=== PATIENT | female | born 1960 | race African-American/Black ===

== ENCOUNTER 2017-07-23 10:48 | Emergency (ER) | payer MEDICARE, OTHER ==
[2017-07-23 11:26] VITALS: BP 141/67; PULSE 78; RESP 18; TEMP 98.9
--- NOTE | 2017-07-23 11:50 | ED ---
General Adult HPI - General Chief complaint: ENT Stated complaint: L ear problems Time Seen by Provider: 07/23/17 11:20 Source: patient, RN notes reviewed Mode of arrival: ambulatory Limitations: no limitations - History of Present Illness Initial comments: This a 57-year-old female presents emergency department stating that a nurse looked in her ear and told her she had some blood in her so she was sent to the emergency department. Patient states she has had some muffled hearing out of that ear. Patient states she's had upper respiratory infection has had a little bit of pain in that ear. Patient denies any fever. Patient denies any drainage. Patient states the blood in her ear might be from using a Q-tip that she poked herself in the ear canal the other day. Patient denies any difficulty breathing or shortness of breath per patient denies a cough. Patient denies any fever or chills. - Related Data Home Medications Medication Instructions Recorded Confirmed Atorvastatin [Lipitor] 20 mg PO HS 07/23/17 07/23/17 Levothyroxine Sodium [Synthroid] 88 mcg PO DAILY 07/23/17 07/23/17 Previous Rx's Medication Instructions Recorded Amoxicillin 500 mg PO Q8H #30 capsule 07/23/17 Allergies Allergy/AdvReac Type Severity Reaction Status Date / Time No Known Allergies Allergy Verified 07/23/17 11:42 Review of Systems ROS Statement: Those systems with pertinent positive or pertinent negative responses have been documented in the HPI. ROS Other: All systems not noted in ROS Statement are negative. Past Medical History Past Medical History: Hyperlipidemia, Thyroid Disorder Additional Past Medical History / Comment(s): Back pain History of Any Multi-Drug Resistant Organisms: None Reported Additional Past Surgical History / Comment(s): Thyroidectomy, carpal tunnel surgery Past Psychological History: No Psychological Hx Reported Smoking Status: Current every day smoker Past Alcohol Use History: None Reported Past Drug Use History: None Reported General Exam - General Exam Comments Initial Comments: GENERAL Patient is well-developed and well-nourished. Patient is in mild distress. EYES Patient's pupils are equal and round. Extraocular motion is intact ENT Right ear canal shows some dried blood but there is no damage to the tympanic membrane. Rations membrane is bulging and mildly erythematous. SKIN Unremarkable NEURO The patient is alert and oriented 3 PYSCH Patient has normal interpersonal interactions. MUSCULOSKELETAL All 4 times and full range of motion. Limitations: no limitations Course Vital Signs 07/23/17 11:23 Temperature 98.9 F Pulse Rate 78 Respiratory 18 Rate Blood Pressure 141/67 O2 Sat by Pulse 97 Oximetry Disposition Clinical Impression: Otitis media, Ear canal abrasion Disposition: HOME SELF-CARE Condition: Good Instructions: Otitis Media (ED) Prescriptions: Amoxicillin 500 mg PO Q8H #30 capsule Referrals: None,Stated [Primary Care Provider] - 1-2 days Time of Disposition: 11:50
== END 2017-07-23 12:23 | disposition home or self-care (01) ==
LOC: EC 10:48 → MERGE 10:48 → EC 12:23
DX: S00.412A Abrasion of left ear, initial encounter (principal); H66.92 Otitis media, unspecified, left ear; E78.5 Hyperlipidemia, unspecified; E07.9 Disorder of thyroid, unspecified; F17.200 Nicotine dependence, unspecified, uncomplicated; Z79.899 Other long term (current) drug therapy; X58.XXXA Exposure to other specified factors, initial encounter
CPT/HCPCS: 99282

== ENCOUNTER 2017-10-10 02:12 | Emergency (ER) | payer MEDICARE, OTHER ==
[2017-10-10 02:21] VITALS: RESP 18
[2017-10-10] MEDS ORDERED: RX INFO: IV CONTRAST WAS GIVEN 1 EACH MISC MISCELLANE PRN (02:44)
[2017-10-10] MEDS ORDERED: SODIUM CHLORIDE 0.9% 1,000 ML IV STA (02:44)
--- NOTE | 2017-10-10 02:48 | ED ---
General Adult HPI - General Chief complaint: Abdominal Pain Stated complaint: Constipation Time Seen by Provider: 10/10/17 02:29 Source: patient, family, RN notes reviewed Mode of arrival: ambulatory Limitations: no limitations - History of Present Illness Initial comments: Patient is a pleasant 57-year-old female presenting to the emergency Department with feeling constipated. Patient states last normal bowel movement was close to 2 weeks ago. Patient feels full. Patient has tried several over-the- counter oral therapies for constipation without improvement of symptoms. Patient was recently diagnosed with stage IV gastric cancer. Patient just started chemotherapy over 1 week ago. No nausea or vomiting. No diarrhea. No fever. Discomfort is mild and feels fullness in the abdomen. - Related Data Home Medications Medication Instructions Recorded Confirmed Atorvastatin [Lipitor] 20 mg PO HS 07/23/17 07/23/17 Levothyroxine Sodium [Synthroid] 88 mcg PO DAILY 07/23/17 07/23/17 Previous Rx's Medication Instructions Recorded Amoxicillin 500 mg PO Q8H #30 capsule 07/23/17 Levofloxacin [Levaquin] 500 mg PO DAILY #9 tab 10/10/17 Allergies Allergy/AdvReac Type Severity Reaction Status Date / Time No Known Allergies Allergy Verified 10/10/17 02:21 Review of Systems ROS Statement: Those systems with pertinent positive or pertinent negative responses have been documented in the HPI. ROS Other: All systems not noted in ROS Statement are negative. Constitutional: Denies: fever Eyes: Denies: eye pain ENT: Denies: ear pain Respiratory: Denies: cough Cardiovascular: Denies: chest pain Endocrine: Denies: fatigue Gastrointestinal: Reports: abdominal pain, constipation Genitourinary: Denies: dysuria Musculoskeletal: Denies: back pain Skin: Denies: rash Neurological: Denies: weakness Past Medical History Past Medical History: Cancer, Hyperlipidemia, Thyroid Disorder Additional Past Medical History / Comment(s): Back pain, gastrointestinal CA History of Any Multi-Drug Resistant Organisms: None Reported Additional Past Surgical History / Comment(s): Thyroidectomy, carpal tunnel surgery Past Psychological History: No Psychological Hx Reported Smoking Status: Current every day smoker Past Alcohol Use History: None Reported Past Drug Use History: None Reported General Exam Limitations: no limitations General appearance: alert, in no apparent distress Head exam: Present: atraumatic Eye exam: Present: normal appearance, PERRL ENT exam: Present: normal oropharynx Neck exam: Present: normal inspection Respiratory exam: Present: normal lung sounds bilaterally Cardiovascular Exam: Present: regular rate, normal rhythm GI/Abdominal exam: Present: soft, normal bowel sounds. Absent: distended, tenderness, guarding, rebound, rigid Extremities exam: Present: normal inspection Neurological exam: Present: alert Psychiatric exam: Present: normal affect, normal mood Skin exam: Present: normal color Course Vital Signs 10/10/17 10/10/17 02:17 04:10 Temperature 97.5 F L 97.8 F Pulse Rate 103 H 92 Respiratory 18 18 Rate Blood Pressure 140/80 128/68 O2 Sat by Pulse 93 L 95 Oximetry Medical Decision Making - Medical Decision Making Patient reevaluated and updated. Case was discussed in detail with Dr. Davenport secondary to x-ray and CT findings. Patient clinically does not appear to have pneumonia. No dyspnea or fevers or abnormal lung sounds. He does recommend patient be treated with antibiotics however otherwise can be discharged and follow-up. - Lab Data Result diagrams: 10/10/17 02:59 10/10/17 02:59 Lab Results 10/10/17 10/10/17 10/10/17 Range/Units 02:59 02:59 02:59 WBC 7.1 (3.8-10.6) k/uL RBC 5.05 (3.80-5.40) m/uL Hgb 13.3 (11.4-16.0) gm/dL Hct 40.9 (34.0-46.0) % MCV 80.9 (80.0-100.0) fL MCH 26.4 (25.0-35.0) pg MCHC 32.6 (31.0-37.0) g/dL RDW 12.9 (11.5-15.5) % Plt Count 352 (150-450) k/uL Neutrophils % 71 % Lymphocytes % 23 % Monocytes % 1 % Eosinophils % 4 % Basophils % 0 % Neutrophils # 5.0 (1.3-7.7) k/uL Lymphocytes # 1.7 (1.0-4.8) k/uL Monocytes # 0.1 (0-1.0) k/uL Eosinophils # 0.3 (0-0.7) k/uL Basophils # 0.0 (0-0.2) k/uL PT 10.0 (9.0-12.0) sec INR 1.0 (<1.2) APTT 26.8 (22.0-30.0) sec Sodium 136 L (137-145) mmol/L Potassium 3.8 (3.5-5.1) mmol/L Chloride 97 L (98-107) mmol/L Carbon Dioxide 30 (22-30) mmol/L Anion Gap 9 mmol/L BUN 12 (7-17) mg/dL Creatinine 0.90 (0.52-1.04) mg/dL Est GFR (MDRD) Af Amer >60 (>60 ml/min/1.73 sqM) Est GFR (MDRD) Non-Af >60 (>60 ml/min/1.73 sqM) Glucose 101 H (74-99) mg/dL Calcium 8.3 L (8.4-10.2) mg/dL Total Bilirubin 0.3 (0.2-1.3) mg/dL AST 13 L (14-36) U/L ALT 17 (9-52) U/L Alkaline Phosphatase 165 H (38-126) U/L Total Protein 6.0 L (6.3-8.2) g/dL Albumin 3.3 L (3.5-5.0) g/dL Amylase 45 (30-110) U/L Lipase 49 (23-300) U/L Urine Color Urine Appearance (Clear) Urine pH (5.0-8.0) Ur Specific [place] (1.001-1.035) Urine Protein (Negative) Urine Glucose (UA) (Negative) Urine Ketones (Negative) Urine Blood (Negative) Urine Nitrite (Negative) Urine Bilirubin (Negative) Urine Urobilinogen (<2.0) mg/dL Ur Leukocyte Esterase (Negative) Urine RBC (0-5) /hpf Urine WBC (0-5) /hpf Ur Squamous Epith Cells (0-4) /hpf Urine Mucus (None) /hpf 10/10/17 Range/Units 03:39 WBC (3.8-10.6) k/uL RBC (3.80-5.40) m/uL Hgb (11.4-16.0) gm/dL Hct (34.0-46.0) % MCV (80.0-100.0) fL MCH (25.0-35.0) pg MCHC (31.0-37.0) g/dL RDW (11.5-15.5) % Plt Count (150-450) k/uL Neutrophils % % Lymphocytes % % Monocytes % % Eosinophils % % Basophils % % Neutrophils # (1.3-7.7) k/uL Lymphocytes # (1.0-4.8) k/uL Monocytes # (0-1.0) k/uL Eosinophils # (0-0.7) k/uL Basophils # (0-0.2) k/uL PT (9.0-12.0) sec INR (<1.2) APTT (22.0-30.0) sec Sodium (137-145) mmol/L Potassium (3.5-5.1) mmol/L Chloride (98-107) mmol/L Carbon Dioxide (22-30) mmol/L Anion Gap mmol/L BUN (7-17) mg/dL Creatinine (0.52-1.04) mg/dL Est GFR (MDRD) Af Amer (>60 ml/min/1.73 sqM) Est GFR (MDRD) Non-Af (>60 ml/min/1.73 sqM) Glucose (74-99) mg/dL Calcium (8.4-10.2) mg/dL Total Bilirubin (0.2-1.3) mg/dL AST (14-36) U/L ALT (9-52) U/L Alkaline Phosphatase (38-126) U/L Total Protein (6.3-8.2) g/dL Albumin (3.5-5.0) g/dL Amylase (30-110) U/L Lipase (23-300) U/L Urine Color Yellow Urine Appearance Clear (Clear) Urine pH 8.5 H (5.0-8.0) Ur Specific [place] 1.022 (1.001-1.035) Urine Protein 1+ H (Negative) Urine Glucose (UA) 1+ H (Negative) Urine Ketones Negative (Negative) Urine Blood Negative (Negative) Urine Nitrite Negative (Negative) Urine Bilirubin Negative (Negative) Urine Urobilinogen <2.0 (<2.0) mg/dL Ur Leukocyte Esterase Negative (Negative) Urine RBC 1 (0-5) /hpf Urine WBC 2 (0-5) /hpf Ur Squamous Epith Cells 4 (0-4) /hpf Urine Mucus Rare H (None) /hpf - Radiology Data Radiology results: report reviewed (Computed tomography scan of the abdomen and pelvis does show moderate constipation. Extensive pulmonary infiltrates.), image reviewed (Two-view chest x-ray shows extensive pulmonary infiltrates. Effusion.) Disposition Clinical Impression: Pneumonia, Constipation Disposition: HOME SELF-CARE Condition: Stable Instructions: Community Acquired Pneumonia (ED), Constipation (ED), High Fiber Diet (ED), Fleet Enema (ED) Additional Instructions: Please follow-up with your primary care physician as well as Dr. Davenport in the next day or 2 for recheck. Return for difficulty in breathing, fevers, abdominal pain, worsening symptoms or other concerns. Prescriptions: Levofloxacin [Levaquin] 500 mg PO DAILY #9 tab Referrals: Marco Antonio Montesinos MD [Primary Care Provider] - 1-2 days Time of Disposition: 04:32
[2017-10-10 03:15] LABS: Basophils % (A) 0 %; Eosinophils # (A) 0.3 k/uL (0-0.7); Eosinophils % (A) 4 %; HCT 40.9 % (34.0-46.0); HGB 13.3 gm/dL (11.4-16.0); Lymphocytes # (A) 1.7 k/uL (1.0-4.8); Lymphocytes % (A) 23 %; MCH 26.4 pg (25.0-35.0); MCHC 32.6 g/dL (31.0-37.0); MCV 80.9 fL (80.0-100.0); Mean Platelet Volume 6.6; Monocytes # (A) 0.1 k/uL (0-1.0); Monocytes % (A) 1 %; Neutrophils % (A) 71 %; Platelet Count 352 k/uL (150-450); RBC 5.05 m/uL (3.80-5.40); RDW 12.9 % (11.5-15.5); WBC 7.1 k/uL (3.8-10.6)
[2017-10-10 03:24] LABS: ALT 17 U/L (9-52); AST 13 U/L (14-36); Albumin 3.3 g/dL (3.5-5.0); Alkaline Phosphatase 165 U/L (38-126); Amylase 45 U/L (30-110); Anion Gap 9 mmol/L; Blood Urea Nitrogen 12 mg/dL (7-17); Calcium 8.3 mg/dL (8.4-10.2); Carbon Dioxide 30 mmol/L (22-30); Chloride 97 mmol/L (98-107); Glucose 101 mg/dL (74-99); Lipase 49 U/L (23-300); Potassium 3.8 mmol/L (3.5-5.1); Sodium 136 mmol/L (137-145); Total Bilirubin 0.3 mg/dL (0.2-1.3)
[2017-10-10 03:35] LABS: Partial Thromboplastin Time 26.8 sec (22.0-30.0)
--- NOTE | 2017-10-10 03:37 | CT ---
EXAMINATION TYPE: CT abdomen pelvis w con DATE OF EXAM: 10/10/2017 COMPARISON: NONE HISTORY: constipation CT DLP: 609.70 mGycm Automated exposure control for dose reduction was used. TECHNIQUE: Helical acquisition of images was performed from the lung bases through the pelvis. CONTRAST: Performed without Oral Contrast and with IV Contrast, patient injected with 100 mL of Omnipaque 300. FINDINGS: There are bilateral pleural effusions. There is extensive bilateral lower lobe pulmonary infiltrates. There is no pericardial effusion. Liver shows no focal defect. Spleen appears normal. There is no sign of a pancreatic mass. Gallbladde r appears normal. Bile ducts are not dilated. There is no adrenal mass. Kidneys show satisfactory contrast opacification. There is a 6 mm calculus in the lower pole right kidney. There is a 3 mm calculus interpolar right kidney. There is no hydrone phrosis. There is no retroperitoneal adenopathy. There is moderate retained fecal material throughout the left colon. There is mild ascites fluid with fluid seen in the right paracolic gutter. Bladder distends smoothly. There is a small amount of free fluid in the pelvis. There is spondylosis at L5-S1. I see no jamie john fracture in the lumbar spine. I see no focal bone destruction. Uterus is anteverted with small c alcified uterine fibroids. Appendix is not seen. I see no sign of appendicitis. IMPRESSION: BILATERAL PLEURAL EFFUSIONS. EXTENSIVE PULMONARY INFILTRATES IN THE VISUALIZED LOWER LUNG JOSEPH. MILD ASCITES. NO FREE AIR. MODERATE CONSTIPATION. RECTUM IS DILATED TO 8 CM. NONOBSTRUCTING RIGHT RENAL CALCULI. NUMEROUS UTERINE FIBROIDS. EXAM IS LIMITED BY THE LACK OF ANY ORA L CONTRAST.
--- NOTE | 2017-10-10 03:40 | XR ---
EXAMINATION TYPE: XR chest 2V DATE OF EXAM: 10/10/2017 COMPARISON: NONE HISTORY: Cough. History of gastric malignancy. TECHNIQUE: Frontal and lateral views of the chest are obtained. FINDINGS: There are extensive bilateral pulmonary infiltrates. There is right central venous cathete r with the tip in the superior cava. There is blunting of costophrenic angles. There is consolidation at the lung bases. This is worse on the right side. IMPRESSION: Extensive pneumonic infiltrates. Pleural effusions. Pulmonary vascularity is difficult t o evaluate. Heart failure cannot be excluded.
[2017-10-10 03:55] LABS: Appearance,Urine Clear (Clear); Bilirubin,Urine Negative (Negative); Blood,Urine Negative (Negative); Color,Urine Yellow; Glucose,Urine (UA) 1+ (Negative); Ketones,Urine Negative (Negative); Leukocyte Esterase,Urine Negative (Negative); Mucus,Urine Rare /hpf; Nitrite,Urine Negative (Negative); PH, Urine 8.5 (5.0-8.0); Protein,Urine 1+ (Negative); RBC,Urine 1 /hpf (0-5); Specific Gravity,Urine 1.022 (1.001-1.035); Squamous Epithelial Cell,Urine 4 /hpf (0-4); Urobilinogen,Urine <2.0 mg/dL (<2.0); WBC,Urine 2 /hpf (0-5)
[2017-10-10] MEDS ORDERED: LACTULOSE 20 GM/30 ML CUP PO ONE (04:32)
[2017-10-10] MEDS ORDERED: LEVOFLOXACIN 750 MG TAB PO STA (04:32)
[2017-10-10 04:57] VITALS: BP 129/71; PULSE 90; TEMP 97
== END 2017-10-10 05:23 | disposition home or self-care (01) ==
LOC: EC 02:12
DX: J18.9 Pneumonia, unspecified organism (principal); K59.00 Constipation, unspecified; R10.9 Unspecified abdominal pain; C26.9 Malignant neoplasm of ill-defined sites within the digestive system; E78.5 Hyperlipidemia, unspecified; E07.9 Disorder of thyroid, unspecified; F17.200 Nicotine dependence, unspecified, uncomplicated; Z79.899 Other long term (current) drug therapy
CPT/HCPCS: 36415; 80053; 82150; 83690; 85025; 85610; 85730; 81001; 71046; 74177; 99284; 96360; 96361; Q9967

== ENCOUNTER → 2017-11-07 | Outpatient (CLI) | payer MEDICARE, OTHER ==
--- NOTE | 2017-11-07 11:29 | US ---
EXAMINATION TYPE: US venous doppler duplex LE LT DATE OF EXAM: 11/07/2017 11:11 AM COMPARISON: NONE CLINICAL HISTORY: R22.42 Swelling LLL. Left leg swelling SIDE PERFORMED: Left TECHNIQUE: The lower extremity deep venous system is examined utilizing real time linear array sonog daisha with graded compression, doppler sonography and color-flow sonography. VESSELS IMAGED: External Iliac Vein (EIV) Common Femoral Vein Deep Femoral Vein Greater Saphenous Vein * Femoral Vein Popliteal Vein Small Saphenous Vein * Proximal Calf Veins (* superficial vessels) Left Leg: Appears negative for DVT IMPRESSION: 1. Left lower extremity negative for deep venous thrombosis
== END | disposition home or self-care (01) ==
LOC: RADUSWWP 10:49
PROVIDERS: ATTEND Internal Medicine Hematology & Oncology
DX: R22.42 Localized swelling, mass and lump, left lower limb (principal)

== ENCOUNTER → 2018-01-03 | Outpatient (CLI) | payer MEDICARE, OTHER ==
--- NOTE | 2018-01-03 11:06 | XR ---
EXAMINATION TYPE: XR chest 2V DATE OF EXAM: 01/03/2018 COMPARISON: 10/10/2017 HISTORY: Gastric carcinoma and shortness of breath. TECHNIQUE: Frontal and lateral views of the chest are obtained. FINDINGS: Right-sided Mediport is coiled within the right lateral neck and terminates in the region of the brachiocephalic vein, retracted from the prior exam. There is increasing confluence of the right midlung opacity and at least trace pleural effusions blun ting the costophrenic angles. There is diffuse pulmonary edema in the interstitial with a few patchy alveolar densities throughout likely representing additional alveolar edema. Cardiomediastinal silhou ette is partially obscured but stable from the prior, overall nonenlarged. Partial visualization of c ervical fusion device is seen. Osseous structures are grossly intact with minimal degenerative change s of the midthoracic spine. IMPRESSION: 1. Increasing confluence of the right midlung opacity suspicious for pneumonia. Follow-up to resoluti on to exclude underlying pulmonary nodule. 2. Diffuse interstitial prominence favoring interstitial pulmonary edema, progressed from the prior w ith at least trace bilateral pleural effusions. 3. Interval retraction of the right-sided Mediport in comparison to the prior.
== END | disposition home or self-care (01) ==
LOC: RADXRMAIN 10:50
PROVIDERS: ATTEND Internal Medicine Hematology & Oncology
DX: R91.8 Other nonspecific abnormal finding of lung field (principal); C16.2 Malignant neoplasm of body of stomach; E78.5 Hyperlipidemia, unspecified; E03.9 Hypothyroidism, unspecified; Z71.3 Dietary counseling and surveillance
CPT/HCPCS: 71046

== ENCOUNTER 2018-01-08 16:39 | Emergency (ER) | payer MEDICARE, OTHER ==
[2018-01-08 16:48] VITALS: TEMP 99.2
[2018-01-08] MEDS ORDERED: SODIUM CHLORIDE 0.9% 1,000 ML IV STA ×2 (16:54)
[2018-01-08 17:16] LABS: Anisocytosis Moderate; Basophils % (A) 0 %; Eosinophils # (A) 0.2 k/uL (0-0.7); Eosinophils % (A) 1 %; HCT 41.2 % (34.0-46.0); HGB 13.5 gm/dL (11.4-16.0); Lymphocytes # (A) 2.7 k/uL (1.0-4.8); Lymphocytes % (A) 20 %; MCH 30.4 pg (25.0-35.0); MCHC 32.8 g/dL (31.0-37.0); MCV 92.7 fL (80.0-100.0); Macrocytosis Slight; Mean Platelet Volume 6.8; Monocytes # (A) 0.6 k/uL (0-1.0); Monocytes % (A) 5 %; Neutrophils # (A) 9.7 k/uL (1.3-7.7); Neutrophils % (A) 73 %; Platelet Count 268 k/uL (150-450); RBC 4.44 m/uL (3.80-5.40); RDW 22.9 % (11.5-15.5); WBC 13.4 k/uL (3.8-10.6)
[2018-01-08 17:24] LABS: Albumin 4.2 g/dL (3.5-5.0); Calcium 7.5 mg/dL (8.4-10.2); Potassium 4.6 mmol/L (3.5-5.1); Total Bilirubin 0.4 mg/dL (0.2-1.3); Total Protein 7.2 g/dL (6.3-8.2)
[2018-01-08 17:29] LABS: INR 1.1 (<1.2); Partial Thromboplastin Time 26.2 sec (22.0-30.0); Prothrombin Time 10.4 sec (9.0-12.0)
[2018-01-08 17:35] LABS: Creatine Kinase 140 U/L (30-135)
--- NOTE | 2018-01-08 17:37 | XR ---
EXAMINATION TYPE: XR chest 2V DATE OF EXAM: 01/08/2018 COMPARISON: 01/03/18 HISTORY: Shortness of breath TECHNIQUE: Frontal and lateral views of the chest are obtained. FINDINGS: Scattered senescent parenchymal changes noted. Hyperinflation compatible with COPD. Diffuse air space infiltrates persist. Small effusions persist. Mediport catheter. Heart size is stable. Mediastinal structures are stable and grossly unremarkable. No evidence for hilar prominence. Degenerative changes dorsal spine. IMPRESSION: 1. Stable chest
[2018-01-08 17:48] LABS: Creatine Kinase MB 0.6 ng/mL (0.0-2.4); Troponin I <0.012 ng/mL (0.000-0.034)
[2018-01-08 18:22] VITALS: BP 98/57; PULSE 88; RESP 18
--- NOTE | 2018-01-08 18:25 | ED ---
General Adult HPI - General Chief complaint: Altered Mental Status Stated complaint: Fall Time Seen by Provider: 01/08/18 16:42 Source: EMS, RN notes reviewed Mode of arrival: EMS Limitations: no limitations - History of Present Illness Initial comments: 57-year-old female significant past medical history for gastrointestinal cancer , presenting to the emergency room by EMS, the chief complaint of possible overdose. Patient does use cannabis butter and it is believed that she was given an extra dose. Patient was also unremarkable as well. Patient is unresponsive is alert and oriented has no complaints. Family members do admit that she's been more tired and sleepy this afternoon. They deny any other complaints per she's currently being treated for pneumonia is currently on antibiotics. - Related Data Home Medications Medication Instructions Recorded Confirmed Atorvastatin [Lipitor] 20 mg PO HS 07/23/17 01/08/18 Levothyroxine Sodium [Synthroid] 88 mcg PO DAILY 07/23/17 01/08/18 Acetaminophen Tab [Tylenol Tab] 500 mg PO Q6H PRN 01/08/18 01/08/18 Capecitabine [Xeloda] 1,000 mg PO BID 01/08/18 01/08/18 Capecitabine [Xeloda] 150 mg PO BID 01/08/18 01/08/18 Furosemide [Lasix] 20 mg PO DAILY 01/08/18 01/08/18 HYDROcodone/APAP 10-325MG [[place] 1 tab PO QID PRN 01/08/18 01/08/18 10-325] Potassium Chloride ER [K-Dur 10] 10 meq PO DAILY 01/08/18 01/08/18 Previous Rx's Medication Instructions Recorded Levofloxacin [Levaquin] 500 mg PO DAILY #9 tab 10/10/17 Allergies Allergy/AdvReac Type Severity Reaction Status Date / Time No Known Allergies Allergy Verified 01/08/18 17:24 Review of Systems ROS Statement: Those systems with pertinent positive or pertinent negative responses have been documented in the HPI. ROS Other: All systems not noted in ROS Statement are negative. Past Medical History Past Medical History: Cancer, Hyperlipidemia, Thyroid Disorder Additional Past Medical History / Comment(s): Back pain, gastrointestinal CA History of Any Multi-Drug Resistant Organisms: None Reported Additional Past Surgical History / Comment(s): Thyroidectomy, carpal tunnel surgery Past Psychological History: No Psychological Hx Reported Smoking Status: Current every day smoker Past Alcohol Use History: None Reported Past Drug Use History: None Reported General Exam - General Exam Comments Initial Comments: General: The patient is awake and alert, in no distress, and does not appear acutely ill. Eye: Pupils are equal, round and reactive to light, extra-ocular movements are intact. No nystagmus. There is normal conjunctiva bilaterally. No signs of icterus. Ears, nose, mouth and throat: There are moist mucous membranes and no oral lesions. Neck: The neck is supple, there is no tenderness or JVD. Cardiovascular: There is a regular rate and rhythm. No murmur, rub or gallop is appreciated. Respiratory: Lungs are clear to auscultation, respirations are non-labored, breath sounds are equal. No wheezes, stridor, rales, or rhonchi. Gastrointestinal: Soft, non-distended, non-tender abdomen without masses or organomegaly noted. There is no rebound or guarding present. No CVA tenderness. Musculoskeletal: Normal ROM, no tenderness. Strength 5/5. Sensation intact. Pulses equal bilaterally 2+. Neurological: A&O x 3. CN II-XII intact, There are no obvious motor or sensory deficits. Coordination appears grossly intact. Speech is normal. Skin: Skin is warm and dry and no rashes or lesions are noted. Psychiatric: Cooperative, appropriate mood & affect, normal judgment. Limitations: no limitations Course Vital Signs 01/08/18 01/08/18 01/08/18 16:42 16:57 18:20 Temperature 99.2 F Pulse Rate 124 H 88 Respiratory 26 H 24 18 Rate Blood Pressure 140/76 98/57 O2 Sat by Pulse 100 99 Oximetry EKG Findings - EKG Comments: EKG Findings:: EKG performed at 1734 shows sinus tachycardia 109 bpm. OH interval 150. QRS 74. QT/QTC 366/402. No acute ST changes. Medical Decision Making - Medical Decision Making Case discussed in detail with attending physician Dr. Ramsay. Patient alert oriented in the emergency room. Has no complaints. Patient chest x-ray showing no acute changes. Currently on antibiotics for pneumonia. Patient's vital stable in emergency room will be discharged home to follow-up with the family doctor or oncologist tomorrow. - Lab Data Result diagrams: 01/08/18 16:56 01/08/18 16:56 Lab Results 01/08/18 01/08/18 01/08/18 Range/Units 16:56 16:56 16:56 WBC 13.4 H (3.8-10.6) k/uL RBC 4.44 (3.80-5.40) m/uL Hgb 13.5 (11.4-16.0) gm/dL Hct 41.2 (34.0-46.0) % MCV 92.7 (80.0-100.0) fL MCH 30.4 (25.0-35.0) pg MCHC 32.8 (31.0-37.0) g/dL RDW 22.9 H (11.5-15.5) % Plt Count 268 (150-450) k/uL Neutrophils % 73 % Lymphocytes % 20 % Monocytes % 5 % Eosinophils % 1 % Basophils % 0 % Neutrophils # 9.7 H (1.3-7.7) k/uL Lymphocytes # 2.7 (1.0-4.8) k/uL Monocytes # 0.6 (0-1.0) k/uL Eosinophils # 0.2 (0-0.7) k/uL Basophils # 0.0 (0-0.2) k/uL Anisocytosis Moderate Macrocytosis Slight PT (9.0-12.0) sec INR (<1.2) APTT (22.0-30.0) sec Sodium 134 L (137-145) mmol/L Potassium 4.6 (3.5-5.1) mmol/L Chloride 100 (98-107) mmol/L Carbon Dioxide 23 (22-30) mmol/L Anion Gap 11 mmol/L BUN 11 (7-17) mg/dL Creatinine 0.90 (0.52-1.04) mg/dL Est GFR (CKD-EPI)AfAm 83 (>60 ml/min/1.73 sqM) Est GFR (CKD-EPI)NonAf 72 (>60 ml/min/1.73 sqM) Glucose 131 H (74-99) mg/dL Plasma Lactic Acid Dmitriy (0.7-2.0) mmol/L Calcium 7.5 L (8.4-10.2) mg/dL Total Bilirubin 0.4 (0.2-1.3) mg/dL AST 20 (14-36) U/L ALT 17 (9-52) U/L Alkaline Phosphatase 115 (38-126) U/L Total Creatine Kinase 140 H (30-135) U/L CK-MB (CK-2) 0.6 (0.0-2.4) ng/mL CK-MB (CK-2) Rel Index 0.4 Troponin I <0.012 (0.000-0.034) ng/mL Total Protein 7.2 (6.3-8.2) g/dL Albumin 4.2 (3.5-5.0) g/dL 01/08/18 01/08/18 Range/Units 16:56 16:56 WBC (3.8-10.6) k/uL RBC (3.80-5.40) m/uL Hgb (11.4-16.0) gm/dL Hct (34.0-46.0) % MCV (80.0-100.0) fL MCH (25.0-35.0) pg MCHC (31.0-37.0) g/dL RDW (11.5-15.5) % Plt Count (150-450) k/uL Neutrophils % % Lymphocytes % % Monocytes % % Eosinophils % % Basophils % % Neutrophils # (1.3-7.7) k/uL Lymphocytes # (1.0-4.8) k/uL Monocytes # (0-1.0) k/uL Eosinophils # (0-0.7) k/uL Basophils # (0-0.2) k/uL Anisocytosis Macrocytosis PT 10.4 (9.0-12.0) sec INR 1.1 (<1.2) APTT 26.2 (22.0-30.0) sec Sodium (137-145) mmol/L Potassium (3.5-5.1) mmol/L Chloride (98-107) mmol/L Carbon Dioxide (22-30) mmol/L Anion Gap mmol/L BUN (7-17) mg/dL Creatinine (0.52-1.04) mg/dL Est GFR (CKD-EPI)AfAm (>60 ml/min/1.73 sqM) Est GFR (CKD-EPI)NonAf (>60 ml/min/1.73 sqM) Glucose (74-99) mg/dL Plasma Lactic Acid Dmitriy 2.1 H* (0.7-2.0) mmol/L Calcium (8.4-10.2) mg/dL Total Bilirubin (0.2-1.3) mg/dL AST (14-36) U/L ALT (9-52) U/L Alkaline Phosphatase (38-126) U/L Total Creatine Kinase (30-135) U/L CK-MB (CK-2) (0.0-2.4) ng/mL CK-MB (CK-2) Rel Index Troponin I (0.000-0.034) ng/mL Total Protein (6.3-8.2) g/dL Albumin (3.5-5.0) g/dL Disposition Clinical Impression: Accidental overdose, Weakness Disposition: HOME SELF-CARE Condition: Good Instructions: Weakness (ED) Additional Instructions: Please follow-up the family doctor and oncologist tomorrow. Please emergency room if any symptoms increase or worsen or for any other concerns. Is patient prescribed a controlled substance at d/c from ED?: No Referrals: Marco Antonio Montesinos MD [Primary Care Provider] - 1-2 days Time of Disposition: 18:22
== END 2018-01-08 18:45 | disposition home or self-care (01) ==
LOC: EC 16:39
DX: T40.7X1A Poisoning by cannabis (derivatives), accidental (unintentional), initial encounter (principal); R53.1 Weakness; E78.5 Hyperlipidemia, unspecified; E07.9 Disorder of thyroid, unspecified; C26.9 Malignant neoplasm of ill-defined sites within the digestive system; F17.200 Nicotine dependence, unspecified, uncomplicated; Z79.899 Other long term (current) drug therapy
CPT/HCPCS: 36415; 71046; 80053; 82550; 82553; 83605; 84484; 85025; 85610; 85730; 87040; 93005; 96360; 99285

== ENCOUNTER 2018-01-10 11:51 | Inpatient (IN) | payer MEDICARE, OTHER ==
[2018-01-10] MEDS ORDERED: RX INFO: IV CONTRAST WAS GIVEN 1 EACH MISC MISCELLANE PRN (12:37)
--- NOTE | 2018-01-10 12:41 | ED ---
General Adult HPI - General Chief complaint: Shortness of Breath Stated complaint: Low O2 Time Seen by Provider: 01/10/18 12:25 Source: patient, RN notes reviewed Mode of arrival: wheelchair Limitations: no limitations - History of Present Illness Initial comments: Patient is a pleasant 57-year-old female presenting to the emergency department with difficulty in breathing. Onset of symptoms was close to a month ago. Symptoms have progressively worsened, especially last couple of days. Patient does have cough with white sputum production. Patient is a smoker. Patient has not previously been diagnosed with COPD. Patient was in the emergency department couple of days ago with reported normal x-ray. Patient did go to oncology office this morning and found to have low oxygen. They did request computed tomography scan. Patient does have a known history of stage IV stomach cancer. Patient did complete chemotherapy and is on maintenance medication at this time. There is no known lung involvement. - Related Data Home Medications Medication Instructions Recorded Confirmed Atorvastatin [Lipitor] 20 mg PO HS 07/23/17 01/10/18 Levothyroxine Sodium [Synthroid] 88 mcg PO DAILY 07/23/17 01/10/18 Acetaminophen Tab [Tylenol Tab] 500 mg PO Q6H PRN 01/08/18 01/10/18 Capecitabine [Xeloda] 1,000 mg PO BID 01/08/18 01/10/18 Capecitabine [Xeloda] 150 mg PO BID 01/08/18 01/10/18 HYDROcodone/APAP 10-325MG [[place] 1 tab PO QID PRN 01/08/18 01/10/18 10-325] Previous Rx's Medication Instructions Recorded Levofloxacin [Levaquin] 500 mg PO DAILY #9 tab 10/10/17 Allergies Allergy/AdvReac Type Severity Reaction Status Date / Time No Known Allergies Allergy Verified 01/10/18 11:59 Review of Systems ROS Statement: Those systems with pertinent positive or pertinent negative responses have been documented in the HPI. ROS Other: All systems not noted in ROS Statement are negative. Constitutional: Denies: fever Eyes: Denies: eye pain ENT: Denies: ear pain Respiratory: Reports: cough, dyspnea Cardiovascular: Denies: chest pain Endocrine: Reports: fatigue Gastrointestinal: Denies: abdominal pain Genitourinary: Denies: dysuria Musculoskeletal: Denies: back pain Skin: Denies: rash Neurological: Denies: headache Past Medical History Past Medical History: Cancer, Hyperlipidemia, Thyroid Disorder Additional Past Medical History / Comment(s): Back pain, gastrointestinal CA. last chemo november 2017. pt is on po chemo daily History of Any Multi-Drug Resistant Organisms: None Reported Past Surgical History: Back Surgery Additional Past Surgical History / Comment(s): Thyroidectomy, carpal tunnel surgery Past Psychological History: No Psychological Hx Reported Smoking Status: Current every day smoker Past Alcohol Use History: None Reported Past Drug Use History: None Reported General Exam Limitations: no limitations General appearance: alert, in no apparent distress Head exam: Present: atraumatic Eye exam: Present: normal appearance, PERRL ENT exam: Present: normal oropharynx Neck exam: Present: normal inspection Respiratory exam: Present: rales (Mild left upper) Cardiovascular Exam: Present: tachycardia GI/Abdominal exam: Present: distended (Abdomen is mildly distended and firm. Patient feels this is normal for her.). Absent: tenderness Extremities exam: Present: normal inspection. Absent: pedal edema, calf tenderness Back exam: Present: normal inspection Neurological exam: Present: alert Psychiatric exam: Present: normal affect, normal mood Skin exam: Present: normal color Course Vital Signs 01/10/18 01/10/18 01/10/18 11:55 13:12 14:00 Temperature 98.6 F Pulse Rate 106 H 97 102 H Respiratory 22 20 20 Rate Blood Pressure 116/74 120/67 109/81 O2 Sat by Pulse 82 L 96 93 L Oximetry 01/10/18 15:00 Temperature Pulse Rate 98 Respiratory 20 Rate Blood Pressure 120/67 O2 Sat by Pulse 95 Oximetry - Reevaluation(s) Reevaluation #1: 01/10/18 16:39 Patient reevaluated. Patient and family updated. Pulse ox remains in the 90s with oxygen. Dr. Vines has been paged. Dr. Montesinos has also been paged. Medical Decision Making - Lab Data Result diagrams: 01/10/18 13:25 01/10/18 13:25 Lab Results 01/10/18 01/10/18 01/10/18 Range/Units 13:25 13:25 13:25 WBC 13.9 H (3.8-10.6) k/uL RBC 4.26 (3.80-5.40) m/uL Hgb 13.3 (11.4-16.0) gm/dL Hct 40.1 (34.0-46.0) % MCV 94.2 (80.0-100.0) fL MCH 31.3 (25.0-35.0) pg MCHC 33.2 (31.0-37.0) g/dL RDW 23.6 H (11.5-15.5) % Plt Count 249 (150-450) k/uL Neutrophils % 74 % Lymphocytes % 16 % Monocytes % 5 % Eosinophils % 2 % Basophils % 1 % Neutrophils # 10.4 H (1.3-7.7) k/uL Lymphocytes # 2.2 (1.0-4.8) k/uL Monocytes # 0.7 (0-1.0) k/uL Eosinophils # 0.3 (0-0.7) k/uL Basophils # 0.1 (0-0.2) k/uL Anisocytosis Moderate Macrocytosis Slight PT (9.0-12.0) sec INR (<1.2) APTT (22.0-30.0) sec Sodium 139 (137-145) mmol/L Potassium 4.6 (3.5-5.1) mmol/L Chloride 101 (98-107) mmol/L Carbon Dioxide 26 (22-30) mmol/L Anion Gap 12 mmol/L BUN 8 (7-17) mg/dL Creatinine 0.74 (0.52-1.04) mg/dL Est GFR (CKD-EPI)AfAm >90 (>60 ml/min/1.73 sqM) Est GFR (CKD-EPI)NonAf >90 (>60 ml/min/1.73 sqM) Glucose 102 H (74-99) mg/dL Calcium 7.0 L (8.4-10.2) mg/dL Magnesium 1.9 (1.6-2.3) mg/dL Total Bilirubin 1.1 (0.2-1.3) mg/dL AST 25 (14-36) U/L ALT 19 (9-52) U/L Alkaline Phosphatase 98 (38-126) U/L Total Creatine Kinase 129 (30-135) U/L CK-MB (CK-2) 0.6 (0.0-2.4) ng/mL CK-MB (CK-2) Rel Index 0.5 Troponin I 0.083 H* (0.000-0.034) ng/mL NT-Pro-B Natriuret Pep pg/mL Total Protein 6.4 (6.3-8.2) g/dL Albumin 3.6 (3.5-5.0) g/dL 01/10/18 01/10/18 Range/Units 13:25 13:25 WBC (3.8-10.6) k/uL RBC (3.80-5.40) m/uL Hgb (11.4-16.0) gm/dL Hct (34.0-46.0) % MCV (80.0-100.0) fL MCH (25.0-35.0) pg MCHC (31.0-37.0) g/dL RDW (11.5-15.5) % Plt Count (150-450) k/uL Neutrophils % % Lymphocytes % % Monocytes % % Eosinophils % % Basophils % % Neutrophils # (1.3-7.7) k/uL Lymphocytes # (1.0-4.8) k/uL Monocytes # (0-1.0) k/uL Eosinophils # (0-0.7) k/uL Basophils # (0-0.2) k/uL Anisocytosis Macrocytosis PT 11.3 (9.0-12.0) sec INR 1.2 H (<1.2) APTT 25.0 (22.0-30.0) sec Sodium (137-145) mmol/L Potassium (3.5-5.1) mmol/L Chloride (98-107) mmol/L Carbon Dioxide (22-30) mmol/L Anion Gap mmol/L BUN (7-17) mg/dL Creatinine (0.52-1.04) mg/dL Est GFR (CKD-EPI)AfAm (>60 ml/min/1.73 sqM) Est GFR (CKD-EPI)NonAf (>60 ml/min/1.73 sqM) Glucose (74-99) mg/dL Calcium (8.4-10.2) mg/dL Magnesium (1.6-2.3) mg/dL Total Bilirubin (0.2-1.3) mg/dL AST (14-36) U/L ALT (9-52) U/L Alkaline Phosphatase (38-126) U/L Total Creatine Kinase (30-135) U/L CK-MB (CK-2) (0.0-2.4) ng/mL CK-MB (CK-2) Rel Index Troponin I (0.000-0.034) ng/mL NT-Pro-B Natriuret Pep 1760 pg/mL Total Protein (6.3-8.2) g/dL Albumin (3.5-5.0) g/dL - Radiology Data Radiology results: image reviewed (Computed tomography scan of the chest concerning for bilateral effusions and probable metastasis diffusely. Diffuse interstitial spread. Possible osseous metastasis.) Disposition Clinical Impression: Hypoxia, Lung metastasis Disposition: ADMITTED IP TO THIS HOSP Is patient prescribed a controlled substance at d/c from ED?: No Referrals: Marco Antonio Montesinos MD [Primary Care Provider] - 1-2 days Decision Time: 16:40
[2018-01-10] MEDS ORDERED: MORPHINE SULFATE 4 MG/ML SYRINGE IVP STA (13:25)
[2018-01-10 13:33] LABS: Anisocytosis Moderate; Basophils # (A) 0.1 k/uL (0-0.2); Basophils % (A) 1 %; Eosinophils # (A) 0.3 k/uL (0-0.7); Eosinophils % (A) 2 %; HCT 40.1 % (34.0-46.0); HGB 13.3 gm/dL (11.4-16.0); Lymphocytes # (A) 2.2 k/uL (1.0-4.8); Lymphocytes % (A) 16 %; MCH 31.3 pg (25.0-35.0); MCHC 33.2 g/dL (31.0-37.0); MCV 94.2 fL (80.0-100.0); Macrocytosis Slight; Mean Platelet Volume 7.2; Monocytes # (A) 0.7 k/uL (0-1.0); Monocytes % (A) 5 %; Neutrophils # (A) 10.4 k/uL (1.3-7.7); Neutrophils % (A) 74 %; Platelet Count 249 k/uL (150-450); RBC 4.26 m/uL (3.80-5.40); RDW 23.6 % (11.5-15.5); WBC 13.9 k/uL (3.8-10.6)
[2018-01-10 13:57] LABS: ALT 19 U/L (9-52); AST 25 U/L (14-36); Albumin 3.6 g/dL (3.5-5.0); Alkaline Phosphatase 98 U/L (38-126); Anion Gap 12 mmol/L; Blood Urea Nitrogen 8 mg/dL (7-17); Carbon Dioxide 26 mmol/L (22-30); Chloride 101 mmol/L (98-107); Glucose 102 mg/dL (74-99); Magnesium 1.9 mg/dL (1.6-2.3); Sodium 139 mmol/L (137-145); Total Bilirubin 1.1 mg/dL (0.2-1.3); Total Protein 6.4 g/dL (6.3-8.2)
[2018-01-10 14:02] LABS: Potassium 4.6 mmol/L (3.5-5.1)
[2018-01-10 14:12] LABS: Creatine Kinase MB 0.6 ng/mL (0.0-2.4)
[2018-01-10 14:18] LABS: INR 1.2 (<1.2); Prothrombin Time 11.3 sec (9.0-12.0)
[2018-01-10 14:19] LABS: Troponin I 0.083 ng/mL (0.000-0.034)
--- NOTE | 2018-01-10 14:53 | CT ---
EXAMINATION TYPE: CT angio chest DATE OF EXAM: 01/10/2018 COMPARISON: Prior chest x-ray 01/08/2018 HISTORY: Low Oxygen; Possible PE CT DLP: 531 mGycm Automated exposure control for dose reduction was used. CONTRAST: CTA scan of the thorax is performed with IV Contrast, patient injected with 100 ml mL of Isovue 370, pulmonary embolism protocol. MIP images are created and reviewed. 3D reconstructed images are creat ed on an independent workstation and reviewed. FINDINGS: LUNGS: There are bilateral pleural effusions. Extensive reticular densities are present throughout th e lungs with associated groundglass opacities also present. Diffuse pleural thickening is present aye aterally. AORTA: No additional significant abnormality is seen. MEDIASTINUM: There is satisfactory enhancement of the pulmonary artery and its branches, there is no CT evidence for pulmonary embolism. There are no greater than 1 cm hilar or mediastinal lymph nodes. No pericardial effusion is seen. OTHER: Hourglass configuration is noted within the stomach possibly related to patient's known gastr ic carcinoma.. Sclerotic foci are scattered within the skeleton possibly related to metastatic disease. Postop hankins e noted to the lower cervical spine. IMPRESSION: FINDINGS TO SUGGEST POSSIBLE INTERSTITIAL SPREAD OF LUNG CARCINOMA WITH METASTATIC DISEASE TO THE PLE URA BILATERALLY ALTHOUGH FINDINGS ARE NOT SPECIFIC, THERE MAY BE OSSEOUS METASTATIC DISEASE. NO PULMO NARY EMBOLUS IS EVIDENT.
[2018-01-10] MEDS ORDERED: NALOXONE 0.4 MG/ML 1 ML VIAL IV PRN (16:41)
[2018-01-10] MEDS ORDERED: ACETAMINOPHEN TAB 325 MG TAB PO PRN (16:41)
[2018-01-10] MEDS ORDERED: IPRATROPIUM-ALBUTEROL 3 ML NEB INHALATION PRN (16:45)
[2018-01-10] MEDS ORDERED: PNEUMONIA PROTOCOL UTILIZED 1 EACH MISC PO PRN (16:45)
[2018-01-10] MEDS ORDERED: AZITHROMYCIN 500 MG in SODIUM CHLORIDE 0.9% 250 ML IVPB STA (16:47)
[2018-01-10] MEDS ORDERED: cefTRIAXone IN SWFI 1,000 MG/10 ML SYRINGE IVP STA (16:47)
[2018-01-10] MEDS ORDERED: predniSONE 20 MG TAB PO STA (17:02)
[2018-01-10] MEDS: SODIUM CHLORIDE 0.9% 1,000 ML IV SCH ×2 (17:20→17:21)
--- NOTE | 2018-01-10 17:34 | P.HPIM ---
History of Present Illness 57-year-old pleasant female came in emergency department with complaints of shortness of breath which has been going on for about a week patient was quite hypoxic on her visit to the oncologist clinic. Patient denied any fever chills patient was recently diagnosed and treated for pneumonia with bilateral infiltrates. Patient still has those pneumonic infiltrates. Significant interstitial lung changes. Patient does have history of gastric cancer completed his chemotherapy as an oral chemotherapy Xeloda, patient is a smoker used to smoke in the past is complaining of weight she doesn't have any leukocytosis doesn't have any fever at this time. Patient has bilateral pleural effusions on the CAT scan no pulmonary embolism significant interstitial infiltrates there is some a bronchogram which is probably from her previously diagnosed and treated pneumonia for which she completed antibiotics of levofloxacin. Patient clinically does not appear to have pneumonia. Patient is wheezing on exam doesn't have any JVD patient has elevated BNP of around 1100 mild elevated troponin of 0.06 without any chest pain and do not have an EKG available EKG will be ordered elevated troponin is probably secondary to hypoxemia rather than any acute coronary syndromes 2 more sets of troponins will be repeated. Echocardiac exam will be obtained. Patient will be started on prednisone pulmonology will be consulted initially patient was given Rocephin and azithromycin and Rocephin will be discontinued and is the medicine will be continued for possible bronchitis related to COPD. Patient is presently on 4 L of onset doesn't use any onset at home. CAT scan of the chest was read as possibility of interstitial metastatic spread of her gastric cancer to lungs. Review of Systems REVIEW OF SYSTEMS: CONSTITUTIONAL: No fever, no malaise, no fatigue. HEENT: No recent visual problems or hearing problems. Denied any sore throat. CARDIOVASCULAR: No chest pain, orthopnea, PND, no palpitations, no syncope. PULMONARY: As mentioned in HPI GASTROINTESTINAL: No diarrhea, no nausea, no vomiting, no abdominal pain. Normoactive bowel sounds. NEUROLOGICAL: No headaches, no weakness, no numbness. HEMATOLOGICAL: Denies any bleeding or petechiae. GENITOURINARY: Denies any burning micturition, frequency, or urgency. MUSCULOSKELETAL/RHEUMATOLOGICAL: Denies any joint pain, swelling, or any muscle pain. ENDOCRINE: Denies any polyuria or polydipsia. The rest of the 14-point review of systems is negative. Past Medical History Past Medical History: Cancer, Hyperlipidemia, Thyroid Disorder Additional Past Medical History / Comment(s): Back pain, gastrointestinal CA. last chemo november 2017. pt is on po chemo daily History of Any Multi-Drug Resistant Organisms: None Reported Past Surgical History: Back Surgery Additional Past Surgical History / Comment(s): Thyroidectomy, carpal tunnel surgery Past Psychological History: No Psychological Hx Reported Smoking Status: Current every day smoker Past Alcohol Use History: None Reported Past Drug Use History: None Reported Medications and Allergies Home Medications Medication Instructions Recorded Confirmed Type Atorvastatin [Lipitor] 20 mg PO HS 07/23/17 01/10/18 History Levothyroxine Sodium [Synthroid] 88 mcg PO DAILY 07/23/17 01/10/18 History Levofloxacin [Levaquin] 500 mg PO DAILY #9 tab 10/10/17 01/10/18 Rx Acetaminophen Tab [Tylenol Tab] 500 mg PO Q6H PRN 01/08/18 01/10/18 History Capecitabine [Xeloda] 1,000 mg PO BID 01/08/18 01/10/18 History Capecitabine [Xeloda] 150 mg PO BID 01/08/18 01/10/18 History HYDROcodone/APAP 10-325MG [[place] 1 tab PO QID PRN 01/08/18 01/10/18 History 10-325] Allergies Allergy/AdvReac Type Severity Reaction Status Date / Time No Known Allergies Allergy Verified 01/10/18 11:59 Physical Exam Vitals: Vital Signs Temp Pulse Resp BP Pulse Ox 01/10/18 16:37 103 H 18 159/84 92 L 01/10/18 15:00 98 20 120/67 95 01/10/18 14:00 102 H 20 109/81 93 L 01/10/18 13:12 97 20 120/67 96 01/10/18 11:55 98.6 F 106 H 22 116/74 82 L Intake and Output 01/10/18 01/10/18 01/10/18 06:59 14:59 22:59 Other: Weight 78.925 kg PHYSICAL EXAMINATION: GENERAL: The patient is alert and oriented x3, not in any acute distress. Well developed, well nourished. HEENT: Pupils are round and equally reacting to light. EOMI. No scleral icterus. No conjunctival pallor. Normocephalic, atraumatic. No pharyngeal erythema. No thyromegaly. CARDIOVASCULAR: S1 and S2 present. No murmurs, rubs, or gallops. PULMONARY: Decreased air entry into bilateral lung dejesus significant expiratory wheezing was appreciated ABDOMEN: Soft, nontender, nondistended, normoactive bowel sounds. No palpable organomegaly. MUSCULOSKELETAL: No joint swelling or deformity. EXTREMITIES: No cyanosis, clubbing, or pedal edema. NEUROLOGICAL: Gross neurological examination did not reveal any focal deficits. SKIN: No rashes. Results CBC & Chem 7: 01/10/18 13:25 01/10/18 13:25 Labs: Abnormal Lab Results - Last 24 Hours (Table) 01/10/18 01/10/18 01/10/18 Range/Units 13:25 13:25 13:25 WBC 13.9 H (3.8-10.6) k/uL RDW 23.6 H (11.5-15.5) % Neutrophils # 10.4 H (1.3-7.7) k/uL INR (<1.2) Glucose 102 H (74-99) mg/dL Calcium 7.0 L (8.4-10.2) mg/dL Troponin I 0.083 H* (0.000-0.034) ng/mL 01/10/18 Range/Units 13:25 WBC (3.8-10.6) k/uL RDW (11.5-15.5) % Neutrophils # (1.3-7.7) k/uL INR 1.2 H (<1.2) Glucose (74-99) mg/dL Calcium (8.4-10.2) mg/dL Troponin I (0.000-0.034) ng/mL Assessment and Plan Plan: -Shortness of breath: Probably secondary to a diagnosis COPD exacerbation patient was started on prednisone oral, and inhalational treatments pulmonology will be consulted. -Bilateral interstitial infiltrates: Possibility of interstitial spread of her lung cancer or interstitial lung disease -Recently treated for pneumonia: I do not believe patient has new pneumonia, patient was started on azithromycin discontinue ceftriaxone, patient does have a bronchogram and bilateral lung dejesus secondary to her recently treated pneumonia. -Gastric cancer: Unable medic mentioned medication regimen because the concerns of metastatic disease oncology was consulted. -Mildly elevated troponin: Will repeat 2 more sets of troponins I do not have any EKG available EKG will be obtained her mild elevation in troponin is secondary to hypoxemia most probably -Hypothyroidism next and-hyperlipidemia -Tachycardia due to hypoxemia -Bilateral pleural effusions probably related to cancer will obtain echocardiogram to rule out any congestive heart failure although clinically patient does not have any elevated JVD or pedal edema.
--- NOTE | 2018-01-10 19:18 | P.CONS ---
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 Morphologically the tumor had signet ring features C/W Gastric/Pancreatobiliary carcinoma. EGD by Dr Early on 09/16/17 revealing 4 cm ulcerated mass in greater curveture , biopsy done, results pending. CT Scan of abdomen & pelvis revealedknown gastric wall thickening, ascites and no distant mets otherwise. She smokes 1 PPD, denies ETOH use. Mother and 2 sisters had Breast cancer. Admitted having EGD/Colonoscopy in apr and reported to be normal ??? She was initiated on Epirubicin/Cisplatinum/Xeloda in September IV chemotherapy was stopped December 07, 2017 and Xgeva and Xeloda was continued On 01/03/18: C/O increasing SOB, cough with productive green/yellow sputom and pleuretic L sided chest pain with cough. Had EGD : Large mass decreased to 1 cm (was 4 cm) with negative Bx for malignancy. Had mild back pain. She was treated with Levaquin and her symptms initially improved, but over the past two days they have increased. She presented to er last night with increased shortness of breath. Treated for exacerbation of COPD and sent home, she presented to office today for her XGEVA injection and was complaining of increased SOB. She was found to be hypoxic 83-88% and therefore sent to emergency department for further evaluation. CT scan of the chest revealed interstitial lung findings consistent with her underlying emphysema, question disease progression. She is in mild distress during assessment. Her sister and at bedside. Review of Systems A 14 point review of systems assessed and completed and all negative except HPI Past Medical History Past Medical History: Cancer, Hyperlipidemia, Thyroid Disorder Additional Past Medical History / Comment(s): Back pain, gastrointestinal CA. last chemo november 2017. pt is on po chemo daily History of Any Multi-Drug Resistant Organisms: None Reported Past Surgical History: Back Surgery Additional Past Surgical History / Comment(s): Thyroidectomy, carpal tunnel surgery Past Psychological History: No Psychological Hx Reported Smoking Status: Current every day smoker Past Alcohol Use History: None Reported Past Drug Use History: None Reported Medications and Allergies Home Medications Medication Instructions Recorded Confirmed Type Atorvastatin [Lipitor] 20 mg PO HS 07/23/17 01/10/18 History Levothyroxine Sodium [Synthroid] 88 mcg PO DAILY 07/23/17 01/10/18 History Levofloxacin [Levaquin] 500 mg PO DAILY #9 tab 10/10/17 01/10/18 Rx Acetaminophen Tab [Tylenol Tab] 500 mg PO Q6H PRN 01/08/18 01/10/18 History Capecitabine [Xeloda] 1,000 mg PO BID 01/08/18 01/10/18 History Capecitabine [Xeloda] 150 mg PO BID 01/08/18 01/10/18 History HYDROcodone/APAP 10-325MG [[place] 1 tab PO QID PRN 01/08/18 01/10/18 History 10-325] Allergies Allergy/AdvReac Type Severity Reaction Status Date / Time No Known Allergies Allergy Verified 01/10/18 11:59 Physical Exam Vitals: Vital Signs Temp Pulse Resp BP Pulse Ox 01/10/18 17:28 96.8 F L 93 18 136/78 95 01/10/18 16:37 103 H 18 159/84 92 L 01/10/18 15:00 98 20 120/67 95 01/10/18 14:00 102 H 20 109/81 93 L 01/10/18 13:12 97 20 120/67 96 01/10/18 11:55 98.6 F 106 H 22 116/74 82 L Intake and Output 01/10/18 01/10/18 01/10/18 06:59 14:59 22:59 Other: Weight 78.925 kg - Constitutional General appearance: cooperative, mild distress - EENT Eyes: EOMI, dentition normal, ptosis ENT: NA/AT, normal oropharynx - Neck Neck: normal ROM - Respiratory Respiratory: bilateral: diminished (Bilateral), wheezing (Expiratory) - Cardiovascular Rhythm: regular Heart sounds: normal: S1, S2 - Gastrointestinal General gastrointestinal: normal bowel sounds, soft - Integumentary Integumentary: pale - Neurologic Neurologic: CNII-XII intact - Musculoskeletal Musculoskeletal: generalized weakness, strength equal bilaterally - Psychiatric Psychiatric: A&O x's 3, appropriate affect, intact judgment & insight Results CBC & Chem 7: 01/10/18 13:25 01/10/18 13:25 Labs: Abnormal Lab Results - Last 24 Hours (Table) 01/10/18 01/10/18 01/10/18 Range/Units 13:25 13:25 13:25 WBC 13.9 H (3.8-10.6) k/uL RDW 23.6 H (11.5-15.5) % Neutrophils # 10.4 H (1.3-7.7) k/uL INR (<1.2) Glucose 102 H (74-99) mg/dL Calcium 7.0 L (8.4-10.2) mg/dL Troponin I 0.083 H* (0.000-0.034) ng/mL 01/10/18 Range/Units 13:25 WBC (3.8-10.6) k/uL RDW (11.5-15.5) % Neutrophils # (1.3-7.7) k/uL INR 1.2 H (<1.2) Glucose (74-99) mg/dL Calcium (8.4-10.2) mg/dL Troponin I (0.000-0.034) ng/mL CT scan - chest: report reviewed Assessment and Plan Plan: Assessment and Recommendations: 1. Metastatic Gastric Cancer - Recently completed IV Chemotherapy with response to treatment - Continued on Xeloda and Xgeva - Hold Xeloda at this time until patients acute symptoms resolve 2. Acute Hypoxic Respiratory Failure - - Ct Scan Reviewed revealing Bilateral Interstitial infiltrates - interstitial spread versus interstitial lung disease -Shortness of breath - Likely secondary to COPD exacerbation - Agree with Steroids, respiratory treatments - pulmonology following - Bilateral Pleural Effusions -Agree with echocardiogram t 3. Pneumonia - Recently treated outpatient with [facility] Physician Attestation: I have completed the full history and physical of this patient and agree with the above dictation, dictated as a scribe
[2018-01-11] MEDS: NYSTATIN 100,000 UNIT/ML SUSP 500,000 UNIT/5 ML CUP PO SCH ×6 (00:45→22:39)
[2018-01-11 02:43] LABS: Anisocytosis Moderate; HCT 38.9 % (34.0-46.0); HGB 12.6 gm/dL (11.4-16.0); MCH 30.5 pg (25.0-35.0); MCHC 32.5 g/dL (31.0-37.0); MCV 94.1 fL (80.0-100.0); Macrocytosis Slight; Platelet Count 250 k/uL (150-450); RBC 4.13 m/uL (3.80-5.40); WBC 10.1 k/uL (3.8-10.6)
[2018-01-11 03:05] LABS: ALT 24 U/L (9-52); AST 16 U/L (14-36); Albumin 3.5 g/dL (3.5-5.0); Alkaline Phosphatase 94 U/L (38-126); Anion Gap 15 mmol/L; Blood Urea Nitrogen 9 mg/dL (7-17); Calcium 6.9 mg/dL (8.4-10.2); Carbon Dioxide 22 mmol/L (22-30); Chloride 102 mmol/L (98-107); Glucose 154 mg/dL (74-99); Potassium 4.6 mmol/L (3.5-5.1); Sodium 139 mmol/L (137-145); Total Bilirubin 0.5 mg/dL (0.2-1.3); Total Protein 6.2 g/dL (6.3-8.2)
[2018-01-11] MEDS: MORPHINE SULFATE 4 MG/ML SYRINGE IV PRN ×2 (08:09→18:24)
[2018-01-11] MEDS: IPRATROPIUM-ALBUTEROL 3 ML NEB INHALATION SCH ×4 (08:20→20:00)
--- NOTE | 2018-01-11 08:25 | XR ---
EXAMINATION TYPE: XR chest 2V DATE OF EXAM: 01/11/2018 COMPARISON: Prior chest x-ray 01/08/2018 HISTORY: Gastric carcinoma, pneumonia TECHNIQUE: Frontal and lateral views of the chest are obtained. FINDINGS: Findings are similar. Pleural parenchymal changes again noted, interstitium is diffusely i ncreased. Central venous catheter is present with the distal tip overlying the region of the confluen ce of the left and right innominate veins. No evident pneumothorax. Heart remains enlarged. IMPRESSION: Findings may be due to metastatic disease, correlate to exclude congestive heart failure , pneumonia with bilateral pleural effusions.
--- NOTE | 2018-01-11 08:36 | ECHOF ---
Referral Reason:echo MEASUREMENTS -------- HEIGHT: 165.1 cm WEIGHT: 78.9 kg BP: 136/78 RVIDd: 3.3 cm (< 3.3) IVSd: 1.2 cm (0.6 - 1.1) LVIDd: 4.4 cm (3.9 - 5.3) LVPWd: 1.1 cm (0.6 - 1.1) IVSs: 1.8 cm LVIDs: 2.8 cm LVPWs: 1.6 cm LAESV Index (A-L): 14.83 ml/m Ao Diam: 3.2 cm (2.0 - 3.7) AV Cusp: 1.9 cm (1.5 - 2.6) LA Diam: 2.4 cm (2.7 - 3.8) EPSS: 0.5 cm MV E Jv: 0.55 m/s MV DecT: 445 ms MV A Jv: 0.85 m/s MV E/A Ratio: 0.64 RAP: 5.00 mmHg RVSP: 38.09 mmHg MV EF SLOPE: 138.65 mm/s (70 - 150) MV EXCURSION: 1.57 cm (> 18.000) FINDINGS -------- Sinus rhythm. This was a technically adequate study. The left ventricular size is normal. There is mild concentric left ventricular hypertrophy. Overa ll left ventricular systolic function is normal with, an EF between 55 - 60 %. The right ventricle is mildly enlarged. The right ventricular septal wall is flattened in systole w hich is consistent with right ventricular pressure overload. Normal LA size by volume 22+/-6 ml/m2. RA appears enlarged. Aortic valve is trileaflet and is mildly thickened. There is no evidence of aortic regurgitation. There is no evidence of aortic stenosis. The mitral valve leaflets are mildly thickened. There is trace to mild mitral regurgitation. Mild tricuspid regurgitation present. There is mild pulmonary hypertension. The right ventricular systolic pressure, as measured by Doppler, is 38.09mmHg. Trace/mild (physiologic) pulmonic regurgitation. The aortic root size is normal. Normal inferior vena cava with normal inspiratory collapse consistent with estimated right atrial pre ssure of 5 mmHg. There is a small pericardial effusion is located near the right ventricle. The pericardium appears to be thickened. Large Pleural Effusion. CONCLUSIONS -------- 1. Sinus rhythm. 2. This was a technically adequate study. 3. The left ventricular size is normal. 4. There is mild concentric left ventricular hypertrophy. 5. Overall left ventricular systolic function is normal with, an EF between 55 - 60 %. 6. The right ventricle is mildly enlarged. 7. The right ventricular septal wall is flattened in systole which is consistent with right ventricu lar pressure overload. 8. Normal LA size by volume 22+/-6 ml/m2. 9. RA appears enlarged. 10. Aortic valve is trileaflet and is mildly thickened. 11. The mitral valve leaflets are mildly thickened. 12. There is trace to mild mitral regurgitation. 13. Mild tricuspid regurgitation present. 14. There is mild pulmonary hypertension. 15. The right ventricular systolic pressure, as measured by Doppler, is 38.09mmHg. 16. Trace/mild (physiologic) pulmonic regurgitation. 17. The aortic root size is normal. 18. Large Pleural Effusion. PROTOHISTORIAN: Bobby Ramon RDCS
[2018-01-11] MEDS ORDERED: PANTOPRAZOLE 40 MG/10 ML VIAL IV SCH (09:00)
[2018-01-11] MEDS: AZITHROMYCIN 500 MG TAB PO SCH (14:33)
[2018-01-11] MEDS: LEVOTHYROXINE 88 MCG TAB PO SCH (14:33)
[2018-01-11] MEDS: HYDROcodone/APAP 10-325MG 1 EACH TAB PO PRN (14:42)
[2018-01-11] MEDS ORDERED: cefTRIAXone IN SWFI 1,000 MG/10 ML SYRINGE IVP SCH (16:46)
--- NOTE | 2018-01-11 17:19 | P.PN ---
Subjective Progress Note Date: 01/11/18 Principal diagnosis: Acute hypoxic respiratory failure Metastatic gastric cancer 2D echo with normal EF although with slight RV dilation. Feels much better with oxygen, but MUIR, even with minimal activity. Objective - Vital Signs Vital signs: Vital Signs Temp 98.0 F 01/11/18 14:04 Pulse 89 01/11/18 14:57 Resp 16 01/11/18 14:57 BP 102/67 01/11/18 07:45 Pulse Ox 96 01/11/18 14:57 Intake & Output 01/10/18 01/11/18 01/11/18 18:59 06:59 18:59 Intake Total 160 200 Output Total 2 Balance 160 198 Weight 78.925 kg Intake: Intake, IV Titration 160 Amount Sodium Chloride 0.9% 1, 160 000 ml @ 20 mls/hr IV . Q24H [facility] Rx#:[id number] Oral 200 Output: Urine 2 Other: Voiding Method Toilet Toilet # Voids 2 - Exam Constitutional: No acute distress. HEENT: No scleral icterus. No scleral icterus or conjunctival pallor. Mucosa moist. Neck: Neck supple. Lymph: No neck/cervical LAD. Lungs: CTA-B with bilateral diffuse rhonchi. Heart: RRR without murmurs. No LE edema. Abdomen: Soft, nontender, nondistended, with positive bowel sounds. MSK: 4/4 strength in all 4 extremities. Neuro: Alert and oriented x 3. Skin: No jaundice or rash. Psych: Appropriate affect. - Labs CBC & Chem 7: 01/11/18 02:10 01/11/18 02:10 Labs: Abnormal Lab Results - Last 24 Hours (Table) 01/10/18 01/11/18 01/11/18 Range/Units 20:05 02:10 02:10 RDW 23.0 H (11.5-15.5) % Glucose (74-99) mg/dL Calcium (8.4-10.2) mg/dL Troponin I 0.066 H* 0.042 H* (0.000-0.034) ng/mL Total Protein (6.3-8.2) g/dL 01/11/18 Range/Units 02:10 RDW (11.5-15.5) % Glucose 154 H (74-99) mg/dL Calcium 6.9 L (8.4-10.2) mg/dL Troponin I (0.000-0.034) ng/mL Total Protein 6.2 L (6.3-8.2) g/dL Assessment and Plan Assessment: Acute hypoxic respiratory failure Metastatic gastric cancer Plan: Ms. Martinez is a very pleasant 57 yo female with metastatic gastric cancer, on xeloda and xgeva, here for SOB. Work up so far including CT thorax and CXR revealing intersitial disease, ?met's vs congestion?. Troponin slightly elevated and downtrending, BNP 1000's, 2D echo with normal EF and mildly enlarged RV. ?diastolic heart failure, less likely. For now, would recommend consideration of steroid therapy and diuresis and cardiology consultation. Advised that if no improvement with these supportive measures, then likely her disease is due to lymphangitic spread of her malignancy, and prognosis would be poor in that case. Discussed with pt and family at bedside, and they are agreeable to the plan. All questions answered.
--- NOTE | 2018-01-11 18:28 | P.CNPUL ---
History of Present Illness Consult date: 01/11/18 Reason for consult: dyspnea, cough, pleural effusion Chief complaint: Cough shortness of breath for over a month History of present illness: 57-year-old female with extensive history of smoking and nicotine use patient has not been feeling well for the last 1 month with progressive increased shortness of breath and cough denies any hemoptysis, patient has been coughing thick white to yellow to green sputum with those problem patient came into emergency department, patient has some pleuritic chest pain on arrival however denies currently, was found to have bilateral interstitial Petrin on CAT scan has been admitted into the hospital with a small bilateral pleural effusion has been noted as well, patient is overall a poor historian it appears that patient was diagnosed as the stomach cancer about around October 2017 patient has received and finish chemotherapy now on maintenance therapy, patient also has a port, computed tomography scan of the chest and radiographic studies reviewed the patient at length, on patient denies any loss of consciousness hemiparesis denies any weakness in any part of the body does have hours some generalized weakness, denies any chest pain appetite has been poor he denies any bowel or bladder dysfunction otherwise as noted above Patient has significant history and was presented to Dr Early with abdominal pain X 6 months, she was found to have small ventral hernia and had surgery by Dr Early on09/11/17 revealing 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 Morphologically the tumor had signet ring features C/W Gastric/Pancreatobiliary carcinoma. EGD by Dr Early on 09/16/17 revealing 4 cm ulcerated mass in greater curveture , biopsy done, results pending. CT Scan of abdomen & pelvis revealedknown gastric wall thickening, ascites and no distant mets otherwise. She smokes 1 PPD, denies ETOH use. Mother and 2 sisters had Breast cancer. Review of Systems All systems: negative Past Medical History Past Medical History: Cancer, Hyperlipidemia, Thyroid Disorder Additional Past Medical History / Comment(s): Back pain, gastrointestinal CA. last chemo november 2017. pt is on po chemo daily History of Any Multi-Drug Resistant Organisms: None Reported Past Surgical History: Back Surgery Additional Past Surgical History / Comment(s): Thyroidectomy, carpal tunnel surgery Past Anesthesia/Blood Transfusion Reactions: No Reported Reaction Past Psychological History: No Psychological Hx Reported Smoking Status: Current every day smoker Past Alcohol Use History: None Reported Past Drug Use History: None Reported - Past Family History Father Family Medical History: Cancer Additional Family Medical History / Comment(s): lung cancer Mother Family Medical History: Cancer Additional Family Medical History / Comment(s): ovarian,bone cancer Sister(s) Family Medical History: Cancer Additional Family Medical History / Comment(s): one sister had breast cancer w/ mets, another sister had ovarian cancer Medications and Allergies Home Medications Medication Instructions Recorded Confirmed Type Atorvastatin [Lipitor] 20 mg PO HS 07/23/17 01/10/18 History Levothyroxine Sodium [Synthroid] 88 mcg PO DAILY 07/23/17 01/10/18 History Levofloxacin [Levaquin] 500 mg PO DAILY #9 tab 10/10/17 01/10/18 Rx Acetaminophen Tab [Tylenol Tab] 500 mg PO Q6H PRN 01/08/18 01/10/18 History Capecitabine [Xeloda] 1,000 mg PO BID 01/08/18 01/10/18 History Capecitabine [Xeloda] 150 mg PO BID 01/08/18 01/10/18 History HYDROcodone/APAP 10-325MG [[place] 1 tab PO QID PRN 01/08/18 01/10/18 History 10-325] Allergies Allergy/AdvReac Type Severity Reaction Status Date / Time No Known Allergies Allergy Verified 01/10/18 11:59 Physical Exam Vitals: Vital Signs Temp Pulse Pulse Resp BP BP Pulse Ox 01/11/18 15:40 90 01/11/18 15:26 90 01/11/18 14:57 89 16 96 01/11/18 14:04 98.0 F 98 16 94 L 01/11/18 12:09 100 01/11/18 12:01 96 01/11/18 08:33 96 01/11/18 08:23 92 94 L 01/11/18 08:00 89 16 01/11/18 07:45 97.8 F 89 16 102/67 94 L 01/11/18 05:08 98.5 F 92 18 113/76 92 L 01/10/18 20:47 98.2 F 99 18 149/79 92 L 01/10/18 18:15 97.6 F 94 20 113/84 94 L Intake and Output 01/11/18 01/11/18 01/11/18 06:59 14:59 22:59 Intake Total 160 200 Output Total 2 Balance 160 198 Intake: Intake, IV Titration 160 Amount Sodium Chloride 0.9% 1, 160 000 ml @ 20 mls/hr IV . Q24H [facility] Rx#:[id number] Oral 200 Output: Urine 2 Other: Voiding Method Toilet Toilet # Voids 2 - Constitutional General appearance: average body habitus, disheveled, mild distress - EENT Eyes: EOMI, PERRLA, poor dentition, normal appearance ENT: normal oropharynx Ears: bilateral: normal - Neck Neck: normal ROM Carotids: bilateral: upstroke normal, bruit absent Thyroid: bilateral: normal size - Respiratory Respiratory: bilateral: diminished, rales (Predominately at the bases), rhonchi (Fine on forced expiration), wheezing (Fine on forced expiration), negative: dullness, prolonged expiration, prolonged inspiration, other - Cardiovascular Heart sounds: normal: S1, S2 - Gastrointestinal General gastrointestinal: decreased bowel sounds, soft - Integumentary Integumentary: normal, normal turgor - Neurologic Neurologic: CNII-XII intact - Musculoskeletal Musculoskeletal: gait normal, generalized weakness, strength equal bilaterally - Psychiatric Psychiatric: A&O x's 3, appropriate affect, intact judgment & insight Results - Laboratory Findings CBC and BMP: 01/11/18 02:10 01/11/18 02:10 PT/INR, D-dimer PT 11.3 sec (9.0-12.0) 01/10/18 13:25 INR 1.2 (<1.2) H 01/10/18 13:25 Abnormal lab findings: Abnormal Labs 01/10/18 01/10/18 01/10/18 13:25 13:25 13:25 WBC 13.9 H RDW 23.6 H Neutrophils # 10.4 H INR Glucose 102 H Calcium 7.0 L Troponin I 0.083 H* Total Protein 01/10/18 01/10/18 01/11/18 13:25 20:05 02:10 WBC RDW Neutrophils # INR 1.2 H Glucose Calcium Troponin I 0.066 H* 0.042 H* Total Protein 01/11/18 01/11/18 02:10 02:10 WBC RDW 23.0 H Neutrophils # INR Glucose 154 H Calcium 6.9 L Troponin I Total Protein 6.2 L - Diagnostic Findings Chest x-ray: report reviewed CT scan - chest: report reviewed, image reviewed Assessment and Plan Assessment: Acute bilateral interstitial pneumonia Interstitial spread/metastatic disease stage IV cancer primary lung versus spread from gastric cancer Small bilateral pleural effusion Recent diagnosis of metastatic stage IV gastric cancer Sclerotic lesion on the bones likely stage IV disease cannot be excluded Plan: Breathing treatments and prednisone Broad-spectrum antibiotics continue Zithromax and Rocephin Follow-up on sputum culture results and report Patient will require bronchoscopy and transbronchial lung biopsy as a differential diagnoses remains complex with interstitial pneumonia versus interstitial lung disease versus neoplastic spread of tumor Procedure is being explained to the patient if agreeable will proceed with transbronchial lung biopsy early next week under fluoroscopy Time with Patient: Greater than 30
[2018-01-11] MEDS: ATORVASTATIN 20 MG TAB PO SCH (20:37)
[2018-01-12] MEDS: HYDROcodone/APAP 10-325MG 1 EACH TAB PO PRN ×3 (04:22→18:08)
[2018-01-12] MEDS: LEVOTHYROXINE 88 MCG TAB PO SCH (06:09)
[2018-01-12] MEDS: IPRATROPIUM-ALBUTEROL 3 ML NEB INHALATION SCH ×4 (07:12→19:33)
[2018-01-12] MEDS: predniSONE 20 MG TAB PO SCH (08:57)
[2018-01-12] MEDS: NYSTATIN 100,000 UNIT/ML SUSP 500,000 UNIT/5 ML CUP PO SCH ×4 (08:57→20:07)
[2018-01-12] MEDS: PANTOPRAZOLE 40 MG TABLET PO SCH (08:58)
[2018-01-12] MEDS: FUROSEMIDE 10 MG/ML 2 ML VIAL IV SCH (08:58)
[2018-01-12 10:38] LABS: Anisocytosis Moderate; Basophils % (A) 1 %; Eosinophils # (A) 0.3 k/uL (0-0.7); Eosinophils % (A) 3 %; HCT 36.6 % (34.0-46.0); HGB 11.7 gm/dL (11.4-16.0); Lymphocytes # (A) 1.5 k/uL (1.0-4.8); Lymphocytes % (A) 20 %; MCH 29.9 pg (25.0-35.0); MCHC 31.8 g/dL (31.0-37.0); Macrocytosis Slight; Mean Platelet Volume 7.1; Monocytes # (A) 0.6 k/uL (0-1.0); Monocytes % (A) 8 %; Neutrophils # (A) 4.8 k/uL (1.3-7.7); Neutrophils % (A) 65 %; Platelet Count 250 k/uL (150-450); RDW 23.1 % (11.5-15.5); WBC 7.3 k/uL (3.8-10.6)
[2018-01-12 10:39] LABS: Anion Gap 13 mmol/L; Blood Urea Nitrogen 8 mg/dL (7-17); Carbon Dioxide 28 mmol/L (22-30); Chloride 99 mmol/L (98-107); Glucose 95 mg/dL (74-99); Potassium 3.7 mmol/L (3.5-5.1); Sodium 140 mmol/L (137-145)
[2018-01-12 10:50] LABS: Calcium 6.4 mg/dL (8.4-10.2)
--- NOTE | 2018-01-12 10:51 | P.PN ---
Subjective Progress Note Date: 01/11/18 Principal diagnosis: COPD exacerbation Ms. Martinez is a 57-year-old female with a past medical history of gastrointestinal carcinoma, hyperlipidemia, hypothyroidism coming into the hospital with a chief complaint of difficulty in breathing. Patient was recently treated for pneumonia completed her antibiotic course. She had a CT for PE in view of her shortness of breath with history of malignancy that was negative for PE. But it showed pneumonic infiltrates with the possibility that it might be metastases from her GI malignancy. She is currently being treated for COPD exacerbation with breathing treatments and is placed on oxygen therapy. On 01/11/2018: Patient is sitting in her bed having some mild difficulty in breathing. Her family members are at the bedside. She states that difficulty in breathing improved only a little. She denies having any fevers chills or rigors. On review of systems: Constitutional:No fever chills or rigors Respiratory: Still has difficulty in breathing. No cough or sputum production. Cardiovascular: No chest pain, palpitations GI: Patient has abdominal discomfort and baseline Objective - Vital Signs Vital signs: Vital Signs Temp 98.0 F 01/11/18 14:04 Pulse 90 01/11/18 15:40 Resp 16 01/11/18 14:57 BP 102/67 01/11/18 07:45 Pulse Ox 96 01/11/18 14:57 Intake & Output 01/10/18 01/11/18 01/11/18 18:59 06:59 18:59 Intake Total 160 200 Output Total 2 Balance 160 198 Weight 78.925 kg Intake: Intake, IV Titration 160 Amount Sodium Chloride 0.9% 1, 160 000 ml @ 20 mls/hr IV . Q24H [facility] Rx#:[id number] Oral 200 Output: Urine 2 Other: Voiding Method Toilet Toilet # Voids 2 - Exam GENERAL EXAM GEN. APPEARANCE: alert, in no apparent distress HEAD EXAM: atraumatic, normocephalic, normal inspection RESPIRATORY EXAM: Patient has bilaterall basal crackles CARDIOVASCULAR EXAM: regular rate, normal rhythm, normal heart sounds. Absent : systolic murmur, diastolic murmur, rubs, gallop, clicks GI/ABDOMINAL EXAM: Distended, nontender , no rigidity or guarding ,difficult to appreciate organomegaly EXTREMITIES EXAM: No cyanosis clubbing or pedal edema NEUROLOGICAL EXAM: alert, oriented X3, CN II-XII intact, motor sensory deficit PSYCHIATRIC EXAM: normal affect, normal mood SKIN EXAM: warm, dry, intact, normal color. Absent: rash - Labs CBC & Chem 7: 01/11/18 02:10 01/11/18 02:10 Labs: Abnormal Lab Results - Last 24 Hours (Table) 01/10/18 01/11/18 01/11/18 Range/Units 20:05 02:10 02:10 RDW 23.0 H (11.5-15.5) % Glucose (74-99) mg/dL Calcium (8.4-10.2) mg/dL Troponin I 0.066 H* 0.042 H* (0.000-0.034) ng/mL Total Protein (6.3-8.2) g/dL 01/11/18 Range/Units 02:10 RDW (11.5-15.5) % Glucose 154 H (74-99) mg/dL Calcium 6.9 L (8.4-10.2) mg/dL Troponin I (0.000-0.034) ng/mL Total Protein 6.2 L (6.3-8.2) g/dL Assessment and Plan Assessment: ASSESSMENT Shortness of breath - acute exacerbation of COPD- CAT scan of the chest showing bilateral interstitial infiltrates and pleural effusion - with the possibility that it might be a metastases from her GI malignancy. Gastric cancer Recently treated for pneumonia Mildly elevated troponins - secondary to demand ischemia Hypothyroidism PLAN: Will continue the patient on breathing treatments and steroids. She recently completed the antibiotic course for her pneumonia. Currently I don't think we are dealing with pneumonia here. It might be metastases from her GI malignancy with bilateral pleural effusion which is causing the difficulty in breathing. Will follow up with oncology and further recommendations regarding these new findings. Overall prognosis is poor. We'll continue with the rest of her medication regimen. Further recommendations to follow depending on the progress of the patient. The treatment plan was discussed in detail with the patient and her family members at the bedside today
[2018-01-12] MEDS: cefTRIAXone IN SWFI 1,000 MG/10 ML SYRINGE IVP SCH (11:08)
--- NOTE | 2018-01-12 11:17 | P.PN ---
Subjective Progress Note Date: 01/12/18 Principal diagnosis: COPD exacerbation Ms. Martinez is a 57-year-old female with a past medical history of gastrointestinal carcinoma, hyperlipidemia, hypothyroidism coming into the hospital with a chief complaint of difficulty in breathing. Patient was recently treated for pneumonia completed her antibiotic course. She had a CT for PE in view of her shortness of breath with history of malignancy that was negative for PE. But it showed pneumonic infiltrates with the possibility that it might be metastases from her GI malignancy. She is currently being treated for COPD exacerbation with breathing treatments and is placed on oxygen therapy. On 01/11/2018: Patient is sitting in her bed having some mild difficulty in breathing. Her family members are at the bedside. She states that difficulty in breathing improved only a little. She denies having any fevers chills or rigors. On 01/12/18 - Pt was more short of breath last night, no cough or fever. Her Calcium is low from this morning. She denies having any cramps. On review of systems: Constitutional:No fever chills or rigors Respiratory: Still has difficulty in breathing. No cough or sputum production. Cardiovascular: No chest pain, palpitations GI: Patient has abdominal discomfort at baseline Objective - Vital Signs Vital signs: Vital Signs Temp 97.9 F 01/12/18 08:15 Pulse 94 01/12/18 08:40 Resp 20 01/12/18 08:40 BP 120/67 01/12/18 08:15 Pulse Ox 93 L 01/12/18 08:15 Intake & Output 01/11/18 01/12/18 01/12/18 18:59 06:59 18:59 Intake Total 200 Output Total 2 400 Balance 198 -400 Intake: Oral 200 Output: Urine 2 400 Other: Voiding Method Toilet Toilet Toilet # Voids 1 - Exam GENERAL EXAM GEN. APPEARANCE: alert, in no apparent distress HEAD EXAM: atraumatic, normocephalic, normal inspection RESPIRATORY EXAM: Patient has bilaterally basal crackles worse than yesterday CARDIOVASCULAR EXAM: regular rate, normal rhythm, normal heart sounds. Absent : systolic murmur, diastolic murmur, rubs, gallop, clicks GI/ABDOMINAL EXAM: Distended, nontender , no rigidity or guarding ,difficult to appreciate organomegaly EXTREMITIES EXAM: No cyanosis clubbing or pedal edema NEUROLOGICAL EXAM: alert, oriented X3, CN II-XII intact, motor sensory deficit PSYCHIATRIC EXAM: normal affect, normal mood SKIN EXAM: warm, dry, intact, normal color. Absent: rash - Labs CBC & Chem 7: 01/12/18 09:59 01/12/18 09:59 Labs: Abnormal Lab Results - Last 24 Hours (Table) 01/12/18 01/12/18 Range/Units 09:59 09:59 RDW 23.1 H (11.5-15.5) % Calcium 6.4 L* (8.4-10.2) mg/dL Microbiology - Last 24 Hours (Table) 01/11/18 12:02 Gram Stain - Preliminary Sputum 01/10/18 13:25 Blood Culture - Preliminary Blood No Growth after 24 hours Assessment and Plan Assessment: ASSESSMENT Shortness of breath - acute exacerbation of COPD- CAT scan of the chest showing bilateral interstitial infiltrates and pleural effusion - with the possibility that it might be a metastases from her GI malignancy. Gastric cancer Recently treated for pneumonia Mildly elevated troponins - secondary to demand ischemia Hypothyroidism Hypocalcemia PLAN: Will continue the patient on breathing treatments and steroids. Will get CXR . She recently completed the antibiotic course for her pneumonia. Currently I don't think we are dealing with pneumonia here. It might be metastases from her GI malignancy with bilateral pleural effusion which is causing the difficulty in breathing. Will follow up with oncology and further recommendations regarding these new findings. Overall prognosis is poor. Pulmonary Dr. Pappas planning for a Bronchoscopy tomorrow. We'll continue with the rest of her medication regimen. Further recommendations to follow depending on the progress of the patient. The treatment plan was discussed in detail with the patient and her family members at the bedside today
--- NOTE | 2018-01-12 11:57 | XR ---
EXAMINATION TYPE: XR chest 2V DATE OF EXAM: 01/12/2018 COMPARISON: Prior chest 01/11/2018 HISTORY: Shortness of breath, metastatic carcinoma, hypoxia TECHNIQUE: Frontal and lateral views of the chest are obtained. FINDINGS: Findings are similar to prior exam. IMPRESSION: Extensive interstitial changes, pleural thickening, cardiomegaly and possible underlying airspace disease again noted.
[2018-01-12] MEDS ORDERED: CALCIUM CHLORIDE 1,000 MG in SODIUM CHLORIDE 0.9% 100 ML IVPB ONE (12:00)
[2018-01-12] MEDS: AZITHROMYCIN 500 MG TAB PO SCH (16:52)
[2018-01-12] MEDS: SODIUM CHLORIDE 0.9% 1,000 ML IV SCH (17:15)
[2018-01-12] MEDS: ATORVASTATIN 20 MG TAB PO SCH (20:08)
[2018-01-13] MEDS: LEVOTHYROXINE 88 MCG TAB PO SCH (05:18)
[2018-01-13 07:54] LABS: Anion Gap 11 mmol/L; Blood Urea Nitrogen 8 mg/dL (7-17); Carbon Dioxide 29 mmol/L (22-30); Chloride 101 mmol/L (98-107); Glucose 99 mg/dL (74-99); Potassium 3.8 mmol/L (3.5-5.1); Sodium 141 mmol/L (137-145)
[2018-01-13] MEDS: IPRATROPIUM-ALBUTEROL 3 ML NEB INHALATION SCH ×4 (08:44→20:17)
[2018-01-13] MEDS: cefTRIAXone IN SWFI 1,000 MG/10 ML SYRINGE IVP SCH (09:01)
[2018-01-13] MEDS: FUROSEMIDE 10 MG/ML 2 ML VIAL IV SCH (09:01)
--- NOTE | 2018-01-13 12:04 | P.PN ---
Subjective Progress Note Date: 01/13/18 Principal diagnosis: COPD exacerbation Ms. Martinez is a 57-year-old female with a past medical history of gastrointestinal carcinoma, hyperlipidemia, hypothyroidism coming into the hospital with a chief complaint of difficulty in breathing. Patient was recently treated for pneumonia completed her antibiotic course. She had a CT for PE in view of her shortness of breath with history of malignancy that was negative for PE. But it showed pneumonic infiltrates with the possibility that it might be metastases from her GI malignancy. She is currently being treated for COPD exacerbation with breathing treatments and is placed on oxygen therapy. On 01/13/18 -patient's difficulty in breathing is at baseline. Her Calcium is still low low from this morning. She denies having any cramps. On review of systems: Constitutional:No fever chills or rigors Respiratory: Still has difficulty in breathing. No cough or sputum production. Cardiovascular: No chest pain, palpitations GI: Patient has abdominal discomfort at baseline Objective - Vital Signs Vital signs: Vital Signs Temp 98.0 F 01/13/18 07:21 Pulse 86 01/13/18 08:54 Resp 16 01/13/18 07:21 BP 106/72 01/13/18 08:45 Pulse Ox 94 L 01/13/18 07:21 Intake & Output 01/12/18 01/13/18 01/13/18 18:59 06:59 18:59 Intake Total 240 Output Total 800 Balance -560 Intake: Oral 240 Output: Urine 800 Other: Voiding Method Toilet Toilet Toilet # Voids 3 2 - Exam GENERAL EXAM GEN. APPEARANCE: alert, in no apparent distress HEAD EXAM: atraumatic, normocephalic, normal inspection RESPIRATORY EXAM: Patient has bilaterally basal crackles worse than yesterday CARDIOVASCULAR EXAM: regular rate, normal rhythm, normal heart sounds. Absent : systolic murmur, diastolic murmur, rubs, gallop, clicks GI/ABDOMINAL EXAM: Distended, nontender , no rigidity or guarding ,difficult to appreciate organomegaly EXTREMITIES EXAM: No cyanosis clubbing or pedal edema NEUROLOGICAL EXAM: alert, oriented X3, CN II-XII intact, motor sensory deficit PSYCHIATRIC EXAM: normal affect, normal mood SKIN EXAM: warm, dry, intact, normal color. Absent: rash - Labs CBC & Chem 7: 01/12/18 09:59 01/13/18 07:35 Labs: Abnormal Lab Results - Last 24 Hours (Table) 01/13/18 Range/Units 07:35 Calcium 7.0 L (8.4-10.2) mg/dL Microbiology - Last 24 Hours (Table) 01/11/18 12:02 Gram Stain - Final Sputum Sputum Culture - Final Nelli albicans 01/10/18 13:25 Blood Culture - Preliminary Blood No Growth after 48 hours Assessment and Plan Assessment: ASSESSMENT Shortness of breath - acute exacerbation of COPD- CAT scan of the chest showing bilateral interstitial infiltrates and pleural effusion - with the possibility that it might be a metastases from her GI malignancy. Gastric cancer Recently treated for pneumonia Mildly elevated troponins - secondary to demand ischemia Hypothyroidism Hypocalcemia PLAN: Will continue the patient on breathing treatments and steroids. She recently completed the antibiotic course for her pneumonia. Currently I don't think we are dealing with pneumonia here but she is on empiric antibiotics as per pulmonary recommendations. It might be metastases from her GI malignancy with bilateral pleural effusion which is causing the difficulty in breathing. Discussed with oncology today regarding further management and she is getting a bronchoscopy done today by Dr. Zamorano. Overall prognosis is poor. We'll continue with the rest of her medication regimen. Further recommendations to follow depending on the progress of the patient. The treatment plan was discussed in detail with the patient and her family members at the bedside today
--- NOTE | 2018-01-13 12:19 | P.PN ---
Subjective Progress Note Date: 01/13/18 Principal diagnosis: Bilateral acute interstitial pneumonia, baseline immunosuppressed status related to recent postchemotherapy, gastric cancer, severe COPD, metastatic spread/lymphangitic spread of cancer cannot be excluded, small bilateral pleural effusion, 01/13/2018, patient seen eval examined during the rounds she has some component of shortness of breath and dry nonproductive cough patient has been nothing by mouth for bronchoscopy and lung biopsy procedure has been explained to the patient already at length, chest x-ray performed 01/12/2018 reviewed and compared with the prior examsignificant changes has been noted 01/12/2018, patient remained short of breath the severity is is stable and improved but continued to have intermittent dry cough denies any significant sputum production labs medications reviewed, blood cultures and negative sputum is positive for some Nelli, leukocytosis improved today, patient has been explained about bronchoscopy and lung biopsy procedure alternative complication has been explained to her at length 57-year-old female with extensive history of smoking and nicotine use patient has not been feeling well for the last 1 month with progressive increased shortness of breath and cough denies any hemoptysis, patient has been coughing thick white to yellow to green sputum with those problem patient came into emergency department, patient has some pleuritic chest pain on arrival however denies currently, was found to have bilateral interstitial Petrin on CAT scan has been admitted into the hospital with a small bilateral pleural effusion has been noted as well, patient is overall a poor historian it appears that patient was diagnosed as the stomach cancer about around October 2017 patient has received and finish chemotherapy now on maintenance therapy, patient also has a port, computed tomography scan of the chest and radiographic studies reviewed the patient at length, on patient denies any loss of consciousness hemiparesis denies any weakness in any part of the body does have hours some generalized weakness, denies any chest pain appetite has been poor he denies any bowel or bladder dysfunction otherwise as noted above Patient has significant history and was presented to Dr Early with abdominal pain X 6 months, she was found to have small ventral hernia and had surgery by Dr Early on09/11/17 revealing 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 Morphologically the tumor had signet ring features C/W Gastric/Pancreatobiliary carcinoma. EGD by Dr Early on 09/16/17 revealing 4 cm ulcerated mass in greater curveture , biopsy done, results pending. CT Scan of abdomen & pelvis revealedknown gastric wall thickening, ascites and no distant mets otherwise. She smokes 1 PPD, denies ETOH use. Mother and 2 sisters had Breast cancer. Objective - Vital Signs Vital signs: Vital Signs Temp 98.0 F 01/13/18 07:21 Pulse 86 01/13/18 08:54 Resp 16 01/13/18 07:21 BP 106/72 01/13/18 08:45 Pulse Ox 94 L 01/13/18 07:21 Intake & Output 01/12/18 01/13/18 01/13/18 18:59 06:59 18:59 Intake Total 240 Output Total 800 Balance -560 Intake: Oral 240 Output: Urine 800 Other: Voiding Method Toilet Toilet Toilet # Voids 3 2 - Exam Constitutional General appearance: average body habitus, disheveled, mild distress - EENT Eyes: EOMI, PERRLA, poor dentition, normal appearance ENT: normal oropharynx Ears: bilateral: normal - Neck Neck: normal ROM Carotids: bilateral: upstroke normal, bruit absent Thyroid: bilateral: normal size - Respiratory Respiratory: bilateral: diminished, rales (Predominately at the bases), rhonchi (Fine on forced expiration), wheezing (Fine on forced expiration) improved compared to prior exam, negative: dullness, prolonged expiration, prolonged inspiration, other - Cardiovascular Heart sounds: normal: S1, S2 - Gastrointestinal General gastrointestinal: decreased bowel sounds, soft - Integumentary Integumentary: normal, normal turgor - Neurologic Neurologic: CNII-XII intact - Musculoskeletal Musculoskeletal: gait normal, generalized weakness, strength equal bilaterally - Psychiatric Psychiatric: A&O x's 3, appropriate affect, intact judgment & insight - Labs CBC & Chem 7: 01/12/18 09:59 01/13/18 07:35 Labs: Abnormal Lab Results - Last 24 Hours (Table) 01/13/18 Range/Units 07:35 Calcium 7.0 L (8.4-10.2) mg/dL Microbiology - Last 24 Hours (Table) 01/11/18 12:02 Gram Stain - Final Sputum Sputum Culture - Final Nelli albicans 01/10/18 13:25 Blood Culture - Preliminary Blood No Growth after 48 hours Assessment and Plan Assessment: Acute bilateral interstitial pneumonia Interstitial spread/metastatic disease stage IV cancer primary lung versus spread from gastric cancer Small bilateral pleural effusion Recent diagnosis of metastatic stage IV gastric cancer Sclerotic lesion on the bones likely stage IV disease cannot be excluded Plan: Breathing treatments and prednisone Broad-spectrum antibiotics continue Zithromax and Rocephin Follow-up on sputum culture results and report reviewed Patient will require bronchoscopy and transbronchial lung biopsy as a differential diagnoses remains complex with interstitial pneumonia versus interstitial lung disease versus neoplastic spread of tumor Procedure is explained to the patient and significant other, will proceed with transbronchial lung biopsy later on today under fluoroscopy Time with Patient: Greater than 30
[2018-01-13] MEDS: MORPHINE SULFATE 4 MG/ML SYRINGE IV PRN (13:02)
[2018-01-13] MEDS: NYSTATIN 100,000 UNIT/ML SUSP 500,000 UNIT/5 ML CUP PO SCH ×3 (14:09→21:32)
[2018-01-13] MEDS ORDERED: GLYCOPYRROLATE 0.2 MG/ML 2 ML VIAL ONE (14:35)
[2018-01-13] MEDS ORDERED: LIDOCAINE 1% INJ 10MG/ML (20 ML MDV) ONE (14:35)
[2018-01-13] MEDS ORDERED: MIDAZOLAM 2 MG/2 ML VIAL ONE (14:35)
[2018-01-13] MEDS ORDERED: LACTATED RINGERS 1,000 ML IV ONE (14:35)
[2018-01-13] MEDS ORDERED: PROPOFOL 10 MG/ML 20 ML VIAL IV ONE (14:35)
[2018-01-13] MEDS: HYDROcodone/APAP 10-325MG 1 EACH TAB PO PRN ×2 (15:56→21:36)
--- NOTE | 2018-01-13 15:56 | XR ---
EXAMINATION TYPE: XR chest 1V portable DATE OF EXAM: 01/13/2018 Comparison: 01/12/2018 Clinical History: 57-year-old female POST PROCEDURE after right lower lobe bronchoscopy Findings: Left heart margin obscured by adjacent vertebra, disease. Diffuse interstitial densities and airspace opacity mid to lower lungs with small effusions. Right-sided chest wall injection port with looped d istal end, tip near the brachiocephalic vein confluence. No pneumothorax. Impression: Stable exam with diffuse interstitial and airspace disease along with small effusions. No pneumothora x.
[2018-01-13] MEDS: predniSONE 20 MG TAB PO SCH (15:58)
[2018-01-13] MEDS: AZITHROMYCIN 500 MG TAB PO SCH (15:58)
[2018-01-13] MEDS: PANTOPRAZOLE 40 MG TABLET PO SCH (16:00)
--- NOTE | 2018-01-13 16:36 | FL ---
EXAMINATION TYPE: FL bronchoscopy DATE OF EXAM: 01/13/2018 CLINICAL HISTORY: RT lower lobe pneumonia TECHNIQUE: Fluoroscopy. COMPARISON: None. 2MIN 40SEC FL TIME IMPRESSION: As Above.
--- NOTE | 2018-01-13 16:56 | P.PCN ---
Date of Procedure: 01/13/18 Preoperative Diagnosis: Acute hypoxic respirator failure, bilateral interstitial pneumonia, stage IV gastric cancer, severe COPD Postoperative Diagnosis: As above Procedure(s) Performed: #1 bronchoscopy, #2 bronchial lavage of the right lower lobe and left lower lobe , #3 transbronchial lung biopsy of the right lower lobe as well as right upper lobe Surgeon: Ej Zamorano Estimated Blood Loss (ml): 5 Condition: critical Disposition: floor Indications for Procedure: As above Operative Findings: As below Description of Procedure: Patient prepared and draped in a usual fashion informed consent obtained from the patient procedure explained to the patient at length, fiberoptic bronchoscope was passed through the right nares the vocal cords were inspected they were normal structure and function tip of the scope was has beyond the vocal cords extensive amount of mucoid thick secretions were seen in the lungs which was suctioned and cleaned BAL was performed from the right lower lobe as well as left lower lobe tolerated well however patient continued to manifest low oxygen saturation in mid 80s however did drop down into 70s but came back slowly up diffuse right heme edema of the airways were noted, the tip of the scope was wedged in the right lower lobe transbronchial biopsy was obtained from the right lower lobe bronchus under fluoroscopic guidance there were issues associated with capturing the tissue site was changed into the right upper lobe where under fluoroscopy guidance transbronchial biopsies were done multiple biopsies were obtained besides significant desaturation no other complication was seen or noted patient tolerated the procedure well postprocedure chest x-ray reviewed no pneumothorax or complication noted
[2018-01-13] MEDS: SODIUM CHLORIDE 0.9% 1,000 ML IV SCH (17:12)
--- NOTE | 2018-01-13 17:31 | P.PN ---
Subjective Progress Note Date: 01/13/18 Principal diagnosis: LORI, SOB Patient seen today briefly in follow-up, awaiting bronchoscopy. Patient is still having significant difficulty in breathing, her appetite is good, she is hungry, she is having some generalized discomfort, she is ambulatory Objective - Vital Signs Vital signs: Vital Signs Temp 98 F 01/13/18 15:48 Pulse 84 01/13/18 16:12 Resp 18 01/13/18 15:48 BP 116/83 01/13/18 15:48 Pulse Ox 93 L 01/13/18 15:48 Intake & Output 01/12/18 01/13/18 01/13/18 18:59 06:59 18:59 Intake Total 240 150 Output Total 800 Balance -560 150 Intake: IV 150 Oral 240 Output: Urine 800 Other: Voiding Method Toilet Toilet Toilet # Voids 3 2 - Constitutional General appearance: Present: average body habitus, cooperative, no acute distress - EENT Eyes: Present: anicteric sclerae - Respiratory Respiratory: bilateral: diminished - Cardiovascular Heart sounds: normal: S1, S2 - Gastrointestinal General gastrointestinal: Present: normal bowel sounds, soft - Neurologic Neurologic: Present: CNII-XII intact - Musculoskeletal Musculoskeletal: Present: strength equal bilaterally - Psychiatric Psychiatric: Present: A&O x's 3, appropriate affect, intact judgment & insight - Labs CBC & Chem 7: 01/12/18 09:59 01/13/18 07:35 Labs: Abnormal Lab Results - Last 24 Hours (Table) 01/13/18 Range/Units 07:35 Calcium 7.0 L (8.4-10.2) mg/dL Microbiology - Last 24 Hours (Table) 01/11/18 12:02 Gram Stain - Final Sputum Sputum Culture - Final Nelli albicans 01/10/18 13:25 Blood Culture - Preliminary Blood No Growth after 48 hours Assessment and Plan (1) Gastric adenocarcinoma Narrative/Plan: patient has been on treatment with Xeloda for about one month. Patient's respiratory symptoms have been progressive over 2 weeks. Concern is for lymphangitic spread in the lungs. Pending bronchoscopy and biopsy today. We will review options for care once biopsy has been resulted. Current Visit: Yes Status: Acute Priority: High Code(s): C16.9 - MALIGNANT NEOPLASM OF STOMACH, UNSPECIFIED SNOMED Code(s): 098291764
[2018-01-13] MEDS: ATORVASTATIN 20 MG TAB PO SCH (21:33)
[2018-01-14] MEDS: LEVOTHYROXINE 88 MCG TAB PO SCH (05:41)
[2018-01-14] MEDS: predniSONE 20 MG TAB PO SCH (07:33)
[2018-01-14] MEDS: NYSTATIN 100,000 UNIT/ML SUSP 500,000 UNIT/5 ML CUP PO SCH ×4 (07:33→20:56)
[2018-01-14] MEDS: cefTRIAXone IN SWFI 1,000 MG/10 ML SYRINGE IVP SCH (07:33)
[2018-01-14] MEDS: PANTOPRAZOLE 40 MG TABLET PO SCH (07:33)
[2018-01-14] MEDS: FUROSEMIDE 10 MG/ML 2 ML VIAL IV SCH (07:33)
[2018-01-14] MEDS: HYDROcodone/APAP 10-325MG 1 EACH TAB PO PRN ×3 (07:34→20:56)
[2018-01-14] MEDS: IPRATROPIUM-ALBUTEROL 3 ML NEB INHALATION SCH ×4 (07:35→19:05)
[2018-01-14 08:09] LABS: Anisocytosis Moderate; Basophils % (A) 0 %; Eosinophils % (A) 0 %; HCT 35.6 % (34.0-46.0); HGB 11.8 gm/dL (11.4-16.0); Lymphocytes # (A) 1.2 k/uL (1.0-4.8); Lymphocytes % (A) 19 %; MCH 31.1 pg (25.0-35.0); MCHC 33.2 g/dL (31.0-37.0); MCV 93.7 fL (80.0-100.0); Macrocytosis Slight; Mean Platelet Volume 7.5; Monocytes # (A) 0.4 k/uL (0-1.0); Monocytes % (A) 6 %; Neutrophils # (A) 4.5 k/uL (1.3-7.7); Neutrophils % (A) 73 %; Platelet Count 284 k/uL (150-450); RDW 22.7 % (11.5-15.5); WBC 6.2 k/uL (3.8-10.6)
[2018-01-14 08:24] LABS: Anion Gap 12 mmol/L; Blood Urea Nitrogen 12 mg/dL (7-17); Carbon Dioxide 28 mmol/L (22-30); Chloride 98 mmol/L (98-107); Glucose 118 mg/dL (74-99); Potassium 4.3 mmol/L (3.5-5.1); Sodium 138 mmol/L (137-145)
[2018-01-14] MEDS: SODIUM CHLORIDE 0.9% 1,000 ML IV SCH (09:04)
--- NOTE | 2018-01-14 13:29 | P.PN ---
Subjective Progress Note Date: 01/14/18 Principal diagnosis: LORI, SOB Patient is seen today in follow-up, she is status post bronchoscopy and biopsy. Her breathing actually is much better today. She can sit with oxygen on and speak without difficulty, she has taken the oxygen off and walked to bathroom, currently down to 1 L nasal cannula. She is eating, drinking, ambulating, she has left rib pain, sudden onset, duration is brief no other associated symptoms , she feels pain is less intense than it has been in the past. Objective - Vital Signs Vital signs: Vital Signs Temp 97.7 F 01/14/18 05:59 Pulse 60 01/14/18 12:20 Resp 18 01/14/18 05:59 BP 111/72 01/14/18 05:59 Pulse Ox 99 01/14/18 11:30 Intake & Output 01/13/18 01/14/18 01/14/18 18:59 06:59 18:59 Intake Total 150 Balance 150 Intake: IV 150 Other: Voiding Method Toilet Toilet Toilet # Voids 3 2 - Constitutional General appearance: Present: average body habitus, cooperative, no acute distress - EENT Eyes: Present: anicteric sclerae - Respiratory Respiratory: bilateral: CTA (diminished bases, L>R) - Cardiovascular Heart sounds: normal: S1, S2 - Gastrointestinal General gastrointestinal: Present: normal bowel sounds, soft - Neurologic Neurologic: Present: CNII-XII intact - Musculoskeletal Musculoskeletal: Present: strength equal bilaterally - Psychiatric Psychiatric: Present: A&O x's 3, appropriate affect, intact judgment & insight - Labs CBC & Chem 7: 01/14/18 07:49 01/14/18 07:49 Labs: Abnormal Lab Results - Last 24 Hours (Table) 01/14/18 01/14/18 Range/Units 07:49 07:49 RDW 22.7 H (11.5-15.5) % Glucose 118 H (74-99) mg/dL Calcium 7.0 L (8.4-10.2) mg/dL Microbiology - Last 24 Hours (Table) 01/10/18 13:25 Blood Culture - Preliminary Blood No Growth after 72 hours 01/11/18 12:02 Gram Stain - Final Sputum Sputum Culture - Final Nelli albicans Assessment and Plan (1) Gastric adenocarcinoma Narrative/Plan: Pt currently on treatment with Xeloda x 1 month, respiratory symptoms are concerning for lymphangitic spread in the lungs, she had bronchoscopy and biopsy , her breathing actually is much improved today. I assured patient that once we get the results we'll be able to tolerate what we can do next. Encouraged patient to utilize all of the respiratory therapies that are prescribed to her. Current Visit: Yes Status: Acute Priority: High Code(s): C16.9 - MALIGNANT NEOPLASM OF STOMACH, UNSPECIFIED SNOMED Code(s): 042093811 Plan: Patient is okay from a Hematology/Oncology standpoint to be discharged home once she has been cleared by Attending and Consulting Physicians.
--- NOTE | 2018-01-14 14:09 | US ---
EXAMINATION TYPE: US chest DATE OF EXAM: 01/14/2018 COMPARISON: None CLINICAL HISTORY: pleural effusion bilateral. Markings EXAM MEASUREMENTS: Right Pleural Effusion fluid pocket: 8.9 cm Right skin to fluid thickness: 2.2 cm Left Pleural Effusion fluid pocket: 2.0 cm Left skin to fluid thickness: 1.7 cm Left side marked for possible thoracentesis outside the dept. Pulmonologists are able to review the images in the patient?s EMR. Right side not marked due to small unobstructed pocket. IMPRESSIONS: 1. Bilateral pleural effusions
[2018-01-14] MEDS: AZITHROMYCIN 500 MG TAB PO SCH (16:20)
--- NOTE | 2018-01-14 16:26 | PN ---
PROGRESS NOTE I am covering for Dr. Montesinos. DATE OF SERVICE: 01/14/2018 This 57-year-old woman who was admitted with shortness of breath with possible COPD, acute exacerbation, is being closely monitored. The CT scan of the chest showed bilateral interstitial infiltrates; malignancy needs to be ruled out. No chest pain. No palpitations. No fever. Shortness of breath much improving. PHYSICAL EXAMINATION: Alert and oriented x3. Pulse 83, blood pressure 111/72, respiration 18, temperature 97.7, pulse ox 96% on 5 L. HEENT: Conjunctivae normal. Oral mucosa moist. NECK: No jugular venous distention. CARDIOVASCULAR SYSTEM: S1, S2 muffled. RESPIRATORY SYSTEM: Breath sounds diminished at the bases. A few scattered rhonchi and crackles. ABDOMEN: Soft, non-tender. LEGS: No edema. No swelling. NERVOUS SYSTEM: Diffusely weak. LABS: WBC 6.2, calcium 7. ASSESSMENT: 1. Shortness of breath with chronic obstructive pulmonary disease, acute exacerbation. 2. Bilateral interstitial infiltrates. 3. Gastrointestinal malignancy with gastric cancer. 4. History of recent pneumonia. 5. Elevated troponin, indeterminate. 6. Hypothyroidism. 7. Hypocalcemia. RECOMMENDATIONS AND DISCUSSION: I recommend to continue current medication, continue symptomatic treatment. Otherwise as this time we will monitor the patient closely. Continue the steroids. Increase ambulation. Guarded prognosis. Further recommendations to follow. MMODL / IJN: [id number] / MTDD
--- NOTE | 2018-01-14 16:52 | P.GSCN ---
History of Present Illness Consult date: 01/14/18 Reason for Consult: Need for possible lung biopsy. Requesting physician: Ej Zamorano History of present illness: This is a 57-year-old female patient who follows with Dr. Montesinos on an outpatient basis. She does have a previous medical history of stage IV gastrointestinal cancer with chemotherapy, hyperlipidemia, hypothyroid, and tobacco dependence. She presented to the emergency room with complaints of shortness of breath and low oxygen saturation. She also reports cough with white sputum production. These symptoms have been ongoing for approximately a month. She had gone to see her oncologist who noted hypoxia and sent her to the emergency room. She had a chest CT demonstrating possible metastasis to her lungs as well as bilateral pleural effusions. She was admitted to the hospital for evaluation and treatment. Yesterday Dr. Zamorano performed a bronchoscopy, bronchial lavage, transbronchial lung biopsy, results are pending. This morning she had an ultrasound of the chest with marking for possible thoracentesis. Dr. Jennings was consulted for surgical biopsy to determine metastasis. Review of Systems 14 point review systems was completed and was negative except as noted in the HPI. Past Medical History Past Medical History: Cancer, Hyperlipidemia, Thyroid Disorder Additional Past Medical History / Comment(s): Back pain, gastrointestinal CA. last chemo november 2017. pt is on po chemo daily History of Any Multi-Drug Resistant Organisms: None Reported Past Surgical History: Back Surgery Additional Past Surgical History / Comment(s): Thyroidectomy, carpal tunnel surgery Past Anesthesia/Blood Transfusion Reactions: No Reported Reaction Past Psychological History: No Psychological Hx Reported Smoking Status: Current every day smoker Past Alcohol Use History: None Reported Past Drug Use History: None Reported - Past Family History Father Family Medical History: Cancer Additional Family Medical History / Comment(s): lung cancer Mother Family Medical History: Cancer Additional Family Medical History / Comment(s): ovarian,bone cancer Sister(s) Family Medical History: Cancer Additional Family Medical History / Comment(s): one sister had breast cancer w/ mets, another sister had ovarian cancer Medications and Allergies Home Medications Medication Instructions Recorded Confirmed Type Atorvastatin [Lipitor] 20 mg PO HS 07/23/17 01/10/18 History Levothyroxine Sodium [Synthroid] 88 mcg PO DAILY 07/23/17 01/10/18 History Levofloxacin [Levaquin] 500 mg PO DAILY #9 tab 10/10/17 01/10/18 Rx Acetaminophen Tab [Tylenol Tab] 500 mg PO Q6H PRN 01/08/18 01/10/18 History Capecitabine [Xeloda] 1,000 mg PO BID 01/08/18 01/10/18 History Capecitabine [Xeloda] 150 mg PO BID 01/08/18 01/10/18 History HYDROcodone/APAP 10-325MG [[place] 1 tab PO QID PRN 01/08/18 01/10/18 History 10-325] Allergies Allergy/AdvReac Type Severity Reaction Status Date / Time No Known Allergies Allergy Verified 01/10/18 11:59 Surgical - Exam Vital Signs Temp Pulse Resp BP Pulse Ox 98.6 F 106 H 22 116/74 82 L 01/10/18 11:55 01/10/18 11:55 01/10/18 11:55 01/10/18 11:55 01/10/18 11:55 - General well developed, well nourished, no distress, no pain - Eyes PERRL, normal ocular movement - ENT no hearing loss - Neck no masses, no bruits, trachea midline - Respiratory Lungs sounds diminished bilaterally. Respirations even, nonlabored. Currently on 2 L nasal cannula with oxygen saturation 96%. - Cardiovascular S1, S2 present. Regular rate and rhythm. Palpable peripheral pulses bilaterally. Trace bilateral lower extremity edema present. No calf pain or tenderness noted. - Abdomen Abdomen: soft, non tender, bowel sounds - Genitourinary Deferred - Rectum Deferred - Integumentary no rash, no growths - Neurologic normal coordination, normal sensation - Musculoskeletal normal gait - Psychiatric oriented to time, oriented to person, oriented to place, speech is normal, memory intact Results - Labs 01/14/18 07:49 01/14/18 07:49 Abnormal Lab Results - Last 24 Hours (Table) 01/14/18 01/14/18 Range/Units 07:49 07:49 RDW 22.7 H (11.5-15.5) % Glucose 118 H (74-99) mg/dL Calcium 7.0 L (8.4-10.2) mg/dL Microbiology - Last 24 Hours (Table) 01/10/18 13:25 Blood Culture - Preliminary Blood No Growth after 72 hours Diabetes panel 01/14/18 Range/Units 07:49 Sodium 138 (137-145) mmol/L Potassium 4.3 (3.5-5.1) mmol/L Chloride 98 (98-107) mmol/L Carbon Dioxide 28 (22-30) mmol/L BUN 12 (7-17) mg/dL Creatinine 0.67 (0.52-1.04) mg/dL Glucose 118 H (74-99) mg/dL Calcium 7.0 L (8.4-10.2) mg/dL Calcium panel 01/14/18 Range/Units 07:49 Calcium 7.0 L (8.4-10.2) mg/dL Pituitary panel 01/14/18 Range/Units 07:49 Sodium 138 (137-145) mmol/L Potassium 4.3 (3.5-5.1) mmol/L Chloride 98 (98-107) mmol/L Carbon Dioxide 28 (22-30) mmol/L BUN 12 (7-17) mg/dL Creatinine 0.67 (0.52-1.04) mg/dL Glucose 118 H (74-99) mg/dL Calcium 7.0 L (8.4-10.2) mg/dL Adrenal panel 01/14/18 Range/Units 07:49 Sodium 138 (137-145) mmol/L Potassium 4.3 (3.5-5.1) mmol/L Chloride 98 (98-107) mmol/L Carbon Dioxide 28 (22-30) mmol/L BUN 12 (7-17) mg/dL Creatinine 0.67 (0.52-1.04) mg/dL Glucose 118 H (74-99) mg/dL Calcium 7.0 L (8.4-10.2) mg/dL - Imaging Chest x-ray: report reviewed, image reviewed CT scan - chest: report reviewed, image reviewed Assessment and Plan (1) Gastric adenocarcinoma Current Visit: Yes Status: Chronic Priority: High Code(s): C16.9 - MALIGNANT NEOPLASM OF STOMACH, UNSPECIFIED SNOMED Code(s): 507953499 (2) Hypoxia Current Visit: Yes Status: Acute Code(s): R09.02 - HYPOXEMIA SNOMED Code(s ): 712912515 Plan: The patient was seen and examined at the bedside with Dr. Jennings. Chart/ diagnostics were reviewed. Discussion had between Dr. Jennings and Dr. Zamorano. Patient is in no acute distress at this time and does state that she is feeling better than when she came in. At this time we will await pathology results from transbronchial lung biopsy. Patient may have ultrasound-guided thoracentesis by interventional radiology if deemed appropriate. If no definitive diagnosis can be made by either the lung biopsy or thoracentesis we will consider a surgical biopsy. Please continue current management per primary , pulmonology, oncology. Patient does not need to stay in the hospital from our standpoint, surgical biopsy if deemed appropriate can be completed at a future date. We will continue to follow with you. Thank you Dr. Zamorano for this consult. Please call us with any questions. Time with Patient: Greater than 30
[2018-01-14] MEDS: ATORVASTATIN 20 MG TAB PO SCH (20:56)
[2018-01-15] MEDS: HYDROcodone/APAP 10-325MG 1 EACH TAB PO PRN ×3 (05:53→21:29)
[2018-01-15] MEDS: LEVOTHYROXINE 88 MCG TAB PO SCH (05:53)
[2018-01-15] MEDS: IPRATROPIUM-ALBUTEROL 3 ML NEB INHALATION SCH ×4 (07:50→20:12)
[2018-01-15] MEDS: NYSTATIN 100,000 UNIT/ML SUSP 500,000 UNIT/5 ML CUP PO SCH ×4 (08:55→21:29)
[2018-01-15] MEDS: FUROSEMIDE 10 MG/ML 2 ML VIAL IV SCH (08:55)
[2018-01-15] MEDS: predniSONE 20 MG TAB PO SCH (08:55)
[2018-01-15] MEDS: cefTRIAXone IN SWFI 1,000 MG/10 ML SYRINGE IVP SCH (08:55)
[2018-01-15] MEDS: PANTOPRAZOLE 40 MG TABLET PO SCH (08:55)
[2018-01-15] MEDS ORDERED: LIDOCAINE 1% INJ 10MG/ML (20 ML MDV) SQ ONE (11:32)
[2018-01-15] MEDS: DOCUSATE 100 MG CAP PO SCH ×2 (11:48→21:29)
--- NOTE | 2018-01-15 12:18 | P.PN ---
Subjective Progress Note Date: 01/14/18 Principal diagnosis: Bilateral acute interstitial pneumonia, baseline immunosuppressed status related to recent postchemotherapy, gastric cancer, severe COPD, metastatic spread/lymphangitic spread of cancer cannot be excluded, small bilateral pleural effusion, 01/14/2018, patient seen eval reexamined she is slightly better in terms of breathing was still short of breath require supplemental oxygen does have cough sputum is nonproductive patient is status post bronchoscopy and lung biopsy she had difficult time during the procedure due to continuous intermittent desaturation throughout the procedure the cytology and culture results and reports are still pending preliminary Gram stain's are negative the radiographic studies reviewed patient has small to moderate pleural effusion bilaterally more so on the left side compared to right side, will obtain ultrasound of the chest care plan discussed with the patient and family at length in addition to above we will consult thoracic surgery consult as well for open lung biopsy or video-assisted thorascopic biopsy if all of the above interventions are negative, discussed with Dr. Braden 01/13/2018, patient seen eval examined during the rounds she has some component of shortness of breath and dry nonproductive cough patient has been nothing by mouth for bronchoscopy and lung biopsy procedure has been explained to the patient already at length, chest x-ray performed 01/12/2018 reviewed and compared with the prior examsignificant changes has been noted 01/12/2018, patient remained short of breath the severity is is stable and improved but continued to have intermittent dry cough denies any significant sputum production labs medications reviewed, blood cultures and negative sputum is positive for some Nelli, leukocytosis improved today, patient has been explained about bronchoscopy and lung biopsy procedure alternative complication has been explained to her at length 57-year-old female with extensive history of smoking and nicotine use patient has not been feeling well for the last 1 month with progressive increased shortness of breath and cough denies any hemoptysis, patient has been coughing thick white to yellow to green sputum with those problem patient came into emergency department, patient has some pleuritic chest pain on arrival however denies currently, was found to have bilateral interstitial Petrin on CAT scan has been admitted into the hospital with a small bilateral pleural effusion has been noted as well, patient is overall a poor historian it appears that patient was diagnosed as the stomach cancer about around October 2017 patient has received and finish chemotherapy now on maintenance therapy, patient also has a port, computed tomography scan of the chest and radiographic studies reviewed the patient at length, on patient denies any loss of consciousness hemiparesis denies any weakness in any part of the body does have hours some generalized weakness, denies any chest pain appetite has been poor he denies any bowel or bladder dysfunction otherwise as noted above Patient has significant history and was presented to Dr Early with abdominal pain X 6 months, she was found to have small ventral hernia and had surgery by Dr Early on09/11/17 revealing 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 Morphologically the tumor had signet ring features C/W Gastric/Pancreatobiliary carcinoma. EGD by Dr Early on 09/16/17 revealing 4 cm ulcerated mass in greater curveture , biopsy done, results pending. CT Scan of abdomen & pelvis revealedknown gastric wall thickening, ascites and no distant mets otherwise. She smokes 1 PPD, denies ETOH use. Mother and 2 sisters had Breast cancer. Objective - Vital Signs Vital signs: Vital Signs Temp 97.5 F L 01/15/18 07:00 Pulse 76 01/15/18 11:32 Resp 18 01/15/18 07:00 BP 124/69 01/15/18 07:00 Pulse Ox 94 L 01/15/18 07:00 Intake & Output 01/14/18 01/15/18 01/15/18 18:59 06:59 18:59 Intake Total 1100 Balance 1100 Weight 78.925 kg Intake: Oral 1100 Other: Voiding Method Toilet Toilet Toilet # Voids 5 3 - Exam Constitutional General appearance: average body habitus, disheveled, mild distress - EENT Eyes: EOMI, PERRLA, poor dentition, normal appearance ENT: normal oropharynx Ears: bilateral: normal - Neck Neck: normal ROM Carotids: bilateral: upstroke normal, bruit absent Thyroid: bilateral: normal size - Respiratory Respiratory: bilateral: diminished, rales (Predominately at the bases), rhonchi (Fine on forced expiration), wheezing (Fine on forced expiration) improved compared to prior exam, negative: dullness, prolonged expiration, prolonged inspiration, other - Cardiovascular Heart sounds: normal: S1, S2 - Gastrointestinal General gastrointestinal: decreased bowel sounds, soft - Integumentary Integumentary: normal, normal turgor - Neurologic Neurologic: CNII-XII intact - Musculoskeletal Musculoskeletal: gait normal, generalized weakness, strength equal bilaterally - Psychiatric Psychiatric: A&O x's 3, appropriate affect, intact judgment & insight - Labs CBC & Chem 7: 01/14/18 07:49 01/14/18 07:49 Labs: Microbiology - Last 24 Hours (Table) 01/13/18 15:07 Acid Fast Bacilli Smear - Final Bronchial Washings - Random Acid Fast Bacilli Culture - Preliminary 01/13/18 15:07 Gram Stain - Preliminary Bronchial Washings - Random Bronchial Washings Culture - Preliminary 01/10/18 13:25 Blood Culture - Preliminary Blood No Growth after 96 hours 01/13/18 15:07 Fungal Culture - Preliminary Bronchial Washings - Random Assessment and Plan Assessment: Acute bilateral interstitial pneumonia Interstitial spread/metastatic disease stage IV cancer primary lung versus spread from gastric cancer Small to moderate rate bilateral pleural effusion, left more than right Recent diagnosis of metastatic stage IV gastric cancer Sclerotic lesion on the bones likely stage IV disease cannot be excluded Plan: Breathing treatments and prednisone Broad-spectrum antibiotics continue Zithromax and Rocephin Follow-up on sputum culture results and report reviewed Did is post bronchoscopy and transbronchial lung biopsy as a differential diagnoses remains complex with interstitial pneumonia versus interstitial lung disease versus neoplastic spread of tumor, awaiting culture cytology and histopathology results and reports We'll obtain ultrasound of the chest Time with Patient: Greater than 30
--- NOTE | 2018-01-15 12:21 | P.PN ---
Subjective Progress Note Date: 01/15/18 Principal diagnosis: Bilateral acute interstitial pneumonia, baseline immunosuppressed status related to recent postchemotherapy, gastric cancer, severe COPD, metastatic spread/lymphangitic spread of cancer cannot be excluded, small bilateral pleural effusion, 01/15/2018, patient seen eval examined on floor overall still short of breath has dry nonproductive cough patient remains on supplemental oxygen ultrasound of the chest reviewed moderate pleural effusion seen on the left side right- sidedsignificant effusion is seen procedure thoracentesis has been explained to the patient, labs reviewed medications reviewed 01/14/2018, patient seen eval reexamined she is slightly better in terms of breathing was still short of breath require supplemental oxygen does have cough sputum is nonproductive patient is status post bronchoscopy and lung biopsy she had difficult time during the procedure due to continuous intermittent desaturation throughout the procedure the cytology and culture results and reports are still pending preliminary Gram stain's are negative the radiographic studies reviewed patient has small to moderate pleural effusion bilaterally more so on the left side compared to right side, will obtain ultrasound of the chest care plan discussed with the patient and family at length in addition to above we will consult thoracic surgery consult as well for open lung biopsy or video-assisted thorascopic biopsy if all of the above interventions are negative, discussed with Dr. Braden 01/13/2018, patient seen evnicolasa examined during the rounds she has some component of shortness of breath and dry nonproductive cough patient has been nothing by mouth for bronchoscopy and lung biopsy procedure has been explained to the patient already at length, chest x-ray performed 01/12/2018 reviewed and compared with the prior examsignificant changes has been noted 01/12/2018, patient remained short of breath the severity is is stable and improved but continued to have intermittent dry cough denies any significant sputum production labs medications reviewed, blood cultures and negative sputum is positive for some Nelli, leukocytosis improved today, patient has been explained about bronchoscopy and lung biopsy procedure alternative complication has been explained to her at length 57-year-old female with extensive history of smoking and nicotine use patient has not been feeling well for the last 1 month with progressive increased shortness of breath and cough denies any hemoptysis, patient has been coughing thick white to yellow to green sputum with those problem patient came into emergency department, patient has some pleuritic chest pain on arrival however denies currently, was found to have bilateral interstitial Petrin on CAT scan has been admitted into the hospital with a small bilateral pleural effusion has been noted as well, patient is overall a poor historian it appears that patient was diagnosed as the stomach cancer about around October 2017 patient has received and finish chemotherapy now on maintenance therapy, patient also has a port, computed tomography scan of the chest and radiographic studies reviewed the patient at length, on patient denies any loss of consciousness hemiparesis denies any weakness in any part of the body does have hours some generalized weakness, denies any chest pain appetite has been poor he denies any bowel or bladder dysfunction otherwise as noted above Patient has significant history and was presented to Dr Early with abdominal pain X 6 months, she was found to have small ventral hernia and had surgery by Dr Early on09/11/17 revealing 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 Morphologically the tumor had signet ring features C/W Gastric/Pancreatobiliary carcinoma. EGD by Dr Early on 09/16/17 revealing 4 cm ulcerated mass in greater curveture , biopsy done, results pending. CT Scan of abdomen & pelvis revealedknown gastric wall thickening, ascites and no distant mets otherwise. She smokes 1 PPD, denies ETOH use. Mother and 2 sisters had Breast cancer. Objective - Vital Signs Vital signs: Vital Signs Temp 97.5 F L 01/15/18 07:00 Pulse 76 01/15/18 11:32 Resp 18 01/15/18 07:00 BP 124/69 01/15/18 07:00 Pulse Ox 94 L 01/15/18 07:00 Intake & Output 01/14/18 01/15/18 01/15/18 18:59 06:59 18:59 Intake Total 1100 Balance 1100 Weight 78.925 kg Intake: Oral 1100 Other: Voiding Method Toilet Toilet Toilet # Voids 5 3 - Exam Constitutional General appearance: average body habitus, disheveled, mild distress - EENT Eyes: EOMI, PERRLA, poor dentition, normal appearance ENT: normal oropharynx Ears: bilateral: normal - Neck Neck: normal ROM Carotids: bilateral: upstroke normal, bruit absent Thyroid: bilateral: normal size - Respiratory Respiratory: bilateral: diminished, rales (Predominately at the bases), rhonchi (Fine on forced expiration), wheezing (Fine on forced expiration) improved compared to prior exam, negative: dullness, prolonged expiration, prolonged inspiration, other - Cardiovascular Heart sounds: normal: S1, S2 - Gastrointestinal General gastrointestinal: decreased bowel sounds, soft - Integumentary Integumentary: normal, normal turgor - Neurologic Neurologic: CNII-XII intact - Musculoskeletal Musculoskeletal: gait normal, generalized weakness, strength equal bilaterally - Psychiatric Psychiatric: A&O x's 3, appropriate affect, intact judgment & insight - Labs CBC & Chem 7: 01/14/18 07:49 01/14/18 07:49 Labs: Microbiology - Last 24 Hours (Table) 01/13/18 15:07 Acid Fast Bacilli Smear - Final Bronchial Washings - Random Acid Fast Bacilli Culture - Preliminary 01/13/18 15:07 Gram Stain - Preliminary Bronchial Washings - Random Bronchial Washings Culture - Preliminary 01/10/18 13:25 Blood Culture - Preliminary Blood No Growth after 96 hours 01/13/18 15:07 Fungal Culture - Preliminary Bronchial Washings - Random Assessment and Plan Assessment: Acute bilateral interstitial pneumonia Interstitial spread/metastatic disease stage IV cancer primary lung versus spread from gastric cancer Small to moderate bilateral pleural effusion, left more than right Recent diagnosis of metastatic stage IV gastric cancer Sclerotic lesion on the bones likely stage IV disease cannot be excluded Plan: Breathing treatments and prednisone Broad-spectrum antibiotics continue Zithromax and Rocephin Follow-up on sputum culture results and report reviewed Awaiting transbronchial lung biopsy results, as a differential diagnoses remains complex with interstitial pneumonia versus interstitial lung disease versus neoplastic spread of tumor, awaiting culture cytology and histopathology results and reports Reviewed ultrasound of the chest, we will proceed with left thoracentesis as it will differentiate and help sorting out malignant effusion versus parapneumonic effusion, procedure alternative side effect risks and complication explained to the patient at length Time with Patient: Greater than 30
--- NOTE | 2018-01-15 13:11 | P.PN ---
Subjective Progress Note Date: 01/15/18 Principal diagnosis: LORI, SOB, metastatic gastric cancer Pt seen in follow up, she is breathing better with O2 and she is being evaluated for that same for home. No hemoptysis, she can ambulate independently , appetite is fair, denies pain. Objective - Vital Signs Vital signs: Vital Signs Temp 97.5 F L 01/15/18 07:00 Pulse 76 01/15/18 11:32 Resp 18 01/15/18 07:00 BP 124/69 01/15/18 07:00 Pulse Ox 94 L 01/15/18 07:00 Intake & Output 01/14/18 01/15/18 01/15/18 18:59 06:59 18:59 Intake Total 1100 Balance 1100 Weight 78.925 kg Intake: Oral 1100 Other: Voiding Method Toilet Toilet Toilet # Voids 5 3 - Constitutional General appearance: Present: average body habitus, cooperative, no acute distress - EENT Eyes: Present: EOMI - Respiratory Respiratory: left: diminished (base) - Cardiovascular Rhythm: regular Heart sounds: normal: S1, S2 - Peripheral edema leg Peripheral Edema: bilateral: None - Gastrointestinal General gastrointestinal: Present: normal bowel sounds, soft - Integumentary Integumentary: Present: normal - Neurologic Neurologic: Present: CNII-XII intact - Musculoskeletal Musculoskeletal: Present: strength equal bilaterally - Psychiatric Psychiatric: Present: A&O x's 3, appropriate affect, intact judgment & insight - Labs CBC & Chem 7: 01/14/18 07:49 01/14/18 07:49 Labs: Microbiology - Last 24 Hours (Table) 01/13/18 15:07 Acid Fast Bacilli Smear - Final Bronchial Washings - Random Acid Fast Bacilli Culture - Preliminary 01/13/18 15:07 Gram Stain - Preliminary Bronchial Washings - Random Bronchial Washings Culture - Preliminary 01/10/18 13:25 Blood Culture - Preliminary Blood No Growth after 96 hours 01/13/18 15:07 Fungal Culture - Preliminary Bronchial Washings - Random Assessment and Plan (1) Gastric adenocarcinoma Narrative/Plan: Path pending on liopsy of lung as there is concern for lymphangitic spread of pt gastric cancer. Breathing is stable, pt requires O2. No further procedures are planned after chart review. Pt has f/u with Dr. Davenport next week for biopsy results. Current Visit: Yes Status: Chronic Priority: High Code(s): C16.9 - MALIGNANT NEOPLASM OF STOMACH, UNSPECIFIED SNOMED Code(s): 087604771 Plan: Patient is okay from a Hematology/Oncology standpoint, once home O2 available, to be discharged home and she has been cleared by Attending and Consulting Physicians.
--- NOTE | 2018-01-15 14:13 | XR ---
EXAMINATION TYPE: XR chest 1V portable DATE OF EXAM: 01/15/2018 COMPARISON: 01/13/2018 INDICATION: Postthoracentesis TECHNIQUE: Single frontal view of the chest is obtained. FINDINGS: The heart size is normal. The pulmonary vasculature is prominent. There is diffuse increased lung markings bilaterally. Correlate for pulmonary edema. Small right pleu ral effusion is present. Minimal left pleural effusion is not excluded. The diaphragms are silhouette d bilaterally. A port is present on the right with the tip in the superior vena cava region. No pneumothorax is evident. IMPRESSION: 1. No pneumothorax postthoracentesis. 2. Findings compatible with pulmonary edema. 3. Small right minimal left pleural effusion are likely present.
[2018-01-15] MEDS: AZITHROMYCIN 500 MG TAB PO SCH (15:15)
[2018-01-15 15:20] LABS: Total Protein 6.1 g/dL (6.3-8.2)
[2018-01-15 15:50] LABS: Appearance,BF Hazy; Color,BF Yellow; Nucleated Cells, Body Fluid 135 /uL; RBC, Body Fluid 1523 /uL
[2018-01-15 15:58] LABS: Mononuclear WBC,Body Fluid 89 %; Polynuclear WBC,Body Fluid 8 %; Total Cells Counted,Body Fluid 100
--- NOTE | 2018-01-15 17:43 | PN ---
PROGRESS NOTE I am covering for Dr. Montesinos. DATE OF SERVICE: 01/15/2018 This 57-year-old woman was admitted with shortness of breath, COPD exacerbation. She also had bilateral pleural effusion. Dr. Zamorano is planning thoracocentesis today. No chest pain. No palpitations. No fever. Symptomatically she is improving. On exam, alert and oriented x3. Pulse 86, blood pressure 112/74, respiration 18, temperature 98.1, pulse ox 96% on 4 L. HEENT: Conjunctivae normal. NECK: No jugular venous distention. CARDIOVASCULAR SYSTEM: S1, S2 muffled. RESPIRATORY SYSTEM: Breath sounds diminished at the bases. A few scattered rhonchi and crackles. ABDOMEN: Soft, non-tender. LEGS: No edema. No swelling. NERVOUS SYSTEM: No focal deficit. LABS: CBC within normal limits. Otherwise, calcium is 7. Parainfluenza from bronchoscopy ASSESSMENT: 1. Shortness of breath with chronic obstructive pulmonary disease, acute exacerbation. 2. Bilateral pleural effusions. 3. Bilateral interstitial infiltrates. 4. Gastrointestinal malignancy history with gastric cancer. 5. History of recent pneumonia. 6. Elevated troponin, indeterminate. 7. Hypothyroidism. 8. Hypocalcemia. RECOMMENDATIONS AND DISCUSSION: I recommend to continue current medication, continue symptomatic treatment. Otherwise at this time I recommend continuing with the bronchodilators and antibiotics. Closely follow with Pulmonary Dr. Zamorano for possible thoracocentesis. Guarded prognosis. Further recommendations to follow. MMODL / IJN: [id number] / MTDD
[2018-01-15] MEDS: SODIUM CHLORIDE 0.9% 1,000 ML IV SCH (18:02)
[2018-01-15 19:06] LABS: Total Protein, Body Fluid 4400 mg/dL
[2018-01-15] MEDS: ATORVASTATIN 20 MG TAB PO SCH (21:29)
[2018-01-15] MEDS: SENNOSIDES-DOCUSATE SODIUM 1 EACH TAB PO SCH (21:36)
[2018-01-16] MEDS: LEVOTHYROXINE 88 MCG TAB PO SCH (06:01)
[2018-01-16] MEDS: HYDROcodone/APAP 10-325MG 1 EACH TAB PO PRN ×2 (07:09→16:20)
[2018-01-16] MEDS: IPRATROPIUM-ALBUTEROL 3 ML NEB INHALATION SCH ×4 (07:43→20:44)
[2018-01-16] MEDS: NYSTATIN 100,000 UNIT/ML SUSP 500,000 UNIT/5 ML CUP PO SCH ×4 (08:34→20:06)
[2018-01-16] MEDS: FUROSEMIDE 10 MG/ML 2 ML VIAL IV SCH (08:34)
[2018-01-16] MEDS: cefTRIAXone IN SWFI 1,000 MG/10 ML SYRINGE IVP SCH (08:34)
[2018-01-16] MEDS: DOCUSATE 100 MG CAP PO SCH ×2 (08:34→20:06)
[2018-01-16] MEDS: predniSONE 20 MG TAB PO SCH (08:34)
[2018-01-16] MEDS: PANTOPRAZOLE 40 MG TABLET PO SCH (08:34)
[2018-01-16 13:54] VITALS: BMI 28.9
[2018-01-16 14:54] VITALS: RESP 16
[2018-01-16] MEDS: AZITHROMYCIN 500 MG TAB PO SCH (16:19)
[2018-01-16] MEDS: SODIUM CHLORIDE 0.9% 1,000 ML IV SCH (16:22)
--- NOTE | 2018-01-16 16:38 | P.PN ---
Subjective Progress Note Date: 01/16/18 Principal diagnosis: Metastatic stage IV gastric cancer Bilateral acute interstitial pneumonia, baseline immunosuppressed status related to recent postchemotherapy, gastric cancer, severe COPD, metastatic spread/lymphangitic spread of cancer cannot be excluded, small bilateral pleural effusion, 01/16/2018, patient seen eval examined during the rounds clinically patient is slightly better the oxygenation on supplemental oxygen is in low 90s however off of oxygen sats drop down to 87%, patient is status post thoracentesis of the right side cytology results are pending however bronchial biopsy and transbronchial needle biopsy results came back positive for metastatic adenocarcinoma likely from the stomach 01/15/2018, patient seen eval examined on floor overall still short of breath has dry nonproductive cough patient remains on supplemental oxygen ultrasound of the chest reviewed moderate pleural effusion seen on the left side right- sidedsignificant effusion is seen procedure thoracentesis has been explained to the patient, labs reviewed medications reviewed 01/14/2018, patient seen eval reexamined she is slightly better in terms of breathing was still short of breath require supplemental oxygen does have cough sputum is nonproductive patient is status post bronchoscopy and lung biopsy she had difficult time during the procedure due to continuous intermittent desaturation throughout the procedure the cytology and culture results and reports are still pending preliminary Gram stain's are negative the radiographic studies reviewed patient has small to moderate pleural effusion bilaterally more so on the left side compared to right side, will obtain ultrasound of the chest care plan discussed with the patient and family at length in addition to above we will consult thoracic surgery consult as well for open lung biopsy or video-assisted thorascopic biopsy if all of the above interventions are negative, discussed with Dr. Braden 01/13/2018, patient seen eval examined during the rounds she has some component of shortness of breath and dry nonproductive cough patient has been nothing by mouth for bronchoscopy and lung biopsy procedure has been explained to the patient already at length, chest x-ray performed 01/12/2018 reviewed and compared with the prior examsignificant changes has been noted 01/12/2018, patient remained short of breath the severity is is stable and improved but continued to have intermittent dry cough denies any significant sputum production labs medications reviewed, blood cultures and negative sputum is positive for some Nelli, leukocytosis improved today, patient has been explained about bronchoscopy and lung biopsy procedure alternative complication has been explained to her at length 57-year-old female with extensive history of smoking and nicotine use patient has not been feeling well for the last 1 month with progressive increased shortness of breath and cough denies any hemoptysis, patient has been coughing thick white to yellow to green sputum with those problem patient came into emergency department, patient has some pleuritic chest pain on arrival however denies currently, was found to have bilateral interstitial Petrin on CAT scan has been admitted into the hospital with a small bilateral pleural effusion has been noted as well, patient is overall a poor historian it appears that patient was diagnosed as the stomach cancer about around October 2017 patient has received and finish chemotherapy now on maintenance therapy, patient also has a port, computed tomography scan of the chest and radiographic studies reviewed the patient at length, on patient denies any loss of consciousness hemiparesis denies any weakness in any part of the body does have hours some generalized weakness, denies any chest pain appetite has been poor he denies any bowel or bladder dysfunction otherwise as noted above Patient has significant history and was presented to Dr Early with abdominal pain X 6 months, she was found to have small ventral hernia and had surgery by Dr Early on09/11/17 revealing 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 Morphologically the tumor had signet ring features C/W Gastric/Pancreatobiliary carcinoma. EGD by Dr Early on 09/16/17 revealing 4 cm ulcerated mass in greater curveture , biopsy done, results pending. CT Scan of abdomen & pelvis revealedknown gastric wall thickening, ascites and no distant mets otherwise. She smokes 1 PPD, denies ETOH use. Mother and 2 sisters had Breast cancer. Objective - Vital Signs Vital signs: Vital Signs Temp 98 F 01/16/18 14:25 Pulse 90 01/16/18 16:32 Resp 16 01/16/18 14:25 BP 113/74 01/16/18 14:25 Pulse Ox 95 01/16/18 14:25 Intake & Output 01/15/18 01/16/18 01/16/18 18:59 06:59 18:59 Intake Total 750 Balance 750 Weight 78.925 kg Intake: Oral 750 Other: Voiding Method Toilet Toilet Toilet # Voids 2 2 2 - Exam Constitutional General appearance: average body habitus, disheveled, mild distress - EENT Eyes: EOMI, PERRLA, poor dentition, normal appearance ENT: normal oropharynx Ears: bilateral: normal - Neck Neck: normal ROM Carotids: bilateral: upstroke normal, bruit absent Thyroid: bilateral: normal size - Respiratory Respiratory: bilateral: diminished, rales (Predominately at the bases), rhonchi (Fine on forced expiration), wheezing (Fine on forced expiration) improved compared to prior exam, negative: dullness, prolonged expiration, prolonged inspiration, other - Cardiovascular Heart sounds: normal: S1, S2 - Gastrointestinal General gastrointestinal: decreased bowel sounds, soft - Integumentary Integumentary: normal, normal turgor - Neurologic Neurologic: CNII-XII intact - Musculoskeletal Musculoskeletal: gait normal, generalized weakness, strength equal bilaterally - Psychiatric Psychiatric: A&O x's 3, appropriate affect, intact judgment & insight - Labs CBC & Chem 7: 01/14/18 07:49 01/14/18 07:49 Labs: Microbiology - Last 24 Hours (Table) 01/13/18 15:07 Gram Stain - Final Bronchial Washings - Random Bronchial Washings Culture - Final 01/15/18 13:45 Gram Stain - Preliminary Pleural Fluid Body Fluid Culture - Preliminary 01/15/18 13:45 Acid Fast Bacilli Smear - Final Pleural Fluid Acid Fast Bacilli Culture - Preliminary 01/10/18 13:25 Blood Culture - Preliminary Blood No Growth after 120 hours 01/15/18 13:45 Anaerobic Culture - Preliminary Pleural Fluid Assessment and Plan Assessment: Stage IV metastatic adenocarcinoma of this, Acute bilateral interstitial pneumonia Interstitial spread/metastatic disease stage IV from gastric cancer Small to moderate bilateral pleural effusion, left more than right Recent diagnosis of metastatic stage IV gastric cancer Sclerotic lesion on the bones likely stage IV disease cannot be excluded Plan: Breathing treatments and prednisone, would recommend to do a quick taper prednisone and other option would be to put him put her on Medrol Dosepak Broad-spectrum antibiotics continue Zithromax and Rocephin, however Rocephin can be discontinued patient can finish a course of Z-Jan on outpatient setting Follow-up on sputum culture results and report reviewed Reviewed transbronchial lung biopsy results, Reviewed ultrasound of the chest, status post left thoracentesis Patient can be discharged home on supplemental oxygen bronchodilator oral antibiotics and tapering steroids which follow-up in outpatient setting, further intervention from oncological standpoint as per oncology service Time with Patient: Greater than 30
--- NOTE | 2018-01-16 18:08 | P.PN ---
Subjective Progress Note Date: 01/16/18 Principal diagnosis: LORI, SOB, metastatic gastric cancer Patient seen today in follow-up, she is requiring O2, her breathing is less labored, no chest pain, palpitations, nausea or pain, she is ambulatory independently. Objective - Vital Signs Vital signs: Vital Signs Temp 98 F 01/16/18 14:25 Pulse 90 01/16/18 16:41 Resp 16 01/16/18 14:25 BP 113/74 01/16/18 14:25 Pulse Ox 95 01/16/18 14:25 Intake & Output 01/15/18 01/16/18 01/16/18 18:59 06:59 18:59 Intake Total 750 Balance 750 Weight 78.925 kg Intake: Oral 750 Other: Voiding Method Toilet Toilet Toilet # Voids 2 2 2 - Constitutional General appearance: Present: average body habitus, cooperative, no acute distress - EENT Eyes: Present: anicteric sclerae - Respiratory Respiratory: bilateral: CTA, diminished - Cardiovascular Heart sounds: normal: S1, S2 - Gastrointestinal General gastrointestinal: Present: normal bowel sounds, soft - Neurologic Neurologic: Present: CNII-XII intact - Musculoskeletal Musculoskeletal: Present: strength equal bilaterally - Psychiatric Psychiatric: Present: A&O x's 3, appropriate affect, intact judgment & insight - Labs CBC & Chem 7: 01/14/18 07:49 01/14/18 07:49 Labs: Microbiology - Last 24 Hours (Table) 01/13/18 15:07 Gram Stain - Final Bronchial Washings - Random Bronchial Washings Culture - Final 01/15/18 13:45 Gram Stain - Preliminary Pleural Fluid Body Fluid Culture - Preliminary 01/15/18 13:45 Acid Fast Bacilli Smear - Final Pleural Fluid Acid Fast Bacilli Culture - Preliminary 01/10/18 13:25 Blood Culture - Preliminary Blood No Growth after 120 hours 01/15/18 13:45 Anaerobic Culture - Preliminary Pleural Fluid Assessment and Plan (1) Gastric adenocarcinoma Narrative/Plan: Pathology results available later in the day. Dr. Zamorano reviewed results with her. Results will be communicated to primary oncologist and new plan of care will be developed. Patient has a follow-up in 6 days. Current Visit: Yes Status: Chronic Priority: High Code(s): C16.9 - MALIGNANT NEOPLASM OF STOMACH, UNSPECIFIED SNOMED Code(s): 150736304
[2018-01-16] MEDS: SENNOSIDES-DOCUSATE SODIUM 1 EACH TAB PO SCH (20:06)
[2018-01-16] MEDS: ATORVASTATIN 20 MG TAB PO SCH (20:06)
[2018-01-17] MEDS: HYDROcodone/APAP 10-325MG 1 EACH TAB PO PRN ×2 (02:04→09:17)
[2018-01-17] MEDS: LEVOTHYROXINE 88 MCG TAB PO SCH (05:25)
[2018-01-17 06:58] VITALS: BP 107/69; TEMP 98.1
--- NOTE | 2018-01-17 07:06 | P.PN ---
Subjective Progress Note Date: 01/17/18 Principal diagnosis: Metastatic stage IV gastric cancer Bilateral acute interstitial pneumonia, baseline immunosuppressed status related to recent postchemotherapy, gastric cancer, severe COPD, metastatic spread/lymphangitic spread of cancer cannot be excluded, small bilateral pleural effusion, 01/17/2018, patient seen eval reexamined during the rounds clinically overall not much change from baseline still of shortness of breath on activity and exertion she remains on breathing treatment oral prednisone and broad-spectrum antibiotics the histopathology report of transbronchial lung biopsy reviewed with the patient awaiting final recommendation from oncology service, she requires 3-4 L oxygen nasal cannula room air sats does drop down to 86% which however has improved from low 80s in the beginning, patient will likely need supplemental oxygen smoking cessation, cytology on pleural fluid results are pending 01/16/2018, patient seen eval examined during the rounds clinically patient is slightly better the oxygenation on supplemental oxygen is in low 90s however off of oxygen sats drop down to 87%, patient is status post thoracentesis of the right side cytology results are pending however bronchial biopsy and transbronchial needle biopsy results came back positive for metastatic adenocarcinoma likely from the stomach 01/15/2018, patient seen eval examined on floor overall still short of breath has dry nonproductive cough patient remains on supplemental oxygen ultrasound of the chest reviewed moderate pleural effusion seen on the left side right- sidedsignificant effusion is seen procedure thoracentesis has been explained to the patient, labs reviewed medications reviewed 01/14/2018, patient seen eval reexamined she is slightly better in terms of breathing was still short of breath require supplemental oxygen does have cough sputum is nonproductive patient is status post bronchoscopy and lung biopsy she had difficult time during the procedure due to continuous intermittent desaturation throughout the procedure the cytology and culture results and reports are still pending preliminary Gram stain's are negative the radiographic studies reviewed patient has small to moderate pleural effusion bilaterally more so on the left side compared to right side, will obtain ultrasound of the chest care plan discussed with the patient and family at length in addition to above we will consult thoracic surgery consult as well for open lung biopsy or video-assisted thorascopic biopsy if all of the above interventions are negative, discussed with Dr. Braden 01/13/2018, patient seen eval examined during the rounds she has some component of shortness of breath and dry nonproductive cough patient has been nothing by mouth for bronchoscopy and lung biopsy procedure has been explained to the patient already at length, chest x-ray performed 01/12/2018 reviewed and compared with the prior examsignificant changes has been noted 01/12/2018, patient remained short of breath the severity is is stable and improved but continued to have intermittent dry cough denies any significant sputum production labs medications reviewed, blood cultures and negative sputum is positive for some Nelli, leukocytosis improved today, patient has been explained about bronchoscopy and lung biopsy procedure alternative complication has been explained to her at length 57-year-old female with extensive history of smoking and nicotine use patient has not been feeling well for the last 1 month with progressive increased shortness of breath and cough denies any hemoptysis, patient has been coughing thick white to yellow to green sputum with those problem patient came into emergency department, patient has some pleuritic chest pain on arrival however denies currently, was found to have bilateral interstitial Petrin on CAT scan has been admitted into the hospital with a small bilateral pleural effusion has been noted as well, patient is overall a poor historian it appears that patient was diagnosed as the stomach cancer about around October 2017 patient has received and finish chemotherapy now on maintenance therapy, patient also has a port, computed tomography scan of the chest and radiographic studies reviewed the patient at length, on patient denies any loss of consciousness hemiparesis denies any weakness in any part of the body does have hours some generalized weakness, denies any chest pain appetite has been poor he denies any bowel or bladder dysfunction otherwise as noted above Patient has significant history and was presented to Dr Early with abdominal pain X 6 months, she was found to have small ventral hernia and had surgery by Dr Early on09/11/17 revealing 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 Morphologically the tumor had signet ring features C/W Gastric/Pancreatobiliary carcinoma. EGD by Dr Early on 09/16/17 revealing 4 cm ulcerated mass in greater curveture , biopsy done, results pending. CT Scan of abdomen & pelvis revealedknown gastric wall thickening, ascites and no distant mets otherwise. She smokes 1 PPD, denies ETOH use. Mother and 2 sisters had Breast cancer. Objective - Vital Signs Vital signs: Vital Signs Temp 98.1 F 01/17/18 05:30 Pulse 91 01/17/18 05:30 Resp 16 05/25/18 05:30 BP 107/69 01/17/18 05:30 Pulse Ox 94 L 01/17/18 05:30 Intake & Output 01/16/18 01/17/18 01/17/18 18:59 06:59 18:59 Weight 78.925 kg 78.925 kg Other: Voiding Method Toilet Toilet # Voids 2 2 - Exam Constitutional General appearance: average body habitus, disheveled, mild distress - EENT Eyes: EOMI, PERRLA, poor dentition, normal appearance ENT: normal oropharynx Ears: bilateral: normal - Neck Neck: normal ROM Carotids: bilateral: upstroke normal, bruit absent Thyroid: bilateral: normal size - Respiratory Respiratory: bilateral: diminished, rales (Predominately at the bases), rhonchi (Fine on forced expiration), wheezing (Fine on forced expiration) improved compared to prior exam, negative: dullness, prolonged expiration, prolonged inspiration, other - Cardiovascular Heart sounds: normal: S1, S2 - Gastrointestinal General gastrointestinal: decreased bowel sounds, soft - Integumentary Integumentary: normal, normal turgor - Neurologic Neurologic: CNII-XII intact - Musculoskeletal Musculoskeletal: gait normal, generalized weakness, strength equal bilaterally - Psychiatric Psychiatric: A&O x's 3, appropriate affect, intact judgment & insight - Labs CBC & Chem 7: 01/14/18 07:49 01/14/18 07:49 Labs: Microbiology - Last 24 Hours (Table) 01/10/18 13:25 Blood Culture - Final Blood No Growth after 144 hours 01/13/18 15:07 Gram Stain - Final Bronchial Washings - Random Bronchial Washings Culture - Final 01/15/18 13:45 Gram Stain - Preliminary Pleural Fluid Body Fluid Culture - Preliminary 01/15/18 13:45 Acid Fast Bacilli Smear - Final Pleural Fluid Acid Fast Bacilli Culture - Preliminary Assessment and Plan Assessment: Acute hypoxic respirator failure Stage IV metastatic adenocarcinoma stomach Acute bilateral interstitial pneumonia Interstitial spread/metastatic disease stage IV from gastric cancer Small to moderate bilateral pleural effusion, left more than right, likely related to above Sclerotic lesion on the bones likely stage IV disease cannot be excluded Plan: Breathing treatments and prednisone, would recommend to do a quick taper prednisone and other option would be to put him put her on Medrol Dosepak Broad-spectrum antibiotics continue Zithromax oral as outpatient setting for another few days Follow-up on sputum culture results and report reviewed Reviewed transbronchial lung biopsy results, Reviewed ultrasound of the chest, status post left thoracentesis cytology pending Patient can be discharged home on supplemental oxygen bronchodilator oral antibiotics and tapering steroids which follow-up in outpatient setting, further intervention from oncological standpoint as per oncology service Time with Patient: Greater than 30
[2018-01-17] MEDS: IPRATROPIUM-ALBUTEROL 3 ML NEB INHALATION SCH ×2 (07:32→11:10)
[2018-01-17] MEDS: PANTOPRAZOLE 40 MG TABLET PO SCH (08:22)
[2018-01-17] MEDS: FUROSEMIDE 10 MG/ML 2 ML VIAL IV SCH (08:22)
[2018-01-17] MEDS: DOCUSATE 100 MG CAP PO SCH (08:22)
[2018-01-17] MEDS: predniSONE 20 MG TAB PO SCH (08:22)
[2018-01-17] MEDS: NYSTATIN 100,000 UNIT/ML SUSP 500,000 UNIT/5 ML CUP PO SCH (08:22)
[2018-01-17] MEDS: cefTRIAXone IN SWFI 1,000 MG/10 ML SYRINGE IVP SCH (08:23)
[2018-01-17 11:40] VITALS: PULSE 91
--- NOTE | 2018-01-17 13:03 | PN ---
PROGRESS NOTE Patient was admitted during my absence. For shortness of breath, she has been being treated for adenocarcinoma of the and was found to have pulmonary metastasis. MMODL / IJN: [id number] /
--- NOTE | 2018-01-17 13:30 | PN ---
PROGRESS NOTE DATE OF SERVICE: 01/16/2018 CHIEF COMPLAINT: Metastatic adenocarcinoma. HISTORY OF PRESENT ILLNESS: This lady is having a lot of difficulty with breathing. She is on oxygen and when she is on it she is reasonably comfortable. She will require this to go home. PHYSICAL EXAM: Breath sounds are diminished on both sides. Cardiac exam is normal. Abdomen is soft, nontender. IMPRESSION: Metastatic adenocarcinoma of the colon. PLAN: Work on discharge and she will require home oxygen. MMODL / IJN: [id number] /
--- NOTE | 2018-01-17 15:58 | P.PN ---
Subjective Progress Note Date: 01/17/18 Principal diagnosis: Metastatic Gastric Cancer Metastatic stage IV gastric cancer Bilateral acute interstitial pneumonia with new progressive lyphagenic spread status post Chemotherapy with PO Xeloda Ms Martinez seen today in follow-up. She still has persistent shortness of breath at rest and worse with activity. Since admission she has mildly improved on prednisone and antibiotics, still becomes symptomatically hypoxic when oxygen is lowered below 3Liters. Pathology report from recent bronchoscopy was reviewed and unfortunately consistent with progressive disease. Objective - Vital Signs Vital signs: Vital Signs Temp 98.1 F 01/17/18 05:30 Pulse 90 01/17/18 11:24 Resp 16 01/17/18 08:22 BP 107/69 01/17/18 05:30 Pulse Ox 95 01/17/18 07:32 Intake & Output 01/16/18 01/17/18 01/17/18 18:59 06:59 18:59 Intake Total 800 Balance 800 Weight 78.925 kg 78.925 kg Intake: Oral 800 Other: Voiding Method Toilet Toilet Toilet # Voids 2 2 3 - Constitutional General appearance: Present: cooperative, mild distress - EENT Eyes: Present: EOMI, poor dentition ENT: Present: NA/AT, normal oropharynx - Respiratory Respiratory: bilateral: diminished (Increased effort, diminished bibasilar ), wheezing (Expiratory) - Cardiovascular Heart rate: 109 - Gastrointestinal General gastrointestinal: Present: normal bowel sounds, soft - Neurologic Neurologic: Present: CNII-XII intact - Musculoskeletal Musculoskeletal: Present: strength equal bilaterally - Psychiatric Psychiatric: Present: A&O x's 3, appropriate affect, intact judgment & insight - Labs CBC & Chem 7: 01/14/18 07:49 01/14/18 07:49 Labs: Microbiology - Last 24 Hours (Table) 01/15/18 13:45 Anaerobic Culture - Preliminary Pleural Fluid 01/15/18 13:45 Gram Stain - Preliminary Pleural Fluid Body Fluid Culture - Preliminary 01/10/18 13:25 Blood Culture - Final Blood No Growth after 144 hours - Imaging and Cardiology pathology Reviewed. Assessment and Plan Plan: Assessment and Recommendations: 1. Metastatic Gastric Cancer - Recently completed IV Chemotherapy with response to treatment - [facility] as Outpatient - Hold Xeloda at this time until patients acute symptoms resolve 2. Acute Hypoxic Respiratory Failure - - Ct Scan Reviewed revealing Bilateral Interstitial infiltrates - interstitial spread versus interstitial lung disease -Shortness of breath -mild improvement since admission - Reviewed Pathology and consistent with progressive disease, will see Dr. Davenport next week on 01/22/18 in office at 5pm for next line treatment options. 3. Pneumonia - Recently treated outpatient with [facility] Physician Attestation: I have completed the full history and physical of this patient and agree with the above dictation, dictated as a scribe
--- NOTE | 2018-01-17 19:42 | DS ---
DISCHARGE SUMMARY CHIEF COMPLAINT: Difficulty breathing. HISTORY OF PRESENT ILLNESS AND PHYSICAL EXAM: Details of this lady's history and physical can be found in the initial workup. LABORATORY STUDIES: While she was in the hospital she had laboratory studies, details which can be found in the laboratory section of her chart. COURSE IN HOSPITAL: After admission, she was placed on bed rest and was seen by Oncology and lung biopsy demonstrated metastatic adenocarcinoma of GI origin. It was felt that she could be discharged on the and she will go home on her usual activity and diet as tolerated along with home O2. She will be sent home with home care. FINAL DIAGNOSIS: Metastatic adenocarcinoma of the colon. OPERATIONS: None. CONSULTATIONS: Oncology. She is improved. MMODL / IJN: [id number] /
--- NOTE | 2018-02-03 17:32 | P.PCN ---
Date of Procedure: 01/15/18 Preoperative Diagnosis: Left lower lobe pneumonia, left-sided pleural effusion likely malignant pleural effusion, recent diagnosis of the gastric cancer, bilateral interstitial lung disease highly suspicious of malignant metastatic disease Postoperative Diagnosis: As above Procedure(s) Performed: Left thoracentesis Clinical Nursing Intern #1: Ej Zamorano Estimated Blood Loss (ml): 1 Condition: stable Disposition: floor Indications for Procedure: As above Operative Findings: As below Description of Procedure: Patient prepared and draped in the usual fashion, ultrasound was obtained to jovanni the maximum depth of the fluid one percent lidocaine was infiltrated on the left posterior lateral thoracic wall above the eighth rib margin the infiltration with lidocaine was performed followed by aspiration of orange pleural fluid with gauge 24 needle, a stab incision of less than 1/8 of centimeter was performed followed by placement of catheter in needle above the upper margin of the rib into the pleural space needle was withdrawn catheter left in position and 700 mL of dark orange pleural fluid obtained, patient tolerated procedure well no complication noted post procedure chest x-ray reviewed no pneumothorax seen
== END 2018-01-17 14:15 | disposition home or self-care (01) | DRG 166 ==
LOC: EC 11:51 → 6SEL 16:41 → 5ONC 17:46
PROVIDERS: ADMIT Family Medicine; ATTEND Family Medicine
PROC: 0B9F8ZX Drainage of Right Lower Lung Lobe, Via Natural or Artificial Opening Endoscopic, Diagnostic (ICD-10-PCS; 2018-01-13)
PROC: 0BDC8ZX Extraction of Right Upper Lung Lobe, Via Natural or Artificial Opening Endoscopic, Diagnostic (ICD-10-PCS; principal; 2018-01-13 07:30)
PROC: 0B9J8ZX Drainage of Left Lower Lung Lobe, Via Natural or Artificial Opening Endoscopic, Diagnostic (ICD-10-PCS; 2018-01-13 07:30)
PROC: 0W9B3ZX Drainage of Left Pleural Cavity, Percutaneous Approach, Diagnostic (ICD-10-PCS; 2018-01-15)
DX: C78.01 Secondary malignant neoplasm of right lung (principal); J96.01 Acute respiratory failure with hypoxia; C77.9 Secondary and unspecified malignant neoplasm of lymph node, unspecified; C16.9 Malignant neoplasm of stomach, unspecified; J44.0 Chronic obstructive pulmonary disease with (acute) lower respiratory infection; J44.1 Chronic obstructive pulmonary disease with (acute) exacerbation; J90 Pleural effusion, not elsewhere classified; R18.8 Other ascites; I24.8 Other forms of acute ischemic heart disease; J84.9 Interstitial pulmonary disease, unspecified; C79.51 Secondary malignant neoplasm of bone; D89.9 Disorder involving the immune mechanism, unspecified; E78.5 Hyperlipidemia, unspecified; E83.51 Hypocalcemia; E89.0 Postprocedural hypothyroidism; F17.210 Nicotine dependence, cigarettes, uncomplicated; R07.81 Pleurodynia; Z79.899 Other long term (current) drug therapy; Z79.890 Hormone replacement therapy; Z92.21 Personal history of antineoplastic chemotherapy; Z87.01 Personal history of pneumonia (recurrent); Z80.1 Family history of malignant neoplasm of trachea, bronchus and lung; Z80.3 Family history of malignant neoplasm of breast; Z80.41 Family history of malignant neoplasm of ovary; Z80.8 Family history of malignant neoplasm of other organs or systems
CPT/HCPCS: 31624; 31628; 36415; 71045; 71046; 71275; 76604; 80048; 80053; 82550; 82553; 82945; 83605; 83615; 83735; 83880; 84155; 84157; 84484; 85025; 85027; 85610; 85730; 87040; 87070; 87075; 87102; 87116; 87205; 87206; 87252; 87496; 87498; 87502; 87529; 87541; 87634; 87798; 88108; 88305; 88341; 88342; 89050; 93005; 93306; 94640; 94760; 96360; 96365; 96375; 99285

== ENCOUNTER 2018-02-15 03:14 | Inpatient (IN) | payer MEDICARE, OTHER ==
[2018-02-15] MEDS ORDERED: IPRATROPIUM 0.5 MG/2.5 ML NEBU INHALATION STA (03:23)
[2018-02-15] MEDS ORDERED: ALBUTEROL NEBULIZED 2.5 MG/3 ML INHALATION STA (03:23)
[2018-02-15] MEDS ORDERED: SODIUM CHLORIDE 0.9% 1,000 ML IV STA ×2 (03:23→03:31)
[2018-02-15] MEDS ORDERED: MORPHINE SULFATE 2 MG/ML SYRINGE IVP STA (03:31)
[2018-02-15] MEDS ORDERED: LORazepam 2 MG/ML INJ IV STA (03:31)
[2018-02-15 03:51] LABS: Anisocytosis Slight; Basophils # (A) 0.1 k/uL (0-0.2); Basophils % (A) 0 %; Eosinophils # (A) 0.2 k/uL (0-0.7); Eosinophils % (A) 1 %; HCT 45.6 % (34.0-46.0); Lymphocytes # (A) 2.8 k/uL (1.0-4.8); Lymphocytes % (A) 15 %; MCH 31.3 pg (25.0-35.0); MCHC 32.6 g/dL (31.0-37.0); Mean Platelet Volume 6.7; Monocytes # (A) 0.6 k/uL (0-1.0); Monocytes % (A) 3 %; Neutrophils # (A) 15.4 k/uL (1.3-7.7); Neutrophils % (A) 80 %; Platelet Count 333 k/uL (150-450); RBC 4.75 m/uL (3.80-5.40); RDW 17.1 % (11.5-15.5); WBC 19.3 k/uL (3.8-10.6)
[2018-02-15 03:56] LABS: HGB 14.9 gm/dL (11.4-16.0)
[2018-02-15 04:01] LABS: INR 1.1 (<1.2); Partial Thromboplastin Time 22.7 sec (22.0-30.0); Prothrombin Time 10.5 sec (9.0-12.0)
[2018-02-15 04:06] LABS: ALT 30 U/L (9-52); AST 27 U/L (14-36); Albumin 3.9 g/dL (3.5-5.0); Alkaline Phosphatase 134 U/L (38-126); Anion Gap 13 mmol/L; Blood Urea Nitrogen 13 mg/dL (7-17); Calcium 8.5 mg/dL (8.4-10.2); Carbon Dioxide 29 mmol/L (22-30); Chloride 96 mmol/L (98-107); Glucose 153 mg/dL (74-99); Magnesium 1.8 mg/dL (1.6-2.3); Potassium 3.8 mmol/L (3.5-5.1); Sodium 138 mmol/L (137-145); Total Bilirubin 0.4 mg/dL (0.2-1.3); Total Protein 6.7 g/dL (6.3-8.2)
[2018-02-15 04:08] LABS: Creatine Kinase 38 U/L (30-135)
[2018-02-15 04:21] LABS: Creatine Kinase MB 0.5 ng/mL (0.0-2.4); Troponin I <0.012 ng/mL (0.000-0.034)
--- NOTE | 2018-02-15 04:41 | XR ---
EXAMINATION TYPE: XR chest 2V DATE OF EXAM: 02/15/2018 COMPARISON: 01/15/2018 HISTORY: Difficulty breathing TECHNIQUE: Frontal and lateral views of the chest are obtained. FINDINGS: There is pulmonary edema. There are chest leads. There is right central venous catheter wi th the tip in the superior vena cava. There is blunting of right costophrenic angle. IMPRESSION: Pulmonary edema and right pleural effusion. I would consider congestive heart failure an d RDS. Edema appears slightly worse than old exam..
[2018-02-15] MEDS ORDERED: PIPERACILLIN-TAZOBACTAM 3.375 GM in DEXTROSE/WATER 1 50ML.BAG IVPB STA (04:46)
[2018-02-15] MEDS ORDERED: PNEUMONIA PROTOCOL UTILIZED 1 EACH MISC PO PRN (04:46)
[2018-02-15] MEDS ORDERED: LEVOFLOXACIN 750MG-D5W PMX 750 MG in DEXTROSE/WATER 1 150ML.BAG IVPB STA (04:46)
--- NOTE | 2018-02-15 04:46 | ED ---
General Adult HPI - General Chief complaint: Shortness of Breath Stated complaint: SOB Time Seen by Provider: 02/15/18 03:23 Source: patient, family, EMS, RN notes reviewed, old records reviewed Mode of arrival: EMS Limitations: physical limitation - History of Present Illness Initial comments: This is a 57-year-old female the ER for evaluation. Patient has CT is significant medical history including CTA COPD no recent travel history. Patient is is does have recent hospital admission. Presents today with fever tachycardia shortness of breath chest pain. Low oxygen. Patient is in mild significant distress. History obtained from significant other as well as chart - Related Data Home Medications Medication Instructions Recorded Confirmed Levothyroxine Sodium [Synthroid] 88 mcg PO DAILY 07/23/17 02/15/18 Atorvastatin [Lipitor] 20 mg PO DAILY 02/15/18 02/15/18 Budesonide [Pulmicort] 0.5 mg INHALATION RT-BID 02/15/18 02/15/18 Ergocalciferol [Vitamin D2] 50,000 unit PO Q7D 02/15/18 02/15/18 Furosemide [Lasix] 40 mg PO DAILY 02/15/18 02/15/18 HYDROcodone/APAP 7.5-325MG [[place] 1 tab PO Q6HR PRN 02/15/18 02/15/18 7.5-325] LORazepam [Ativan] 1 mg PO Q6HR PRN 02/15/18 02/15/18 Nystatin 100,000 Unit/ml Susp 5 ml PO QID 02/15/18 02/15/18 [Mycostatin Oral Susp] Potassium Chloride [K-Tab ER] 20 meq PO DAILY 02/15/18 02/15/18 fentaNYL 50MCG/HR PATCH [Duragesic 50 mcg TRANSDERM Q72H 02/15/18 02/15/18 50MCG/HR] Previous Rx's Medication Instructions Recorded Ipratropium-Albuterol Nebulize 3 ml INHALATION RT-QID #120 01/17/18 [Duoneb 0.5 mg-3 mg/3 ml Soln] ampul.neb predniSONE 40 mg PO DAILY #60 tab 01/17/18 Allergies Allergy/AdvReac Type Severity Reaction Status Date / Time No Known Allergies Allergy Verified 02/15/18 03:27 Review of Systems ROS Statement: Those systems with pertinent positive or pertinent negative responses have been documented in the HPI. ROS Other: All systems not noted in ROS Statement are negative. Past Medical History Past Medical History: Cancer, Hyperlipidemia, Thyroid Disorder Additional Past Medical History / Comment(s): Back pain, gastrointestinal CA. last chemo november 2017. pt is on po chemo daily History of Any Multi-Drug Resistant Organisms: None Reported Past Surgical History: Back Surgery Additional Past Surgical History / Comment(s): Thyroidectomy, carpal tunnel surgery Past Anesthesia/Blood Transfusion Reactions: No Reported Reaction Past Psychological History: No Psychological Hx Reported Smoking Status: Current every day smoker Past Alcohol Use History: None Reported Past Drug Use History: None Reported - Past Family History Father Family Medical History: Cancer Additional Family Medical History / Comment(s): lung cancer Mother Family Medical History: Cancer Additional Family Medical History / Comment(s): ovarian,bone cancer Sister(s) Family Medical History: Cancer Additional Family Medical History / Comment(s): one sister had breast cancer w/ mets, another sister had ovarian cancer Brother(s) Family Medical History: No Reported History (Patient has 6 brothers major medical problems) General Exam Limitations: physical limitation General appearance: alert, anxious, in distress Head exam: Present: atraumatic, normocephalic, normal inspection Eye exam: Present: normal appearance, PERRL, EOMI. Absent: scleral icterus, conjunctival injection, periorbital swelling ENT exam: Present: normal exam, mucous membranes moist Neck exam: Present: normal inspection. Absent: tenderness, meningismus, lymphadenopathy Respiratory exam: Present: respiratory distress, wheezes, rales, accessory muscle use, decreased breath sounds, prolonged expiratory. Absent: rhonchi, stridor Cardiovascular Exam: Present: regular rate, normal rhythm, normal heart sounds. Absent: systolic murmur, diastolic murmur, rubs, gallop, clicks GI/Abdominal exam: Present: soft, normal bowel sounds. Absent: distended, tenderness, guarding, rebound, rigid Extremities exam: Present: normal inspection, full ROM, normal capillary refill. Absent: tenderness, pedal edema, joint swelling, calf tenderness Back exam: Present: normal inspection Neurological exam: Present: alert, oriented X3, CN II-XII intact Psychiatric exam: Present: normal affect, normal mood Skin exam: Present: warm, dry, intact, normal color. Absent: rash Course Vital Signs 02/15/18 02/15/18 02/15/18 03:16 03:30 03:46 Temperature 99.2 F Pulse Rate 141 H 133 H 136 H Respiratory 56 H Rate Blood Pressure 170/96 Blood Pressure [Left Arm] O2 Sat by Pulse 63 L Oximetry 02/15/18 02/15/18 02/15/18 04:01 05:13 05:14 Temperature 99.4 F 98.1 F Pulse Rate 130 H 116 H Respiratory 56 H 28 H 40 H Rate Blood Pressure 151/88 122/77 Blood Pressure 102/74 [Left Arm] O2 Sat by Pulse 100 90 L 97 Oximetry - Reevaluation(s) Reevaluation #1: Patient does have improvement on oxygen and treatment, is borderline BiPAP patient currently EKG Findings - EKG Comments: EKG Findings:: EKG shows sinus tachycardia rate 139, [place] 134, QRS 66, QTC 419 Medical Decision Making - Medical Decision Making 57-year-old female the ER for evaluation multiple complaints. Patient will be admitted, IV antibiotics, breathing she was monitoring of cardiopulmonary state - Lab Data Result diagrams: 02/21/18 04:15 02/21/18 04:15 Lab Results 02/15/18 02/15/18 02/15/18 Range/Units 03:40 03:40 03:40 WBC 19.3 H (3.8-10.6) k/uL RBC 4.75 (3.80-5.40) m/uL Hgb 14.9 D (11.4-16.0) gm/dL Hct 45.6 (34.0-46.0) % MCV 96.0 (80.0-100.0) fL MCH 31.3 (25.0-35.0) pg MCHC 32.6 (31.0-37.0) g/dL RDW 17.1 H (11.5-15.5) % Plt Count 333 (150-450) k/uL Neutrophils % 80 % Lymphocytes % 15 % Monocytes % 3 % Eosinophils % 1 % Basophils % 0 % Neutrophils # 15.4 H (1.3-7.7) k/uL Lymphocytes # 2.8 (1.0-4.8) k/uL Monocytes # 0.6 (0-1.0) k/uL Eosinophils # 0.2 (0-0.7) k/uL Basophils # 0.1 (0-0.2) k/uL Anisocytosis Slight PT (9.0-12.0) sec INR (<1.2) APTT (22.0-30.0) sec Sodium 138 (137-145) mmol/L Potassium 3.8 (3.5-5.1) mmol/L Chloride 96 L (98-107) mmol/L Carbon Dioxide 29 (22-30) mmol/L Anion Gap 13 mmol/L BUN 13 (7-17) mg/dL Creatinine 0.70 (0.52-1.04) mg/dL Est GFR (CKD-EPI)AfAm >90 (>60 ml/min/1.73 sqM) Est GFR (CKD-EPI)NonAf >90 (>60 ml/min/1.73 sqM) Glucose 153 H (74-99) mg/dL Calcium 8.5 (8.4-10.2) mg/dL Magnesium 1.8 (1.6-2.3) mg/dL Total Bilirubin 0.4 (0.2-1.3) mg/dL AST 27 (14-36) U/L ALT 30 (9-52) U/L Alkaline Phosphatase 134 H (38-126) U/L Total Creatine Kinase 38 (30-135) U/L CK-MB (CK-2) 0.5 (0.0-2.4) ng/mL CK-MB (CK-2) Rel Index 1.3 Troponin I <0.012 (0.000-0.034) ng/mL NT-Pro-B Natriuret Pep pg/mL Total Protein 6.7 (6.3-8.2) g/dL Albumin 3.9 (3.5-5.0) g/dL 02/15/18 02/15/18 Range/Units 03:40 03:40 WBC (3.8-10.6) k/uL RBC (3.80-5.40) m/uL Hgb (11.4-16.0) gm/dL Hct (34.0-46.0) % MCV (80.0-100.0) fL MCH (25.0-35.0) pg MCHC (31.0-37.0) g/dL RDW (11.5-15.5) % Plt Count (150-450) k/uL Neutrophils % % Lymphocytes % % Monocytes % % Eosinophils % % Basophils % % Neutrophils # (1.3-7.7) k/uL Lymphocytes # (1.0-4.8) k/uL Monocytes # (0-1.0) k/uL Eosinophils # (0-0.7) k/uL Basophils # (0-0.2) k/uL Anisocytosis PT 10.5 (9.0-12.0) sec INR 1.1 (<1.2) APTT 22.7 (22.0-30.0) sec Sodium (137-145) mmol/L Potassium (3.5-5.1) mmol/L Chloride (98-107) mmol/L Carbon Dioxide (22-30) mmol/L Anion Gap mmol/L BUN (7-17) mg/dL Creatinine (0.52-1.04) mg/dL Est GFR (CKD-EPI)AfAm (>60 ml/min/1.73 sqM) Est GFR (CKD-EPI)NonAf (>60 ml/min/1.73 sqM) Glucose (74-99) mg/dL Calcium (8.4-10.2) mg/dL Magnesium (1.6-2.3) mg/dL Total Bilirubin (0.2-1.3) mg/dL AST (14-36) U/L ALT (9-52) U/L Alkaline Phosphatase (38-126) U/L Total Creatine Kinase (30-135) U/L CK-MB (CK-2) (0.0-2.4) ng/mL CK-MB (CK-2) Rel Index Troponin I (0.000-0.034) ng/mL NT-Pro-B Natriuret Pep 102 pg/mL Total Protein (6.3-8.2) g/dL Albumin (3.5-5.0) g/dL Critical Care Time Critical Care Time: Yes Total Critical Care Time: 31 Disposition Clinical Impression: Hypoxia, Lung metastasis, Community acquired pneumonia, Congestive heart failure, Acute pulmonary edema, Adult respiratory distress syndrome Disposition: ADMITTED IP TO THIS [facility] Condition: Serious Is patient prescribed a controlled substance at d/c from ED?: No
[2018-02-15] MEDS ORDERED: SODIUM CHLORIDE 0.9% 1,000 ML IV SCH (05:00)
[2018-02-15] MEDS ORDERED: FUROSEMIDE 10 MG/ML 4 ML VIAL IV SCH (05:00)
[2018-02-15 05:49] LABS: Glucose,Whole Blood 125 mg/dL (75-99)
[2018-02-15] MEDS: IPRATROPIUM-ALBUTEROL 3 ML NEB INHALATION SCH ×4 (08:26→19:19)
[2018-02-15 09:03] LABS: ABG Base Excess 8.8 mmol/L; ABG HCO3 33 mmol/L (21-25); ABG Oxygen Saturation 87.3 % (94-97); ABG PCO2 51 mmHg (35-45); ABG PH 7.43 (7.35-7.45); ABG PO2 54 mmHg (83-108); ABG TCO2 35 mmol/L (19-24)
[2018-02-15] MEDS: FUROSEMIDE 10 MG/ML 2 ML VIAL IV SCH ×2 (09:10→20:56)
[2018-02-15] MEDS: methylPREDNISolone SOD SUCCI 40 MG/ML 1 ML VIAL IV SCH ×2 (09:10→21:01)
[2018-02-15 10:14] LABS: Appearance,Urine Clear (Clear); Bilirubin,Urine Negative (Negative); Blood,Urine Negative (Negative); Color,Urine Light Yellow; Glucose,Urine (UA) Negative (Negative); Ketones,Urine Negative (Negative); Leukocyte Esterase,Urine Negative (Negative); Nitrite,Urine Negative (Negative); PH, Urine 6.5 (5.0-8.0); Protein,Urine Negative (Negative); Specific Gravity,Urine 1.007 (1.001-1.035); Urobilinogen,Urine <2.0 mg/dL (<2.0)
--- NOTE | 2018-02-15 10:54 | XR ---
EXAMINATION TYPE: XR chest 1V portable DATE OF EXAM: 02/15/2018 Comparison: 02/15/2018 Clinical History: 57-year-old female shortness of breath, Follow up Findings: Right anterior chest wall injection port. Catheter looped in the region of the internal jugular vein and tip at the upper SVC level. Stable finding. Left heart margin obscured by adjacent pleural parenchymal disease. Diffuse bilateral airspace opacit y is suspected underlying pleural effusions relatively similar prior exam. Impression: 1. Similar diffuse bilateral airspace disease, likely pulmonary edema. 2. Continued pleural effusions.
--- NOTE | 2018-02-15 10:55 | XR ---
EXAMINATION TYPE: XR KUB portable DATE OF EXAM: 02/15/2018 COMPARISON: NONE HISTORY: 57-year-old female with abdominal pain TECHNIQUE: Single view FINDINGS: Supine imaging limited for assessment of free air. No dilated small bowel loops. Scattered air and stool in the colon with mild overall stool burden. Possible 7 mm right renal calculus. Calcifications are present in the right side of the pelvis, proba chacho vascular. IMPRESSION: No evidence for bowel obstruction. Mild stool burden. Possible 7 mm right renal calculus.
[2018-02-15] MEDS ORDERED: ALPRAZolam 0.25 MG TAB PO PRN (11:04)
--- NOTE | 2018-02-15 11:41 | P.CRDCN ---
History of Present Illness History of present illness: This is a pleasant 57-year-old -[place] female past medical history significant for colon cancer with metastases to the lung, dyslipidemia, hypothyroidism and nicotine dependence. She is seen and examined in the ICU with her daughter at the bedside. Patient and daughter deny any history of coronary artery disease, hypertension or diabetes mellitus. They have never seen a soda jerker for any reason. She is currently diagnosed with stage IV cancer and is undergoing chemotherapy for palliative purposes. Per the daughter she has become increasingly short of breath with exertion over the previous couple of weeks. She states she can make it from the bed to the bathroom without having to stop for air. She has also been coughing. Starting last night it seemed to be worse even at rest she was sitting in bed she started becoming acutely short of breath and diaphoretic. She states she started getting extremely anxious and panicky. For this reason she brought her to the hospital for evaluation. She had an echocardiogram performed 01/10/2018 which reveals preserved left ventricular systolic function with ejection fraction 55-60%, mildly enlarged right ventricle, right ventricular septum was flattened in systole consistent with right ventricular pressure overload, mild TR and mild pulmonary hypertension with an RVSP of 38.09 mmHg. At that time there is also noted to be a large pleural effusion. Chest x-ray on admission reveals pulmonary edema, right pleural effusion with heart failure. Repeat this morning reveals similar diffuse bilateral airspace disease likely pulmonary edema with ongoing pleural effusions. The patient denies symptoms of chest pain. EKG reveals sinus tachycardia with nonspecific abnormalities noted. Laboratory data reviewed, WBC 19.3, platelets 333, pCO2 51, pO2 54, bicarb 33, sodium 138, potassium 3.8, lactic acid 2.1, cardiac enzymes negative 1 with a proBNP of 102. Current daily medications prednisone, Synthroid, Levaquin, DuoNeb, [place] and xeloda. She is currently receiving Lasix IV 20 mg twice a day, IV antibiotics in the form of levofloxacin and Zosyn and IV Solu- Medrol. She was recently t admitted into the hospital and underwent a bronchoscopy with pathology revealing metastatic disease in the lungs. At the time of my exam: CONSTITUTIONAL: Denies fever. Denies chills. EYES: Denies blurred vision. Denies vision changes. Denies eye pain. EARS, NOSE, MOUTH & THROAT: Denies headache. Denies sore throat. Denies ear pain. CARDIOVASCULAR: Denies chest pain. Complains of shortness of breath. Denies orthopnea. Denies PND. Denies palpitations. RESPIRATORY: Complains of productive cough. GASTROINTESTINAL: Denies abdominal pain. Denies diarrhea. Denies constipation. Denies nausea. Denies vomiting. MUSCULOSKELETAL: Denies myalgias. INTEGUMENTARY: Denies pruitis. Denies rash. NEUROLOGIC: Denies numbness. Denies tingling. Denies weakness. PSYCHIATRIC: Denies anxiety. Denies depression. ENDOCRINE: Denies fatigue. Denies weight change. Denies polydipsia. Denies polyurina. GENITOURINARY: Denies burning, hematuria or urgency with micturation. HEMATOLOGIC: Denies history of anemia. Denies bleeding. Blood pressure 122/77 heart rate 116 afebrile maintaining oxygen saturation on high flow oxygen GENERAL: This is a 57-year-old -[place] female in respiratory distress at the time of my examination. HEENT: Head is atraumatic, normocephalic. Pupils are equal, round. Sclerae anicteric. Conjunctivae are clear. Mucous membranes of the mouth are moist. Neck is supple. There is significant jugular venous distention. No carotid bruit is heard. Retracting. LUNGS: Diminished bilaterally, coarse rhonchi noted with bibasilar rales. No chest wall tenderness is noted on palpation or with deep breathing. HEART: Regular rate and rhythm, tachycardia without murmurs, rubs or gallops. S1 and S2 heard. ABDOMEN: Soft, nontender. Bowel sounds are heard. No organomegaly noted. EXTREMITIES: No evidence of peripheral edema and no calf tenderness noted. VASCULAR: Radial and dorsalis pedis pulses palpated, no evidence of clubbing. NEUROLOGIC: Patient is awake, alert and oriented x3. ASSESSMENT 1. Acute respiratory distress secondary to pneumonia and metastatic lung cancer 2. 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 Dyslipidemia 4. Chronic nicotine dependence 5. Lactic acidosis 6. Leukocytosis 7. CO2 retention PLAN Ongoing medical management. This does not appear to have any heart failure components to it. Thank you kindly for this consultation we'll see the patient as needed. Please call with any further questions or concerns. Thank you kindly for this consultation. Nurse Practitioner note has been reviewed, I agree with a documented findings and plan of care. Patient was seen and examined. Past Medical History Past Medical History: Cancer, Hyperlipidemia, Thyroid Disorder Additional Past Medical History / Comment(s): Back pain, gastrointestinal CA with metasis to lungs. last chemo november 2017. pt is on po chemo daily History of Any Multi-Drug Resistant Organisms: None Reported Past Surgical History: Back Surgery Additional Past Surgical History / Comment(s): Thyroidectomy, carpal tunnel surgery Past Anesthesia/Blood Transfusion Reactions: No Reported Reaction Past Psychological History: No Psychological Hx Reported Smoking Status: Former smoker Past Alcohol Use History: None Reported Additional Past Alcohol Use History / Comment(s): "I quit a few months ago and smoked 1ppd" Past Drug Use History: None Reported - Past Family History Father Family Medical History: Cancer Additional Family Medical History / Comment(s): lung cancer Mother Family Medical History: Cancer Additional Family Medical History / Comment(s): ovarian,bone cancer Sister(s) Family Medical History: Cancer Additional Family Medical History / Comment(s): one sister had breast cancer w/ mets, another sister had ovarian cancer Medications and Allergies Home Medications Medication Instructions Recorded Confirmed Type Levothyroxine Sodium [Synthroid] 88 mcg PO DAILY 07/23/17 01/10/18 History Levofloxacin [Levaquin] 500 mg PO DAILY #9 tab 10/10/17 01/10/18 Rx Acetaminophen Tab [Tylenol Tab] 500 mg PO Q6H PRN 01/08/18 01/10/18 History Capecitabine [Xeloda] 1,000 mg PO BID 01/08/18 01/10/18 History Capecitabine [Xeloda] 150 mg PO BID 01/08/18 01/10/18 History HYDROcodone/APAP 10-325MG [[place] 1 tab PO QID PRN 01/08/18 01/10/18 History 10-325] Ipratropium-Albuterol Nebulize 3 ml INHALATION RT-QID #120 01/17/18 Rx [Duoneb 0.5 mg-3 mg/3 ml Soln] ampul.neb predniSONE 40 mg PO DAILY #60 tab 01/17/18 Rx Allergies Allergy/AdvReac Type Severity Reaction Status Date / Time No Known Allergies Allergy Verified 02/15/18 03:27 Physical Exam Vitals: Vital Signs Temp Pulse Resp BP BP Pulse Ox 02/15/18 08:40 110 H 02/15/18 08:29 109 H 95 02/15/18 05:14 98.1 F 116 H 40 H 122/77 97 02/15/18 05:13 99.4 F 28 H 102/74 90 L 02/15/18 04:01 130 H 56 H 151/88 100 02/15/18 03:46 136 H 02/15/18 03:30 133 H 02/15/18 03:16 99.2 F 141 H 56 H 170/96 63 L Intake and Output 02/14/18 02/15/18 02/15/18 22:59 06:59 14:59 Intake Total 150 Output Total 325 Balance -175 Intake: IV 150 Levofloxacin 750Mg-D5w 150 Pmx 750 mg In Dextrose/ Water 1 150ml.bag @ 100 mls/hr IVPB ONCE STA Rx#: [id number] Output: Urine 325 Other: Voiding Method Bedpan # Voids 1 Weight 79 kg 79 kg Results 02/15/18 03:40 02/15/18 03:40 Cardiac Enzymes 02/15/18 02/15/18 Range/Units 03:40 03:40 AST 27 (14-36) U/L CK-MB (CK-2) 0.5 (0.0-2.4) ng/mL Troponin I <0.012 (0.000-0.034) ng/mL Coagulation 02/15/18 Range/Units 03:40 PT 10.5 (9.0-12.0) sec APTT 22.7 (22.0-30.0) sec CBC 02/15/18 Range/Units 03:40 WBC 19.3 H (3.8-10.6) k/uL RBC 4.75 (3.80-5.40) m/uL Hgb 14.9 D (11.4-16.0) gm/dL Hct 45.6 (34.0-46.0) % Plt Count 333 (150-450) k/uL Comprehensive Metabolic Panel 02/15/18 Range/Units 03:40 Sodium 138 (137-145) mmol/L Potassium 3.8 (3.5-5.1) mmol/L Chloride 96 L (98-107) mmol/L Carbon Dioxide 29 (22-30) mmol/L BUN 13 (7-17) mg/dL Creatinine 0.70 (0.52-1.04) mg/dL Glucose 153 H (74-99) mg/dL Calcium 8.5 (8.4-10.2) mg/dL AST 27 (14-36) U/L ALT 30 (9-52) U/L Alkaline Phosphatase 134 H (38-126) U/L Total Protein 6.7 (6.3-8.2) g/dL Albumin 3.9 (3.5-5.0) g/dL Current Medications Generic Name Dose Route Start Last Admin Trade Name Freq PRN Reason Stop Dose Admin Albuterol/Ipratropium 3 ml 02/15/18 08:00 02/15/18 08:26 Duoneb 0.5 Mg-3 Mg/3 Ml Soln INHALATION 3 ml RT-QID BIGG Administration Furosemide 20 mg 02/15/18 09:00 02/15/18 09:10 Lasix IV 20 mg Q12H BIGG Administration Levofloxacin 750 mg/ IV 150 mls @ 100 mls/hr 02/16/18 05:00 Solution IVPB 02/28/18 05:01 Q24H BIGG Piperacillin/Tazobactam/ 50 mls @ 12.5 mls/hr 02/15/18 14:00 Dextrose 3.375 gm/ IV Solution IVPB Q8H BIGG Sodium Chloride 1,000 mls @ 20 mls/hr 02/15/18 05:00 02/15/18 05:16 Saline 0.9% IV 20 mls/hr .Q24H BIGG Administration Sodium Chloride 1,000 mls @ 100 mls/hr 02/15/18 10:45 Saline 0.9% IV .Q10H BIGG Lisinopril 10 mg 02/15/18 09:00 Zestril PO DAILY BIGG Methylprednisolone Sodium Succinate 40 mg 02/15/18 09:00 02/15/18 09:10 Solu-Medrol IV 40 mg Q12HR BIGG Administration Miscellaneous Information 1 each 02/15/18 04:46 Pneumonia Protocol Utilized PO ONCE PRN Per Protocol Morphine Sulfate 4 mg 02/15/18 03:31 Morphine Sulfate (Inj) IVP Q4H PRN Pain/Discomfort Intake and Output 02/14/18 02/15/18 02/15/18 22:59 06:59 14:59 Intake Total 150 Output Total 325 Balance -175 Intake: IV 150 Levofloxacin 750Mg-D5w 150 Pmx 750 mg In Dextrose/ Water 1 150ml.bag @ 100 mls/hr IVPB ONCE STA Rx#: [id number] Output: Urine 325 Other: Voiding Method Bedpan # Voids 1 Weight 79 kg 79 kg Patient Weight 02/16/18 06:59 Weight 79 kg 02/15/18 03:40 02/15/18 03:40
[2018-02-15] MEDS: ACETAMINOPHEN TAB 325 MG TAB PO PRN (12:35)
[2018-02-15] MEDS: SODIUM CHLORIDE 0.9% 1,000 ML IV SCH ×2 (12:35→20:55)
--- NOTE | 2018-02-15 12:47 | P.HPIM ---
History of Present Illness H&P Date: 02/15/18 Chief Complaint: Acute hypoxemic respiratory failure due to possible gram- negative pneumonia This is a 57-year-old -[place] female was under the care of Dr. Montesinos and she switched to recently with a previous medical history significant for hypertension, hyperlipidemia, chronic tobacco use and dependence with the chronic COPD/emphysema, patient medical history goes back to [facility] 2017 when she developed to have a significant abdominal pain for the past 6 months and she was found to have a small ventral hernia and underwent surgical intervention by Dr. 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, this is was followed by an EGD that was done on 09/16/2017 that showed 4 cm ulcerated mass in the greater curvature the biopsy at that time came back positive for adenocarcinoma of the stomach, patient underwent computed tomography scan of the abdomen and pelvis that showed gastric wall thickening ascites with no distant metastatic disease at that time, patient was initially started on cis- [place]/Xeloda and epirubicin in September 2017 her chemotherapy was stopped in November of this year and she was started on Xeloda and Xgeva until December 2017 when she developed to have a significant respiratory failure with pneumonia that was treated with oral antibiotic, patient had repeated EGD that showed reduction of the/mastoid sending her from 4 cm with negative biopsy for malignancy that time patient recently was hospitalized at [facility] due to acute respiratory failure thought to be due to acute diastolic heart failure as well as significant left-sided pleural effusion with possible metastatic disease, she was recently seen by Dr. Davenport in the office and she was switched to a different treatment which she got on the patient developed to have a significant shortness of breath over the last few days and yesterday she came to the ER she was found to have significant hypoxemia requiring 15 L oxygen chest x-ray did show bilateral airspace disease with heart failure as well as significant elevation of leukocytes, she was started on IV antibiotic and she was admitted to the intensive care unit, she was seen in consultation by cardiology as well as pulmonary medicine she will be seen by oncology as well. Review of Systems Constitutional: Reports anorexia, Reports fatigue, Reports malaise, Reports weakness, Reports weight loss Eyes: denies blurred vision, denies bulging eye, denies decreased vision Ears: deny: decreased hearing Ears, nose, mouth and throat: Denies dysphagia, Denies neck lump, Denies sore throat Cardiovascular: Reports chest pain, Reports decreased exercise tolerance, Reports dyspnea on exertion, Reports high blood pressure, Reports orthopnea, Reports rapid heart beat, Reports shortness of breath, Denies syncope Respiratory: Reports congestion, Reports cough, Reports cough with sputum, Reports home oxygen, Reports pain on inspiration, Reports wheezing, Denies sleep apnea, Denies snoring Gastrointestinal: Reports abdominal pain, Reports heartburn, Reports nausea, Denies BRBPR, Denies melena, Denies vomiting Genitourinary: Denies dysuria Menstruation: Reports postmenopausal Musculoskeletal: Reports neck pain, Reports neck stiffness, Denies myalgias Musculoskeletal: absent: ankle pain, ankle stiffness, ankle swelling, elbow pain , elbow stiffness, elbow swelling, foot pain, foot stiffness, foot swelling, hand pain, hand stiffness, hand swelling, hip pain, hip stiffness, hip swelling , knee pain, knee stiffness, knee swelling, shoulder pain, shoulder stiffness, shoulder swelling, wrist pain, wrist stiffness, wrist swelling Integumentary: Denies pruritus, Denies rash Neurological: Denies numbness, Denies weakness Psychiatric: Reports anxiety Past Medical History Past Medical History: Cancer, Heart Failure, COPD, Hyperlipidemia, Hypertension , Osteoarthritis (OA), Thyroid Disorder Additional Past Medical History / Comment(s): Back pain, gastrointestinal CA with metasis to lungs. last chemo november 2017. pt is on po chemo daily History of Any Multi-Drug Resistant Organisms: None Reported Past Surgical History: Back Surgery Additional Past Surgical History / Comment(s): Thyroidectomy, carpal tunnel surgery, posterior cervical discectomy with fusion, ventral hernia repair, bronchoscopy with BAL, Port-A-Cath. Past Anesthesia/Blood Transfusion Reactions: No Reported Reaction Past Psychological History: No Psychological Hx Reported Smoking Status: Former smoker (Patient smoked about a pack every day she smoked since she was 14-year-old and she quit recently.) Past Alcohol Use History: None Reported Additional Past Alcohol Use History / Comment(s): "I quit a few months ago and smoked 1ppd" Past Drug Use History: None Reported - Past Family History Father Family Medical History: Cancer (Father at age 70 from lung cancer and he had also diagnosis of COPD.) Additional Family Medical History / Comment(s): lung cancer Mother Family Medical History: Cancer (Mother at age 62 from uterine cancer with metastatic disease to the bone.) Additional Family Medical History / Comment(s): ovarian,bone cancer Sister(s) Family Medical History: Cancer (Patient had 7 sisters one of them from breast cancer the second one from ovarian cancer third one she had metastatic cancer from unknown origin.) Additional Family Medical History / Comment(s): one sister had breast cancer w/ mets, another sister had ovarian cancer Brother(s) Family Medical History: No Reported History (Patient has 6 brothers major medical problems) Medications and Allergies Home Medications Medication Instructions Recorded Confirmed Type Levothyroxine Sodium [Synthroid] 88 mcg PO DAILY 07/23/17 02/15/18 History Ipratropium-Albuterol Nebulize 3 ml INHALATION RT-QID #120 01/17/18 02/15/18 Rx [Duoneb 0.5 mg-3 mg/3 ml Soln] ampul.neb predniSONE 40 mg PO DAILY #60 tab 01/17/18 02/15/18 Rx Budesonide [Pulmicort] 0.5 mg INHALATION RT-BID 02/15/18 02/15/18 History Ergocalciferol [Vitamin D2] 50,000 unit PO Q7D 02/15/18 02/15/18 History Furosemide [Lasix] 40 mg PO DAILY 02/15/18 02/15/18 History HYDROcodone/APAP 7.5-325MG [[place] 1 tab PO Q6HR PRN 02/15/18 02/15/18 History 7.5-325] LORazepam [Ativan] 1 mg PO Q6HR PRN 02/15/18 02/15/18 History Nystatin 100,000 Unit/ml Susp 5 ml PO QID 02/15/18 02/15/18 History [Mycostatin Oral Susp] Potassium Chloride [K-Tab ER] 20 meq PO DAILY 02/15/18 02/15/18 History fentaNYL 50MCG/HR PATCH [Duragesic 50 mcg TRANSDERM Q72H 02/15/18 02/15/18 History 50MCG/HR] Allergies Allergy/AdvReac Type Severity Reaction Status Date / Time No Known Allergies Allergy Verified 02/15/18 03:27 Physical Exam Vitals: Vital Signs Temp Pulse Resp BP BP Pulse Ox 02/15/18 11:31 112 H 02/15/18 11:21 109 H 02/15/18 08:40 110 H 02/15/18 08:29 109 H 95 02/15/18 05:14 98.1 F 116 H 40 H 122/77 97 02/15/18 05:13 99.4 F 28 H 102/74 90 L 02/15/18 04:01 130 H 56 H 151/88 100 02/15/18 03:46 136 H 02/15/18 03:30 133 H 02/15/18 03:16 99.2 F 141 H 56 H 170/96 63 L Intake and Output 02/14/18 02/15/18 02/15/18 22:59 06:59 14:59 Intake Total 150 Output Total 325 Balance -175 Intake: IV 150 Levofloxacin 750Mg-D5w 150 Pmx 750 mg In Dextrose/ Water 1 150ml.bag @ 100 mls/hr IVPB ONCE STA Rx#: [id number] Output: Urine 325 Other: Voiding Method Bedpan Bedpan # Voids 1 Weight 79 kg 79 kg - Constitutional General appearance: severe distress, thin - EENT Eyes: anicteric sclerae, EOMI, PERRLA, no ptosis, no scleral icterus, normal appearance ENT: hearing grossly normal, normal oropharynx Ears: bilateral: normal - Neck Neck: normal ROM, no rigidity, no stridor, no thyromegaly Carotids: bilateral: upstroke normal Thyroid: bilateral: normal size - Respiratory Respiratory: bilateral: diminished, rales, rhonchi, wheezing, prolonged expiration, negative: dullness - Cardiovascular Rhythm: regular Heart sounds: normal: S1, S2 Abnormal Heart Sounds: systolic murmur, S3 Gallop - Gastrointestinal General gastrointestinal: normal bowel sounds, soft, no splenomegaly, tenderness , no umbilical hernia, no ventral hernia - Integumentary Integumentary: normal, normal turgor - Neurologic Neurologic: CNII-XII intact - Musculoskeletal Musculoskeletal: generalized weakness, strength equal bilaterally - Psychiatric Psychiatric: A&O x's 3, appropriate affect, intact judgment & insight Results CBC & Chem 7: 02/15/18 03:40 02/15/18 03:40 Labs: Abnormal Lab Results - Last 24 Hours (Table) 02/15/18 02/15/18 02/15/18 Range/Units 03:40 03:40 05:10 WBC 19.3 H (3.8-10.6) k/uL RDW 17.1 H (11.5-15.5) % Neutrophils # 15.4 H (1.3-7.7) k/uL ABG pCO2 (35-45) mmHg ABG pO2 (83-108) mmHg ABG HCO3 (21-25) mmol/L ABG Total CO2 (19-24) mmol/L ABG O2 Saturation (94-97) % Chloride 96 L (98-107) mmol/L Glucose 153 H (74-99) mg/dL POC Glucose (mg/dL) (75-99) mg/dL Plasma Lactic Acid Dmitriy 2.1 H* (0.7-2.0) mmol/L Alkaline Phosphatase 134 H (38-126) U/L 02/15/18 02/15/18 Range/Units 05:47 08:53 WBC (3.8-10.6) k/uL RDW (11.5-15.5) % Neutrophils # (1.3-7.7) k/uL ABG pCO2 51 H (35-45) mmHg ABG pO2 54 L (83-108) mmHg ABG HCO3 33 H (21-25) mmol/L ABG Total CO2 35 H (19-24) mmol/L ABG O2 Saturation 87.3 L (94-97) % Chloride (98-107) mmol/L Glucose (74-99) mg/dL POC Glucose (mg/dL) 125 H (75-99) mg/dL Plasma Lactic Acid Dmitriy (0.7-2.0) mmol/L Alkaline Phosphatase (38-126) U/L Thrombosis Risk Factor Assmnt - DVT/VTE Prophylaxis DVT/VTE Prophylaxis: Pharmacologic Prophylaxis ordered, Mechanical Prophylaxis ordered - Choose All That Apply Each Factor Represents 1 point: Age 41-60 years, Heart failure (<1month), Obesity (BMI >25) Thrombosis Risk Factor Assessment Total Risk Factor Score: 3 Thrombosis Risk Factor Assessment Level: Moderate Risk Assessment and Plan Assessment: Assessment and plan: 1. Acute hypoxemic respiratory failure due to bilateral gram-negative pneumonia , and acute diastolic heart failure. We will maintain the patient is Zosyn 3.375 g IV piggyback every 6 hours as well as Levaquin 500 mg every 24 hours, continue patient on Lasix 20 mg IV push every 12 hours, continue patient on lisinopril 10 mg orally once every day, patient had an echocardiogram that was done in December of this year and that showed ejection fraction of 55-60%, we will monitor the patient very closely. Cardiology consultation as well as pulmonary consultation is in order. 2. Metastatic gastric cancer to the lung on chemotherapy this time. Consult hematology oncology. Very poor prognosis. 3. Hypertension. Continue lisinopril 10 mg orally once every day. 4. Hypothyroidism. Continue Synthroid 88 g orally once every day. 5. Vitamin D deficiency. Hold vitamin D for now. 6. COPD/emphysema. Continue DuoNeb 3 mg nebulization 4 times every day, oxygen support, continue IV anabiotic as well, Pulmicort consultation. 7. DVT prophylaxis. Heparin 5000 units subcutaneously every 12 hours along with knee-high TONI hose. 8. GI prophylaxis. Protonix 40 mg IV push every 24 hours. 9. Prognosis guarded. 10. Admit to inpatient. Estimate a length of stay 2 midnights.
[2018-02-15] MEDS: LISINOPRIL 10 MG TAB PO SCH (12:51)
[2018-02-15] MEDS ORDERED: NALOXONE 0.4 MG/ML 1 ML VIAL IV PRN (14:24)
--- NOTE | 2018-02-15 14:38 | P.CNPUL ---
History of Present Illness Consult date: 02/15/18 Reason for consult: dyspnea, pleural effusion, abnormal CXR/CT Chief complaint: Shortness of breath and significant hypoxia History of present illness: Ms. Gayatri Galloway is a 57-year-old -[place] female with the recent diagnosis of gastric neoplasm diagnosed somewhere around September patient was hospitalized a month ago with the interstitial lung changes right-sided pleural effusion transbronchial lung biopsy and cytology of the pleural fluid was positive for metastatic gastric carcinoma patient was on 2 L oxygen using off and on has chronic shortness of breath for the last several months however in the last 3 days his acute progression of her shortness of breath has been noted patient has severe difficulty in breathing on minimal activity and exertion patient came into the emergency department she was extremely hypoxic with saturation and 70s, her chest x-ray are not much change compared to baseline, patient does complain of some mild pleuritic chest pain also has some nonspecific abdominal pain, abdominal x-ray series were unremarkable, on high flow oxygen 15 L she is tachypneic and tachycardic patient expresses her desire not to be on life support, on specific questioning she denies any seizure-like activity loss of consciousness), denies any left-sided chest pain or radiation of pain, denies any nausea vomiting diarrhea October chest x-ray suggestive of the interstitial edema bilaterally and ARDS-like changes which are not much change compared to baseline is small to moderate right-sided pleural effusion is seen with just a obliteration of cardiophrenic angle on the right side, labs are significant for white cell count over 19,000 stat arterial blood gas checked which revealed mildly elevated CO2 of 51 normal pH of 7.4 significant hypoxia with pO2 only 54 Ammann patient couldn't tolerate the BiPAP machine however agree able on as-needed basis labs reviewed kidney functions are within normal limit, lactic acid is 2.1 troponins are normal urine analysis unremarkable Review of Systems All systems: negative Past Medical History Past Medical History: Cancer, Heart Failure, COPD, Hyperlipidemia, Hypertension , Osteoarthritis (OA), Thyroid Disorder Additional Past Medical History / Comment(s): Back pain, gastrointestinal CA with metasis to lungs. last chemo november 2017. pt is on po chemo daily History of Any Multi-Drug Resistant Organisms: None Reported Past Surgical History: Back Surgery Additional Past Surgical History / Comment(s): Thyroidectomy, carpal tunnel surgery, posterior cervical discectomy with fusion, ventral hernia repair, bronchoscopy with BAL, Port-A-Cath. Past Anesthesia/Blood Transfusion Reactions: No Reported Reaction Past Psychological History: No Psychological Hx Reported Smoking Status: Former smoker (Patient smoked about a pack every day she smoked since she was 14-year-old and she quit recently.) Past Alcohol Use History: None Reported Additional Past Alcohol Use History / Comment(s): "I quit a few months ago and smoked 1ppd" Past Drug Use History: None Reported - Past Family History Father Family Medical History: Cancer (Father at age 70 from lung cancer and he had also diagnosis of COPD.) Additional Family Medical History / Comment(s): lung cancer Mother Family Medical History: Cancer (Mother at age 62 from uterine cancer with metastatic disease to the bone.) Additional Family Medical History / Comment(s): ovarian,bone cancer Sister(s) Family Medical History: Cancer (Patient had 7 sisters one of them from breast cancer the second one from ovarian cancer third one she had metastatic cancer from unknown origin.) Additional Family Medical History / Comment(s): one sister had breast cancer w/ mets, another sister had ovarian cancer Brother(s) Family Medical History: No Reported History (Patient has 6 brothers major medical problems) Medications and Allergies Home Medications Medication Instructions Recorded Confirmed Type Levothyroxine Sodium [Synthroid] 88 mcg PO DAILY 07/23/17 02/15/18 History Ipratropium-Albuterol Nebulize 3 ml INHALATION RT-QID #120 01/17/18 02/15/18 Rx [Duoneb 0.5 mg-3 mg/3 ml Soln] ampul.neb predniSONE 40 mg PO DAILY #60 tab 01/17/18 02/15/18 Rx Budesonide [Pulmicort] 0.5 mg INHALATION RT-BID 02/15/18 02/15/18 History Ergocalciferol [Vitamin D2] 50,000 unit PO Q7D 02/15/18 02/15/18 History Furosemide [Lasix] 40 mg PO DAILY 02/15/18 02/15/18 History HYDROcodone/APAP 7.5-325MG [[place] 1 tab PO Q6HR PRN 02/15/18 02/15/18 History 7.5-325] LORazepam [Ativan] 1 mg PO Q6HR PRN 02/15/18 02/15/18 History Nystatin 100,000 Unit/ml Susp 5 ml PO QID 02/15/18 02/15/18 History [Mycostatin Oral Susp] Potassium Chloride [K-Tab ER] 20 meq PO DAILY 02/15/18 02/15/18 History fentaNYL 50MCG/HR PATCH [Duragesic 50 mcg TRANSDERM Q72H 02/15/18 02/15/18 History 50MCG/HR] Allergies Allergy/AdvReac Type Severity Reaction Status Date / Time No Known Allergies Allergy Verified 02/15/18 03:27 Physical Exam Vitals: Vital Signs Temp Pulse Resp BP BP Pulse Ox 02/15/18 12:25 116 H 30 H 124/81 95 02/15/18 12:00 97.5 F L 32 H 132/83 92 L 02/15/18 11:31 112 H 02/15/18 11:21 109 H 02/15/18 08:40 110 H 02/15/18 08:29 109 H 95 02/15/18 08:00 97.6 F 30 H 116/77 95 02/15/18 05:14 98.1 F 116 H 40 H 122/77 97 02/15/18 05:13 99.4 F 28 H 102/74 90 L 02/15/18 04:01 130 H 56 H 151/88 100 02/15/18 03:46 136 H 02/15/18 03:30 133 H 02/15/18 03:16 99.2 F 141 H 56 H 170/96 63 L Intake and Output 02/14/18 02/15/18 02/15/18 22:59 06:59 14:59 Intake Total 150 760 Output Total 325 1200 Balance -175 -440 Intake: IV 150 400 Levofloxacin 750Mg-D5w 150 Pmx 750 mg In Dextrose/ Water 1 150ml.bag @ 100 mls/hr IVPB ONCE STA Rx#: [id number] Sodium Chloride 0.9% 1, 400 000 ml @ 100 mls/hr IV . Q10H BIGG Rx#:[id number] Oral 360 Output: Urine 325 1200 Other: Voiding Method Bedpan Indwelling Catheter # Voids 1 Weight 79 kg 79 kg - Constitutional General appearance: severe distress, thin - EENT Eyes: anicteric sclerae, EOMI, PERRLA, no ptosis, no scleral icterus, normal appearance ENT: hearing grossly normal, normal oropharynx Ears: bilateral: normal - Neck Neck: normal ROM, no rigidity, no stridor, no thyromegaly Carotids: bilateral: upstroke normal Thyroid: bilateral: normal size - Respiratory Respiratory: bilateral: diminished, rales, rhonchi, wheezing, prolonged expiration, negative: dullness - Cardiovascular Rhythm: regular Heart sounds: normal: S1, S2 Abnormal Heart Sounds: systolic murmur, S3 Gallop - Gastrointestinal General gastrointestinal: normal bowel sounds, soft, no splenomegaly, tenderness , no umbilical hernia, no ventral hernia - Integumentary Integumentary: normal, normal turgor - Neurologic Neurologic: CNII-XII intact - Musculoskeletal Musculoskeletal: generalized weakness, strength equal bilaterally - Psychiatric Psychiatric: A&O x's 3, appropriate affect, intact judgment & insight Results - Laboratory Findings CBC and BMP: 02/15/18 03:40 02/15/18 03:40 ABG ABG pH 7.43 (7.35-7.45) 02/15/18 08:53 ABG pCO2 51 mmHg (35-45) H 02/15/18 08:53 ABG pO2 54 mmHg (83-108) L 02/15/18 08:53 ABG O2 Saturation 87.3 % (94-97) L 02/15/18 08:53 PT/INR, D-dimer PT 10.5 sec (9.0-12.0) 02/15/18 03:40 INR 1.1 (<1.2) 02/15/18 03:40 Abnormal lab findings: Abnormal Labs 02/15/18 02/15/18 02/15/18 03:40 03:40 05:10 WBC 19.3 H RDW 17.1 H Neutrophils # 15.4 H ABG pCO2 ABG pO2 ABG HCO3 ABG Total CO2 ABG O2 Saturation Chloride 96 L Glucose 153 H POC Glucose (mg/dL) Plasma Lactic Acid Dmitriy 2.1 H* Alkaline Phosphatase 134 H 02/15/18 02/15/18 05:47 08:53 WBC RDW Neutrophils # ABG pCO2 51 H ABG pO2 54 L ABG HCO3 33 H ABG Total CO2 35 H ABG O2 Saturation 87.3 L Chloride Glucose POC Glucose (mg/dL) 125 H Plasma Lactic Acid Dmitriy Alkaline Phosphatase - Diagnostic Findings Chest x-ray: report reviewed Assessment and Plan Assessment: Severe sepsis, likely pneumonia patient is being started on broad-spectrum antibiotics with gentle rehydration Acute hypoxic respirator failure was worsening of symptoms we'll do a spiral computed tomography scan of the chest to rule out pulmonary embolism continue gentle hydration lower down the diuresis avoid antihypertensive as best possible Interstitial lung disease related to metastatic gastric cancer Right-sided pleural effusion related to metastatic gastric cancer Hypertension hypertensive cardiovascular disease Severe COPD Vitamin D deficiency Hypothyroidism Plan: Gentle rehydration Deep breathing exercises incentive spirometry Supplemental oxygen with high flow or airvo with BiPAP as needed Broad-spectrum antibiotics DVT and peptic ulcer disease prophylaxis Spiral computed tomography scan of his chest rule out pulmonary embolism Patient expresses her desire to be a no code Further recommendations pending plan of care as per clinical response of the patient Change the patient to ICU admitted Time with Patient: Greater than 30
[2018-02-15] MEDS: PIPERACILLIN-TAZOBACTAM 3.375 GM in DEXTROSE/WATER 1 50ML.BAG IVPB SCH ×2 (14:41→21:07)
[2018-02-15] MEDS: MORPHINE SULFATE 2 MG/ML SYRINGE IVP PRN (15:58)
--- NOTE | 2018-02-15 17:21 | CONS ---
CONSULTATION REASON FOR CONSULTATION: Gastric carcinoma. CHIEF COMPLAINT: Short of breath. Gayatri is a very pleasant 57-year-old lady very well known to our practice. She has been under the care of Dr. Davenport for metastatic gastric carcinoma. The patient initially had surgery for a ventral hernia by Dr. Early on 09/11/2017. She was found to have poorly-differentiated adenocarcinoma in the epigastric hernia sac. Morphologically, the tumor had signet ring feature consistent with gastric primary. Subsequently, she underwent upper endoscopy by Dr. Early and she was found to have a 4 cm ulcerated mass in the greater curvature of her stomach. Biopsy confirmed adenocarcinoma of the stomach. The patient initially treated with systemic chemotherapy with a combination of epirubicin, cisplatin and Xeloda and then subsequently Xeloda. She had a total of 4 cycles of that regimen and along with systemic treatment, she was given subcu Xgeva due to her known bone metastases. Subsequently, she was she was put on oral Xeloda only; however, she had a repeat CT scan in December of 2017 which revealed evidence of disease progression and development of lung metastases and due to her poor performance status, she was put on single agent anti VEGF Cyramza. This was started on 01/30/2018 and she had 2 treatments so far 3 weeks apart. The last treatment was on 02/13/2018. However, the patient presented to the emergency department with progressive shortness of breath and dyspnea of few days' duration. She was found to be severely hypoxemic. She had she had a chest x-ray done which revealed bilateral airspace disease with evidence of heart failure and leukocytosis, so she was she was started on empiric IV antibiotics and admitted to the intensive care unit along with cardiology consultation and Pulmonary Medicine consultation as well. The patient is currently in the intensive care unit. She remains hypoxemic. She is extremely short of breath and tired. She is overall very weak. She has lost over 10 pounds over the last week or so. She is mostly on couch or in her bed at home. She has cough, mostly dry. She denies any fever or chills. No dysphagia. No nausea or vomiting. She has some abdominal pain. No melena, hematochezia, hematuria or hemoptysis. Her appetite is poor. She denies any headaches or blurred vision. PAST MEDICAL HISTORY: In addition to what is stated above in regard to her metastatic gastric carcinoma, she has a history of heart failure, COPD, hyperlipidemia, hypertension, osteoarthritis and thyroid disorder. She had back surgery in the past. Thyroidectomy, carpal tunnel surgery, cervical spine fusion, ventral hernia repair, bronchoscopy and Lzfb-L-Uuvscgku placement. SOCIAL HISTORY: She smoked about a pack of cigarettes daily for about 14 years. She recently quit. No alcohol abuse or illicit drug use. FAMILY HISTORY: Her father at age 70 from lung cancer. Her mother had uterine cancer at age 62, passed of uterine cancer at age 62. She had a sister who had ovarian cancer, a paternal aunt who had colon cancer and another sister with cancer as well. REVIEW OF SYSTEMS: As stated above in the history of present illness, otherwise negative. ALLERGIES: There is no known drug allergy. Her home medications include: 1. Synthroid 88 mcg daily. 2. DuoNeb inhaler q.i.d. 3. Pulmicort inhaler twice a day. 4. Vitamin D2 50,000 units weekly. 5. Lasix 40 mg daily. 6. [place] 7.5/325, 1 every 6 hours as needed. 7. Ativan 1 mg every 6 hours as needed. 8. She has a nystatin swish and swallow. 9. Potassium chloride 20 mEq daily and. 10.Fentanyl patch 50 mcg/hour every 72 hours patch. PHYSICAL EXAMINATION: She is alert, oriented x3. She appears to be dyspneic and cachectic-looking. Her vital signs are temperature 97.5, her temp max 99.2, respirations 32, blood pressure 122/71, pulse is 118. HEENT: Normocephalic, atraumatic. No obvious icterus. NECK: Supple. CHEST: Equal expansion bilaterally. Lungs reveal bilateral crackles in all dejesus. Heart is tachy and regular. Abdomen is soft. She has a tenderness in the epigastric area. No obvious arthritis or organomegaly. Extremities reveal trace edema. LYMPHATICS: No peritoneal, cervical, supraclavicular nodes. MUSCULOSKELETAL: No percussion tenderness detected over her spine or sternum. LABORATORY DATA: WBC of 19.3, hemoglobin 14.9, hematocrit 45.6, platelets are 333. Sodium 138, potassium 3.8, chloride 96, CO2 is 29, BUN is 13, creatinine 0.7. Calcium 8.5. Total bilirubin 0.4, AST is 27, ALT is 30, alkaline phosphatase is 134. IMPRESSION: 1. Metastatic gastric carcinoma with diagnostic and therapeutic circumstances stated above. Recent progression on CT scan done last month at [facility] and she has started see Cyramza as stated above and she had 2 doses. The patient is known to have lung and bone metastases. 2. Progressive hypoxemia and shortness of breath, although this could be fluid overload or bilateral pneumonia. However, the lymphangitic spread of her disease cannot be excluded and it is in the differential diagnosis as well. 3. Multiple other comorbidities and very poor performance status. RECOMMENDATION: 1. Continue current care per ICU team and Internal Medicine. 2. Hold Cyramza for now. 3. Overall prognosis is poor. I did discuss that with the patient and her family at bedside. We also discussed code status. The patient does not want to be intubated, but she would like to continue current medical care for now. 4. Based on her overall progression over the next 24-48 hours, further decision will be made. The above was discussed in detail with the patient and her family at bedside and with the ICU nurse as well. Thank you very much for asking me participate in this nice lady's care. MMODL / IJN: [id number] /
--- NOTE | 2018-02-15 18:17 | CT ---
EXAMINATION TYPE: CT chest angio for PE DATE OF EXAM: 02/15/2018 COMPARISON: 01/10/2018 HISTORY: 57-year-old female severely short of breath. Patient had difficulty holding breath for exam . TECHNIQUE: Contiguous axial scanning of the chest performed with IV Contrast, patient injected with 1 00 mL of Isovue 370. Coronal/sagittal MIP reconstructions performed. CT DLP: 232.8 mGycm Automated exposure control for dose reduction was used. FINDINGS: Heart upper limits of normal in size with small pericardial effusion. Aorta normal caliber. Direct takeoff of the left vertebral artery directly from the aortic arch. Scattered prominent mediastinal lymph nodes measuring up to 1.9 cm subcarinal region and 1.0 cm in th e paratracheal region. There is prominent motion artifact degrading assessment for pulmonary embolus. The segmental lower lo be branches are nondiagnostic. No large central lobar embolus. Assessment of many of the segmental an d more distal arterial branches are nondiagnostic. Diffuse bilateral severe airspace disease with background of emphysema. Small bilateral pleural effus ions are also present. Small hiatal hernia. Bones: No osseous destructive process. IMPRESSION: 1. PATIENT BREATHING ARTIFACTS DEGRADING ASSESSMENT FOR PULMONARY EMBOLUS. NO LARGE CENTRAL OR LOBAR EMBOLUS. ASSESSMENT OF MANY OF THE SEGMENTAL AND MORE DISTAL ARTERIAL BRANCHES IS NONDIAGNOSTIC AND E MBOLI IN THESE LOCATIONS CANNOT BE ADEQUATELY EXCLUDED ON THE BASIS OF THIS EXAM. 2. SEVERE PULMONARY EDEMA WITH SMALL BILATERAL PLEURAL EFFUSIONS. 3. BACKGROUND OF COPD.
[2018-02-15] MEDS: HEPARIN SODIUM,PORCINE 5,000 UNIT/ML 1 ML VIAL SQ SCH (21:05)
[2018-02-16] MEDS: LEVOFLOXACIN 750MG-D5W PMX 750 MG in DEXTROSE/WATER 1 150ML.BAG IVPB SCH (04:28)
[2018-02-16 04:52] LABS: Anisocytosis Slight; Basophils % (A) 0 %; Eosinophils % (A) 0 %; HCT 38.3 % (34.0-46.0); HGB 12.4 gm/dL (11.4-16.0); Lymphocytes # (A) 0.9 k/uL (1.0-4.8); Lymphocytes % (A) 6 %; MCH 31.3 pg (25.0-35.0); MCHC 32.5 g/dL (31.0-37.0); MCV 96.5 fL (80.0-100.0); Macrocytosis Slight; Monocytes # (A) 0.3 k/uL (0-1.0); Monocytes % (A) 2 %; Neutrophils # (A) 14.1 k/uL (1.3-7.7); Neutrophils % (A) 92 %; Platelet Count 264 k/uL (150-450); RBC 3.97 m/uL (3.80-5.40); RDW 17.2 % (11.5-15.5); WBC 15.4 k/uL (3.8-10.6)
[2018-02-16 04:54] LABS: Anion Gap 10 mmol/L; Blood Urea Nitrogen 13 mg/dL (7-17); Carbon Dioxide 31 mmol/L (22-30); Chloride 94 mmol/L (98-107); Glucose 156 mg/dL (74-99); Magnesium 1.7 mg/dL (1.6-2.3); Phosphorus 4.4 mg/dL (2.5-4.5); Potassium 4.2 mmol/L (3.5-5.1); Sodium 135 mmol/L (137-145)
[2018-02-16] MEDS: LEVOTHYROXINE 88 MCG TAB PO SCH (06:40)
[2018-02-16] MEDS: PIPERACILLIN-TAZOBACTAM 3.375 GM in DEXTROSE/WATER 1 50ML.BAG IVPB SCH ×3 (06:42→21:16)
[2018-02-16] MEDS: MAGNESIUM SULFATE-D5W PMX 1 GM in DEXTROSE/WATER 1 100ML.BAG IVPB SCH ×2 (07:04→08:48)
--- NOTE | 2018-02-16 07:16 | XR ---
EXAMINATION TYPE: XR chest 1V DATE OF EXAM: 02/16/2018 COMPARISON: 02/15/2018 HISTORY: 57-year-old female shortness of breath TECHNIQUE: Single frontal view of the chest is obtained. FINDINGS: Right anterior chest wall injection port with catheter tip at the upper SVC level. The catheter remai morgan similar in the internal jugular vein. Heart margins are obscured by adjacent pleural parenchymal disease. Diffuse bilateral airspace disease redemonstrated. At least small effusions. IMPRESSION: 1. Overall similar severe pulmonary edema. 2. Background of COPD.
[2018-02-16] MEDS: IPRATROPIUM-ALBUTEROL 3 ML NEB INHALATION SCH ×4 (08:01→19:27)
[2018-02-16] MEDS: FUROSEMIDE 10 MG/ML 2 ML VIAL IV SCH ×2 (08:48→20:33)
[2018-02-16] MEDS: ATORVASTATIN 20 MG TAB PO SCH (08:48)
[2018-02-16] MEDS: SODIUM CHLORIDE 0.9% 1,000 ML IV SCH ×2 (08:48→14:15)
[2018-02-16] MEDS: methylPREDNISolone SOD SUCCI 40 MG/ML 1 ML VIAL IV SCH ×2 (08:49→20:37)
[2018-02-16] MEDS: PANTOPRAZOLE 40 MG/10 ML VIAL IVP SCH (08:49)
[2018-02-16] MEDS: HEPARIN SODIUM,PORCINE 5,000 UNIT/ML 1 ML VIAL SQ SCH ×2 (08:49→20:40)
[2018-02-16] MEDS: LISINOPRIL 10 MG TAB PO SCH (08:49)
[2018-02-16] MEDS: ACETAMINOPHEN TAB 325 MG TAB PO PRN (08:50)
[2018-02-16] MEDS: MORPHINE SULFATE 2 MG/ML SYRINGE IVP PRN ×2 (10:20→17:51)
--- NOTE | 2018-02-16 12:40 | P.PN ---
Subjective This is a 57-year-old -Slov[place] female was under the care of Dr. Montesinos and she switched to recently with a previous medical history significant for hypertension, hyperlipidemia, chronic tobacco use and dependence with the chronic COPD/emphysema, patient medical history goes back to she 2017 when she developed to have a significant abdominal pain for the past 6 months and she was found to have a small ventral hernia and underwent surgical intervention by Dr. 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, this is was followed by an EGD that was done on 09/16/2017 that showed 4 cm ulcerated mass in the greater curvature the biopsy at that time came back positive for adenocarcinoma of the stomach, patient underwent computed tomography scan of the abdomen and pelvis that showed gastric wall thickening ascites with no distant metastatic disease at that time, patient was initially started on cis- [place]/Xeloda and epirubicin in September 2017 her chemotherapy was stopped in November of this year and she was started on Xeloda and Xgeva until December 2017 when she developed to have a significant respiratory failure with pneumonia that was treated with oral antibiotic, patient had repeated EGD that showed reduction of the/mastoid sending her from 4 cm with negative biopsy for malignancy that time patient recently was hospitalized at [facility] due to acute respiratory failure thought to be due to acute diastolic heart failure as well as significant left-sided pleural effusion with possible metastatic disease, she was recently seen by Dr. Davenport in the office and she was switched to a different treatment which she got on the patient developed to have a significant shortness of breath over the last few days and yesterday she came to the ER she was found to have significant hypoxemia requiring 15 L oxygen chest x-ray did show bilateral airspace disease with heart failure as well as significant elevation of leukocytes, she was started on IV antibiotic and she was admitted to the intensive care unit, she was seen in consultation by cardiology as well as pulmonary medicine she will be seen by oncology as well. 02/16: Patient was evaluated today, she is noted to be sitting up in bed with family at bedside. She had a CT done yesterday that showed no large central or lobular emboli, severe pulmonary edema with small bilateral pleural effusions, repeat chest x-ray showed severe pulmonary edema again. Pulmonology on consult , she'll continue on supplemental oxygen with high flow. Oncology on consult, who recommends to hold her Cyramza for now. So far blood cultures show no growth to date, urine culture was negative. Objective - Vital Signs Vital signs: Vital Signs Temp 98.6 F 02/16/18 09:00 Pulse 96 02/16/18 11:28 Resp 32 H 02/16/18 10:00 BP 103/56 02/16/18 10:00 Pulse Ox 99 02/16/18 10:00 Intake & Output 02/15/18 02/16/18 02/16/18 18:59 06:59 18:59 Intake Total 2030.0 1250 1037.5 Output Total 1495 740 860 Balance 535.0 510 177.5 Weight 79 kg 80.7 kg Intake: IV 950.0 1250 437.5 Levofloxacin 750Mg-D5w 150 Pmx 750 mg In Dextrose/ Water 1 150ml.bag @ 100 mls/hr IVPB Q24H [facility] Rx#: [id number] Magnesium Sulfate-D5w Pmx 200 1 gm In Dextrose/Water 1 100ml.bag @ 100 mls/hr IVPB Q1H [facility] Rx#: [id number] Piperacillin-Tazobactam 3 50.0 37.5 .375 gm In Dextrose/Water 1 50ml.bag @ 12.5 mls/hr IVPB Q8H [facility] Rx#: [id number] Sodium Chloride 0.9% 1, 900 1100 200 000 ml @ 100 mls/hr IV . Q10H [facility] Rx#:[id number] Oral 1080 600 Output: Urine 1495 740 860 Other: Voiding Method Indwelling Catheter Indwelling Catheter Indwelling Catheter - Exam - Constitutional General appearance: severe distress, thin - EENT Eyes: anicteric sclerae, EOMI, PERRLA, no ptosis, no scleral icterus, normal appearance ENT: hearing grossly normal, normal oropharynx Ears: bilateral: normal - Neck Neck: normal ROM, no rigidity, no stridor, no thyromegaly Carotids: bilateral: upstroke normal Thyroid: bilateral: normal size - Respiratory Respiratory: bilateral: diminished, rales, rhonchi, wheezing, prolonged expiration, negative: dullness - Cardiovascular Rhythm: regular Heart sounds: normal: S1, S2 Abnormal Heart Sounds: systolic murmur, S3 Gallop - Gastrointestinal General gastrointestinal: normal bowel sounds, soft, no splenomegaly, tenderness , no umbilical hernia, no ventral hernia - Integumentary Integumentary: normal, normal turgor - Neurologic Neurologic: CNII-XII intact - Musculoskeletal Musculoskeletal: generalized weakness, strength equal bilaterally - Psychiatric Psychiatric: A&O x's 3, appropriate affect, intact judgment & insight - Labs CBC & Chem 7: 02/16/18 04:27 02/16/18 04:27 Labs: Abnormal Lab Results - Last 24 Hours (Table) 02/16/18 02/16/18 Range/Units 04:27 04:27 WBC 15.4 H (3.8-10.6) k/uL RDW 17.2 H (11.5-15.5) % Neutrophils # 14.1 H (1.3-7.7) k/uL Lymphocytes # 0.9 L (1.0-4.8) k/uL Sodium 135 L (137-145) mmol/L Chloride 94 L (98-107) mmol/L Carbon Dioxide 31 H (22-30) mmol/L Glucose 156 H (74-99) mg/dL Calcium 7.0 L (8.4-10.2) mg/dL Microbiology - Last 24 Hours (Table) 02/15/18 09:50 Urine Culture - Final Urine,Catheterized 02/15/18 05:10 Blood Culture - Preliminary Blood No Growth after 24 hours Assessment and Plan Plan: 1. Acute hypoxemic respiratory failure due to bilateral gram-negative pneumonia , and acute diastolic heart failure. We will maintain the patient is Zosyn 3.375 g IV piggyback every 6 hours as well as Levaquin 500 mg every 24 hours, continue patient on Lasix 20 mg IV push every 12 hours, continue patient on lisinopril 10 mg orally once every day, patient had an echocardiogram that was done in December of this year and that showed ejection fraction of 55-60%, we will monitor the patient very closely. Cardiology consultation as well as pulmonary consultation is in order. 2. Metastatic gastric cancer to the lung on chemotherapy this time. Consult hematology oncology. Very poor prognosis. 3. Hypertension. Continue lisinopril 10 mg orally once every day. 4. Hypothyroidism. Continue Synthroid 88 g orally once every day. 5. Vitamin D deficiency. Hold vitamin D for now. 6. COPD/emphysema. Continue DuoNeb 3 mg nebulization 4 times every day, oxygen support, continue IV anabiotic as well, Pulmicort consultation. 7. DVT prophylaxis. Heparin 5000 units subcutaneously every 12 hours along with knee-high TONI hose. 8. GI prophylaxis. Protonix 40 mg IV push every 24 hours. 9. Prognosis guarded. 10. Admit to inpatient. Estimate a length of stay 2 midnights. .The above impression and plan of care have been discussed and directed by signing physician. Kya Payton nurse practitioner acting as scribe for signing physician.
[2018-02-16] MEDS: ALPRAZolam 0.5 MG TAB PO PRN (14:15)
--- NOTE | 2018-02-16 14:46 | PN ---
PROGRESS NOTE DATE OF SERVICE: February 16, 2018. CHIEF COMPLAINT: Short of breath. Gayatri seen today as a followup. She has remained in the Intensive Care unit. She is tired, short of breath and she remained hypoxemic. Her medications were reviewed in her electronic medical record. PHYSICAL EXAMINATION: She is alert and oriented x3. She is somewhat cachectic-looking. Her temperature is 98.7, pulse is 107, respirations 31, blood pressure 106/68. HEENT: Normocephalic, atraumatic. NECK: Supple. Chest equal expansion bilaterally. Lungs reveal bilateral crackles all dejesus. Heart is tachy and regular. Abdomen is soft. She has mild tenderness in epigastric area. Extremities reveal trace edema. LABORATORY DATA: WBC of 15.4, hemoglobin 12.4, hematocrit 38.3, platelets are 264. Sodium 135, potassium 4.2, chloride 94, CO2 is 31, BUN is 13, creatinine 0.8. IMPRESSION: 1. Metastatic gastric carcinoma currently on Cyramza after disease progression on Xeloda. She is known to have lung metastases. 2. Respiratory failure and hypoxemia possibly related to fluid overload and bilateral pneumonia. However, lymphangitic spread of her disease cannot be excluded. 3. Multiple comorbidities and poor performance status. RECOMMENDATION: 1. Continue current ICU care. 2. The patient is currently FULL CODE WITHOUT INTUBATION. 3. Overall prognosis remains poor. MMODL / IJN: [id number] /
[2018-02-17] MEDS: MORPHINE SULFATE 2 MG/ML SYRINGE IVP PRN ×4 (00:15→21:19)
[2018-02-17] MEDS: ALPRAZolam 0.5 MG TAB PO PRN ×2 (01:34→06:52)
[2018-02-17] MEDS: LEVOFLOXACIN 750MG-D5W PMX 750 MG in DEXTROSE/WATER 1 150ML.BAG IVPB SCH (04:31)
[2018-02-17 04:39] LABS: Anisocytosis Slight; Basophils % (A) 0 %; Eosinophils % (A) 0 %; HCT 38.7 % (34.0-46.0); HGB 12.5 gm/dL (11.4-16.0); Lymphocytes # (A) 0.9 k/uL (1.0-4.8); Lymphocytes % (A) 6 %; MCH 30.8 pg (25.0-35.0); MCHC 32.3 g/dL (31.0-37.0); MCV 95.2 fL (80.0-100.0); Mean Platelet Volume 7.7; Monocytes # (A) 0.6 k/uL (0-1.0); Monocytes % (A) 4 %; Neutrophils # (A) 14.9 k/uL (1.3-7.7); Neutrophils % (A) 90 %; Platelet Count 297 k/uL (150-450); RBC 4.06 m/uL (3.80-5.40); RDW 16.6 % (11.5-15.5); WBC 16.6 k/uL (3.8-10.6)
[2018-02-17 04:47] LABS: Anion Gap 9 mmol/L; Blood Urea Nitrogen 15 mg/dL (7-17); Calcium 7.8 mg/dL (8.4-10.2); Carbon Dioxide 35 mmol/L (22-30); Chloride 93 mmol/L (98-107); Glucose 134 mg/dL (74-99); Magnesium 2.3 mg/dL (1.6-2.3); Phosphorus 4.7 mg/dL (2.5-4.5); Potassium 4.6 mmol/L (3.5-5.1); Sodium 137 mmol/L (137-145)
[2018-02-17] MEDS: LEVOTHYROXINE 88 MCG TAB PO SCH (06:26)
[2018-02-17] MEDS: PIPERACILLIN-TAZOBACTAM 3.375 GM in DEXTROSE/WATER 1 50ML.BAG IVPB SCH ×3 (06:27→22:06)
[2018-02-17] MEDS: IPRATROPIUM-ALBUTEROL 3 ML NEB INHALATION SCH ×4 (08:01→20:01)
[2018-02-17] MEDS: LISINOPRIL 10 MG TAB PO SCH (08:19)
[2018-02-17] MEDS: PANTOPRAZOLE 40 MG/10 ML VIAL IVP SCH (08:19)
[2018-02-17] MEDS: FUROSEMIDE 10 MG/ML 2 ML VIAL IV SCH ×2 (08:19→20:44)
[2018-02-17] MEDS: HEPARIN SODIUM,PORCINE 5,000 UNIT/ML 1 ML VIAL SQ SCH ×2 (08:19→20:44)
[2018-02-17] MEDS: ATORVASTATIN 20 MG TAB PO SCH (08:19)
--- NOTE | 2018-02-17 08:49 | P.PN ---
Subjective Progress Note Date: 02/16/18 (Late entry note) Principal diagnosis: Acute hypoxic respirator failure, metastatic spread of gastric adenocarcinoma to lungs, right-sided small pleural effusion, pneumonia, 02/16/2018, patient seen eval examined during the rounds she remains on airvo about 40 L, saturation are in low 90s, she has a component of anxiety in addition to Ativan and Xanax is being initiated labs reviewed medications reviewed chest x-ray essentially not changed extensive worsening of bilateral reticular nodular pattern is seen, computed tomography scan of the chest performed reviewed no evidence of pulmonary embolism, small pleural effusion is seen not enough to tap Ms. Gayatri Galloway is a 57-year-old -Indian female with the recent diagnosis of gastric neoplasm diagnosed somewhere around September patient was hospitalized a month ago with the interstitial lung changes right-sided pleural effusion transbronchial lung biopsy and cytology of the pleural fluid was positive for metastatic gastric carcinoma patient was on 2 L oxygen using off and on has chronic shortness of breath for the last several months however in the last 3 days his acute progression of her shortness of breath has been noted patient has severe difficulty in breathing on minimal activity and exertion patient came into the emergency department she was extremely hypoxic with saturation and 70s, her chest x-ray are not much change compared to baseline, patient does complain of some mild pleuritic chest pain also has some nonspecific abdominal pain, abdominal x-ray series were unremarkable, on high flow oxygen 15 L she is tachypneic and tachycardic patient expresses her desire not to be on life support, on specific questioning she denies any seizure-like activity loss of consciousness), denies any left-sided chest pain or radiation of pain, denies any nausea vomiting diarrhea October chest x-ray suggestive of the interstitial edema bilaterally and ARDS-like changes which are not much change compared to baseline is small to moderate right-sided pleural effusion is seen with just a obliteration of cardiophrenic angle on the right side, labs are significant for white cell count over 19,000 stat arterial blood gas checked which revealed mildly elevated CO2 of 51 normal pH of 7.4 significant hypoxia with pO2 only 54 Ammann patient couldn't tolerate the BiPAP machine however agree able on as-needed basis labs reviewed kidney functions are within normal limit, lactic acid is 2.1 troponins are normal urine analysis unremarkable Objective - Vital Signs Vital signs: Temperature 98.4, heart rate 110, respiratory rate 30-34, high flow oxygen airvo 75 L 91% Vital Signs Intake & Output 02/16/18 18:59 Intake Total 2310.0 Output Total 1500 Balance 810.0 - Weight Intake: IV 750.0 Levofloxacin 750Mg-D5w Pmx 750 mg In Dextrose/ Water 1 150ml.bag @ 100 mls/hr IVPB Q24H [facility] OF [facility] Rx#: [id number] Magnesium Sulfate-D5w Pmx 200 1 gm In Dextrose/Water 1 100ml.bag @ 100 mls/hr IVPB Q1H [facility] Rx#: [id number] Piperacillin-Tazobactam 3 100.0 .375 gm In Dextrose/Water 1 50ml.bag @ 12.5 mls/hr IVPB Q8H ON LICENSE OF [facility] Rx#: [id number] Sodium Chloride 0.9% 1, 450 000 ml @ 20 mls/hr IV . Q24H [facility] Rx#:[id number] Oral 1560 Output: Urine 1500 Other: Voiding Method Indwelling Catheter - Exam - Constitutional General appearance: severe distress, thin - EENT Eyes: anicteric sclerae, EOMI, PERRLA, no ptosis, no scleral icterus, normal appearance ENT: hearing grossly normal, normal oropharynx Ears: bilateral: normal - Neck Neck: normal ROM, no rigidity, no stridor, no thyromegaly Carotids: bilateral: upstroke normal Thyroid: bilateral: normal size - Respiratory Respiratory: bilateral: diminished, rales, rhonchi, wheezing, prolonged expiration, negative: dullness - Cardiovascular Rhythm: regular Heart sounds: normal: S1, S2 Abnormal Heart Sounds: systolic murmur, S3 Gallop - Gastrointestinal General gastrointestinal: normal bowel sounds, soft, no splenomegaly, tenderness , no umbilical hernia, no ventral hernia - Integumentary Integumentary: normal, normal turgor - Neurologic Neurologic: CNII-XII intact - Musculoskeletal Musculoskeletal: generalized weakness, strength equal bilaterally - Psychiatric Psychiatric: A&O x's 3, appropriate affect, intact judgment & insight - Labs CBC & Chem 7: 02/17/18 04:30 02/17/18 04:30 Labs: Abnormal Lab Results - Last 24 Hours (Table) 02/17/18 02/17/18 Range/Units 04:30 04:30 WBC 16.6 H (3.8-10.6) k/uL RDW 16.6 H (11.5-15.5) % Neutrophils # 14.9 H (1.3-7.7) k/uL Lymphocytes # 0.9 L (1.0-4.8) k/uL Chloride 93 L (98-107) mmol/L Carbon Dioxide 35 H (22-30) mmol/L Glucose 134 H (74-99) mg/dL Calcium 7.8 L (8.4-10.2) mg/dL Phosphorus 4.7 H (2.5-4.5) mg/dL Microbiology - Last 24 Hours (Table) 02/15/18 05:10 Blood Culture - Preliminary Blood No Growth after 48 hours 02/16/18 17:50 Gram Stain - Preliminary Sputum Sputum Culture - Preliminary 02/15/18 09:50 Urine Culture - Final Urine,Catheterized Assessment and Plan Assessment: Severe sepsis, likely pneumonia patient is being started on broad-spectrum antibiotics with gentle rehydration Acute hypoxic respirator failure was worsening of symptoms reviewed computed tomography scan of the chest no pulmonary embolism is seen significant worsening of metastatic disease bilaterally noted with possible associated ARDS secondary Interstitial lung disease related to metastatic gastric cancer Right-sided pleural effusion related to metastatic gastric cancer Hypertension hypertensive cardiovascular disease Severe COPD Vitamin D deficiency Hypothyroidism Plan: Gentle rehydration Deep breathing exercises incentive spirometry Supplemental oxygen with high flow or airvo with BiPAP as needed Broad-spectrum antibiotics IV steroids DVT and peptic ulcer disease prophylaxis Spiral computed tomography scan of his chest rule out pulmonary embolism Patient expresses her desire to be a no code Further recommendations pending plan of care as per clinical response of the patient Overall prognosis poor Time with Patient: Greater than 30
--- NOTE | 2018-02-17 08:59 | P.PN ---
Subjective Progress Note Date: 02/17/18 Principal diagnosis: Acute hypoxic respirator failure, metastatic spread of gastric adenocarcinoma to lungs, right-sided small pleural effusion, pneumonia, 02/17/2018, patient seen eval examined during the rounds this morning she is still very short of breath and minimal activity causes significant desaturation , she is on airvo, FiO2 has been escalated to 95% oxygen sats barely went up from 70-80%, discussed with the RN and respiratory therapist, labs x-rays reviewed no significant change in x-ray has been noted family is present at bedside, Ativan his pain escalated to half a milligram every 6 4 hourly when necessary continue Xanax as needed will do a trial of BiPAP to see if oxygenation can be improved into mid 80s continue gentle diuresis IV fluids are being tapered down, his steroid dose has been escalated to 60 IV every 6 patient has expressed her wishes not to be intubated prognosis extremely poor given presence of metastatic stage IV gastric cancer with ARDS-like Petrin on chest x-ray which is secondary due to metastatic stage IV cancer 02/16/2018, patient seen evnicolasa examined during the rounds she remains on airvo about 40 L, saturation are in low 90s, she has a component of anxiety in addition to Ativan and Xanax is being initiated labs reviewed medications reviewed chest x-ray essentially not changed extensive worsening of bilateral reticular nodular pattern is seen, computed tomography scan of the chest performed reviewed no evidence of pulmonary embolism, small pleural effusion is seen not enough to tap Ms. Gayatri Galloway is a 57-year-old -Sy[place] female with the recent diagnosis of gastric neoplasm diagnosed somewhere around September patient was hospitalized a month ago with the interstitial lung changes right-sided pleural effusion transbronchial lung biopsy and cytology of the pleural fluid was positive for metastatic gastric carcinoma patient was on 2 L oxygen using off and on has chronic shortness of breath for the last several months however in the last 3 days his acute progression of her shortness of breath has been noted patient has severe difficulty in breathing on minimal activity and exertion patient came into the emergency department she was extremely hypoxic with saturation and 70s, her chest x-ray are not much change compared to baseline, patient does complain of some mild pleuritic chest pain also has some nonspecific abdominal pain, abdominal x-ray series were unremarkable, on high flow oxygen 15 L she is tachypneic and tachycardic patient expresses her desire not to be on life support, on specific questioning she denies any seizure-like activity loss of consciousness), denies any left-sided chest pain or radiation of pain, denies any nausea vomiting diarrhea March chest x-ray suggestive of the interstitial edema bilaterally and ARDS-like changes which are not much change compared to baseline is small to moderate right-sided pleural effusion is seen with just a obliteration of cardiophrenic angle on the right side, labs are significant for white cell count over 19,000 stat arterial blood gas checked which revealed mildly elevated CO2 of 51 normal pH of 7.4 significant hypoxia with pO2 only 54 Ammann patient couldn't tolerate the BiPAP machine however agree able on as-needed basis labs reviewed kidney functions are within normal limit, lactic acid is 2.1 troponins are normal urine analysis unremarkable Objective - Vital Signs Vital signs: Vital Signs Temp 98.4 F 02/17/18 04:00 Pulse 107 H 02/17/18 08:17 Resp 27 H 02/17/18 07:00 BP 123/68 02/17/18 07:00 Pulse Ox 84 L 02/17/18 07:00 Intake & Output 02/16/18 02/17/18 02/17/18 18:59 06:59 18:59 Intake Total 2310.0 940 Output Total 1500 1320 Balance 810.0 -380 Weight 77.7 kg Intake: IV 750.0 440 Levofloxacin 750Mg-D5w 150 Pmx 750 mg In Dextrose/ Water 1 150ml.bag @ 100 mls/hr IVPB Q24H [facility] Rx#: [id number] Magnesium Sulfate-D5w Pmx 200 1 gm In Dextrose/Water 1 100ml.bag @ 100 mls/hr IVPB Q1H [facility] Rx#: [id number] Piperacillin-Tazobactam 3 100.0 50 .375 gm In Dextrose/Water 1 50ml.bag @ 12.5 mls/hr IVPB Q8H [facility] Rx#: [id number] Sodium Chloride 0.9% 1, 450 240 000 ml @ 20 mls/hr IV . Q24H [facility] Rx#:[id number] Oral 1560 500 Output: Urine 1500 1320 Other: Voiding Method Indwelling Catheter Indwelling Catheter - Exam - Constitutional General appearance: severe distress, thin, tachypneic tachycardic short of breath and desaturated very easily - EENT Eyes: anicteric sclerae, EOMI, PERRLA, no ptosis, no scleral icterus, normal appearance ENT: hearing grossly normal, normal oropharynx Ears: bilateral: normal - Neck Neck: normal ROM, no rigidity, no stridor, no thyromegaly Carotids: bilateral: upstroke normal Thyroid: bilateral: normal size - Respiratory Respiratory: bilateral: diminished, rales, rhonchi, wheezing, prolonged expiration, negative: dullness - Cardiovascular Rhythm: regular Heart sounds: normal: S1, S2 Abnormal Heart Sounds: systolic murmur, S3 Gallop - Gastrointestinal General gastrointestinal: normal bowel sounds, soft, no splenomegaly, tenderness , no umbilical hernia, no ventral hernia - Integumentary Integumentary: normal, normal turgor - Neurologic Neurologic: CNII-XII intact - Musculoskeletal Musculoskeletal: generalized weakness, strength equal bilaterally - Psychiatric Psychiatric: A&O x's 3, appropriate affect, intact judgment & insight - Labs CBC & Chem 7: 02/17/18 04:30 02/17/18 04:30 Labs: Abnormal Lab Results - Last 24 Hours (Table) 02/17/18 02/17/18 Range/Units 04:30 04:30 WBC 16.6 H (3.8-10.6) k/uL RDW 16.6 H (11.5-15.5) % Neutrophils # 14.9 H (1.3-7.7) k/uL Lymphocytes # 0.9 L (1.0-4.8) k/uL Chloride 93 L (98-107) mmol/L Carbon Dioxide 35 H (22-30) mmol/L Glucose 134 H (74-99) mg/dL Calcium 7.8 L (8.4-10.2) mg/dL Phosphorus 4.7 H (2.5-4.5) mg/dL Microbiology - Last 24 Hours (Table) 02/15/18 05:10 Blood Culture - Preliminary Blood No Growth after 48 hours 02/16/18 17:50 Gram Stain - Preliminary Sputum Sputum Culture - Preliminary 02/15/18 09:50 Urine Culture - Final Urine,Catheterized Assessment and Plan Assessment: Severe sepsis, likely pneumonia on broad-spectrum antibiotics with gentle rehydration Acute hypoxic respirator failure was worsening of symptoms reviewed chest x-ray and computed tomography scan of the chest no pulmonary embolism is seen significant worsening of metastatic disease bilaterally noted with possible associated ARDS secondary Interstitial lung disease related to metastatic gastric cancer/ARDS Very small Right-sided pleural effusion related to metastatic gastric cancer Hypertension hypertensive cardiovascular disease Severe COPD Vitamin D deficiency Hypothyroidism Plan: Gentle diuresis Deep breathing exercises incentive spirometry Supplemental oxygen with high flow or airvo with BiPAP as needed, discussed with RN as well as aspirin therapy Broad-spectrum antibiotics IV steroids DVT and peptic ulcer disease prophylaxis Spiral computed tomography scan of chest reviewed Patient expresses her desire to be a no code Further recommendations pending plan of care as per clinical response of the patient Overall prognosis extremely poor with no likelihood of recovery Continue supportive care and hospice may be another option Time with Patient: Greater than 30
--- NOTE | 2018-02-17 09:14 | XR ---
EXAMINATION TYPE: XR chest 1V DATE OF EXAM: 02/17/2018 COMPARISON: 02/16/2018 HISTORY: 57-year-old female which shortness of breath TECHNIQUE: Single frontal view of the chest is obtained. FINDINGS: Heart upper limits of normal in size. Right anterior chest wall injection port with catheter tip at t he upper SVC with catheter similarly looped in the region of the lower internal jugular vein. Diffuse bilateral airspace disease persists. There may be a moderate right effusion and small left effusion. IMPRESSION: 1. Continued severe pulmonary edema. Underlying pleural effusions, right greater than left suspected. 2. Background of COPD.
[2018-02-17] MEDS: methylPREDNISolone SOD SUCCI 125 MG/2 ML VIAL IV SCH ×3 (11:57→23:30)
[2018-02-17 12:09] LABS: Glucose,Whole Blood 129 mg/dL (75-99)
--- NOTE | 2018-02-17 12:35 | P.PN ---
Subjective This is a 57-year-old -[place] female was under the care of Dr. Montesinos and she switched to recently with a previous medical history significant for hypertension, hyperlipidemia, chronic tobacco use and dependence with the chronic COPD/emphysema, patient medical history goes back to she 2017 when she developed to have a significant abdominal pain for the past 6 months and she was found to have a small ventral hernia and underwent surgical intervention by Dr. 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, this is was followed by an EGD that was done on 09/16/2017 that showed 4 cm ulcerated mass in the greater curvature the biopsy at that time came back positive for adenocarcinoma of the stomach, patient underwent computed tomography scan of the abdomen and pelvis that showed gastric wall thickening ascites with no distant metastatic disease at that time, patient was initially started on cis- te-moak/Xeloda and epirubicin in September 2017 her chemotherapy was stopped in November of this year and she was started on Xeloda and Xgeva until December 2017 when she developed to have a significant respiratory failure with pneumonia that was treated with oral antibiotic, patient had repeated EGD that showed reduction of the/mastoid sending her from 4 cm with negative biopsy for malignancy that time patient recently was hospitalized at [facility] due to acute respiratory failure thought to be due to acute diastolic heart failure as well as significant left-sided pleural effusion with possible metastatic disease, she was recently seen by Dr. Davenport in the office and she was switched to a different treatment which she got on the patient developed to have a significant shortness of breath over the last few days and yesterday she came to the ER she was found to have significant hypoxemia requiring 15 L oxygen chest x-ray did show bilateral airspace disease with heart failure as well as significant elevation of leukocytes, she was started on IV antibiotic and she was admitted to the intensive care unit, she was seen in consultation by cardiology as well as pulmonary medicine she will be seen by oncology as well. 02/16: Patient was evaluated today, she is noted to be sitting up in bed with family at bedside. She had a CT done yesterday that showed no large central or lobular emboli, severe pulmonary edema with small bilateral pleural effusions, repeat chest x-ray showed severe pulmonary edema again. Pulmonology on consult , she'll continue on supplemental oxygen with high flow. Oncology on consult, who recommends to hold her Cyramza for now. So far blood cultures show no growth to date, urine culture was negative. 02/17: Patient sitting up in bed, family at bedside today. Patients overall condition continues to decline, she was placed on BiPAP with an FiO2 of 70, she is currently around 87%. She gets very short of breath and has significant desaturation with minimal activity. Repeat chest x-ray does not show much change from previous, shows continued severe pulmonary edema with underlying pleural effusions right greater than the left and COPD. Solu-Medrol increased to 60 mg every 6 hours, pulmonology and oncology on consult, prognosis is poor. Objective - Vital Signs Vital signs: Vital Signs Temp 98.1 F 02/17/18 12:00 Pulse 108 H 02/17/18 12:00 Resp 32 H 02/17/18 12:00 BP 140/76 02/17/18 12:00 Pulse Ox 87 L 02/17/18 12:00 Intake & Output 02/16/18 02/17/18 02/17/18 18:59 06:59 18:59 Intake Total 2310.0 940 70.0 Output Total 1500 1320 765 Balance 810.0 -380 -695.0 Weight 77.7 kg Intake: IV 750.0 440 70.0 Levofloxacin 750Mg-D5w 150 Pmx 750 mg In Dextrose/ Water 1 150ml.bag @ 100 mls/hr IVPB Q24H [facility] Rx#: [id number] Magnesium Sulfate-D5w Pmx 200 1 gm In Dextrose/Water 1 100ml.bag @ 100 mls/hr IVPB Q1H [facility] Rx#: [id number] Piperacillin-Tazobactam 3 100.0 50 50.0 .375 gm In Dextrose/Water 1 50ml.bag @ 12.5 mls/hr IVPB Q8H [facility] Rx#: [id number] Sodium Chloride 0.9% 1, 450 240 20 000 ml @ 20 mls/hr IV . Q24H [facility] Rx#:[id number] Oral 1560 500 Output: Urine 1500 1320 765 Other: Voiding Method Indwelling Catheter Indwelling Catheter Indwelling Catheter - Exam - Constitutional General appearance: severe distress, thin - EENT Eyes: anicteric sclerae, EOMI, PERRLA, no ptosis, no scleral icterus, normal appearance ENT: hearing grossly normal, normal oropharynx Ears: bilateral: normal - Neck Neck: normal ROM, no rigidity, no stridor, no thyromegaly Carotids: bilateral: upstroke normal Thyroid: bilateral: normal size - Respiratory Respiratory: bilateral: diminished, rales, rhonchi, wheezing, prolonged expiration, negative: dullness - Cardiovascular Rhythm: regular Heart sounds: normal: S1, S2 Abnormal Heart Sounds: systolic murmur, S3 Gallop - Gastrointestinal General gastrointestinal: normal bowel sounds, soft, no splenomegaly, tenderness , no umbilical hernia, no ventral hernia - Integumentary Integumentary: normal, normal turgor - Neurologic Neurologic: CNII-XII intact - Musculoskeletal Musculoskeletal: generalized weakness, strength equal bilaterally - Psychiatric Psychiatric: A&O x's 3, appropriate affect, intact judgment & insight - Labs CBC & Chem 7: 02/17/18 04:30 02/17/18 04:30 Labs: Abnormal Lab Results - Last 24 Hours (Table) 02/17/18 02/17/18 02/17/18 Range/Units 04:30 04:30 12:08 WBC 16.6 H (3.8-10.6) k/uL RDW 16.6 H (11.5-15.5) % Neutrophils # 14.9 H (1.3-7.7) k/uL Lymphocytes # 0.9 L (1.0-4.8) k/uL Chloride 93 L (98-107) mmol/L Carbon Dioxide 35 H (22-30) mmol/L Glucose 134 H (74-99) mg/dL POC Glucose (mg/dL) 129 H (75-99) mg/dL Calcium 7.8 L (8.4-10.2) mg/dL Phosphorus 4.7 H (2.5-4.5) mg/dL Microbiology - Last 24 Hours (Table) 02/15/18 05:10 Blood Culture - Preliminary Blood No Growth after 48 hours 02/16/18 17:50 Gram Stain - Preliminary Sputum Sputum Culture - Preliminary 02/15/18 09:50 Urine Culture - Final Urine,Catheterized Assessment and Plan Plan: 1. Acute hypoxemic respiratory failure due to bilateral gram-negative pneumonia , and acute diastolic heart failure. We will maintain the patient is Zosyn 3.375 g IV piggyback every 6 hours as well as Levaquin 500 mg every 24 hours, continue patient on Lasix 20 mg IV push every 12 hours, continue patient on lisinopril 10 mg orally once every day, patient had an echocardiogram that was done in December of this year and that showed ejection fraction of 55-60%, we will monitor the patient very closely. Cardiology consultation as well as pulmonary consultation is in order. 2. Metastatic gastric cancer to the lung on chemotherapy this time. Consult hematology oncology. Very poor prognosis. 3. Hypertension. Continue lisinopril 10 mg orally once every day. 4. Hypothyroidism. Continue Synthroid 88 g orally once every day. 5. Vitamin D deficiency. Hold vitamin D for now. 6. COPD/emphysema. Continue DuoNeb 3 mg nebulization 4 times every day, oxygen support, continue IV anabiotic as well, Pulmicort consultation. 7. DVT prophylaxis. Heparin 5000 units subcutaneously every 12 hours along with knee-high TONI hose. 8. GI prophylaxis. Protonix 40 mg IV push every 24 hours. 9. Prognosis guarded. 10. Admit to inpatient. Estimate a length of stay 2 midnights. .The above impression and plan of care have been discussed and directed by signing physician. Kya Payton nurse practitioner acting as scribe for signing physician.
[2018-02-17] MEDS: INSULIN ASPART 100 UNIT/ML 1 ML 10 ML VIAL SQ SCH ×3 (14:59→21:16)
[2018-02-17] MEDS: SODIUM CHLORIDE 0.9% 1,000 ML IV SCH (15:00)
[2018-02-17 16:42] LABS: Glucose,Whole Blood 182 mg/dL (75-99)
--- NOTE | 2018-02-17 17:50 | P.PN ---
Subjective Progress Note Date: 02/17/18 Principal diagnosis: LORI Pt seen in f/u, she is more comfortable with the bipap on, she can communicate, she is trying to eat and drink when she can, she is taking her meds, mild nausea , having some pain in the abdomen, periumbilical area, she is weak. Objective - Vital Signs Vital signs: Vital Signs Temp 98.1 F 02/17/18 16:00 Pulse 108 H 02/17/18 16:02 Resp 33 H 02/17/18 16:00 BP 101/86 02/17/18 16:00 Pulse Ox 96 02/17/18 16:00 Intake & Output 02/16/18 02/17/18 02/17/18 18:59 06:59 18:59 Intake Total 2310.0 940 142.5 Output Total 1500 1320 985 Balance 810.0 -380 -842.5 Weight 77.7 kg Intake: IV 750.0 440 142.5 Levofloxacin 750Mg-D5w 150 Pmx 750 mg In Dextrose/ Water 1 150ml.bag @ 100 mls/hr IVPB Q24H [facility] Rx#: [id number] Magnesium Sulfate-D5w Pmx 200 1 gm In Dextrose/Water 1 100ml.bag @ 100 mls/hr IVPB Q1H [facility] Rx#: [id number] Piperacillin-Tazobactam 3 100.0 50 62.5 .375 gm In Dextrose/Water 1 50ml.bag @ 12.5 mls/hr IVPB Q8H [facility] Rx#: [id number] Sodium Chloride 0.9% 1, 450 240 80 000 ml @ 20 mls/hr IV . Q24H [facility] Rx#:[id number] Oral 1560 500 Output: Urine 1500 1320 985 Other: Voiding Method Indwelling Catheter Indwelling Catheter Indwelling Catheter - Constitutional General appearance: Present: cooperative, mild distress, thin - EENT Eyes: Present: anicteric sclerae - Respiratory Respiratory: bilateral: diminished - Cardiovascular Heart sounds: normal: S1, S2 - Gastrointestinal Gastrointestinal Comment(s): RUQ/epigastric firmness General gastrointestinal: Present: normal bowel sounds, soft - Neurologic Neurologic: Present: CNII-XII intact - Musculoskeletal Musculoskeletal: Present: strength equal bilaterally - Psychiatric Psychiatric: Present: A&O x's 3, appropriate affect, intact judgment & insight - Labs CBC & Chem 7: 02/17/18 04:30 02/17/18 04:30 Labs: Abnormal Lab Results - Last 24 Hours (Table) 02/17/18 02/17/18 02/17/18 Range/Units 04:30 04:30 12:08 WBC 16.6 H (3.8-10.6) k/uL RDW 16.6 H (11.5-15.5) % Neutrophils # 14.9 H (1.3-7.7) k/uL Lymphocytes # 0.9 L (1.0-4.8) k/uL Chloride 93 L (98-107) mmol/L Carbon Dioxide 35 H (22-30) mmol/L Glucose 134 H (74-99) mg/dL POC Glucose (mg/dL) 129 H (75-99) mg/dL Calcium 7.8 L (8.4-10.2) mg/dL Phosphorus 4.7 H (2.5-4.5) mg/dL 02/17/18 Range/Units 16:40 WBC (3.8-10.6) k/uL RDW (11.5-15.5) % Neutrophils # (1.3-7.7) k/uL Lymphocytes # (1.0-4.8) k/uL Chloride (98-107) mmol/L Carbon Dioxide (22-30) mmol/L Glucose (74-99) mg/dL POC Glucose (mg/dL) 182 H (75-99) mg/dL Calcium (8.4-10.2) mg/dL Phosphorus (2.5-4.5) mg/dL Microbiology - Last 24 Hours (Table) 02/15/18 05:10 Blood Culture - Preliminary Blood No Growth after 48 hours 02/16/18 17:50 Gram Stain - Preliminary Sputum Sputum Culture - Preliminary Assessment and Plan (1) Lung metastasis Current Visit: Yes Status: Acute Priority: High Code(s): C78.00 - SECONDARY MALIGNANT NEOPLASM OF UNSPECIFIED LUNG SNOMED Code(s): 25912477 (2) Gastric adenocarcinoma Current Visit: No Status: Chronic Priority: High Code(s): C16.9 - MALIGNANT NEOPLASM OF STOMACH, UNSPECIFIED SNOMED Code(s): 789873165 Plan: Lymphangetic spread of gastric cancer (biopsy proven) is part of the cause of pt difficulty breathing. Pt does feel better after abx and with bipap/hi flow O2. Pt has only had 2 cycles of immunotherapy, this is usually not enough time to elicit a response. Pt and family are aware of this. Dr. Almonte did speak with family and patient Plan is to allow several days to see if she has improvement in her symptoms. If she does she will continue on with treatment. If pt does not improve there will be discussion of comfort. Pt currently has made the decision for full code but with instructions. Doctor attests:I have performed a history and physical exam of this pt, discussed with dictator. I agree with dictated note, documented as a scribe.
[2018-02-17 20:40] LABS: Glucose,Whole Blood 159 mg/dL (75-99)
[2018-02-18] MEDS: MORPHINE SULFATE 2 MG/ML SYRINGE IVP PRN ×3 (03:58→21:16)
[2018-02-18] MEDS: LEVOFLOXACIN 750MG-D5W PMX 750 MG in DEXTROSE/WATER 1 150ML.BAG IVPB SCH (05:04)
[2018-02-18 05:45] LABS: Anisocytosis Slight; Basophils % (A) 0 %; Eosinophils % (A) 0 %; HCT 41.4 % (34.0-46.0); HGB 13.4 gm/dL (11.4-16.0); Lymphocytes # (A) 0.7 k/uL (1.0-4.8); Lymphocytes % (A) 4 %; MCH 31.3 pg (25.0-35.0); MCHC 32.3 g/dL (31.0-37.0); MCV 96.8 fL (80.0-100.0); Macrocytosis Slight; Monocytes # (A) 0.4 k/uL (0-1.0); Monocytes % (A) 2 %; Neutrophils # (A) 14.2 k/uL (1.3-7.7); Neutrophils % (A) 93 %; Platelet Count 307 k/uL (150-450); RBC 4.28 m/uL (3.80-5.40); RDW 16.9 % (11.5-15.5); WBC 15.3 k/uL (3.8-10.6)
[2018-02-18 05:51] LABS: Calcium 7.6 mg/dL (8.4-10.2); Magnesium 2.3 mg/dL (1.6-2.3); Phosphorus 4.4 mg/dL (2.5-4.5); Potassium 4.4 mmol/L (3.5-5.1)
[2018-02-18] MEDS: methylPREDNISolone SOD SUCCI 125 MG/2 ML VIAL IV SCH ×3 (06:13→18:33)
[2018-02-18] MEDS: PIPERACILLIN-TAZOBACTAM 3.375 GM in DEXTROSE/WATER 1 50ML.BAG IVPB SCH ×3 (06:44→22:24)
[2018-02-18] MEDS: LEVOTHYROXINE 88 MCG TAB PO SCH (06:44)
[2018-02-18 06:59] LABS: Glucose,Whole Blood 146 mg/dL (75-99)
--- NOTE | 2018-02-18 07:44 | XR ---
EXAMINATION TYPE: XR chest 1V DATE OF EXAM: 02/18/2018 CLINICAL HISTORY: Difficulty breathing progress study. TECHNIQUE: Single AP portable upright view of the chest is obtained. COMPARISON: Chest x-ray from one day earlier and older studies. FINDINGS: There is stable right internal jugular Mediport catheter. There are bilateral diffuse inte rstitial and airspace opacities involving upper and lower lungs redemonstrated with relative sparing of the right midlung. There is silhouetting of both heart borders and right hemidiaphragm with more f rank consolidation in both lower lungs. Cardiac silhouette size is felt within normal limits. No larg e pleural effusion or pneumothorax is evident bilaterally. Osseous structures are intact. IMPRESSION: Overall stable findings, diffuse bilateral alveolar and interstitial edema and/or infil trates more prominent in bilateral bases on background of chronic interstitial fibrosis, possibly ROSALEE S. Correlate clinically.
[2018-02-18] MEDS: INSULIN ASPART 100 UNIT/ML 1 ML 10 ML VIAL SQ SCH ×4 (08:06→21:01)
[2018-02-18] MEDS: FUROSEMIDE 10 MG/ML 2 ML VIAL IV SCH ×2 (09:03→20:48)
[2018-02-18] MEDS: HEPARIN SODIUM,PORCINE 5,000 UNIT/ML 1 ML VIAL SQ SCH ×2 (09:04→20:49)
[2018-02-18] MEDS: LISINOPRIL 10 MG TAB PO SCH (09:04)
[2018-02-18] MEDS: PANTOPRAZOLE 40 MG/10 ML VIAL IVP SCH (09:04)
[2018-02-18] MEDS: ATORVASTATIN 20 MG TAB PO SCH (09:04)
[2018-02-18] MEDS: IPRATROPIUM-ALBUTEROL 3 ML NEB INHALATION SCH ×4 (09:23→20:26)
[2018-02-18] MEDS ORDERED: BISACODYL 5 MG TABLET.DR PO PRN (09:27)
[2018-02-18 11:33] LABS: Glucose,Whole Blood 219 mg/dL (75-99)
--- NOTE | 2018-02-18 11:56 | P.PN ---
Subjective This is a 57-year-old -[place] female was under the care of Dr. Montesinos and she switched to recently with a previous medical history significant for hypertension, hyperlipidemia, chronic tobacco use and dependence with the chronic COPD/emphysema, patient medical history goes back to she 2017 when she developed to have a significant abdominal pain for the past 6 months and she was found to have a small ventral hernia and underwent surgical intervention by Dr. 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, this is was followed by an EGD that was done on 09/16/2017 that showed 4 cm ulcerated mass in the greater curvature the biopsy at that time came back positive for adenocarcinoma of the stomach, patient underwent computed tomography scan of the abdomen and pelvis that showed gastric wall thickening ascites with no distant metastatic disease at that time, patient was initially started on cis- [place]/Xeloda and epirubicin in September 2017 her chemotherapy was stopped in November of this year and she was started on Xeloda and Xgeva until December 2017 when she developed to have a significant respiratory failure with pneumonia that was treated with oral antibiotic, patient had repeated EGD that showed reduction of the/mastoid sending her from 4 cm with negative biopsy for malignancy that time patient recently was hospitalized at [facility] due to acute respiratory failure thought to be due to acute diastolic heart failure as well as significant left-sided pleural effusion with possible metastatic disease, she was recently seen by Dr. Davenport in the office and she was switched to a different treatment which she got on the patient developed to have a significant shortness of breath over the last few days and yesterday she came to the ER she was found to have significant hypoxemia requiring 15 L oxygen chest x-ray did show bilateral airspace disease with heart failure as well as significant elevation of leukocytes, she was started on IV antibiotic and she was admitted to the intensive care unit, she was seen in consultation by cardiology as well as pulmonary medicine she will be seen by oncology as well. 02/16: Patient was evaluated today, she is noted to be sitting up in bed with family at bedside. She had a CT done yesterday that showed no large central or lobular emboli, severe pulmonary edema with small bilateral pleural effusions, repeat chest x-ray showed severe pulmonary edema again. Pulmonology on consult , she'll continue on supplemental oxygen with high flow. Oncology on consult, who recommends to hold her Cyramza for now. So far blood cultures show no growth to date, urine culture was negative. 02/17: Patient sitting up in bed, family at bedside today. Patients overall condition continues to decline, she was placed on BiPAP with an FiO2 of 70, she is currently around 87%. She gets very short of breath and has significant desaturation with minimal activity. Repeat chest x-ray does not show much change from previous, shows continued severe pulmonary edema with underlying pleural effusions right greater than the left and COPD. Solu-Medrol increased to 60 mg every 6 hours, pulmonology and oncology on consult, prognosis is poor. 02/18: Patient evaluated today, she is off bipap and currently on high flow, she has improved slightly, she is saturating around 88%, again she continues to have significant desaturation with any activity. Oncology is on consult, plan is to see how patient responds to treatment, if she continues to decline, will discuss comfort care. Patient has not had a bowel movement in a few day, Doculax and lactulose ordered. Objective - Vital Signs Vital signs: Vital Signs Temp 98.5 F 02/17/18 23:00 Pulse 102 H 02/18/18 06:00 Resp 35 H 02/18/18 06:00 BP 135/80 02/18/18 06:00 Pulse Ox 90 L 02/18/18 07:13 Intake & Output 02/17/18 02/18/18 02/18/18 18:59 06:59 18:59 Intake Total 227.5 382.5 Output Total 1105 1145 Balance -877.5 -762.5 Weight 81.3 kg Intake: IV 227.5 382.5 Levofloxacin 750Mg-D5w 150 Pmx 750 mg In Dextrose/ Water 1 150ml.bag @ 100 mls/hr IVPB Q24H [facility] Rx#: [id number] Piperacillin-Tazobactam 3 87.5 12.5 .375 gm In Dextrose/Water 1 50ml.bag @ 12.5 mls/hr IVPB Q8H [facility] Rx#: [id number] Sodium Chloride 0.9% 1, 140 220 000 ml @ 20 mls/hr IV . Q24H [facility] Rx#:[id number] Output: Urine 1105 1145 Other: Voiding Method Indwelling Catheter Indwelling Catheter - Exam - Constitutional General appearance: severe distress, thin - EENT Eyes: anicteric sclerae, EOMI, PERRLA, no ptosis, no scleral icterus, normal appearance ENT: hearing grossly normal, normal oropharynx Ears: bilateral: normal - Neck Neck: normal ROM, no rigidity, no stridor, no thyromegaly Carotids: bilateral: upstroke normal Thyroid: bilateral: normal size - Respiratory Respiratory: bilateral: diminished, rales, rhonchi, wheezing, prolonged expiration, negative: dullness - Cardiovascular Rhythm: regular Heart sounds: normal: S1, S2 Abnormal Heart Sounds: systolic murmur, S3 Gallop - Gastrointestinal General gastrointestinal: normal bowel sounds, soft, no splenomegaly, tenderness , no umbilical hernia, no ventral hernia - Integumentary Integumentary: normal, normal turgor - Neurologic Neurologic: CNII-XII intact - Musculoskeletal Musculoskeletal: generalized weakness, strength equal bilaterally - Psychiatric Psychiatric: A&O x's 3, appropriate affect, intact judgment & insight - Labs CBC & Chem 7: 02/18/18 05:16 02/18/18 05:16 Labs: Abnormal Lab Results - Last 24 Hours (Table) 02/17/18 02/17/18 02/17/18 Range/Units 12:08 16:40 20:38 WBC (3.8-10.6) k/uL RDW (11.5-15.5) % Neutrophils # (1.3-7.7) k/uL Lymphocytes # (1.0-4.8) k/uL Chloride (98-107) mmol/L Carbon Dioxide (22-30) mmol/L BUN (7-17) mg/dL Glucose (74-99) mg/dL POC Glucose (mg/dL) 129 H 182 H 159 H (75-99) mg/dL Calcium (8.4-10.2) mg/dL 02/18/18 02/18/18 02/18/18 Range/Units 05:16 05:16 06:57 WBC 15.3 H (3.8-10.6) k/uL RDW 16.9 H (11.5-15.5) % Neutrophils # 14.2 H (1.3-7.7) k/uL Lymphocytes # 0.7 L (1.0-4.8) k/uL Chloride 91 L (98-107) mmol/L Carbon Dioxide 35 H (22-30) mmol/L BUN 19 H (7-17) mg/dL Glucose 154 H (74-99) mg/dL POC Glucose (mg/dL) 146 H (75-99) mg/dL Calcium 7.6 L (8.4-10.2) mg/dL Microbiology - Last 24 Hours (Table) 02/15/18 05:10 Blood Culture - Preliminary Blood No Growth after 72 hours Assessment and Plan Plan: 1. Acute hypoxemic respiratory failure due to bilateral gram-negative pneumonia , and acute diastolic heart failure. We will maintain the patient is Zosyn 3.375 g IV piggyback every 6 hours as well as Levaquin 500 mg every 24 hours, continue patient on Lasix 20 mg IV push every 12 hours, continue patient on lisinopril 10 mg orally once every day, patient had an echocardiogram that was done in December of this year and that showed ejection fraction of 55-60%, we will monitor the patient very closely. Cardiology consultation as well as pulmonary consultation is in order. 2. Metastatic gastric cancer to the lung on chemotherapy this time. Consult hematology oncology. Very poor prognosis. 3. Hypertension. Continue lisinopril 10 mg orally once every day. 4. Hypothyroidism. Continue Synthroid 88 g orally once every day. 5. Vitamin D deficiency. Hold vitamin D for now. 6. COPD/emphysema. Continue DuoNeb 3 mg nebulization 4 times every day, oxygen support, continue IV anabiotic as well, Pulmicort consultation. 7. DVT prophylaxis. Heparin 5000 units subcutaneously every 12 hours along with knee-high TONI hose. 8. GI prophylaxis. Protonix 40 mg IV push every 24 hours. 9. Prognosis guarded. 10. Admit to inpatient. Estimate a length of stay 2 midnights. .The above impression and plan of care have been discussed and directed by signing physician. Kya Payton nurse practitioner acting as scribe for signing physician.
[2018-02-18] MEDS: SODIUM CHLORIDE 0.9% 1,000 ML IV SCH (14:50)
[2018-02-18 16:48] LABS: Glucose,Whole Blood 157 mg/dL (75-99)
--- NOTE | 2018-02-18 17:06 | P.PN ---
Subjective Progress Note Date: 02/18/18 Principal diagnosis: LORI patient seen in follow-up. She states less difficulty in breathing today, he is coughing out thick, whitish sputum, no hemoptysis, she is tolerating oral intake, denies fever, nausea or pain. Objective - Vital Signs Vital signs: Vital Signs Temp 98 F 02/18/18 16:00 Pulse 104 H 02/18/18 16:46 Resp 19 02/18/18 16:00 BP 99/74 02/18/18 16:00 Pulse Ox 98 02/18/18 16:00 Intake & Output 02/17/18 02/18/18 02/18/18 18:59 06:59 18:59 Intake Total 227.5 382.5 1738.0 Output Total 1105 1145 865 Balance -877.5 -762.5 873.0 Weight 81.3 kg 81.3 kg Intake: IV 227.5 382.5 275.0 Levofloxacin 750Mg-D5w 150 Pmx 750 mg In Dextrose/ Water 1 150ml.bag @ 100 mls/hr IVPB Q24H ON LICENSE OF [facility] Rx#: [id number] Piperacillin-Tazobactam 3 87.5 12.5 75.0 .375 gm In Dextrose/Water 1 50ml.bag @ 12.5 mls/hr IVPB Q8H ON LICENSE OF [facility] Rx#: [id number] Sodium Chloride 0.9% 1, 140 220 200 000 ml @ 20 mls/hr IV . Q24H [facility] Rx#:[id number] Oral 1463 Output: Urine 1105 1145 865 Other: Voiding Method Indwelling Catheter Indwelling Catheter Indwelling Catheter - Constitutional General appearance: Present: average body habitus, cooperative, mild distress - EENT Eyes: Present: anicteric sclerae ENT: Present: normal oropharynx - Respiratory Respiratory: bilateral: CTA, diminished - Cardiovascular Heart sounds: normal: S1, S2 - Peripheral edema leg Peripheral Edema: bilateral: Trace foot Peripheral Edema: bilateral: 1+ - Gastrointestinal General gastrointestinal: Present: normal bowel sounds, soft. Absent: absent bowel sounds, decreased bowel sounds, distended, hepatomegaly, hyperactive bowel sounds, organomegaly, rigid, scaphoid, splenomegaly, tenderness, umbilical hernia, ventral hernia - Neurologic Neurologic: Present: CNII-XII intact - Musculoskeletal Musculoskeletal: Present: generalized weakness - Psychiatric Psychiatric: Present: A&O x's 3, appropriate affect, intact judgment & insight - Labs CBC & Chem 7: 02/18/18 05:16 02/18/18 05:16 Labs: Abnormal Lab Results - Last 24 Hours (Table) 02/17/18 02/18/18 02/18/18 Range/Units 20:38 05:16 05:16 WBC 15.3 H (3.8-10.6) k/uL RDW 16.9 H (11.5-15.5) % Neutrophils # 14.2 H (1.3-7.7) k/uL Lymphocytes # 0.7 L (1.0-4.8) k/uL Chloride 91 L (98-107) mmol/L Carbon Dioxide 35 H (22-30) mmol/L BUN 19 H (7-17) mg/dL Glucose 154 H (74-99) mg/dL POC Glucose (mg/dL) 159 H (75-99) mg/dL Calcium 7.6 L (8.4-10.2) mg/dL 02/18/18 02/18/18 02/18/18 Range/Units 06:57 11:32 16:45 WBC (3.8-10.6) k/uL RDW (11.5-15.5) % Neutrophils # (1.3-7.7) k/uL Lymphocytes # (1.0-4.8) k/uL Chloride (98-107) mmol/L Carbon Dioxide (22-30) mmol/L BUN (7-17) mg/dL Glucose (74-99) mg/dL POC Glucose (mg/dL) 146 H 219 H 157 H (75-99) mg/dL Calcium (8.4-10.2) mg/dL Microbiology - Last 24 Hours (Table) 02/16/18 17:50 Gram Stain - Final Sputum Sputum Culture - Final Nelli albicans 02/15/18 05:10 Blood Culture - Preliminary Blood No Growth after 72 hours - Imaging and Cardiology Chest x-ray: report reviewed Assessment and Plan (1) Lung metastasis Current Visit: Yes Status: Acute Priority: High Code(s): C78.00 - SECONDARY MALIGNANT NEOPLASM OF UNSPECIFIED LUNG SNOMED Code(s): 99825593 (2) Gastric adenocarcinoma Current Visit: No Status: Chronic Priority: High Code(s): C16.9 - MALIGNANT NEOPLASM OF STOMACH, UNSPECIFIED SNOMED Code(s): 526711398 Plan: Stable chest x-ray today and patient states feeling better. Continue current medical treatment. Patient is very aware that her situation could be a combination of lung infection superimposed on lymphangitic spread gastric cancer to her lungs. We had discussed several days of treatment and making further decisions about cancer treatment and intent, this is still the plan for today as patient is feeling better today. Pt will be seen daily Doctor attests: I performed a history and physical examination of this patient, discussed with dictator. I agree with dictators note, documented as a scribe.
--- NOTE | 2018-02-18 17:50 | P.PN ---
Subjective Progress Note Date: 02/18/18 Principal diagnosis: Acute hypoxic respiratory failure, metastatic spread of gastric adenocarcinoma to lungs, right-sided small pleural effusion, pneumonia, severe COPD 02/18/2018, patient seen eval examined during the rounds clinically patient has been doing relatively better in terms oxygenation but is still require high flow oxygen with airvo 95% has use BiPAP off and on, patient is diuresing very well as well chest x-ray are not much changed patient remains on high-dose IV steroids as well as broad spectrum antibiotics for pneumonia however the chest x -ray is very much suggestive of ARDS-like Petrin likely associated with the lymphangitis spread of gastric adenocarcinoma, and labs reviewed medications reviewed still have leukocytosis which is multifactorial white cell count however are stable, renal functions are stable as well, sputum is positive for Nelli 02/17/2018, patient seen eval examined during the rounds this morning she is still very short of breath and minimal activity causes significant desaturation , she is on airvo, FiO2 has been escalated to 95% oxygen sats barely went up from 70-80%, discussed with the RN and respiratory therapist, labs x-rays reviewed no significant change in x-ray has been noted family is present at bedside, Ativan his pain escalated to half a milligram every 6 4 hourly when necessary continue Xanax as needed will do a trial of BiPAP to see if oxygenation can be improved into mid 80s continue gentle diuresis IV fluids are being tapered down, his steroid dose has been escalated to 60 IV every 6 patient has expressed her wishes not to be intubated prognosis extremely poor given presence of metastatic stage IV gastric cancer with ARDS-like Petrin on chest x-ray which is secondary due to metastatic stage IV cancer 02/16/2018, patient seen eval examined during the rounds she remains on airvo about 40 L, saturation are in low 90s, she has a component of anxiety in addition to Ativan and Xanax is being initiated labs reviewed medications reviewed chest x-ray essentially not changed extensive worsening of bilateral reticular nodular pattern is seen, computed tomography scan of the chest performed reviewed no evidence of pulmonary embolism, small pleural effusion is seen not enough to tap Ms. Gayatri Galloway is a 57-year-old -[place] female with the recent diagnosis of gastric neoplasm diagnosed somewhere around September patient was hospitalized a month ago with the interstitial lung changes right-sided pleural effusion transbronchial lung biopsy and cytology of the pleural fluid was positive for metastatic gastric carcinoma patient was on 2 L oxygen using off and on has chronic shortness of breath for the last several months however in the last 3 days his acute progression of her shortness of breath has been noted patient has severe difficulty in breathing on minimal activity and exertion patient came into the emergency department she was extremely hypoxic with saturation and 70s, her chest x-ray are not much change compared to baseline, patient does complain of some mild pleuritic chest pain also has some nonspecific abdominal pain, abdominal x-ray series were unremarkable, on high flow oxygen 15 L she is tachypneic and tachycardic patient expresses her desire not to be on life support, on specific questioning she denies any seizure-like activity loss of consciousness), denies any left-sided chest pain or radiation of pain, denies any nausea vomiting diarrhea March chest x-ray suggestive of the interstitial edema bilaterally and ARDS-like changes which are not much change compared to baseline is small to moderate right-sided pleural effusion is seen with just a obliteration of cardiophrenic angle on the right side, labs are significant for white cell count over 19,000 stat arterial blood gas checked which revealed mildly elevated CO2 of 51 normal pH of 7.4 significant hypoxia with pO2 only 54 Ammann patient couldn't tolerate the BiPAP machine however agree able on as-needed basis labs reviewed kidney functions are within normal limit, lactic acid is 2.1 troponins are normal urine analysis unremarkable Objective - Vital Signs Vital signs: Vital Signs Temp 98 F 02/18/18 16:00 Pulse 110 H 02/18/18 17:00 Resp 35 H 02/18/18 17:00 BP 118/75 02/18/18 17:00 Pulse Ox 92 L 02/18/18 17:00 Intake & Output 02/17/18 02/18/18 02/18/18 18:59 06:59 18:59 Intake Total 227.5 382.5 1770.5 Output Total 1105 1145 925 Balance -877.5 -762.5 845.5 Weight 81.3 kg 81.3 kg Intake: IV 227.5 382.5 307.5 Levofloxacin 750Mg-D5w 150 Pmx 750 mg In Dextrose/ Water 1 150ml.bag @ 100 mls/hr IVPB Q24H [facility] Rx#: [id number] Piperacillin-Tazobactam 3 87.5 12.5 87.5 .375 gm In Dextrose/Water 1 50ml.bag @ 12.5 mls/hr IVPB Q8H [facility] Rx#: [id number] Sodium Chloride 0.9% 1, 140 220 220 000 ml @ 20 mls/hr IV . Q24H [facility] Rx#:[id number] Oral 1463 Output: Urine 1105 1145 925 Other: Voiding Method Indwelling Catheter Indwelling Catheter Indwelling Catheter - Exam - Constitutional General appearance: severe distress, thin, tachypneic tachycardic short of breath and desaturated very easily - EENT Eyes: anicteric sclerae, EOMI, PERRLA, no ptosis, no scleral icterus, normal appearance ENT: hearing grossly normal, normal oropharynx Ears: bilateral: normal - Neck Neck: normal ROM, no rigidity, no stridor, no thyromegaly Carotids: bilateral: upstroke normal Thyroid: bilateral: normal size - Respiratory Respiratory: bilateral: diminished, rales, rhonchi, wheezing, prolonged expiration, negative: dullness - Cardiovascular Rhythm: regular Heart sounds: normal: S1, S2 Abnormal Heart Sounds: systolic murmur, S3 Gallop - Gastrointestinal General gastrointestinal: normal bowel sounds, soft, no splenomegaly, tenderness , no umbilical hernia, no ventral hernia - Integumentary Integumentary: normal, normal turgor - Neurologic Neurologic: CNII-XII intact - Musculoskeletal Musculoskeletal: generalized weakness, strength equal bilaterally - Psychiatric Psychiatric: A&O x's 3, appropriate affect, intact judgment & insight - Labs CBC & Chem 7: 02/18/18 05:16 02/18/18 05:16 Labs: Abnormal Lab Results - Last 24 Hours (Table) 02/17/18 02/18/18 02/18/18 Range/Units 20:38 05:16 05:16 WBC 15.3 H (3.8-10.6) k/uL RDW 16.9 H (11.5-15.5) % Neutrophils # 14.2 H (1.3-7.7) k/uL Lymphocytes # 0.7 L (1.0-4.8) k/uL Chloride 91 L (98-107) mmol/L Carbon Dioxide 35 H (22-30) mmol/L BUN 19 H (7-17) mg/dL Glucose 154 H (74-99) mg/dL POC Glucose (mg/dL) 159 H (75-99) mg/dL Calcium 7.6 L (8.4-10.2) mg/dL 02/18/18 02/18/18 02/18/18 Range/Units 06:57 11:32 16:45 WBC (3.8-10.6) k/uL RDW (11.5-15.5) % Neutrophils # (1.3-7.7) k/uL Lymphocytes # (1.0-4.8) k/uL Chloride (98-107) mmol/L Carbon Dioxide (22-30) mmol/L BUN (7-17) mg/dL Glucose (74-99) mg/dL POC Glucose (mg/dL) 146 H 219 H 157 H (75-99) mg/dL Calcium (8.4-10.2) mg/dL Microbiology - Last 24 Hours (Table) 02/16/18 17:50 Gram Stain - Final Sputum Sputum Culture - Final Nelli albicans 02/15/18 05:10 Blood Culture - Preliminary Blood No Growth after 72 hours Assessment and Plan Assessment: Severe sepsis, likely pneumonia on broad-spectrum antibiotics with gentle rehydration Nelli isolated in the lungs will put patient on oral Diflucan as well Acute hypoxic respirator failure was worsening of symptoms reviewed chest x-ray and computed tomography scan of the chest no pulmonary embolism is seen significant worsening of metastatic disease bilaterally noted with possible associated ARDS secondary Interstitial lung disease related to metastatic gastric cancer/ARDS Very small Right-sided pleural effusion related to metastatic gastric cancer Hypertension hypertensive cardiovascular disease Severe COPD Vitamin D deficiency Hypothyroidism Plan: Gentle diuresis Add oral Diflucan Deep breathing exercises incentive spirometry Supplemental oxygen with high flow or airvo with BiPAP as needed, discussed with RN as well as aspirin therapy Broad-spectrum antibiotics IV steroids DVT and peptic ulcer disease prophylaxis Spiral computed tomography scan of chest reviewed Patient expresses her desire to be a no code Further recommendations pending plan of care as per clinical response of the patient Overall prognosis extremely poor with no likelihood of recovery Continue supportive care and hospice may be another option if no significant objective improvement noted Time with Patient: Greater than 30
--- NOTE | 2018-02-18 18:00 | US ---
EXAMINATION TYPE: US chest DATE OF EXAM: 02/18/2018 COMPARISON: XR and CT CLINICAL HISTORY: bilateral pleural effusion. EXAM MEASUREMENTS: Right Pleural Effusion fluid pocket: 2.0 cm Right skin to fluid thickness: 2.0 cm Left Pleural Effusion fluid pocket: 2.3 cm Left skin to fluid thickness: 1.8 cm No markings, small bilateral pockets of fluid noted. Pulmonologists are able to review the images in the patient?s EMR. IMPRESSIONS: There is demonstration of bilateral pleural effusions that measure up to 2.3 cm in thick ness.
[2018-02-18] MEDS: FLUCONAZOLE 100 MG TAB PO SCH (18:34)
[2018-02-18] MEDS: LACTULOSE 20 GM/30 ML CUP PO SCH (20:49)
[2018-02-18 20:55] LABS: Glucose,Whole Blood 170 mg/dL (75-99)
[2018-02-19] MEDS: methylPREDNISolone SOD SUCCI 125 MG/2 ML VIAL IV SCH ×4 (00:02→17:43)
[2018-02-19] MEDS ORDERED: PANTOPRAZOLE 40 MG TABLET PO ONE (06:30)
[2018-02-19] MEDS ORDERED: ALPRAZolam 0.5 MG TAB ONE (06:30)
[2018-02-19] MEDS ORDERED: IPRATROPIUM-ALBUTEROL 3 ML NEB ONE (06:30)
[2018-02-19] MEDS ORDERED: FLUCONAZOLE 100 MG TAB ONE (06:30)
[2018-02-19] MEDS ORDERED: FUROSEMIDE 10 MG/ML 2 ML VIAL ONE (06:30)
[2018-02-19] MEDS ORDERED: ATORVASTATIN 20 MG TAB ONE (06:30)
[2018-02-19] MEDS ORDERED: methylPREDNISolone SOD SUCCI 125 MG/2 ML VIAL ONE (06:30)
[2018-02-19] MEDS ORDERED: LACTULOSE 20 GM/30 ML CUP ONE (06:30)
[2018-02-19] MEDS ORDERED: LISINOPRIL 10 MG TAB ONE (06:30)
[2018-02-19] MEDS ORDERED: HEPARIN SODIUM,PORCINE 5,000 UNIT/ML 1 ML VIAL ONE (06:30)
[2018-02-19] MEDS ORDERED: LEVOTHYROXINE 88 MCG TAB ONE (06:30)
[2018-02-19] MEDS ORDERED: INSULIN ASPART 100 UNIT/ML 1 ML 10 ML VIAL SQ ONE (06:30)
[2018-02-19 06:58] LABS: Glucose,Whole Blood 145 mg/dL (75-99)
--- NOTE | 2018-02-19 08:00 | XR ---
EXAMINATION TYPE: XR chest 1V DATE OF EXAM: 02/19/2018 HISTORY: Shortness of breath. COMPARISON: 02/18/2018 TECHNIQUE: Single view of the chest is submitted. FINDINGS: Mixed interstitial and alveolar infiltrates are noted throughout both lung dejesus essentially unchang ed from prior examination. Right-sided Mediport catheter unchanged in position. The heart is stable. Hilar and mediastinal structures are within normal limits. Degenerative changes are seen of the dorsal spine. IMPRESSION: 1. Stable chest with diffuse bilateral interstitial and alveolar infiltrates.
[2018-02-19] MEDS ORDERED: LEVOFLOXACIN 750 MG TAB PO SCH (09:00)
[2018-02-19] MEDS: LEVOTHYROXINE 88 MCG TAB PO SCH (10:47)
[2018-02-19] MEDS: PIPERACILLIN-TAZOBACTAM 3.375 GM in DEXTROSE/WATER 1 50ML.BAG IVPB SCH ×3 (10:47→23:06)
[2018-02-19] MEDS: INSULIN ASPART 100 UNIT/ML 1 ML 10 ML VIAL SQ SCH ×4 (10:47→21:23)
[2018-02-19] MEDS: IPRATROPIUM-ALBUTEROL 3 ML NEB INHALATION SCH ×4 (10:48→19:28)
[2018-02-19] MEDS: LISINOPRIL 10 MG TAB PO SCH (10:48)
[2018-02-19] MEDS: ATORVASTATIN 20 MG TAB PO SCH (10:48)
[2018-02-19] MEDS: FUROSEMIDE 10 MG/ML 2 ML VIAL IV SCH ×2 (10:48→21:10)
[2018-02-19] MEDS: FLUCONAZOLE 100 MG TAB PO SCH (10:48)
[2018-02-19] MEDS: LACTULOSE 20 GM/30 ML CUP PO SCH ×2 (10:48→22:30)
[2018-02-19] MEDS: HEPARIN SODIUM,PORCINE 5,000 UNIT/ML 1 ML VIAL SQ SCH ×2 (10:48→21:10)
[2018-02-19] MEDS: PANTOPRAZOLE 40 MG TABLET PO SCH (10:49)
[2018-02-19 11:00] LABS: Albumin 3.6 g/dL (3.5-5.0); Calcium 7.5 mg/dL (8.4-10.2); Magnesium 2.1 mg/dL (1.6-2.3); Phosphorus 3.8 mg/dL (2.5-4.5); Potassium 3.3 mmol/L (3.5-5.1); Total Bilirubin 0.4 mg/dL (0.2-1.3); Total Protein 6.3 g/dL (6.3-8.2)
[2018-02-19 11:03] LABS: Anisocytosis Slight; Basophils % (A) 0 %; Eosinophils % (A) 0 %; HGB 13.9 gm/dL (11.4-16.0); Lymphocytes # (A) 0.5 k/uL (1.0-4.8); Lymphocytes % (A) 4 %; MCH 30.5 pg (25.0-35.0); MCHC 32.3 g/dL (31.0-37.0); MCV 94.4 fL (80.0-100.0); Mean Platelet Volume 7.3; Monocytes # (A) 0.6 k/uL (0-1.0); Monocytes % (A) 4 %; Neutrophils # (A) 13.7 k/uL (1.3-7.7); Neutrophils % (A) 92 %; Platelet Count 339 k/uL (150-450); RBC 4.55 m/uL (3.80-5.40); RDW 16.5 % (11.5-15.5)
--- NOTE | 2018-02-19 11:48 | P.PN ---
Subjective Progress Note Date: 02/19/18 Principal diagnosis: LORI Pt seen in f/u, she did not use BiPAP last night, she is on hi flow NC with O2 85%-95%, she desaturates with any activity but recovers quickly. Pt can speak a sentence with mild SOB, she continues to cough up thick sputum, no hemoptysis , she is eating and drinking fair, she had a BM this AM. Objective - Vital Signs Vital signs: Vital Signs Temp 98.2 F 02/19/18 08:00 Pulse 107 H 02/19/18 11:27 Resp 33 H 02/19/18 11:00 BP 157/93 02/19/18 11:00 Pulse Ox 94 L 02/19/18 11:18 Intake & Output 02/18/18 02/19/18 02/19/18 18:59 06:59 18:59 Intake Total 2423.0 192.5 670.0 Output Total 975 860 710 Balance 1448.0 -667.5 -40.0 Weight 81.3 kg 76.8 kg Intake: IV 340.0 192.5 130.0 Piperacillin-Tazobactam 3 100.0 12.5 50.0 .375 gm In Dextrose/Water 1 50ml.bag @ 12.5 mls/hr IVPB Q8H [facility] Rx#: [id number] Sodium Chloride 0.9% 1, 240 180 80 000 ml @ 20 mls/hr IV . Q24H [facility] Rx#:[id number] Oral [id number] Output: Urine 975 860 710 Other: Voiding Method Indwelling Catheter Indwelling Catheter - Constitutional General appearance: Present: average body habitus, cooperative, mild distress - EENT Eyes: Present: anicteric sclerae - Respiratory Respiratory: bilateral: CTA, diminished, other (inspiration>expiration) - Cardiovascular Heart sounds: normal: S1, S2 - Peripheral edema foot Peripheral Edema: bilateral: Trace - Gastrointestinal General gastrointestinal: Present: normal bowel sounds, soft - Neurologic Neurologic: Present: CNII-XII intact - Musculoskeletal Musculoskeletal: Present: generalized weakness, strength equal bilaterally - Psychiatric Psychiatric: Present: A&O x's 3, appropriate affect, intact judgment & insight - Labs CBC & Chem 7: 02/19/18 10:35 02/18/18 05:16 Labs: Abnormal Lab Results - Last 24 Hours (Table) 02/18/18 02/18/18 02/19/18 Range/Units 16:45 20:54 06:57 WBC (3.8-10.6) k/uL RDW (11.5-15.5) % Neutrophils # (1.3-7.7) k/uL Lymphocytes # (1.0-4.8) k/uL POC Glucose (mg/dL) 157 H 170 H 145 H (75-99) mg/dL 02/19/18 Range/Units 10:35 WBC 15.0 H (3.8-10.6) k/uL RDW 16.5 H (11.5-15.5) % Neutrophils # 13.7 H (1.3-7.7) k/uL Lymphocytes # 0.5 L (1.0-4.8) k/uL POC Glucose (mg/dL) (75-99) mg/dL Microbiology - Last 24 Hours (Table) 02/15/18 05:10 Blood Culture - Preliminary Blood No Growth after 96 hours 02/16/18 17:50 Gram Stain - Final Sputum Sputum Culture - Final Nelli albicans - Imaging and Cardiology Chest x-ray: report reviewed Assessment and Plan (1) Lung metastasis Current Visit: Yes Status: Acute Priority: High Code(s): C78.00 - SECONDARY MALIGNANT NEOPLASM OF UNSPECIFIED LUNG SNOMED Code(s): 70875123 (2) Gastric adenocarcinoma Current Visit: No Status: Chronic Priority: High Code(s): C16.9 - MALIGNANT NEOPLASM OF STOMACH, UNSPECIFIED SNOMED Code(s): 809386408 Plan: Persistent alveolar congestion on CXR report Dr. Zamorano and Dr. Almonte discussed case. Patient feels stable at this time, hemodynamically she is stable. He breathing is stable, minimal improvement. Again, we discussed lung infection superimposed on lymphangitic spread gastric cancer to her lungs vs purely progressive cancer. In the next 24-48 hours decisions will be made regarding further treatment vs comfort approach. We will cont to see pt daily and discuss. Doctor attests: I performed a history and physical examination of this patient, discussed with dictator. I agree with dictators note, documented as a scribe.
[2018-02-19] MEDS: MORPHINE SULFATE 2 MG/ML SYRINGE IVP PRN ×2 (11:58→21:10)
[2018-02-19 12:10] LABS: Glucose,Whole Blood 145 mg/dL (75-99)
--- NOTE | 2018-02-19 12:35 | P.PN ---
Subjective Progress Note Date: 02/19/18 This is a 57-year-old -[place] female was under the care of Dr. Montesinos and she switched to recently with a previous medical history significant for hypertension, hyperlipidemia, chronic tobacco use and dependence with the chronic COPD/emphysema, patient medical history goes back to she 2017 when she developed to have a significant abdominal pain for the past 6 months and she was found to have a small ventral hernia and underwent surgical intervention by Dr. 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, this is was followed by an EGD that was done on 09/16/2017 that showed 4 cm ulcerated mass in the greater curvature the biopsy at that time came back positive for adenocarcinoma of the stomach, patient underwent computed tomography scan of the abdomen and pelvis that showed gastric wall thickening ascites with no distant metastatic disease at that time, patient was initially started on cis- rampart/Xeloda and epirubicin in September 2017 her chemotherapy was stopped in November of this year and she was started on Xeloda and Xgeva until December 2017 when she developed to have a significant respiratory failure with pneumonia that was treated with oral antibiotic, patient had repeated EGD that showed reduction of the/mastoid sending her from 4 cm with negative biopsy for malignancy that time patient recently was hospitalized at [facility] due to acute respiratory failure thought to be due to acute diastolic heart failure as well as significant left-sided pleural effusion with possible metastatic disease, she was recently seen by Dr. Davenport in the office and she was switched to a different treatment which she got on the patient developed to have a significant shortness of breath over the last few days and yesterday she came to the ER she was found to have significant hypoxemia requiring 15 L oxygen chest x-ray did show bilateral airspace disease with heart failure as well as significant elevation of leukocytes, she was started on IV antibiotic and she was admitted to the intensive care unit, she was seen in consultation by cardiology as well as pulmonary medicine she will be seen by oncology as well. 02/16: Patient was evaluated today, she is noted to be sitting up in bed with family at bedside. She had a CT done yesterday that showed no large central or lobular emboli, severe pulmonary edema with small bilateral pleural effusions, repeat chest x-ray showed severe pulmonary edema again. Pulmonology on consult , she'll continue on supplemental oxygen with high flow. Oncology on consult, who recommends to hold her Cyramza for now. So far blood cultures show no growth to date, urine culture was negative. 02/17: Patient sitting up in bed, family at bedside today. Patients overall condition continues to decline, she was placed on BiPAP with an FiO2 of 70, she is currently around 87%. She gets very short of breath and has significant desaturation with minimal activity. Repeat chest x-ray does not show much change from previous, shows continued severe pulmonary edema with underlying pleural effusions right greater than the left and COPD. Solu-Medrol increased to 60 mg every 6 hours, pulmonology and oncology on consult, prognosis is poor. 02/18: Patient evaluated today, she is off bipap and currently on high flow, she has improved slightly, she is saturating around 88%, again she continues to have significant desaturation with any activity. Oncology is on consult, plan is to see how patient responds to treatment, if she continues to decline, will discuss comfort care. Patient has not had a bowel movement in a few day, Doculax and lactulose ordered. 02/19: Patient is sitting up in bed she continues to be in high flow oxygen, she continues to be on maximum dose of steroid, she is about the same feeling a bit better than yesterday, she had a good bowel movement today and she is maintained on the same treatment, pulmonary as well as oncology is following. Objective - Vital Signs Vital signs: Vital Signs Temp 98.2 F 02/19/18 08:00 Pulse 107 H 02/19/18 11:27 Resp 33 H 02/19/18 11:00 BP 157/93 02/19/18 11:00 Pulse Ox 94 L 02/19/18 11:18 Intake & Output 02/18/18 02/19/18 02/19/18 18:59 06:59 18:59 Intake Total 2423.0 192.5 670.0 Output Total 975 860 710 Balance 1448.0 -667.5 -40.0 Weight 81.3 kg 76.8 kg Intake: IV 340.0 192.5 130.0 Piperacillin-Tazobactam 3 100.0 12.5 50.0 .375 gm In Dextrose/Water 1 50ml.bag @ 12.5 mls/hr IVPB Q8H [facility] Rx#: [id number] Sodium Chloride 0.9% 1, 240 180 80 000 ml @ 20 mls/hr IV . Q24H [facility] Rx#:[id number] Oral [id number] Output: Urine 975 860 710 Other: Voiding Method Indwelling Catheter Indwelling Catheter Indwelling Catheter - Exam - Exam - Constitutional General appearance: severe distress, thin - EENT Eyes: anicteric sclerae, EOMI, PERRLA, no ptosis, no scleral icterus, normal appearance ENT: hearing grossly normal, normal oropharynx Ears: bilateral: normal - Neck Neck: normal ROM, no rigidity, no stridor, no thyromegaly Carotids: bilateral: upstroke normal Thyroid: bilateral: normal size - Respiratory Respiratory: bilateral: diminished, rales, rhonchi, wheezing, prolonged expiration, negative: dullness - Cardiovascular Rhythm: regular Heart sounds: normal: S1, S2 Abnormal Heart Sounds: systolic murmur, S3 Gallop - Gastrointestinal General gastrointestinal: normal bowel sounds, soft, no splenomegaly, tenderness , no umbilical hernia, no ventral hernia - Integumentary Integumentary: normal, normal turgor - Neurologic Neurologic: CNII-XII intact - Musculoskeletal Musculoskeletal: generalized weakness, strength equal bilaterally - Psychiatric Psychiatric: A&O x's 3, appropriate affect, intact judgment & insight - Labs CBC & Chem 7: 02/19/18 10:35 02/18/18 05:16 Labs: Abnormal Lab Results - Last 24 Hours (Table) 02/18/18 02/18/18 02/19/18 Range/Units 16:45 20:54 06:57 WBC (3.8-10.6) k/uL RDW (11.5-15.5) % Neutrophils # (1.3-7.7) k/uL Lymphocytes # (1.0-4.8) k/uL POC Glucose (mg/dL) 157 H 170 H 145 H (75-99) mg/dL 02/19/18 02/19/18 Range/Units 10:35 12:07 WBC 15.0 H (3.8-10.6) k/uL RDW 16.5 H (11.5-15.5) % Neutrophils # 13.7 H (1.3-7.7) k/uL Lymphocytes # 0.5 L (1.0-4.8) k/uL POC Glucose (mg/dL) 145 H (75-99) mg/dL Microbiology - Last 24 Hours (Table) 02/15/18 05:10 Blood Culture - Preliminary Blood No Growth after 96 hours 02/16/18 17:50 Gram Stain - Final Sputum Sputum Culture - Final Nleli albicans Assessment and Plan Assessment: 1. Acute hypoxemic respiratory failure due to bilateral gram-negative pneumonia , and acute diastolic heart failure. We will maintain the patient is Zosyn 3.375 g IV piggyback every 6 hours , continue patient on Lasix 20 mg IV push every 12 hours, continue patient on lisinopril 10 mg orally once every day, patient had an echocardiogram that was done in December of this year and that showed ejection fraction of 55-60%, we will monitor the patient very closely, 2. Metastatic gastric cancer to the lung on chemotherapy this time. Consult hematology oncology. Very poor prognosis. 3. Hypertension. Continue lisinopril 10 mg orally once every day. 4. Hypothyroidism. Continue Synthroid 88 g orally once every day. 5. Vitamin D deficiency. Hold vitamin D for now. 6. COPD/emphysema. Continue DuoNeb 3 mg nebulization 4 times every day, oxygen support, continue IV anabiotic as well, Pulmicort consultation. 7. DVT prophylaxis. Heparin 5000 units subcutaneously every 12 hours along with knee-high TONI hose. 8. GI prophylaxis. Protonix 40 mg IV push every 24 hours.
[2018-02-19] MEDS ORDERED: Potassium Replacement Protocol 1 EACH MISC MISCELLANE PRN (12:45)
--- NOTE | 2018-02-19 13:57 | P.PN ---
Subjective Progress Note Date: 02/19/18 Principal diagnosis: Acute hypoxic respiratory failure, metastatic spread of gastric adenocarcinoma to lungs, right-sided small pleural effusion, pneumonia, severe COPD 02/19/2018, patient seen eval examined during the rounds of typically slightly better hissignificant desaturation seen but continued to have high demands for oxygen patient remains on 95% oxygen airvo, has declined the BiPAP machine, patient has been diuresing very well, labs reviewed medications reviewed radiographic studies reviewed as well ultrasound of the chest performed reviewed very small pleural effusion on the right side, care plan discussed with the oncology service as well given that slight improvement in clinical condition is present we'll continue supportive care patient is no intubation as per her wishes 02/18/2018, patient seen eval examined during the rounds clinically patient has been doing relatively better in terms oxygenation but is still require high flow oxygen with airvo 95% has use BiPAP off and on, patient is diuresing very well as well chest x-ray are not much changed patient remains on high-dose IV steroids as well as broad spectrum antibiotics for pneumonia however the chest x -ray is very much suggestive of ARDS-like Petrin likely associated with the lymphangitis spread of gastric adenocarcinoma, and labs reviewed medications reviewed still have leukocytosis which is multifactorial white cell count however are stable, renal functions are stable as well, sputum is positive for Nelli 02/17/2018, patient seen eval examined during the rounds this morning she is still very short of breath and minimal activity causes significant desaturation , she is on airvo, FiO2 has been escalated to 95% oxygen sats barely went up from 70-80%, discussed with the RN and respiratory therapist, labs x-rays reviewed no significant change in x-ray has been noted family is present at bedside, Ativan his pain escalated to half a milligram every 6 4 hourly when necessary continue Xanax as needed will do a trial of BiPAP to see if oxygenation can be improved into mid 80s continue gentle diuresis IV fluids are being tapered down, his steroid dose has been escalated to 60 IV every 6 patient has expressed her wishes not to be intubated prognosis extremely poor given presence of metastatic stage IV gastric cancer with ARDS-like Petrin on chest x-ray which is secondary due to metastatic stage IV cancer 02/16/2018, patient seen eval examined during the rounds she remains on airvo about 40 L, saturation are in low 90s, she has a component of anxiety in addition to Ativan and Xanax is being initiated labs reviewed medications reviewed chest x-ray essentially not changed extensive worsening of bilateral reticular nodular pattern is seen, computed tomography scan of the chest performed reviewed no evidence of pulmonary embolism, small pleural effusion is seen not enough to tap Ms. Gayatri Galloway is a 57-year-old -[place] female with the recent diagnosis of gastric neoplasm diagnosed somewhere around September patient was hospitalized a month ago with the interstitial lung changes right-sided pleural effusion transbronchial lung biopsy and cytology of the pleural fluid was positive for metastatic gastric carcinoma patient was on 2 L oxygen using off and on has chronic shortness of breath for the last several months however in the last 3 days his acute progression of her shortness of breath has been noted patient has severe difficulty in breathing on minimal activity and exertion patient came into the emergency department she was extremely hypoxic with saturation and 70s, her chest x-ray are not much change compared to baseline, patient does complain of some mild pleuritic chest pain also has some nonspecific abdominal pain, abdominal x-ray series were unremarkable, on high flow oxygen 15 L she is tachypneic and tachycardic patient expresses her desire not to be on life support, on specific questioning she denies any seizure-like activity loss of consciousness), denies any left-sided chest pain or radiation of pain, denies any nausea vomiting diarrhea October chest x-ray suggestive of the interstitial edema bilaterally and ARDS-like changes which are not much change compared to baseline is small to moderate right-sided pleural effusion is seen with just a obliteration of cardiophrenic angle on the right side, labs are significant for white cell count over 19,000 stat arterial blood gas checked which revealed mildly elevated CO2 of 51 normal pH of 7.4 significant hypoxia with pO2 only 54 Ammann patient couldn't tolerate the BiPAP machine however agree able on as-needed basis labs reviewed kidney functions are within normal limit, lactic acid is 2.1 troponins are normal urine analysis unremarkable Objective - Vital Signs Vital signs: Vital Signs Temp 97.9 F 02/19/18 12:00 Pulse 100 02/19/18 12:00 Resp 25 H 02/19/18 12:00 BP 120/68 02/19/18 12:00 Pulse Ox 91 L 02/19/18 13:23 Intake & Output 02/18/18 02/19/18 02/19/18 18:59 06:59 18:59 Intake Total 2423.0 192.5 690.0 Output Total 975 860 747 Balance 1448.0 -667.5 -57.0 Weight 81.3 kg 76.8 kg Intake: IV 340.0 192.5 150.0 Piperacillin-Tazobactam 3 100.0 12.5 50.0 .375 gm In Dextrose/Water 1 50ml.bag @ 12.5 mls/hr IVPB Q8H [facility] Rx#: [id number] Sodium Chloride 0.9% 1, 240 180 100 000 ml @ 20 mls/hr IV . Q24H [facility] Rx#:[id number] Oral [id number] Output: Urine 975 860 747 Other: Voiding Method Indwelling Catheter Indwelling Catheter Indwelling Catheter - Exam - Constitutional General appearance: severe distress, thin, tachypneic tachycardic short of breath and desaturated very easily - EENT Eyes: anicteric sclerae, EOMI, PERRLA, no ptosis, no scleral icterus, normal appearance ENT: hearing grossly normal, normal oropharynx Ears: bilateral: normal - Neck Neck: normal ROM, no rigidity, no stridor, no thyromegaly Carotids: bilateral: upstroke normal Thyroid: bilateral: normal size - Respiratory Respiratory: bilateral: diminished, rales, rhonchi, wheezing, prolonged expiration, negative: dullness - Cardiovascular Rhythm: regular Heart sounds: normal: S1, S2 Abnormal Heart Sounds: systolic murmur, S3 Gallop - Gastrointestinal General gastrointestinal: normal bowel sounds, soft, no splenomegaly, tenderness , no umbilical hernia, no ventral hernia - Integumentary Integumentary: normal, normal turgor - Neurologic Neurologic: CNII-XII intact - Musculoskeletal Musculoskeletal: generalized weakness, strength equal bilaterally - Psychiatric Psychiatric: A&O x's 3, appropriate affect, intact judgment & insight - Labs CBC & Chem 7: 02/19/18 10:35 02/18/18 05:16 Labs: Abnormal Lab Results - Last 24 Hours (Table) 02/18/18 02/18/18 02/19/18 Range/Units 16:45 20:54 06:57 WBC (3.8-10.6) k/uL RDW (11.5-15.5) % Neutrophils # (1.3-7.7) k/uL Lymphocytes # (1.0-4.8) k/uL POC Glucose (mg/dL) 157 H 170 H 145 H (75-99) mg/dL 02/19/18 02/19/18 Range/Units 10:35 12:07 WBC 15.0 H (3.8-10.6) k/uL RDW 16.5 H (11.5-15.5) % Neutrophils # 13.7 H (1.3-7.7) k/uL Lymphocytes # 0.5 L (1.0-4.8) k/uL POC Glucose (mg/dL) 145 H (75-99) mg/dL Microbiology - Last 24 Hours (Table) 02/15/18 05:10 Blood Culture - Preliminary Blood No Growth after 96 hours Assessment and Plan Assessment: Severe sepsis, likely pneumonia on broad-spectrum antibiotics with gentle rehydration Nelli isolated in the lungs will put patient on oral Diflucan as well Acute hypoxic respirator failure was worsening of symptoms reviewed chest x-ray and computed tomography scan of the chest no pulmonary embolism is seen significant worsening of metastatic disease bilaterally noted with possible associated ARDS secondary and lymphangitis spread Interstitial lung disease related to metastatic gastric cancer/ARDS Very small Right-sided pleural effusion related to metastatic gastric cancer Hypertension hypertensive cardiovascular disease Severe COPD Vitamin D deficiency Hypothyroidism Plan: Gentle diuresis oral Diflucan Deep breathing exercises incentive spirometry Supplemental oxygen with high flow or airvo with BiPAP as needed, discussed with RN as well as aspirin therapy Broad-spectrum antibiotics IV steroids DVT and peptic ulcer disease prophylaxis Spiral computed tomography scan of chest reviewed Patient expresses her desire to be a no intubation Further recommendations pending plan of care as per clinical response of the patient Overall prognosis extremely poor Continue supportive care and hospice may be another option if no significant objective improvement noted Time with Patient: Greater than 30
[2018-02-19] MEDS: SODIUM CHLORIDE 0.9% 1,000 ML IV SCH (14:22)
[2018-02-19] MEDS: POTASSIUM CHLORIDE ER 20 MEQ TAB.ER PO SCH ×2 (15:27→16:06)
[2018-02-19 17:25] LABS: Glucose,Whole Blood 149 mg/dL (75-99)
[2018-02-19] MEDS: ACETAMINOPHEN TAB 325 MG TAB PO PRN (19:11)
[2018-02-19 21:21] LABS: Glucose,Whole Blood 182 mg/dL (75-99)
[2018-02-20] MEDS: methylPREDNISolone SOD SUCCI 125 MG/2 ML VIAL IV SCH ×4 (00:19→18:16)
[2018-02-20] MEDS: ALPRAZolam 0.5 MG TAB PO PRN ×3 (01:33→18:15)
[2018-02-20] MEDS: MORPHINE SULFATE 2 MG/ML SYRINGE IVP PRN ×4 (02:59→22:34)
[2018-02-20 05:30] LABS: Anisocytosis Slight; Basophils % (A) 0 %; Eosinophils % (A) 0 %; HCT 40.5 % (34.0-46.0); HGB 13.4 gm/dL (11.4-16.0); Lymphocytes # (A) 0.6 k/uL (1.0-4.8); Lymphocytes % (A) 4 %; MCH 31.5 pg (25.0-35.0); MCHC 33.1 g/dL (31.0-37.0); MCV 95.1 fL (80.0-100.0); Mean Platelet Volume 7.1; Monocytes # (A) 0.7 k/uL (0-1.0); Monocytes % (A) 4 %; Neutrophils # (A) 14.4 k/uL (1.3-7.7); Neutrophils % (A) 91 %; Platelet Count 322 k/uL (150-450); RBC 4.26 m/uL (3.80-5.40); RDW 16.4 % (11.5-15.5); WBC 15.7 k/uL (3.8-10.6)
[2018-02-20 05:53] LABS: Albumin 3.3 g/dL (3.5-5.0); Calcium 7.5 mg/dL (8.4-10.2); Magnesium 2.4 mg/dL (1.6-2.3); Phosphorus 4.4 mg/dL (2.5-4.5); Potassium 4.3 mmol/L (3.5-5.1); Total Bilirubin 0.4 mg/dL (0.2-1.3); Total Protein 5.8 g/dL (6.3-8.2)
[2018-02-20] MEDS: LEVOTHYROXINE 88 MCG TAB PO SCH (06:22)
[2018-02-20] MEDS: PIPERACILLIN-TAZOBACTAM 3.375 GM in DEXTROSE/WATER 1 50ML.BAG IVPB SCH ×3 (06:23→21:09)
[2018-02-20 07:54] LABS: Glucose,Whole Blood 158 mg/dL (75-99)
[2018-02-20] MEDS: IPRATROPIUM-ALBUTEROL 3 ML NEB INHALATION SCH ×4 (08:04→19:19)
[2018-02-20] MEDS: PANTOPRAZOLE 40 MG TABLET PO SCH (08:05)
[2018-02-20] MEDS: HEPARIN SODIUM,PORCINE 5,000 UNIT/ML 1 ML VIAL SQ SCH ×2 (08:05→21:08)
[2018-02-20] MEDS: FUROSEMIDE 10 MG/ML 2 ML VIAL IV SCH ×2 (08:05→21:06)
[2018-02-20] MEDS: ATORVASTATIN 20 MG TAB PO SCH (08:05)
[2018-02-20] MEDS: FLUCONAZOLE 100 MG TAB PO SCH (08:05)
[2018-02-20] MEDS: LISINOPRIL 10 MG TAB PO SCH (08:07)
--- NOTE | 2018-02-20 08:10 | XR ---
EXAMINATION TYPE: XR chest 1V DATE OF EXAM: 02/20/2018 COMPARISON: 02/19/2018 HISTORY: 57 year-old female shortness of breath TECHNIQUE: Single frontal view of the chest is obtained. FINDINGS: Left heart margin obscured by adjacent pleural-parenchymal disease. Continued diffuse bilateral inter stitial and airspace opacities, greater at the lung bases. Small effusions. Right anterior chest wall injection port with catheter tip at the upper to mid SVC level. The catheter remain similar within t he internal jugular vein. Partially visualized posterior cervical fusion hardware. IMPRESSION: Stable, continued diffuse bilateral interstitial and airspace disease.
[2018-02-20] MEDS: INSULIN ASPART 100 UNIT/ML 1 ML 10 ML VIAL SQ SCH ×4 (08:16→21:08)
[2018-02-20] MEDS: LACTULOSE 20 GM/30 ML CUP PO SCH ×2 (09:54→21:01)
[2018-02-20] MEDS: SODIUM CHLORIDE 0.9% 1,000 ML IV SCH (09:55)
--- NOTE | 2018-02-20 11:31 | P.PN ---
Subjective Progress Note Date: 02/20/18 Principal diagnosis: LORI Patient seen today in follow-up, 1 family members at bedside. Patient states no significant improvement in her breathing, she did not require BiPAP last night but, she continues to require high flow oxygen. Reviewed chest x-ray report this morning, no significant improvement. Patient denies fever, chest pain, other pain, she has been feeling anxious and that makes her breathing harder, she is not getting out of bed, she is using bedpan,becomes short of breath quickly with any exertion, cough is mostly nonproductive, no hemoptysis. Objective - Vital Signs Vital signs: Vital Signs Temp 97.7 F 02/20/18 00:00 Pulse 107 H 02/20/18 10:00 Resp 24 02/20/18 10:00 BP 159/98 02/20/18 10:00 Pulse Ox 94 L 02/20/18 10:00 Intake & Output 02/19/18 02/20/18 02/20/18 18:59 06:59 18:59 Intake Total 1435.0 410 110 Output Total 1284 1042 320 Balance 151.0 -632 -210 Weight 76.8 kg Intake: IV 320.0 240 110 Piperacillin-Tazobactam 3 100.0 50 .375 gm In Dextrose/Water 1 50ml.bag @ 12.5 mls/hr IVPB Q8H [facility] Rx#: [id number] Sodium Chloride 0.9% 1, 220 240 60 000 ml @ 20 mls/hr IV . Q24H [facility] Rx#:[id number] Oral 1115 170 Output: Urine 1284 1042 320 Other: Voiding Method Indwelling Catheter Indwelling Catheter Indwelling Catheter # Bowel Movements 2 - Constitutional General appearance: Present: average body habitus, cooperative, mild distress - Respiratory Respiratory: bilateral: diminished - Cardiovascular Heart sounds: normal: S1, S2 - Peripheral edema leg Peripheral Edema: bilateral: None - Neurologic Neurologic: Present: CNII-XII intact - Musculoskeletal Musculoskeletal: Present: generalized weakness - Psychiatric Psychiatric: Present: A&O x's 3, appropriate affect, intact judgment & insight - Labs CBC & Chem 7: 02/20/18 04:52 02/20/18 04:52 Labs: Abnormal Lab Results - Last 24 Hours (Table) 06/27/18 06/27/18 06/27/18 Range/Units 10:35 12:07 17:23 WBC (3.8-10.6) k/uL RDW (11.5-15.5) % Neutrophils # (1.3-7.7) k/uL Lymphocytes # (1.0-4.8) k/uL Potassium 3.3 L (3.5-5.1) mmol/L Chloride 90 L (98-107) mmol/L Carbon Dioxide 36 H (22-30) mmol/L BUN 24 H (7-17) mg/dL Glucose 217 H (74-99) mg/dL POC Glucose (mg/dL) 145 H 149 H (75-99) mg/dL Calcium 7.5 L (8.4-10.2) mg/dL Magnesium (1.6-2.3) mg/dL Total Protein (6.3-8.2) g/dL Albumin (3.5-5.0) g/dL 02/19/18 02/20/18 02/20/18 Range/Units 21:19 04:52 04:52 WBC 15.7 H (3.8-10.6) k/uL RDW 16.4 H (11.5-15.5) % Neutrophils # 14.4 H (1.3-7.7) k/uL Lymphocytes # 0.6 L (1.0-4.8) k/uL Potassium (3.5-5.1) mmol/L Chloride 92 L (98-107) mmol/L Carbon Dioxide 38 H (22-30) mmol/L BUN 25 H (7-17) mg/dL Glucose 148 H (74-99) mg/dL POC Glucose (mg/dL) 182 H (75-99) mg/dL Calcium 7.5 L (8.4-10.2) mg/dL Magnesium 2.4 H (1.6-2.3) mg/dL Total Protein 5.8 L (6.3-8.2) g/dL Albumin 3.3 L (3.5-5.0) g/dL 02/20/18 Range/Units 07:53 WBC (3.8-10.6) k/uL RDW (11.5-15.5) % Neutrophils # (1.3-7.7) k/uL Lymphocytes # (1.0-4.8) k/uL Potassium (3.5-5.1) mmol/L Chloride (98-107) mmol/L Carbon Dioxide (22-30) mmol/L BUN (7-17) mg/dL Glucose (74-99) mg/dL POC Glucose (mg/dL) 158 H (75-99) mg/dL Calcium (8.4-10.2) mg/dL Magnesium (1.6-2.3) mg/dL Total Protein (6.3-8.2) g/dL Albumin (3.5-5.0) g/dL Microbiology - Last 24 Hours (Table) 02/15/18 05:10 Blood Culture - Preliminary Blood No Growth after 120 hours - Imaging and Cardiology Chest x-ray: report reviewed Assessment and Plan (1) Lung metastasis Current Visit: Yes Status: Acute Priority: High Code(s): C78.00 - SECONDARY MALIGNANT NEOPLASM OF UNSPECIFIED LUNG SNOMED Code(s): 85860766 (2) Gastric adenocarcinoma Current Visit: No Status: Chronic Priority: High Code(s): C16.9 - MALIGNANT NEOPLASM OF STOMACH, UNSPECIFIED SNOMED Code(s): 961062044 Plan: Greater than 30 minutes were spent counseling patient about her diagnosis, metastatic disease to the lungs and prognosis. It is suspected her symptoms are all related to cancer versus a superimposed infectious process that can be reversed. Did let patient know that we will discuss case with Pulmonary and get their perspective and recommendations, assured her discussion with her primary oncologist Dr. Davenport for his opinion and recommendations. Patient is willing to have an informational session with hospice. I did recommend [facility] as patient has high level O2 requirements and is requiring significant care with ADLs because of difficulty in breathing. Did discuss case with case management, plan is to meet with hospice for information tomorrow. All of patient's questions were answered to the best of my ability. Reviewed first lip breathing. Patient provided with Xanax for visible anxiety. Time with Patient: Greater than 30 (counseling on disease state and hospice)
[2018-02-20 12:02] LABS: Glucose,Whole Blood 203 mg/dL (75-99)
--- NOTE | 2018-02-20 12:18 | P.PN ---
Subjective This is a 57-year-old -[place] female was under the care of Dr. Montesinos and she switched to recently with a previous medical history significant for hypertension, hyperlipidemia, chronic tobacco use and dependence with the chronic COPD/emphysema, patient medical history goes back to she 2017 when she developed to have a significant abdominal pain for the past 6 months and she was found to have a small ventral hernia and underwent surgical intervention by Dr. 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, this is was followed by an EGD that was done on 09/16/2017 that showed 4 cm ulcerated mass in the greater curvature the biopsy at that time came back positive for adenocarcinoma of the stomach, patient underwent computed tomography scan of the abdomen and pelvis that showed gastric wall thickening ascites with no distant metastatic disease at that time, patient was initially started on cis- akiak/Xeloda and epirubicin in September 2017 her chemotherapy was stopped in November of this year and she was started on Xeloda and Xgeva until December 2017 when she developed to have a significant respiratory failure with pneumonia that was treated with oral antibiotic, patient had repeated EGD that showed reduction of the/mastoid sending her from 4 cm with negative biopsy for malignancy that time patient recently was hospitalized at [facility] due to acute respiratory failure thought to be due to acute diastolic heart failure as well as significant left-sided pleural effusion with possible metastatic disease, she was recently seen by Dr. Davenport in the office and she was switched to a different treatment which she got on the patient developed to have a significant shortness of breath over the last few days and yesterday she came to the ER she was found to have significant hypoxemia requiring 15 L oxygen chest x-ray did show bilateral airspace disease with heart failure as well as significant elevation of leukocytes, she was started on IV antibiotic and she was admitted to the intensive care unit, she was seen in consultation by cardiology as well as pulmonary medicine she will be seen by oncology as well. 02/16: Patient was evaluated today, she is noted to be sitting up in bed with family at bedside. She had a CT done yesterday that showed no large central or lobular emboli, severe pulmonary edema with small bilateral pleural effusions, repeat chest x-ray showed severe pulmonary edema again. Pulmonology on consult , she'll continue on supplemental oxygen with high flow. Oncology on consult, who recommends to hold her Cyramza for now. So far blood cultures show no growth to date, urine culture was negative. 02/17: Patient sitting up in bed, family at bedside today. Patients overall condition continues to decline, she was placed on BiPAP with an FiO2 of 70, she is currently around 87%. She gets very short of breath and has significant desaturation with minimal activity. Repeat chest x-ray does not show much change from previous, shows continued severe pulmonary edema with underlying pleural effusions right greater than the left and COPD. Solu-Medrol increased to 60 mg every 6 hours, pulmonology and oncology on consult, prognosis is poor. 02/18: Patient evaluated today, she is off bipap and currently on high flow, she has improved slightly, she is saturating around 88%, again she continues to have significant desaturation with any activity. Oncology is on consult, plan is to see how patient responds to treatment, if she continues to decline, will discuss comfort care. Patient has not had a bowel movement in a few day, Doculax and lactulose ordered. 02/19: Patient is sitting up in bed she continues to be in high flow oxygen, she continues to be on maximum dose of steroid, she is about the same feeling a bit better than yesterday, she had a good bowel movement today and she is maintained on the same treatment, pulmonary as well as oncology is following. 02/20: Patient evaluated today in the ICU with family at bedside. Patient still requiring high flow oxygen continues on max dose of steroids. Repeat chest x- ray shows no significant improvement. Overall her condition has not improved very much. Did have a long discussion with family and patient regarding her poor prognosis and possibly hospice. Patient and family to discuss. Oncology and pulmonary are on consult. Objective - Vital Signs Vital signs: Vital Signs Temp 97.7 F 02/20/18 00:00 Pulse 109 H 02/20/18 08:15 Resp 30 H 02/20/18 06:00 BP 143/88 02/20/18 06:00 Pulse Ox 92 L 02/20/18 07:33 Intake & Output 02/19/18 02/20/18 02/20/18 18:59 06:59 18:59 Intake Total 1435.0 410 20 Output Total 1284 1042 50 Balance 151.0 -632 -30 Weight 76.8 kg Intake: IV 320.0 240 20 Piperacillin-Tazobactam 3 100.0 .375 gm In Dextrose/Water 1 50ml.bag @ 12.5 mls/hr IVPB Q8H [facility] Rx#: [id number] Sodium Chloride 0.9% 1, 220 240 20 000 ml @ 20 mls/hr IV . Q24H [facility] Rx#:[id number] Oral 1115 170 Output: Urine 1284 1042 50 Other: Voiding Method Indwelling Catheter Indwelling Catheter # Bowel Movements 2 - Exam - Constitutional General appearance: severe distress, thin - EENT Eyes: anicteric sclerae, EOMI, PERRLA, no ptosis, no scleral icterus, normal appearance ENT: hearing grossly normal, normal oropharynx Ears: bilateral: normal - Neck Neck: normal ROM, no rigidity, no stridor, no thyromegaly Carotids: bilateral: upstroke normal Thyroid: bilateral: normal size - Respiratory Respiratory: bilateral: diminished, rales, rhonchi, wheezing, prolonged expiration, negative: dullness - Cardiovascular Rhythm: regular Heart sounds: normal: S1, S2 Abnormal Heart Sounds: systolic murmur, S3 Gallop - Gastrointestinal General gastrointestinal: normal bowel sounds, soft, no splenomegaly, tenderness , no umbilical hernia, no ventral hernia - Integumentary Integumentary: normal, normal turgor - Neurologic Neurologic: CNII-XII intact - Musculoskeletal Musculoskeletal: generalized weakness, strength equal bilaterally - Psychiatric Psychiatric: A&O x's 3, appropriate affect, intact judgment & insight - Labs CBC & Chem 7: 02/20/18 04:52 02/20/18 04:52 Labs: Abnormal Lab Results - Last 24 Hours (Table) 02/19/18 02/19/18 02/19/18 Range/Units 10:35 10:35 12:07 WBC 15.0 H (3.8-10.6) k/uL RDW 16.5 H (11.5-15.5) % Neutrophils # 13.7 H (1.3-7.7) k/uL Lymphocytes # 0.5 L (1.0-4.8) k/uL Potassium 3.3 L (3.5-5.1) mmol/L Chloride 90 L (98-107) mmol/L Carbon Dioxide 36 H (22-30) mmol/L BUN 24 H (7-17) mg/dL Glucose 217 H (74-99) mg/dL POC Glucose (mg/dL) 145 H (75-99) mg/dL Calcium 7.5 L (8.4-10.2) mg/dL Magnesium (1.6-2.3) mg/dL Total Protein (6.3-8.2) g/dL Albumin (3.5-5.0) g/dL 02/19/18 02/19/18 02/20/18 Range/Units 17:23 21:19 04:52 WBC 15.7 H (3.8-10.6) k/uL RDW 16.4 H (11.5-15.5) % Neutrophils # 14.4 H (1.3-7.7) k/uL Lymphocytes # 0.6 L (1.0-4.8) k/uL Potassium (3.5-5.1) mmol/L Chloride (98-107) mmol/L Carbon Dioxide (22-30) mmol/L BUN (7-17) mg/dL Glucose (74-99) mg/dL POC Glucose (mg/dL) 149 H 182 H (75-99) mg/dL Calcium (8.4-10.2) mg/dL Magnesium (1.6-2.3) mg/dL Total Protein (6.3-8.2) g/dL Albumin (3.5-5.0) g/dL 02/20/18 02/20/18 Range/Units 04:52 07:53 WBC (3.8-10.6) k/uL RDW (11.5-15.5) % Neutrophils # (1.3-7.7) k/uL Lymphocytes # (1.0-4.8) k/uL Potassium (3.5-5.1) mmol/L Chloride 92 L (98-107) mmol/L Carbon Dioxide 38 H (22-30) mmol/L BUN 25 H (7-17) mg/dL Glucose 148 H (74-99) mg/dL POC Glucose (mg/dL) 158 H (75-99) mg/dL Calcium 7.5 L (8.4-10.2) mg/dL Magnesium 2.4 H (1.6-2.3) mg/dL Total Protein 5.8 L (6.3-8.2) g/dL Albumin 3.3 L (3.5-5.0) g/dL Microbiology - Last 24 Hours (Table) 02/15/18 05:10 Blood Culture - Preliminary Blood No Growth after 120 hours Assessment and Plan Plan: 1. Acute hypoxemic respiratory failure due to bilateral gram-negative pneumonia , and acute diastolic heart failure. We will maintain the patient is Zosyn 3.375 g IV piggyback every 6 hours , continue patient on Lasix 20 mg IV push every 12 hours, continue patient on lisinopril 10 mg orally once every day, patient had an echocardiogram that was done in December of this year and that showed ejection fraction of 55-60%, we will monitor the patient very closely 2. Metastatic gastric cancer to the lung on chemotherapy this time. Consult hematology oncology. Very poor prognosis. 3. Hypertension. Continue lisinopril 10 mg orally once every day. 4. Hypothyroidism. Continue Synthroid 88 g orally once every day. 5. Vitamin D deficiency. Hold vitamin D for now. 6. COPD/emphysema. Continue DuoNeb 3 mg nebulization 4 times every day, oxygen support, continue IV anabiotic as well, Pulmicort consultation. 7. DVT prophylaxis. Heparin 5000 units subcutaneously every 12 hours along with knee-high TONI hose. 8. GI prophylaxis. Protonix 40 mg IV push every 24 hours. The above impression and plan of care have been discussed and directed by signing physician. Kya Payton nurse practitioner acting as scribe for signing physician.
[2018-02-20 17:24] LABS: Glucose,Whole Blood 178 mg/dL (75-99)
--- NOTE | 2018-02-20 19:22 | P.PN ---
Subjective Progress Note Date: 02/20/18 Principal diagnosis: Acute hypoxic respiratory failure, metastatic spread of gastric adenocarcinoma to lungs, right-sided small pleural effusion, pneumonia, severe COPD 02/20/2018, patient seen eval examined during rounds in ICU patient remains on air wall 90% oxygen at times were done to lower down to 70% has been unsuccessful as patient developed significant desaturation overall clinically remains unchanged in last 48 hours, patient does desaturate on talking on [place] more than 3-4 words into mid 80s and 70s has to positive between sentences as well she denies any chest pain denies any cough or sputum production she is diuresing very well with IV furosemide, labs medication reviewed, chest x-ray overall essentially unchanged 02/19/2018, patient seen eval examined during the rounds of typically slightly better hissignificant desaturation seen but continued to have high demands for oxygen patient remains on 95% oxygen airvo, has declined the BiPAP machine, patient has been diuresing very well, labs reviewed medications reviewed radiographic studies reviewed as well ultrasound of the chest performed reviewed very small pleural effusion on the right side, care plan discussed with the oncology service as well given that slight improvement in clinical condition is present we'll continue supportive care patient is no intubation as per her wishes 02/18/2018, patient seen eval examined during the rounds clinically patient has been doing relatively better in terms oxygenation but is still require high flow oxygen with airvo 95% has use BiPAP off and on, patient is diuresing very well as well chest x-ray are not much changed patient remains on high-dose IV steroids as well as broad spectrum antibiotics for pneumonia however the chest x -ray is very much suggestive of ARDS-like Petrin likely associated with the lymphangitis spread of gastric adenocarcinoma, and labs reviewed medications reviewed still have leukocytosis which is multifactorial white cell count however are stable, renal functions are stable as well, sputum is positive for Nelli 02/17/2018, patient seen eval examined during the rounds this morning she is still very short of breath and minimal activity causes significant desaturation , she is on airvo, FiO2 has been escalated to 95% oxygen sats barely went up from 70-80%, discussed with the RN and respiratory therapist, labs x-rays reviewed no significant change in x-ray has been noted family is present at bedside, Ativan his pain escalated to half a milligram every 6 4 hourly when necessary continue Xanax as needed will do a trial of BiPAP to see if oxygenation can be improved into mid 80s continue gentle diuresis IV fluids are being tapered down, his steroid dose has been escalated to 60 IV every 6 patient has expressed her wishes not to be intubated prognosis extremely poor given presence of metastatic stage IV gastric cancer with ARDS-like Petrin on chest x-ray which is secondary due to metastatic stage IV cancer 02/16/2018, patient seen eval examined during the rounds she remains on airvo about 40 L, saturation are in low 90s, she has a component of anxiety in addition to Ativan and Xanax is being initiated labs reviewed medications reviewed chest x-ray essentially not changed extensive worsening of bilateral reticular nodular pattern is seen, computed tomography scan of the chest performed reviewed no evidence of pulmonary embolism, small pleural effusion is seen not enough to tap Ms. Gayatri Galloway is a 57-year-old -Citizen Of [place] female with the recent diagnosis of gastric neoplasm diagnosed somewhere around September patient was hospitalized a month ago with the interstitial lung changes right-sided pleural effusion transbronchial lung biopsy and cytology of the pleural fluid was positive for metastatic gastric carcinoma patient was on 2 L oxygen using off and on has chronic shortness of breath for the last several months however in the last 3 days his acute progression of her shortness of breath has been noted patient has severe difficulty in breathing on minimal activity and exertion patient came into the emergency department she was extremely hypoxic with saturation and 70s, her chest x-ray are not much change compared to baseline, patient does complain of some mild pleuritic chest pain also has some nonspecific abdominal pain, abdominal x-ray series were unremarkable, on high flow oxygen 15 L she is tachypneic and tachycardic patient expresses her desire not to be on life support, on specific questioning she denies any seizure-like activity loss of consciousness), denies any left-sided chest pain or radiation of pain, denies any nausea vomiting diarrhea October chest x-ray suggestive of the interstitial edema bilaterally and ARDS-like changes which are not much change compared to baseline is small to moderate right-sided pleural effusion is seen with just a obliteration of cardiophrenic angle on the right side, labs are significant for white cell count over 19,000 stat arterial blood gas checked which revealed mildly elevated CO2 of 51 normal pH of 7.4 significant hypoxia with pO2 only 54 Ammann patient couldn't tolerate the BiPAP machine however agree able on as-needed basis labs reviewed kidney functions are within normal limit, lactic acid is 2.1 troponins are normal urine analysis unremarkable Objective - Vital Signs Vital signs: Vital Signs Temp 98.5 F 02/20/18 16:00 Pulse 96 02/20/18 18:00 Resp 32 H 02/20/18 18:00 BP 162/90 02/20/18 18:00 Pulse Ox 93 L 02/20/18 18:00 Intake & Output 02/20/18 02/20/18 02/21/18 06:59 18:59 06:59 Intake Total 410 300 Output Total 1042 790 Balance -632 -490 Intake: IV 240 300 Piperacillin-Tazobactam 3 100 .375 gm In Dextrose/Water 1 50ml.bag @ 12.5 mls/hr IVPB Q8H [facility] Rx#: [id number] Sodium Chloride 0.9% 1, 240 200 000 ml @ 20 mls/hr IV . Q24H [facility] Rx#:[id number] Oral 170 Output: Urine 1042 790 Other: Voiding Method Indwelling Catheter Indwelling Catheter - Exam - Constitutional General appearance: severe distress, thin, tachypneic tachycardic short of breath and desaturated very easily - EENT Eyes: anicteric sclerae, EOMI, PERRLA, no ptosis, no scleral icterus, normal appearance ENT: hearing grossly normal, normal oropharynx Ears: bilateral: normal - Neck Neck: normal ROM, no rigidity, no stridor, no thyromegaly Carotids: bilateral: upstroke normal Thyroid: bilateral: normal size - Respiratory Respiratory: bilateral: diminished, rales, rhonchi, wheezing, prolonged expiration, negative: dullness - Cardiovascular Rhythm: regular Heart sounds: normal: S1, S2 Abnormal Heart Sounds: systolic murmur, S3 Gallop - Gastrointestinal General gastrointestinal: normal bowel sounds, soft, no splenomegaly, tenderness , no umbilical hernia, no ventral hernia - Integumentary Integumentary: normal, normal turgor - Neurologic Neurologic: CNII-XII intact - Musculoskeletal Musculoskeletal: generalized weakness, strength equal bilaterally - Psychiatric Psychiatric: A&O x's 3, appropriate affect, intact judgment & insight - Labs CBC & Chem 7: 02/20/18 04:52 02/20/18 04:52 Labs: Abnormal Lab Results - Last 24 Hours (Table) 02/19/18 02/20/18 02/20/18 Range/Units 21:19 04:52 04:52 WBC 15.7 H (3.8-10.6) k/uL RDW 16.4 H (11.5-15.5) % Neutrophils # 14.4 H (1.3-7.7) k/uL Lymphocytes # 0.6 L (1.0-4.8) k/uL Chloride 92 L (98-107) mmol/L Carbon Dioxide 38 H (22-30) mmol/L BUN 25 H (7-17) mg/dL Glucose 148 H (74-99) mg/dL POC Glucose (mg/dL) 182 H (75-99) mg/dL Calcium 7.5 L (8.4-10.2) mg/dL Magnesium 2.4 H (1.6-2.3) mg/dL Total Protein 5.8 L (6.3-8.2) g/dL Albumin 3.3 L (3.5-5.0) g/dL 02/20/18 02/20/18 02/20/18 Range/Units 07:53 12:00 17:22 WBC (3.8-10.6) k/uL RDW (11.5-15.5) % Neutrophils # (1.3-7.7) k/uL Lymphocytes # (1.0-4.8) k/uL Chloride (98-107) mmol/L Carbon Dioxide (22-30) mmol/L BUN (7-17) mg/dL Glucose (74-99) mg/dL POC Glucose (mg/dL) 158 H 203 H 178 H (75-99) mg/dL Calcium (8.4-10.2) mg/dL Magnesium (1.6-2.3) mg/dL Total Protein (6.3-8.2) g/dL Albumin (3.5-5.0) g/dL Microbiology - Last 24 Hours (Table) 02/15/18 05:10 Blood Culture - Preliminary Blood No Growth after 120 hours Assessment and Plan Assessment: Severe sepsis, likely pneumonia on broad-spectrum antibiotics with gentle rehydration Nelli isolated in the lungs on oral Diflucan as well Acute hypoxic respirator failure was worsening of symptoms reviewed chest x-ray and computed tomography scan of the chest no pulmonary embolism is seen significant worsening of metastatic disease bilaterally noted with possible associated ARDS secondary and lymphangitis spread Interstitial lung disease related to metastatic gastric cancer/ARDS Very small Right-sided pleural effusion related to metastatic gastric cancer Hypertension hypertensive cardiovascular disease Severe COPD Vitamin D deficiency Hypothyroidism Plan: Gentle diuresis oral Diflucan Deep breathing exercises incentive spirometry Supplemental oxygen with high flow or airvo with BiPAP as needed, discussed with RN Broad-spectrum antibiotics IV steroids DVT and peptic ulcer disease prophylaxis Patient expresses her desire to be a no intubation Further recommendations pending plan of care as per clinical response of the patient Overall prognosis extremely poor Continue supportive care and hospice may be another option if no significant objective improvement noted Time with Patient: Greater than 30
[2018-02-20 20:44] LABS: Glucose,Whole Blood 228 mg/dL (75-99)
[2018-02-21] MEDS: methylPREDNISolone SOD SUCCI 125 MG/2 ML VIAL IV SCH ×5 (00:19→23:24)
[2018-02-21 01:43] LABS: Hepatitis C IgG Antibody Non-Reactive (Non-Reactive)
[2018-02-21 04:28] LABS: Anisocytosis Slight; HCT 42.8 % (34.0-46.0); HGB 14.3 gm/dL (11.4-16.0); MCH 31.7 pg (25.0-35.0); MCHC 33.4 g/dL (31.0-37.0); MCV 94.8 fL (80.0-100.0); Mean Platelet Volume 7.4; Platelet Count 328 k/uL (150-450); RBC 4.51 m/uL (3.80-5.40); RDW 16.3 % (11.5-15.5); WBC 18.2 k/uL (3.8-10.6)
[2018-02-21 04:37] LABS: ALT 26 U/L (9-52); AST 18 U/L (14-36); Albumin 3.4 g/dL (3.5-5.0); Alkaline Phosphatase 119 U/L (38-126); Blood Urea Nitrogen 28 mg/dL (7-17); Calcium 8.1 mg/dL (8.4-10.2); Chloride 88 mmol/L (98-107); Glucose 147 mg/dL (74-99); Potassium 4.4 mmol/L (3.5-5.1); Sodium 136 mmol/L (137-145); Total Bilirubin 0.3 mg/dL (0.2-1.3)
[2018-02-21 04:43] LABS: Anion Gap 11 mmol/L; Carbon Dioxide 37 mmol/L (22-30)
[2018-02-21] MEDS: LEVOTHYROXINE 88 MCG TAB PO SCH (05:49)
[2018-02-21] MEDS: PIPERACILLIN-TAZOBACTAM 3.375 GM in DEXTROSE/WATER 1 50ML.BAG IVPB SCH ×3 (05:50→21:21)
[2018-02-21 06:44] LABS: Glucose,Whole Blood 184 mg/dL (75-99)
[2018-02-21] MEDS: SODIUM CHLORIDE 0.9% 1,000 ML IV SCH (07:31)
[2018-02-21] MEDS: ATORVASTATIN 20 MG TAB PO SCH (07:32)
[2018-02-21] MEDS: PANTOPRAZOLE 40 MG TABLET PO SCH (07:32)
[2018-02-21] MEDS: HEPARIN SODIUM,PORCINE 5,000 UNIT/ML 1 ML VIAL SQ SCH ×2 (07:32→21:21)
[2018-02-21] MEDS: LISINOPRIL 10 MG TAB PO SCH (07:32)
[2018-02-21] MEDS: ALPRAZolam 0.5 MG TAB PO PRN ×3 (07:32→23:34)
[2018-02-21] MEDS: LACTULOSE 20 GM/30 ML CUP PO SCH ×2 (07:33→21:17)
[2018-02-21] MEDS: FLUCONAZOLE 100 MG TAB PO SCH (07:33)
[2018-02-21] MEDS: INSULIN ASPART 100 UNIT/ML 1 ML 10 ML VIAL SQ SCH ×4 (07:33→21:17)
[2018-02-21] MEDS: FUROSEMIDE 10 MG/ML 2 ML VIAL IV SCH ×2 (07:33→21:20)
[2018-02-21] MEDS: IPRATROPIUM-ALBUTEROL 3 ML NEB INHALATION SCH ×4 (07:41→21:01)
[2018-02-21] MEDS: MORPHINE SULFATE 2 MG/ML SYRINGE IVP PRN ×3 (09:40→17:08)
[2018-02-21 11:11] VITALS: BMI 28.5
--- NOTE | 2018-02-21 12:02 | P.PN ---
Subjective Progress Note Date: 02/21/18 This is a 57-year-old -[place] female was under the care of Dr. Montesinos and she switched to recently with a previous medical history significant for hypertension, hyperlipidemia, chronic tobacco use and dependence with the chronic COPD/emphysema, patient medical history goes back to she 2017 when she developed to have a significant abdominal pain for the past 6 months and she was found to have a small ventral hernia and underwent surgical intervention by Dr. 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, this is was followed by an EGD that was done on 09/16/2017 that showed 4 cm ulcerated mass in the greater curvature the biopsy at that time came back positive for adenocarcinoma of the stomach, patient underwent computed tomography scan of the abdomen and pelvis that showed gastric wall thickening ascites with no distant metastatic disease at that time, patient was initially started on cis- shawnee/Xeloda and epirubicin in September 2017 her chemotherapy was stopped in November of this year and she was started on Xeloda and Xgeva until December 2017 when she developed to have a significant respiratory failure with pneumonia that was treated with oral antibiotic, patient had repeated EGD that showed reduction of the/mastoid sending her from 4 cm with negative biopsy for malignancy that time patient recently was hospitalized at [facility] due to acute respiratory failure thought to be due to acute diastolic heart failure as well as significant left-sided pleural effusion with possible metastatic disease, she was recently seen by Dr. Davenport in the office and she was switched to a different treatment which she got on the patient developed to have a significant shortness of breath over the last few days and yesterday she came to the ER she was found to have significant hypoxemia requiring 15 L oxygen chest x-ray did show bilateral airspace disease with heart failure as well as significant elevation of leukocytes, she was started on IV antibiotic and she was admitted to the intensive care unit, she was seen in consultation by cardiology as well as pulmonary medicine she will be seen by oncology as well. 02/16: Patient was evaluated today, she is noted to be sitting up in bed with family at bedside. She had a CT done yesterday that showed no large central or lobular emboli, severe pulmonary edema with small bilateral pleural effusions, repeat chest x-ray showed severe pulmonary edema again. Pulmonology on consult , she'll continue on supplemental oxygen with high flow. Oncology on consult, who recommends to hold her Cyramza for now. So far blood cultures show no growth to date, urine culture was negative. 02/17: Patient sitting up in bed, family at bedside today. Patients overall condition continues to decline, she was placed on BiPAP with an FiO2 of 70, she is currently around 87%. She gets very short of breath and has significant desaturation with minimal activity. Repeat chest x-ray does not show much change from previous, shows continued severe pulmonary edema with underlying pleural effusions right greater than the left and COPD. Solu-Medrol increased to 60 mg every 6 hours, pulmonology and oncology on consult, prognosis is poor. 02/18: Patient evaluated today, she is off bipap and currently on high flow, she has improved slightly, she is saturating around 88%, again she continues to have significant desaturation with any activity. Oncology is on consult, plan is to see how patient responds to treatment, if she continues to decline, will discuss comfort care. Patient has not had a bowel movement in a few day, Doculax and lactulose ordered. 02/19: Patient is sitting up in bed she continues to be in high flow oxygen, she continues to be on maximum dose of steroid, she is about the same feeling a bit better than yesterday, she had a good bowel movement today and she is maintained on the same treatment, pulmonary as well as oncology is following. 02/20: Patient evaluated today in the ICU with family at bedside. Patient still requiring high flow oxygen continues on max dose of steroids. Repeat chest x- ray shows no significant improvement. Overall her condition has not improved very much. Did have a long discussion with family and patient regarding her poor prognosis and possibly hospice. Patient and family to discuss. Oncology and pulmonary are on consult. 02/21: Patient is sitting up in bed she can use to be somewhat short of breath, she can the staff some coughing no hemoptysis, she has no abdominal pain, she had no bowel movement today she denies any weakness, she appears in a better spur today. Objective - Vital Signs Vital signs: Vital Signs Temp 97.7 F 02/20/18 20:00 Pulse 106 H 02/21/18 07:58 Resp 29 H 02/21/18 06:00 BP 142/106 02/21/18 06:00 Pulse Ox 94 L 02/21/18 09:08 Intake & Output 02/20/18 02/21/18 02/21/18 18:59 06:59 18:59 Intake Total 300 232.5 Output Total 790 1125 Balance -490 -892.5 Weight 77.8 kg Intake: IV 300 232.5 Piperacillin-Tazobactam 3 100 12.5 .375 gm In Dextrose/Water 1 50ml.bag @ 12.5 mls/hr IVPB Q8H [facility] Rx#: [id number] Sodium Chloride 0.9% 1, 200 220 000 ml @ 20 mls/hr IV . Q24H [facility]G Rx#:[id number] Output: Urine 790 1125 Other: Voiding Method Indwelling Catheter Indwelling Catheter # Voids 1 - Exam - Exam - Constitutional General appearance: severe distress, thin - EENT Eyes: anicteric sclerae, EOMI, PERRLA, no ptosis, no scleral icterus, normal appearance ENT: hearing grossly normal, normal oropharynx Ears: bilateral: normal - Neck Neck: normal ROM, no rigidity, no stridor, no thyromegaly Carotids: bilateral: upstroke normal Thyroid: bilateral: normal size - Respiratory Respiratory: bilateral: diminished, rales, rhonchi, wheezing, prolonged expiration, negative: dullness - Cardiovascular Rhythm: regular Heart sounds: normal: S1, S2 Abnormal Heart Sounds: systolic murmur, S3 Gallop - Gastrointestinal General gastrointestinal: normal bowel sounds, soft, no splenomegaly, tenderness , no umbilical hernia, no ventral hernia - Integumentary Integumentary: normal, normal turgor - Neurologic Neurologic: CNII-XII intact - Musculoskeletal Musculoskeletal: generalized weakness, strength equal bilaterally - Psychiatric Psychiatric: A&O x's 3, appropriate affect, intact judgment & insight - Labs CBC & Chem 7: 02/21/18 04:15 02/21/18 04:15 Labs: Abnormal Lab Results - Last 24 Hours (Table) 02/20/18 02/20/18 02/20/18 Range/Units 12:00 17:22 20:43 WBC (3.8-10.6) k/uL RDW (11.5-15.5) % Sodium (137-145) mmol/L Chloride (98-107) mmol/L Carbon Dioxide (22-30) mmol/L BUN (7-17) mg/dL Glucose (74-99) mg/dL POC Glucose (mg/dL) 203 H 178 H 228 H (75-99) mg/dL Calcium (8.4-10.2) mg/dL Total Protein (6.3-8.2) g/dL Albumin (3.5-5.0) g/dL 02/21/18 02/21/18 02/21/18 Range/Units 04:15 04:15 06:42 WBC 18.2 H (3.8-10.6) k/uL RDW 16.3 H (11.5-15.5) % Sodium 136 L (137-145) mmol/L Chloride 88 L (98-107) mmol/L Carbon Dioxide 37 H (22-30) mmol/L BUN 28 H (7-17) mg/dL Glucose 147 H (74-99) mg/dL POC Glucose (mg/dL) 184 H (75-99) mg/dL Calcium 8.1 L (8.4-10.2) mg/dL Total Protein 6.0 L (6.3-8.2) g/dL Albumin 3.4 L (3.5-5.0) g/dL Microbiology - Last 24 Hours (Table) 02/15/18 05:10 Blood Culture - Final Blood No Growth after 144 hours Assessment and Plan Assessment: Assessment and Plan Plan: 1. Acute hypoxemic respiratory failure due to bilateral gram-negative pneumonia , and acute diastolic heart failure. We will maintain the patient is Zosyn 3.375 g IV piggyback every 6 hours , continue patient on Lasix 20 mg IV push every 12 hours, continue patient on lisinopril 10 mg orally once every day, patient had an echocardiogram that was done in December of this year and that showed ejection fraction of 55-60%, we will monitor the patient very closely 2. Metastatic gastric cancer to the lung on chemotherapy this time. Consult hematology oncology. Very poor prognosis. 3. Hypertension. Continue lisinopril 10 mg orally once every day. 4. Hypothyroidism. Continue Synthroid 88 g orally once every day. 5. Vitamin D deficiency. Hold vitamin D for now. 6. COPD/emphysema. Continue DuoNeb 3 mg nebulization 4 times every day, oxygen support, continue IV anabiotic as well, Pulmicort consultation. 7. DVT prophylaxis. Heparin 5000 units subcutaneously every 12 hours along with knee-high TONI hose. 8. GI prophylaxis. Protonix 40 mg IV push every 24 hours.
[2018-02-21 13:02] LABS: Glucose,Whole Blood 176 mg/dL (75-99)
--- NOTE | 2018-02-21 16:23 | P.PN ---
Subjective Progress Note Date: 02/21/18 Principal diagnosis: Acute hypoxic respiratory failure, metastatic spread of gastric adenocarcinoma to lungs, right-sided small pleural effusion, pneumonia, severe COPD 02/21/2018, patient seen eval examined during the rounds patient overall remains unchanged she is awake and alert options discussed with her about hospice patient does desaturate very quickly talking few sentences still require 90% oxygen with airvo, and it cannot be to titrated him a dynamic status remains stable remains mildly tachycardic, chest x-ray and labs are reviewed care plan discussed with the patient and family at length as well as oncology service, in the last 92 hours no significant response of IV steroids antibiotics and diuresis has been noted chest x-ray remains unchanged it appears that patient has extensive metastatic involvement of the lung related to stage IV gastric adenocarcinoma, white cell count now noted to be slowly going up appears to be related to IV steroids, we'll continue current treatment and therapy as per patient wishes she is no intubation if remains stable can be moved out of the ICU to stepdown unit prognosis overall is very poor with very poor likelihood of recovery 02/20/2018, patient seen eval examined during rounds in ICU patient remains on air wall 90% oxygen at times were done to lower down to 70% has been unsuccessful as patient developed significant desaturation overall clinically remains unchanged in last 48 hours, patient does desaturate on talking on [place] more than 3-4 words into mid 80s and 70s has to positive between sentences as well she denies any chest pain denies any cough or sputum production she is diuresing very well with IV furosemide, labs medication reviewed, chest x-ray overall essentially unchanged 02/19/2018, patient seen eval examined during the rounds of typically slightly better hissignificant desaturation seen but continued to have high demands for oxygen patient remains on 95% oxygen airvo, has declined the BiPAP machine, patient has been diuresing very well, labs reviewed medications reviewed radiographic studies reviewed as well ultrasound of the chest performed reviewed very small pleural effusion on the right side, care plan discussed with the oncology service as well given that slight improvement in clinical condition is present we'll continue supportive care patient is no intubation as per her wishes 02/18/2018, patient seen eval examined during the rounds clinically patient has been doing relatively better in terms oxygenation but is still require high flow oxygen with airvo 95% has use BiPAP off and on, patient is diuresing very well as well chest x-ray are not much changed patient remains on high-dose IV steroids as well as broad spectrum antibiotics for pneumonia however the chest x -ray is very much suggestive of ARDS-like Petrin likely associated with the lymphangitis spread of gastric adenocarcinoma, and labs reviewed medications reviewed still have leukocytosis which is multifactorial white cell count however are stable, renal functions are stable as well, sputum is positive for Nelli 02/17/2018, patient seen eval examined during the rounds this morning she is still very short of breath and minimal activity causes significant desaturation , she is on airvo, FiO2 has been escalated to 95% oxygen sats barely went up from 70-80%, discussed with the RN and respiratory therapist, labs x-rays reviewed no significant change in x-ray has been noted family is present at bedside, Ativan his pain escalated to half a milligram every 6 4 hourly when necessary continue Xanax as needed will do a trial of BiPAP to see if oxygenation can be improved into mid 80s continue gentle diuresis IV fluids are being tapered down, his steroid dose has been escalated to 60 IV every 6 patient has expressed her wishes not to be intubated prognosis extremely poor given presence of metastatic stage IV gastric cancer with ARDS-like Petrin on chest x-ray which is secondary due to metastatic stage IV cancer 02/16/2018, patient seen eval examined during the rounds she remains on airvo about 40 L, saturation are in low 90s, she has a component of anxiety in addition to Ativan and Xanax is being initiated labs reviewed medications reviewed chest x-ray essentially not changed extensive worsening of bilateral reticular nodular pattern is seen, computed tomography scan of the chest performed reviewed no evidence of pulmonary embolism, small pleural effusion is seen not enough to tap Ms. Gayatri Galloway is a 57-year-old -[place] female with the recent diagnosis of gastric neoplasm diagnosed somewhere around September patient was hospitalized a month ago with the interstitial lung changes right-sided pleural effusion transbronchial lung biopsy and cytology of the pleural fluid was positive for metastatic gastric carcinoma patient was on 2 L oxygen using off and on has chronic shortness of breath for the last several months however in the last 3 days his acute progression of her shortness of breath has been noted patient has severe difficulty in breathing on minimal activity and exertion patient came into the emergency department she was extremely hypoxic with saturation and 70s, her chest x-ray are not much change compared to baseline, patient does complain of some mild pleuritic chest pain also has some nonspecific abdominal pain, abdominal x-ray series were unremarkable, on high flow oxygen 15 L she is tachypneic and tachycardic patient expresses her desire not to be on life support, on specific questioning she denies any seizure-like activity loss of consciousness), denies any left-sided chest pain or radiation of pain, denies any nausea vomiting diarrhea March chest x-ray suggestive of the interstitial edema bilaterally and ARDS-like changes which are not much change compared to baseline is small to moderate right-sided pleural effusion is seen with just a obliteration of cardiophrenic angle on the right side, labs are significant for white cell count over 19,000 stat arterial blood gas checked which revealed mildly elevated CO2 of 51 normal pH of 7.4 significant hypoxia with pO2 only 54 Ammann patient couldn't tolerate the BiPAP machine however agree able on as-needed basis labs reviewed kidney functions are within normal limit, lactic acid is 2.1 troponins are normal urine analysis unremarkable Objective - Vital Signs Vital signs: Vital Signs Temp 98.0 F 02/21/18 12:00 Pulse 100 02/21/18 16:12 Resp 35 H 02/21/18 15:38 BP 136/77 02/21/18 15:00 Pulse Ox 91 L 02/21/18 15:56 Intake & Output 02/20/18 02/21/18 02/21/18 18:59 06:59 18:59 Intake Total 300 232.5 280 Output Total 790 1125 1050 Balance -490 -892.5 -770 Weight 77.8 kg 77.8 kg Intake: IV 300 232.5 280 Piperacillin-Tazobactam 3 100 12.5 100 .375 gm In Dextrose/Water 1 50ml.bag @ 12.5 mls/hr IVPB Q8H [facility] Rx#: [id number] Sodium Chloride 0.9% 1, 200 220 180 000 ml @ 20 mls/hr IV . Q24H [facility] Rx#:[id number] Output: Urine 790 1125 1050 Other: Voiding Method Indwelling Catheter Indwelling Catheter Indwelling Catheter # Voids 1 - Exam - Constitutional General appearance: severe distress, thin, tachypneic tachycardic short of breath and desaturated very easily - EENT Eyes: anicteric sclerae, EOMI, PERRLA, no ptosis, no scleral icterus, normal appearance ENT: hearing grossly normal, normal oropharynx Ears: bilateral: normal - Neck Neck: normal ROM, no rigidity, no stridor, no thyromegaly Carotids: bilateral: upstroke normal Thyroid: bilateral: normal size - Respiratory Respiratory: bilateral: diminished, rales, rhonchi, wheezing, prolonged expiration, negative: dullness - Cardiovascular Rhythm: regular Heart sounds: normal: S1, S2 Abnormal Heart Sounds: systolic murmur, S3 Gallop - Gastrointestinal General gastrointestinal: normal bowel sounds, soft, no splenomegaly, tenderness , no umbilical hernia, no ventral hernia - Integumentary Integumentary: normal, normal turgor - Neurologic Neurologic: CNII-XII intact - Musculoskeletal Musculoskeletal: generalized weakness, strength equal bilaterally - Psychiatric Psychiatric: A&O x's 3, appropriate affect, intact judgment & insight - Labs CBC & Chem 7: 02/21/18 04:15 02/21/18 04:15 Labs: Abnormal Lab Results - Last 24 Hours (Table) 02/20/18 02/20/18 02/21/18 Range/Units 17:22 20:43 04:15 WBC (3.8-10.6) k/uL RDW (11.5-15.5) % Sodium 136 L (137-145) mmol/L Chloride 88 L (98-107) mmol/L Carbon Dioxide 37 H (22-30) mmol/L BUN 28 H (7-17) mg/dL Glucose 147 H (74-99) mg/dL POC Glucose (mg/dL) 178 H 228 H (75-99) mg/dL Calcium 8.1 L (8.4-10.2) mg/dL Total Protein 6.0 L (6.3-8.2) g/dL Albumin 3.4 L (3.5-5.0) g/dL 02/21/18 02/21/18 02/21/18 Range/Units 04:15 06:42 13:00 WBC 18.2 H (3.8-10.6) k/uL RDW 16.3 H (11.5-15.5) % Sodium (137-145) mmol/L Chloride (98-107) mmol/L Carbon Dioxide (22-30) mmol/L BUN (7-17) mg/dL Glucose (74-99) mg/dL POC Glucose (mg/dL) 184 H 176 H (75-99) mg/dL Calcium (8.4-10.2) mg/dL Total Protein (6.3-8.2) g/dL Albumin (3.5-5.0) g/dL Microbiology - Last 24 Hours (Table) 02/15/18 05:10 Blood Culture - Final Blood No Growth after 144 hours Assessment and Plan Assessment: Severe sepsis, likely pneumonia on broad-spectrum antibiotics with gentle rehydration Interstitial lung disease related to metastatic gastric cancer/ARDS Nelli isolated in the lungs on oral Diflucan as well Acute hypoxic respirator failure was worsening of symptoms reviewed chest x-ray and computed tomography scan of the chest no pulmonary embolism is seen significant worsening of metastatic disease bilaterally noted with possible associated ARDS secondary and lymphangitis spread Very small Right-sided pleural effusion related to metastatic gastric cancer Hypertension hypertensive cardiovascular disease Severe COPD Vitamin D deficiency Hypothyroidism Plan: Gentle diuresis oral Diflucan Deep breathing exercises incentive spirometry Supplemental oxygen with high flow or airvo with BiPAP as needed, discussed with RN Broad-spectrum antibiotics IV steroids DVT and peptic ulcer disease prophylaxis Patient expresses her desire to be a no intubation Further recommendations pending plan of care as per clinical response of the patient Overall prognosis extremely poor Continue supportive care and hospice may be another option if no significant objective improvement noted Time with Patient: Greater than 30
[2018-02-21 17:15] LABS: Glucose,Whole Blood 202 mg/dL (75-99)
[2018-02-21 20:53] LABS: Glucose,Whole Blood 119 mg/dL (75-99)
[2018-02-22] MEDS: MORPHINE SULFATE 2 MG/ML SYRINGE IVP PRN ×5 (00:22→23:03)
[2018-02-22 04:45] LABS: Anisocytosis Slight; HCT 45.8 % (34.0-46.0); HGB 14.6 gm/dL (11.4-16.0); MCH 30.8 pg (25.0-35.0); MCHC 31.8 g/dL (31.0-37.0); Mean Platelet Volume 6.9; Platelet Count 346 k/uL (150-450); RBC 4.72 m/uL (3.80-5.40); RDW 16.4 % (11.5-15.5); WBC 20.2 k/uL (3.8-10.6)
[2018-02-22 05:05] LABS: Albumin 3.4 g/dL (3.5-5.0); Calcium 8.4 mg/dL (8.4-10.2); Potassium 4.3 mmol/L (3.5-5.1); Total Bilirubin 0.4 mg/dL (0.2-1.3); Total Protein 6.1 g/dL (6.3-8.2)
[2018-02-22 06:02] LABS: Glucose,Whole Blood 167 mg/dL (75-99)
[2018-02-22] MEDS: methylPREDNISolone SOD SUCCI 125 MG/2 ML VIAL IV SCH ×4 (06:23→23:05)
[2018-02-22] MEDS: PIPERACILLIN-TAZOBACTAM 3.375 GM in DEXTROSE/WATER 1 50ML.BAG IVPB SCH ×3 (06:24→21:36)
[2018-02-22] MEDS: INSULIN ASPART 100 UNIT/ML 1 ML 10 ML VIAL SQ SCH ×4 (06:24→21:11)
[2018-02-22] MEDS: LEVOTHYROXINE 88 MCG TAB PO SCH (06:24)
[2018-02-22] MEDS: IPRATROPIUM-ALBUTEROL 3 ML NEB INHALATION SCH ×4 (08:34→20:13)
[2018-02-22] MEDS: FLUCONAZOLE 100 MG TAB PO SCH (09:22)
[2018-02-22] MEDS: ATORVASTATIN 20 MG TAB PO SCH (09:22)
[2018-02-22] MEDS: HEPARIN SODIUM,PORCINE 5,000 UNIT/ML 1 ML VIAL SQ SCH ×2 (09:22→20:13)
[2018-02-22] MEDS: FUROSEMIDE 10 MG/ML 2 ML VIAL IV SCH ×2 (09:22→20:12)
[2018-02-22] MEDS: PANTOPRAZOLE 40 MG TABLET PO SCH (09:23)
[2018-02-22] MEDS: LISINOPRIL 10 MG TAB PO SCH (09:23)
[2018-02-22] MEDS: SODIUM CHLORIDE 0.9% 1,000 ML IV SCH (09:23)
[2018-02-22] MEDS: LACTULOSE 20 GM/30 ML CUP PO SCH ×3 (09:23→20:16)
[2018-02-22 11:28] LABS: Glucose,Whole Blood 276 mg/dL (75-99)
--- NOTE | 2018-02-22 16:29 | P.PN ---
Subjective Progress Note Date: 02/22/18 This is a 57-year-old -[place] female was under the care of Dr. Montesinos and she switched to recently with a previous medical history significant for hypertension, hyperlipidemia, chronic tobacco use and dependence with the chronic COPD/emphysema, patient medical history goes back to she 2017 when she developed to have a significant abdominal pain for the past 6 months and she was found to have a small ventral hernia and underwent surgical intervention by Dr. 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, this is was followed by an EGD that was done on 09/16/2017 that showed 4 cm ulcerated mass in the greater curvature the biopsy at that time came back positive for adenocarcinoma of the stomach, patient underwent computed tomography scan of the abdomen and pelvis that showed gastric wall thickening ascites with no distant metastatic disease at that time, patient was initially started on cis- [place]/Xeloda and epirubicin in September 2017 her chemotherapy was stopped in November of this year and she was started on Xeloda and Xgeva until December 2017 when she developed to have a significant respiratory failure with pneumonia that was treated with oral antibiotic, patient had repeated EGD that showed reduction of the/mastoid sending her from 4 cm with negative biopsy for malignancy that time patient recently was hospitalized at [facility] due to acute respiratory failure thought to be due to acute diastolic heart failure as well as significant left-sided pleural effusion with possible metastatic disease, she was recently seen by Dr. Davenport in the office and she was switched to a different treatment which she got on the patient developed to have a significant shortness of breath over the last few days and yesterday she came to the ER she was found to have significant hypoxemia requiring 15 L oxygen chest x-ray did show bilateral airspace disease with heart failure as well as significant elevation of leukocytes, she was started on IV antibiotic and she was admitted to the intensive care unit, she was seen in consultation by cardiology as well as pulmonary medicine she will be seen by oncology as well. 02/16: Patient was evaluated today, she is noted to be sitting up in bed with family at bedside. She had a CT done yesterday that showed no large central or lobular emboli, severe pulmonary edema with small bilateral pleural effusions, repeat chest x-ray showed severe pulmonary edema again. Pulmonology on consult , she'll continue on supplemental oxygen with high flow. Oncology on consult, who recommends to hold her Cyramza for now. So far blood cultures show no growth to date, urine culture was negative. 02/17: Patient sitting up in bed, family at bedside today. Patients overall condition continues to decline, she was placed on BiPAP with an FiO2 of 70, she is currently around 87%. She gets very short of breath and has significant desaturation with minimal activity. Repeat chest x-ray does not show much change from previous, shows continued severe pulmonary edema with underlying pleural effusions right greater than the left and COPD. Solu-Medrol increased to 60 mg every 6 hours, pulmonology and oncology on consult, prognosis is poor. 02/18: Patient evaluated today, she is off bipap and currently on high flow, she has improved slightly, she is saturating around 88%, again she continues to have significant desaturation with any activity. Oncology is on consult, plan is to see how patient responds to treatment, if she continues to decline, will discuss comfort care. Patient has not had a bowel movement in a few day, Doculax and lactulose ordered. 02/19: Patient is sitting up in bed she continues to be in high flow oxygen, she continues to be on maximum dose of steroid, she is about the same feeling a bit better than yesterday, she had a good bowel movement today and she is maintained on the same treatment, pulmonary as well as oncology is following. 02/20: Patient evaluated today in the ICU with family at bedside. Patient still requiring high flow oxygen continues on max dose of steroids. Repeat chest x- ray shows no significant improvement. Overall her condition has not improved very much. Did have a long discussion with family and patient regarding her poor prognosis and possibly hospice. Patient and family to discuss. Oncology and pulmonary are on consult. 02/21: Patient is sitting up in bed she can use to be somewhat short of breath, she can the staff some coughing no hemoptysis, she has no abdominal pain, she had no bowel movement today she denies any weakness, she appears in a better spur today. 02/22 patient remains on the Airvo airflow at high flow 50, FiO2 of 94%,, still with tachypnea, mildly tachycardic, still with contraceptives dyspnea, patient cannot tolerate the BiPAP at bedside, we've discussed again her preferences for her current treatment, and would want to pursue aggressive medical without any ventilatory support Objective - Vital Signs Vital signs: Vital Signs Temp 97.5 F L 02/22/18 05:00 Pulse 118 H 02/22/18 12:17 Resp 28 H 02/22/18 12:00 BP 144/83 02/22/18 12:00 Pulse Ox 94 L 02/22/18 12:00 Intake & Output 02/21/18 02/22/18 02/22/18 18:59 06:59 18:59 Intake Total 280 70 240 Output Total 1050 350 Balance -770 -280 240 Weight 77.8 kg Intake: IV 280 70 Piperacillin-Tazobactam 3 100 50 .375 gm In Dextrose/Water 1 50ml.bag @ 12.5 mls/hr IVPB Q8H [facility] Rx#: [id number] Sodium Chloride 0.9% 1, 180 20 000 ml @ 20 mls/hr IV . Q24H [facility] Rx#:[id number] Oral 240 Output: Urine 1050 350 Other: Voiding Method Indwelling Catheter Indwelling Catheter Indwelling Catheter - Constitutional General appearance: Present: cooperative, mild distress - EENT Eyes: Present: anicteric sclerae, PERRLA, dentition normal, normal appearance ENT: Present: hearing grossly normal, normal oropharynx - Neck Neck: Present: normal ROM - Respiratory Respiratory: bilateral: CTA, diminished - Cardiovascular Rhythm: regular Heart sounds: normal: S1, S2 Abnormal Heart Sounds: Absent: systolic murmur, diastolic murmur, rub, S3 Gallop , S4 Gallop, click, other - Gastrointestinal General gastrointestinal: Present: normal bowel sounds, soft - Integumentary Integumentary: Present: decreased turgor, normal - Neurologic Neurologic: Present: CNII-XII intact - Psychiatric Psychiatric: Present: A&O x's 3, appropriate affect, intact judgment & insight - Labs CBC & Chem 7: 02/22/18 04:20 02/22/18 04:20 Labs: Abnormal Lab Results - Last 24 Hours (Table) 02/21/18 02/21/18 02/22/18 Range/Units 17:13 20:51 04:20 WBC 20.2 H (3.8-10.6) k/uL RDW 16.4 H (11.5-15.5) % Sodium (137-145) mmol/L Chloride (98-107) mmol/L Carbon Dioxide (22-30) mmol/L BUN (7-17) mg/dL Glucose (74-99) mg/dL POC Glucose (mg/dL) 202 H 119 H (75-99) mg/dL Alkaline Phosphatase (38-126) U/L Total Protein (6.3-8.2) g/dL Albumin (3.5-5.0) g/dL 02/22/18 02/22/18 02/22/18 Range/Units 04:20 06:01 11:22 WBC (3.8-10.6) k/uL RDW (11.5-15.5) % Sodium 135 L (137-145) mmol/L Chloride 86 L (98-107) mmol/L Carbon Dioxide 37 H (22-30) mmol/L BUN 34 H (7-17) mg/dL Glucose 281 H (74-99) mg/dL POC Glucose (mg/dL) 167 H 276 H (75-99) mg/dL Alkaline Phosphatase 140 H (38-126) U/L Total Protein 6.1 L (6.3-8.2) g/dL Albumin 3.4 L (3.5-5.0) g/dL Assessment and Plan Plan: 1. Acute hypoxemic respiratory failure due to bilateral gram-negative pneumonia , and acute diastolic heart failure. We will maintain the patient is Zosyn 3.375 g IV piggyback every 6 hours , continue patient on Lasix 20 mg IV push every 12 hours, continue patient on lisinopril 10 mg orally once every day, patient had an echocardiogram that was done in December of this year and that showed ejection fraction of 55-60%, we will monitor the patient very closely. High flow O2 supplementation to airvo 2. Diffuse bilateral airway airspace disease, on IV antibiotics, nebulized treatments, O2 supplementation, 2. Metastatic gastric cancer to the lung on chemotherapy this time. Consult hematology oncology. Very poor prognosis. 3. Hypertension. Continue lisinopril 10 mg orally once every day. 4. Hypothyroidism. Continue Synthroid 88 g orally once every day. 5. Vitamin D deficiency. Hold vitamin D for now. 6. COPD/emphysema. Continue DuoNeb 3 mg nebulization 4 times every day, oxygen support, continue IV anabiotic as well, Pulmicort consultation. 7. DVT prophylaxis. Heparin 5000 units subcutaneously every 12 hours along with knee-high TONI hose. 8. GI prophylaxis. Protonix 40 mg IV push every 24 hours. 9. Prognosis guarded
[2018-02-22 16:38] LABS: Glucose,Whole Blood 104 mg/dL (75-99)
[2018-02-22] MEDS: ALPRAZolam 0.5 MG TAB PO PRN (20:11)
[2018-02-22 20:42] LABS: Glucose,Whole Blood 159 mg/dL (75-99)
--- NOTE | 2018-02-22 21:31 | P.PN ---
Subjective Progress Note Date: 02/22/18 Principal diagnosis: Acute hypoxic respiratory failure, metastatic spread of gastric adenocarcinoma to lungs, right-sided small pleural effusion, pneumonia, severe COPD 02/22/2018, patient seen eval examined during the rounds clinically overall not much changes still very short of breath on minimal activity and exertion, remain on high flow oxygen with marginal saturation, patient would like to continue interventions however she does not want to go on life support, we'll continue antibiotics breathing treatments and steroids and follow clinical course closely 02/21/2018, patient seen evnicolasa examined during the rounds patient overall remains unchanged she is awake and alert options discussed with her about hospice patient does desaturate very quickly talking few sentences still require 90% oxygen with airvo, and it cannot be to titrated him a dynamic status remains stable remains mildly tachycardic, chest x-ray and labs are reviewed care plan discussed with the patient and family at length as well as oncology service, in the last 92 hours no significant response of IV steroids antibiotics and diuresis has been noted chest x-ray remains unchanged it appears that patient has extensive metastatic involvement of the lung related to stage IV gastric adenocarcinoma, white cell count now noted to be slowly going up appears to be related to IV steroids, we'll continue current treatment and therapy as per patient wishes she is no intubation if remains stable can be moved out of the ICU to stepdown unit prognosis overall is very poor with very poor likelihood of recovery 02/20/2018, patient seen evnicolasa examined during rounds in ICU patient remains on air wall 90% oxygen at times were done to lower down to 70% has been unsuccessful as patient developed significant desaturation overall clinically remains unchanged in last 48 hours, patient does desaturate on talking on [place] more than 3-4 words into mid 80s and 70s has to positive between sentences as well she denies any chest pain denies any cough or sputum production she is diuresing very well with IV furosemide, labs medication reviewed, chest x-ray overall essentially unchanged 02/19/2018, patient seen evnicolasa examined during the rounds of typically slightly better hissignificant desaturation seen but continued to have high demands for oxygen patient remains on 95% oxygen airvo, has declined the BiPAP machine, patient has been diuresing very well, labs reviewed medications reviewed radiographic studies reviewed as well ultrasound of the chest performed reviewed very small pleural effusion on the right side, care plan discussed with the oncology service as well given that slight improvement in clinical condition is present we'll continue supportive care patient is no intubation as per her wishes 02/18/2018, patient seen eval examined during the rounds clinically patient has been doing relatively better in terms oxygenation but is still require high flow oxygen with airvo 95% has use BiPAP off and on, patient is diuresing very well as well chest x-ray are not much changed patient remains on high-dose IV steroids as well as broad spectrum antibiotics for pneumonia however the chest x -ray is very much suggestive of ARDS-like Petrin likely associated with the lymphangitis spread of gastric adenocarcinoma, and labs reviewed medications reviewed still have leukocytosis which is multifactorial white cell count however are stable, renal functions are stable as well, sputum is positive for Nelli 02/17/2018, patient seen eval examined during the rounds this morning she is still very short of breath and minimal activity causes significant desaturation , she is on airvo, FiO2 has been escalated to 95% oxygen sats barely went up from 70-80%, discussed with the RN and respiratory therapist, labs x-rays reviewed no significant change in x-ray has been noted family is present at bedside, Ativan his pain escalated to half a milligram every 6 4 hourly when necessary continue Xanax as needed will do a trial of BiPAP to see if oxygenation can be improved into mid 80s continue gentle diuresis IV fluids are being tapered down, his steroid dose has been escalated to 60 IV every 6 patient has expressed her wishes not to be intubated prognosis extremely poor given presence of metastatic stage IV gastric cancer with ARDS-like Petrin on chest x-ray which is secondary due to metastatic stage IV cancer 02/16/2018, patient seen eval examined during the rounds she remains on airvo about 40 L, saturation are in low 90s, she has a component of anxiety in addition to Ativan and Xanax is being initiated labs reviewed medications reviewed chest x-ray essentially not changed extensive worsening of bilateral reticular nodular pattern is seen, computed tomography scan of the chest performed reviewed no evidence of pulmonary embolism, small pleural effusion is seen not enough to tap Ms. Gayatri Galloway is a 57-year-old -[place] female with the recent diagnosis of gastric neoplasm diagnosed somewhere around September patient was hospitalized a month ago with the interstitial lung changes right-sided pleural effusion transbronchial lung biopsy and cytology of the pleural fluid was positive for metastatic gastric carcinoma patient was on 2 L oxygen using off and on has chronic shortness of breath for the last several months however in the last 3 days his acute progression of her shortness of breath has been noted patient has severe difficulty in breathing on minimal activity and exertion patient came into the emergency department she was extremely hypoxic with saturation and 70s, her chest x-ray are not much change compared to baseline, patient does complain of some mild pleuritic chest pain also has some nonspecific abdominal pain, abdominal x-ray series were unremarkable, on high flow oxygen 15 L she is tachypneic and tachycardic patient expresses her desire not to be on life support, on specific questioning she denies any seizure-like activity loss of consciousness), denies any left-sided chest pain or radiation of pain, denies any nausea vomiting diarrhea March chest x-ray suggestive of the interstitial edema bilaterally and ARDS-like changes which are not much change compared to baseline is small to moderate right-sided pleural effusion is seen with just a obliteration of cardiophrenic angle on the right side, labs are significant for white cell count over 19,000 stat arterial blood gas checked which revealed mildly elevated CO2 of 51 normal pH of 7.4 significant hypoxia with pO2 only 54 Ammann patient couldn't tolerate the BiPAP machine however agree able on as-needed basis labs reviewed kidney functions are within normal limit, lactic acid is 2.1 troponins are normal urine analysis unremarkable Objective - Vital Signs Vital signs: Vital Signs Temp 97.5 F L 02/22/18 05:00 Pulse 114 H 02/22/18 20:21 Resp 28 H 02/22/18 17:17 BP 135/88 02/22/18 17:15 Pulse Ox 95 02/22/18 17:15 Intake & Output 02/22/18 02/22/18 02/23/18 06:59 18:59 06:59 Intake Total 70 890 Output Total 350 1900 Balance -280 -1010 Intake: IV 70 50 Piperacillin-Tazobactam 3 50 50 .375 gm In Dextrose/Water 1 50ml.bag @ 12.5 mls/hr IVPB Q8H [facility] Rx#: [id number] Sodium Chloride 0.9% 1, 20 000 ml @ 20 mls/hr IV . Q24H [facility] Rx#:[id number] Intake, IV Titration 240 Amount Sodium Chloride 0.9% 1, 240 000 ml @ 20 mls/hr IV . Q24H [facility] Rx#:[id number] Oral 600 Output: Urine 350 1900 Uretheral (Cruz) 1900 Other: Voiding Method Indwelling Catheter Indwelling Catheter - Exam - Constitutional General appearance: severe distress, thin, tachypneic tachycardic short of breath and desaturated very easily - EENT Eyes: anicteric sclerae, EOMI, PERRLA, no ptosis, no scleral icterus, normal appearance ENT: hearing grossly normal, normal oropharynx Ears: bilateral: normal - Neck Neck: normal ROM, no rigidity, no stridor, no thyromegaly Carotids: bilateral: upstroke normal Thyroid: bilateral: normal size - Respiratory Respiratory: bilateral: diminished, rales, rhonchi, wheezing, prolonged expiration, negative: dullness - Cardiovascular Rhythm: regular Heart sounds: normal: S1, S2 Abnormal Heart Sounds: systolic murmur, S3 Gallop - Gastrointestinal General gastrointestinal: normal bowel sounds, soft, no splenomegaly, tenderness , no umbilical hernia, no ventral hernia - Integumentary Integumentary: normal, normal turgor - Neurologic Neurologic: CNII-XII intact - Musculoskeletal Musculoskeletal: generalized weakness, strength equal bilaterally - Psychiatric Psychiatric: A&O x's 3, appropriate affect, intact judgment & insight - Labs CBC & Chem 7: 02/22/18 04:20 02/22/18 04:20 Labs: Abnormal Lab Results - Last 24 Hours (Table) 02/22/18 02/22/18 02/22/18 Range/Units 04:20 04:20 06:01 WBC 20.2 H (3.8-10.6) k/uL RDW 16.4 H (11.5-15.5) % Sodium 135 L (137-145) mmol/L Chloride 86 L (98-107) mmol/L Carbon Dioxide 37 H (22-30) mmol/L BUN 34 H (7-17) mg/dL Glucose 281 H (74-99) mg/dL POC Glucose (mg/dL) 167 H (75-99) mg/dL Alkaline Phosphatase 140 H (38-126) U/L Total Protein 6.1 L (6.3-8.2) g/dL Albumin 3.4 L (3.5-5.0) g/dL 02/22/18 02/22/18 02/22/18 Range/Units 11:22 16:36 20:38 WBC (3.8-10.6) k/uL RDW (11.5-15.5) % Sodium (137-145) mmol/L Chloride (98-107) mmol/L Carbon Dioxide (22-30) mmol/L BUN (7-17) mg/dL Glucose (74-99) mg/dL POC Glucose (mg/dL) 276 H 104 H 159 H (75-99) mg/dL Alkaline Phosphatase (38-126) U/L Total Protein (6.3-8.2) g/dL Albumin (3.5-5.0) g/dL Assessment and Plan Assessment: Severe sepsis, likely pneumonia on broad-spectrum antibiotics with gentle rehydration Interstitial lung disease related to metastatic gastric cancer/ARDS Nelli isolated in the lungs on oral Diflucan as well Acute hypoxic respirator failure was worsening of symptoms reviewed chest x-ray and computed tomography scan of the chest no pulmonary embolism is seen significant worsening of metastatic disease bilaterally noted with possible associated ARDS secondary and lymphangitis spread Very small Right-sided pleural effusion related to metastatic gastric cancer Hypertension hypertensive cardiovascular disease Severe COPD Vitamin D deficiency Hypothyroidism Plan: Gentle diuresis oral Diflucan Deep breathing exercises incentive spirometry Supplemental oxygen with high flow or airvo with BiPAP as needed, discussed with RN Broad-spectrum antibiotics IV steroids DVT and peptic ulcer disease prophylaxis Patient expresses her desire to be a no intubation Further recommendations pending plan of care as per clinical response of the patient Overall prognosis extremely poor Continue supportive care and hospice may be another option if no significant objective improvement noted Time with Patient: Greater than 30
[2018-02-23 06:10] LABS: Glucose,Whole Blood 212 mg/dL (75-99)
[2018-02-23] MEDS: INSULIN ASPART 100 UNIT/ML 1 ML 10 ML VIAL SQ SCH ×4 (06:12→20:44)
[2018-02-23] MEDS: PIPERACILLIN-TAZOBACTAM 3.375 GM in DEXTROSE/WATER 1 50ML.BAG IVPB SCH ×2 (06:13→12:43)
[2018-02-23] MEDS: methylPREDNISolone SOD SUCCI 125 MG/2 ML VIAL IV SCH (06:13)
[2018-02-23] MEDS: LEVOTHYROXINE 88 MCG TAB PO SCH (06:14)
[2018-02-23 06:32] LABS: Anisocytosis Slight; HCT 46.1 % (34.0-46.0); HGB 14.7 gm/dL (11.4-16.0); MCH 30.4 pg (25.0-35.0); MCV 95.2 fL (80.0-100.0); Mean Platelet Volume 7.7; Platelet Count 346 k/uL (150-450); RBC 4.84 m/uL (3.80-5.40); RDW 16.4 % (11.5-15.5); WBC 19.1 k/uL (3.8-10.6)
[2018-02-23 06:45] LABS: Albumin 3.4 g/dL (3.5-5.0); Potassium 4.6 mmol/L (3.5-5.1); Total Bilirubin 0.5 mg/dL (0.2-1.3); Total Protein 5.9 g/dL (6.3-8.2)
[2018-02-23] MEDS: IPRATROPIUM-ALBUTEROL 3 ML NEB INHALATION SCH ×4 (08:16→20:38)
[2018-02-23] MEDS: MORPHINE SULFATE 2 MG/ML SYRINGE IVP PRN ×4 (08:49→20:35)
[2018-02-23] MEDS: ATORVASTATIN 20 MG TAB PO SCH (08:54)
[2018-02-23] MEDS: HEPARIN SODIUM,PORCINE 5,000 UNIT/ML 1 ML VIAL SQ SCH ×2 (08:54→20:37)
[2018-02-23] MEDS: LACTULOSE 20 GM/30 ML CUP PO SCH ×2 (08:54→20:36)
[2018-02-23] MEDS: FUROSEMIDE 10 MG/ML 2 ML VIAL IV SCH ×2 (08:54→20:37)
[2018-02-23] MEDS: FLUCONAZOLE 100 MG TAB PO SCH (08:54)
[2018-02-23] MEDS: LISINOPRIL 10 MG TAB PO SCH (08:54)
[2018-02-23] MEDS: PANTOPRAZOLE 40 MG TABLET PO SCH (08:55)
[2018-02-23] MEDS: SODIUM CHLORIDE 0.9% 1,000 ML IV SCH (08:55)
--- NOTE | 2018-02-23 10:04 | P.PN ---
Subjective Progress Note Date: 02/23/18 Principal diagnosis: Acute hypoxic respiratory failure, metastatic spread of gastric adenocarcinoma to lungs, right-sided small pleural effusion, pneumonia, severe COPD 02/23/2018, patient moved out of the ICU now on stepdown unit continued to require high flow oxygen to short of breath and desaturated on minimal activity and exertion overall no significant change has been noted, patient noted to have high CO2 likely multifactorial related to developing hypercapnia as well as diuresis, patient has been advised about BiPAP but she has declined as she couldn't tolerated, labs reviewed including leukocytosis as well as prerenal azotemia and hyperglycemia likely related to high-dose IV steroids will start tapering it down 02/22/2018, patient seen eval examined during the rounds clinically overall not much changes still very short of breath on minimal activity and exertion, remain on high flow oxygen with marginal saturation, patient would like to continue interventions however she does not want to go on life support, we'll continue antibiotics breathing treatments and steroids and follow clinical course closely 02/21/2018, patient seen eval examined during the rounds patient overall remains unchanged she is awake and alert options discussed with her about hospice patient does desaturate very quickly talking few sentences still require 90% oxygen with airvo, and it cannot be to titrated him a dynamic status remains stable remains mildly tachycardic, chest x-ray and labs are reviewed care plan discussed with the patient and family at length as well as oncology service, in the last 92 hours no significant response of IV steroids antibiotics and diuresis has been noted chest x-ray remains unchanged it appears that patient has extensive metastatic involvement of the lung related to stage IV gastric adenocarcinoma, white cell count now noted to be slowly going up appears to be related to IV steroids, we'll continue current treatment and therapy as per patient wishes she is no intubation if remains stable can be moved out of the ICU to stepdown unit prognosis overall is very poor with very poor likelihood of recovery 02/20/2018, patient seen eval examined during rounds in ICU patient remains on air wall 90% oxygen at times were done to lower down to 70% has been unsuccessful as patient developed significant desaturation overall clinically remains unchanged in last 48 hours, patient does desaturate on talking on [place] more than 3-4 words into mid 80s and 70s has to positive between sentences as well she denies any chest pain denies any cough or sputum production she is diuresing very well with IV furosemide, labs medication reviewed, chest x-ray overall essentially unchanged 02/19/2018, patient seen eval examined during the rounds of typically slightly better hissignificant desaturation seen but continued to have high demands for oxygen patient remains on 95% oxygen airvo, has declined the BiPAP machine, patient has been diuresing very well, labs reviewed medications reviewed radiographic studies reviewed as well ultrasound of the chest performed reviewed very small pleural effusion on the right side, care plan discussed with the oncology service as well given that slight improvement in clinical condition is present we'll continue supportive care patient is no intubation as per her wishes 02/18/2018, patient seen eval examined during the rounds clinically patient has been doing relatively better in terms oxygenation but is still require high flow oxygen with airvo 95% has use BiPAP off and on, patient is diuresing very well as well chest x-ray are not much changed patient remains on high-dose IV steroids as well as broad spectrum antibiotics for pneumonia however the chest x -ray is very much suggestive of ARDS-like Petrin likely associated with the lymphangitis spread of gastric adenocarcinoma, and labs reviewed medications reviewed still have leukocytosis which is multifactorial white cell count however are stable, renal functions are stable as well, sputum is positive for Nelli 02/17/2018, patient seen eval examined during the rounds this morning she is still very short of breath and minimal activity causes significant desaturation , she is on airvo, FiO2 has been escalated to 95% oxygen sats barely went up from 70-80%, discussed with the RN and respiratory therapist, labs x-rays reviewed no significant change in x-ray has been noted family is present at bedside, Ativan his pain escalated to half a milligram every 6 4 hourly when necessary continue Xanax as needed will do a trial of BiPAP to see if oxygenation can be improved into mid 80s continue gentle diuresis IV fluids are being tapered down, his steroid dose has been escalated to 60 IV every 6 patient has expressed her wishes not to be intubated prognosis extremely poor given presence of metastatic stage IV gastric cancer with ARDS-like Petrin on chest x-ray which is secondary due to metastatic stage IV cancer 02/16/2018, patient seen eval examined during the rounds she remains on airvo about 40 L, saturation are in low 90s, she has a component of anxiety in addition to Ativan and Xanax is being initiated labs reviewed medications reviewed chest x-ray essentially not changed extensive worsening of bilateral reticular nodular pattern is seen, computed tomography scan of the chest performed reviewed no evidence of pulmonary embolism, small pleural effusion is seen not enough to tap Ms. Gayatri Galloway is a 57-year-old -[place] female with the recent diagnosis of gastric neoplasm diagnosed somewhere around September patient was hospitalized a month ago with the interstitial lung changes right-sided pleural effusion transbronchial lung biopsy and cytology of the pleural fluid was positive for metastatic gastric carcinoma patient was on 2 L oxygen using off and on has chronic shortness of breath for the last several months however in the last 3 days his acute progression of her shortness of breath has been noted patient has severe difficulty in breathing on minimal activity and exertion patient came into the emergency department she was extremely hypoxic with saturation and 70s, her chest x-ray are not much change compared to baseline, patient does complain of some mild pleuritic chest pain also has some nonspecific abdominal pain, abdominal x-ray series were unremarkable, on high flow oxygen 15 L she is tachypneic and tachycardic patient expresses her desire not to be on life support, on specific questioning she denies any seizure-like activity loss of consciousness), denies any left-sided chest pain or radiation of pain, denies any nausea vomiting diarrhea October chest x-ray suggestive of the interstitial edema bilaterally and ARDS-like changes which are not much change compared to baseline is small to moderate right-sided pleural effusion is seen with just a obliteration of cardiophrenic angle on the right side, labs are significant for white cell count over 19,000 stat arterial blood gas checked which revealed mildly elevated CO2 of 51 normal pH of 7.4 significant hypoxia with pO2 only 54 Ammann patient couldn't tolerate the BiPAP machine however agree able on as-needed basis labs reviewed kidney functions are within normal limit, lactic acid is 2.1 troponins are normal urine analysis unremarkable Objective - Vital Signs Vital signs: Vital Signs Temp 98.1 F 02/23/18 09:02 Pulse 113 H 02/23/18 09:02 Resp 30 H 02/23/18 09:02 BP 166/99 02/23/18 09:02 Pulse Ox 91 L 02/23/18 09:02 Intake & Output 02/22/18 02/23/18 02/23/18 18:59 06:59 18:59 Intake Total 890 120 Output Total 1900 1100 Balance -1010 -1100 120 Weight 81.5 kg Intake: IV 50 Piperacillin-Tazobactam 3 50 .375 gm In Dextrose/Water 1 50ml.bag @ 12.5 mls/hr IVPB Q8H [facility] Rx#: [id number] Intake, IV Titration 240 Amount Sodium Chloride 0.9% 1, 240 000 ml @ 20 mls/hr IV . Q24H [facility] Rx#:[id number] Oral 600 120 Output: Urine 1900 1100 Uretheral (Cruz) 1900 Other: Voiding Method Indwelling Catheter Indwelling Catheter Indwelling Catheter # Voids 0 - Exam - Constitutional General appearance: severe distress, thin, tachypneic tachycardic short of breath and desaturated very easily - EENT Eyes: anicteric sclerae, EOMI, PERRLA, no ptosis, no scleral icterus, normal appearance ENT: hearing grossly normal, normal oropharynx Ears: bilateral: normal - Neck Neck: normal ROM, no rigidity, no stridor, no thyromegaly Carotids: bilateral: upstroke normal Thyroid: bilateral: normal size - Respiratory Respiratory: bilateral: diminished, rales, rhonchi, wheezing, prolonged expiration, negative: dullness - Cardiovascular Rhythm: regular Heart sounds: normal: S1, S2 Abnormal Heart Sounds: systolic murmur, S3 Gallop - Gastrointestinal General gastrointestinal: normal bowel sounds, soft, no splenomegaly, tenderness , no umbilical hernia, no ventral hernia - Integumentary Integumentary: normal, normal turgor - Neurologic Neurologic: CNII-XII intact - Musculoskeletal Musculoskeletal: generalized weakness, strength equal bilaterally - Psychiatric Psychiatric: A&O x's 3, appropriate affect, intact judgment & insight - Labs CBC & Chem 7: 02/23/18 06:00 02/23/18 06:00 Labs: Abnormal Lab Results - Last 24 Hours (Table) 02/22/18 02/22/18 02/22/18 Range/Units 11:22 16:36 20:38 WBC (3.8-10.6) k/uL Hct (34.0-46.0) % RDW (11.5-15.5) % Chloride (98-107) mmol/L Carbon Dioxide (22-30) mmol/L BUN (7-17) mg/dL Glucose (74-99) mg/dL POC Glucose (mg/dL) 276 H 104 H 159 H (75-99) mg/dL Calcium (8.4-10.2) mg/dL Alkaline Phosphatase (38-126) U/L Total Protein (6.3-8.2) g/dL Albumin (3.5-5.0) g/dL 02/23/18 02/23/18 02/23/18 Range/Units 06:00 06:00 06:00 WBC 19.1 H (3.8-10.6) k/uL Hct 46.1 H (34.0-46.0) % RDW 16.4 H (11.5-15.5) % Chloride 86 L (98-107) mmol/L Carbon Dioxide 40 H* (22-30) mmol/L BUN 32 H (7-17) mg/dL Glucose 226 H (74-99) mg/dL POC Glucose (mg/dL) 212 H (75-99) mg/dL Calcium 8.0 L (8.4-10.2) mg/dL Alkaline Phosphatase 146 H (38-126) U/L Total Protein 5.9 L (6.3-8.2) g/dL Albumin 3.4 L (3.5-5.0) g/dL Assessment and Plan Assessment: Bilateral pneumonia on broad-spectrum antibiotics with gentle rehydration Interstitial lung disease related to metastatic gastric cancer/ARDS Leukocytosis, hyperglycemia, metabolic alkalosis Nelli isolated in the lungs on oral Diflucan as well Acute hypoxic respirator failure was worsening of symptoms reviewed chest x-ray and computed tomography scan of the chest no pulmonary embolism is seen significant worsening of metastatic disease bilaterally noted with possible associated ARDS secondary and lymphangitis spread Very small Right-sided pleural effusion related to metastatic gastric cancer Hypertension hypertensive cardiovascular disease Severe COPD Vitamin D deficiency Hypothyroidism Plan: Gentle diuresis oral Diflucan, taper steroids as tolerated Deep breathing exercises incentive spirometry Supplemental oxygen with high flow or airvo with BiPAP as needed, discussed with RN Broad-spectrum antibiotics IV steroids DVT and peptic ulcer disease prophylaxis Patient expresses her desire to be a no intubation Further recommendations pending plan of care as per clinical response of the patient Overall prognosis extremely poor Continue supportive care and hospice may be another option if no significant objective improvement noted Time with Patient: Greater than 30
[2018-02-23 11:11] LABS: Glucose,Whole Blood 164 mg/dL (75-99)
[2018-02-23] MEDS ORDERED: FUROSEMIDE 10 MG/ML 4 ML VIAL IV STA (13:23)
[2018-02-23] MEDS ORDERED: POTASSIUM CHLORIDE ER 20 MEQ TAB.ER PO STA (13:24)
--- NOTE | 2018-02-23 15:55 | P.PN ---
Subjective Progress Note Date: 02/23/18 This is a 57-year-old -Citizen Of The [place] female was under the care of Dr. Montesinos and she switched to recently with a previous medical history significant for hypertension, hyperlipidemia, chronic tobacco use and dependence with the chronic COPD/emphysema, patient medical history goes back to she 2017 when she developed to have a significant abdominal pain for the past 6 months and she was found to have a small ventral hernia and underwent surgical intervention by Dr. 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, this is was followed by an EGD that was done on 09/16/2017 that showed 4 cm ulcerated mass in the greater curvature the biopsy at that time came back positive for adenocarcinoma of the stomach, patient underwent computed tomography scan of the abdomen and pelvis that showed gastric wall thickening ascites with no distant metastatic disease at that time, patient was initially started on cis- bois forte/Xeloda and epirubicin in September 2017 her chemotherapy was stopped in November of this year and she was started on Xeloda and Xgeva until December 2017 when she developed to have a significant respiratory failure with pneumonia that was treated with oral antibiotic, patient had repeated EGD that showed reduction of the/mastoid sending her from 4 cm with negative biopsy for malignancy that time patient recently was hospitalized at [facility] due to acute respiratory failure thought to be due to acute diastolic heart failure as well as significant left-sided pleural effusion with possible metastatic disease, she was recently seen by Dr. Davenport in the office and she was switched to a different treatment which she got on the patient developed to have a significant shortness of breath over the last few days and yesterday she came to the ER she was found to have significant hypoxemia requiring 15 L oxygen chest x-ray did show bilateral airspace disease with heart failure as well as significant elevation of leukocytes, she was started on IV antibiotic and she was admitted to the intensive care unit, she was seen in consultation by cardiology as well as pulmonary medicine she will be seen by oncology as well. 02/16: Patient was evaluated today, she is noted to be sitting up in bed with family at bedside. She had a CT done yesterday that showed no large central or lobular emboli, severe pulmonary edema with small bilateral pleural effusions, repeat chest x-ray showed severe pulmonary edema again. Pulmonology on consult , she'll continue on supplemental oxygen with high flow. Oncology on consult, who recommends to hold her Cyramza for now. So far blood cultures show no growth to date, urine culture was negative. 02/17: Patient sitting up in bed, family at bedside today. Patients overall condition continues to decline, she was placed on BiPAP with an FiO2 of 70, she is currently around 87%. She gets very short of breath and has significant desaturation with minimal activity. Repeat chest x-ray does not show much change from previous, shows continued severe pulmonary edema with underlying pleural effusions right greater than the left and COPD. Solu-Medrol increased to 60 mg every 6 hours, pulmonology and oncology on consult, prognosis is poor. 02/18: Patient evaluated today, she is off bipap and currently on high flow, she has improved slightly, she is saturating around 88%, again she continues to have significant desaturation with any activity. Oncology is on consult, plan is to see how patient responds to treatment, if she continues to decline, will discuss comfort care. Patient has not had a bowel movement in a few day, Doculax and lactulose ordered. 02/19: Patient is sitting up in bed she continues to be in high flow oxygen, she continues to be on maximum dose of steroid, she is about the same feeling a bit better than yesterday, she had a good bowel movement today and she is maintained on the same treatment, pulmonary as well as oncology is following. 02/20: Patient evaluated today in the ICU with family at bedside. Patient still requiring high flow oxygen continues on max dose of steroids. Repeat chest x- ray shows no significant improvement. Overall her condition has not improved very much. Did have a long discussion with family and patient regarding her poor prognosis and possibly hospice. Patient and family to discuss. Oncology and pulmonary are on consult. 02/21: Patient is sitting up in bed she can use to be somewhat short of breath, she can the staff some coughing no hemoptysis, she has no abdominal pain, she had no bowel movement today she denies any weakness, she appears in a better spur today. 02/22 patient remains on the Airvo airflow at high flow 50, FiO2 of 94%,, still with tachypnea, mildly tachycardic, still with contraceptives dyspnea, patient cannot tolerate the BiPAP at bedside, we've discussed again her preferences for her current treatment, and would want to pursue aggressive medical without any ventilatory support 02/23: Patient still tachypneic and dyspneic, high flow airvo, CO2 slightly elevated noted, patient was recommended to use the BiPAP for which they're willing to try again, steroid decreased to 40 mg every 12 hours, additional Lasix dose of 40 mg IV today, continue on Zosyn and Diflucan prognosis remains guarded as patient does not show any significant recovery has been very slow improvement Objective - Vital Signs Vital signs: Vital Signs Temp 98.1 F 02/23/18 09:02 Pulse 116 H 02/23/18 12:07 Resp 24 02/23/18 11:34 BP 163/98 02/23/18 11:34 Pulse Ox 93 L 02/23/18 11:34 Intake & Output 02/22/18 02/23/18 02/23/18 18:59 06:59 18:59 Intake Total 890 700 Output Total 1900 1100 800 Balance -1010 -1100 -100 Weight 81.5 kg Intake: IV 50 340 Piperacillin-Tazobactam 3 50 100 .375 gm In Dextrose/Water 1 50ml.bag @ 12.5 mls/hr IVPB Q8H [facility] Rx#: [id number] Sodium Chloride 0.9% 1, 240 000 ml @ 20 mls/hr IV . Q24H [facility] Rx#:[id number] Intake, IV Titration 240 Amount Sodium Chloride 0.9% 1, 240 000 ml @ 20 mls/hr IV . Q24H [facility] Rx#:[id number] Oral 600 360 Output: Urine 1900 1100 800 Uretheral (Cruz) 1900 800 Other: Voiding Method Indwelling Catheter Indwelling Catheter Indwelling Catheter # Voids 0 - Constitutional General appearance: Present: cooperative, mild distress (Tachypneic with accessory muscle use) - EENT Eyes: Present: anicteric sclerae, EOMI, PERRLA, dentition normal ENT: Present: NA/AT - Neck Neck: Present: normal ROM - Respiratory Respiratory: bilateral: diminished, negative: rhonchi, wheezing - Cardiovascular Rhythm: regular Heart sounds: normal: S1, S2 Abnormal Heart Sounds: Absent: systolic murmur, diastolic murmur, rub, S3 Gallop , S4 Gallop, click, other - Gastrointestinal General gastrointestinal: Present: normal bowel sounds, soft - Labs CBC & Chem 7: 02/23/18 06:00 02/23/18 06:00 Labs: Abnormal Lab Results - Last 24 Hours (Table) 02/22/18 02/22/18 02/23/18 Range/Units 16:36 20:38 06:00 WBC 19.1 H (3.8-10.6) k/uL Hct 46.1 H (34.0-46.0) % RDW 16.4 H (11.5-15.5) % Chloride (98-107) mmol/L Carbon Dioxide (22-30) mmol/L BUN (7-17) mg/dL Glucose (74-99) mg/dL POC Glucose (mg/dL) 104 H 159 H (75-99) mg/dL Calcium (8.4-10.2) mg/dL Alkaline Phosphatase (38-126) U/L Total Protein (6.3-8.2) g/dL Albumin (3.5-5.0) g/dL 02/23/18 02/23/18 02/23/18 Range/Units 06:00 06:00 11:09 WBC (3.8-10.6) k/uL Hct (34.0-46.0) % RDW (11.5-15.5) % Chloride 86 L (98-107) mmol/L Carbon Dioxide 40 H* (22-30) mmol/L BUN 32 H (7-17) mg/dL Glucose 226 H (74-99) mg/dL POC Glucose (mg/dL) 212 H 164 H (75-99) mg/dL Calcium 8.0 L (8.4-10.2) mg/dL Alkaline Phosphatase 146 H (38-126) U/L Total Protein 5.9 L (6.3-8.2) g/dL Albumin 3.4 L (3.5-5.0) g/dL Assessment and Plan Plan: 1. Acute hypoxemic respiratory failure due to bilateral gram-negative pneumonia , and acute diastolic heart failure significant airspace disease burden. We will maintain the patient is Zosyn 3.375 g IV piggyback every 6 hours , continue patient on Lasix 20 mg IV push every 12 hours, additional one-time dose Lasix on February 03 1.1840 mg continue patient on lisinopril 10 mg orally once every day, patient had an echocardiogram that was done in December of this year and that showed ejection fraction of 55-60%, we will monitor the patient very closely. High flow O2 supplementation to airvo 2. Diffuse bilateral airway airspace disease, on IV antibiotics, Zosyn with Diflucan nebulized treatments, O2 supplementation, 2. Metastatic gastric cancer to the lung on chemotherapy this time. Consult hematology oncology. Very poor prognosis. 3. Hypertension. Continue lisinopril 10 mg orally once every day. 4. Hypothyroidism. Continue Synthroid 88 g orally once every day. 5. Vitamin D deficiency. Hold vitamin D for now. 6. COPD/emphysema. Continue DuoNeb 3 mg nebulization 4 times every day, oxygen support, continue IV anabiotic as well, Pulmicort consultation. 7. DVT prophylaxis. Heparin 5000 units subcutaneously every 12 hours along with knee-high TONI hose. 8. GI prophylaxis. Protonix 40 mg IV push every 24 hours. 9. Prognosis guarded
[2018-02-23 16:59] LABS: Glucose,Whole Blood 162 mg/dL (75-99)
[2018-02-23] MEDS: ALPRAZolam 0.5 MG TAB PO PRN (20:35)
[2018-02-23] MEDS: ACETAMINOPHEN TAB 325 MG TAB PO PRN (20:35)
[2018-02-23 20:42] LABS: Glucose,Whole Blood 139 mg/dL (75-99)
[2018-02-23] MEDS ORDERED: methylPREDNISolone SOD SUCCI 40 MG/ML 1 ML VIAL IV SCH (21:00)
[2018-02-24] MEDS: PIPERACILLIN-TAZOBACTAM 3.375 GM in DEXTROSE/WATER 1 50ML.BAG IVPB SCH ×2 (00:49→05:56)
[2018-02-24 03:52] VITALS: BP 166/88; TEMP 97.7
[2018-02-24 04:05] LABS: Glucose,Whole Blood 202 mg/dL (75-99)
[2018-02-24] MEDS: LORazepam 2 MG/ML INJ IV PRN ×2 (04:05→09:50)
[2018-02-24] MEDS: LEVOTHYROXINE 88 MCG TAB PO SCH (05:53)
[2018-02-24 06:00] LABS: Glucose,Whole Blood 183 mg/dL (75-99)
[2018-02-24 06:38] LABS: Albumin 3.4 g/dL (3.5-5.0); Calcium 7.7 mg/dL (8.4-10.2); Total Bilirubin 0.6 mg/dL (0.2-1.3); Total Protein 5.9 g/dL (6.3-8.2)
[2018-02-24] MEDS ORDERED: MORPHINE SULFATE 2 MG/ML SYRINGE IVP STA (07:03)
[2018-02-24] MEDS ORDERED: ATROPINE OPHTH SOLN 1% 5ML BTL SUBLINGUAL PRN (07:07)
[2018-02-24] MEDS ORDERED: SCOPOLAMINE 1.5MG/72HR PATCH TRANSDERM PRN (07:07)
[2018-02-24] MEDS ORDERED: ACETAMINOPHEN SUPPOSITORY 650 MG SUPP RECTAL PRN (07:07)
[2018-02-24] MEDS ORDERED: MORPHINE SULFATE (100 MG/2 ML) 100 MG in SODIUM CHLORIDE 0.9% 100 ML IV SCH (07:15)
[2018-02-24] MEDS: IPRATROPIUM-ALBUTEROL 3 ML NEB INHALATION SCH (08:08)
[2018-02-24] MEDS: INSULIN ASPART 100 UNIT/ML 1 ML 10 ML VIAL SQ SCH (08:46)
[2018-02-24] MEDS: SODIUM CHLORIDE 0.9% 1,000 ML IV SCH (09:46)
--- NOTE | 2018-02-24 10:20 | P.DS ---
Providers Date of admission: 02/15/18 04:49 Attending physician: Teo Haney Consults: 02/15/18 04:46 Consult Physician Routine Consulting Provider: Taina Salazar Consult Reason/Comments: chf Do you want consulting provider notified?: Yes Primary care physician: Anastacia Coronado MD Hospital Course: This is a 57-year-old -[place] female was under the care of Dr. Montesinos and she switched to recently with a previous medical history significant for hypertension, hyperlipidemia, chronic tobacco use and dependence with the chronic COPD/emphysema, patient medical history goes back to she 2017 when she developed to have a significant abdominal pain for the past 6 months and she was found to have a small ventral hernia and underwent surgical intervention by Dr. 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, this is was followed by an EGD that was done on 09/16/2017 that showed 4 cm ulcerated mass in the greater curvature the biopsy at that time came back positive for adenocarcinoma of the stomach, patient underwent computed tomography scan of the abdomen and pelvis that showed gastric wall thickening ascites with no distant metastatic disease at that time, patient was initially started on cis- shinnecock/Xeloda and epirubicin in September 2017 her chemotherapy was stopped in November of this year and she was started on Xeloda and Xgeva until December 2017 when she developed to have a significant respiratory failure with pneumonia that was treated with oral antibiotic, patient had repeated EGD that showed reduction of the/mastoid sending her from 4 cm with negative biopsy for malignancy that time patient recently was hospitalized at [facility] due to acute respiratory failure thought to be due to acute diastolic heart failure as well as significant left-sided pleural effusion with possible metastatic disease, she was recently seen by Dr. Davenport in the office and she was switched to a different treatment which she got on the patient developed to have a significant shortness of breath over the last few days and yesterday she came to the ER she was found to have significant hypoxemia requiring 15 L oxygen chest x-ray did show bilateral airspace disease with heart failure as well as significant elevation of leukocytes, she was started on IV antibiotic and she was admitted to the intensive care unit, she was seen in consultation by cardiology as well as pulmonary medicine she will be seen by oncology as well. 02/16: Patient was evaluated today, she is noted to be sitting up in bed with family at bedside. She had a CT done yesterday that showed no large central or lobular emboli, severe pulmonary edema with small bilateral pleural effusions, repeat chest x-ray showed severe pulmonary edema again. Pulmonology on consult , she'll continue on supplemental oxygen with high flow. Oncology on consult, who recommends to hold her Cyramza for now. So far blood cultures show no growth to date, urine culture was negative. 02/17: Patient sitting up in bed, family at bedside today. Patients overall condition continues to decline, she was placed on BiPAP with an FiO2 of 70, she is currently around 87%. She gets very short of breath and has significant desaturation with minimal activity. Repeat chest x-ray does not show much change from previous, shows continued severe pulmonary edema with underlying pleural effusions right greater than the left and COPD. Solu-Medrol increased to 60 mg every 6 hours, pulmonology and oncology on consult, prognosis is poor. 02/18: Patient evaluated today, she is off bipap and currently on high flow, she has improved slightly, she is saturating around 88%, again she continues to have significant desaturation with any activity. Oncology is on consult, plan is to see how patient responds to treatment, if she continues to decline, will discuss comfort care. Patient has not had a bowel movement in a few day, Doculax and lactulose ordered. 02/19: Patient is sitting up in bed she continues to be in high flow oxygen, she continues to be on maximum dose of steroid, she is about the same feeling a bit better than yesterday, she had a good bowel movement today and she is maintained on the same treatment, pulmonary as well as oncology is following. 02/20: Patient evaluated today in the ICU with family at bedside. Patient still requiring high flow oxygen continues on max dose of steroids. Repeat chest x- ray shows no significant improvement. Overall her condition has not improved very much. Did have a long discussion with family and patient regarding her poor prognosis and possibly hospice. Patient and family to discuss. Oncology and pulmonary are on consult. 02/21: Patient is sitting up in bed she can use to be somewhat short of breath, she can the staff some coughing no hemoptysis, she has no abdominal pain, she had no bowel movement today she denies any weakness, she appears in a better spur today. 02/22 patient remains on the Airvo airflow at high flow 50, FiO2 of 94%,, still with tachypnea, mildly tachycardic, still with contraceptives dyspnea, patient cannot tolerate the BiPAP at bedside, we've discussed again her preferences for her current treatment, and would want to pursue aggressive medical without any ventilatory support 02/23: Patient still tachypneic and dyspneic, high flow airvo, CO2 slightly elevated noted, patient was recommended to use the BiPAP for which they're willing to try again, steroid decreased to 40 mg every 12 hours, additional Lasix dose of 40 mg IV today, continue on Zosyn and Diflucan prognosis remains guarded as patient does not show any significant recovery has been very slow improvement 02/24: Patient evaluated today with family at bedside. She continues to decline, she continues on Bipap. Due to her continued decline and very poor prognosis, family has made decision to open patient to Hospice. Will continue to make patient comfortable and open patient to hospice care. Discharge Diagnosis: 1. Acute hypoxemic respiratory failure due to bilateral gram-negative pneumonia , and acute diastolic heart failure significant airspace disease burden. 2. Diffuse bilateral airway airspace disease 3. Metastatic gastric cancer to the lung on chemotherapy this time. 4. Hypertension. 5. Hypothyroidism. 6. Vitamin D deficiency. 7. COPD/emphysema. The patient was seen and evaluated by signing physician. Kya Payton, nurse practitioner, acting as a scribe. Patient Condition at Discharge: Poor Plan - Discharge Summary New Discharge Prescriptions: New Atropine Ophth Soln 1% 5Ml [Isopto Atropine 1% 5Ml] 2 drops SUBLINGUAL Q4HR PRN #1 bottle PRN Reason: Excess Secretions Scopolamine 1.5MG/72Hr Patch [TransDerm Scop] 1 patch TRANSDERM Q72H PRN #10 patch PRN Reason: Secretions Continue Atorvastatin [Lipitor] 20 mg PO DAILY LORazepam [Ativan] 1 mg PO Q6HR PRN #60 tab PRN Reason: Anxiety Discontinued Levothyroxine Sodium [Synthroid] 88 mcg PO DAILY predniSONE 40 mg PO DAILY #60 tab HYDROcodone/APAP 7.5-325MG [Beatrice 7.5-325] 1 tab PO Q6HR PRN PRN Reason: Pain Potassium Chloride [K-Tab ER] 20 meq PO DAILY Nystatin 100,000 Unit/ml Susp [Mycostatin Oral Susp] 5 ml PO QID Furosemide [Lasix] 40 mg PO DAILY Ergocalciferol [Vitamin D2] 50,000 unit PO Q7D Budesonide [Pulmicort] 0.5 mg INHALATION RT-BID fentaNYL 50MCG/HR PATCH [Duragesic 50MCG/HR] 50 mcg TRANSDERM Q72H No Action Ipratropium-Albuterol Nebulize [Duoneb 0.5 mg-3 mg/3 ml Soln] 3 ml INHALATION RT-QID #120 ampul.neb Discharge Medication List Ipratropium-Albuterol Nebulize [Duoneb 0.5 mg-3 mg/3 ml Soln] 3 ml INHALATION RT -QID #120 ampul.neb 01/17/18 [Rx] Atorvastatin [Lipitor] 20 mg PO DAILY 02/15/18 [History] Atropine Ophth Soln 1% 5Ml [Isopto Atropine 1% 5Ml] 2 drops SUBLINGUAL Q4HR PRN #1 bottle 02/24/18 [Rx] LORazepam [Ativan] 1 mg PO Q6HR PRN #60 tab 02/24/18 [Rx] Scopolamine 1.5MG/72Hr Patch [TransDerm Scop] 1 patch TRANSDERM Q72H PRN #10 patch 02/24/18 [Rx] Follow up Appointment(s)/Referral(s): Anastacia Coronado MD [Primary Care Provider] - 1-2 days
[2018-02-24 10:37] VITALS: PULSE 115; RESP 34
== END 2018-02-24 10:34 | disposition hospice, inpatient (51) | DRG 177 ==
LOC: EC 03:14 → SUPCPDRO 03:14 → 6ICU 04:49 → 6SEL 02-22 04:58
PROVIDERS: ADMIT Internal Medicine; ATTEND Internal Medicine
PROC: 5A09357 Assistance with Respiratory Ventilation, Less than 24 Consecutive Hours, Continuous Positive Airway Pressure (ICD-10-PCS; principal; 2018-02-15)
DX: J15.6 Pneumonia due to other Gram-negative bacteria (principal); J96.01 Acute respiratory failure with hypoxia; I50.33 Acute on chronic diastolic (congestive) heart failure; C16.9 Malignant neoplasm of stomach, unspecified; C78.00 Secondary malignant neoplasm of unspecified lung; C79.51 Secondary malignant neoplasm of bone; E87.4 Mixed disorder of acid-base balance; J84.9 Interstitial pulmonary disease, unspecified; Z66 Do not resuscitate; Z51.5 Encounter for palliative care; R73.9 Hyperglycemia, unspecified; R00.0 Tachycardia, unspecified; E78.5 Hyperlipidemia, unspecified; E89.0 Postprocedural hypothyroidism; I11.0 Hypertensive heart disease with heart failure; M19.90 Unspecified osteoarthritis, unspecified site; T38.0X5A Adverse effect of glucocorticoids and synthetic analogues, initial encounter; F17.210 Nicotine dependence, cigarettes, uncomplicated; J43.9 Emphysema, unspecified; F41.9 Anxiety disorder, unspecified; I07.1 Rheumatic tricuspid insufficiency; M54.9 Dorsalgia, unspecified; I27.20 Pulmonary hypertension, unspecified; E55.9 Vitamin D deficiency, unspecified; Z80.41 Family history of malignant neoplasm of ovary; Z80.49 Family history of malignant neoplasm of other genital organs; Z80.3 Family history of malignant neoplasm of breast; Z80.1 Family history of malignant neoplasm of trachea, bronchus and lung; Z79.899 Other long term (current) drug therapy; Z82.5 Family history of asthma and other chronic lower respiratory diseases; Z80.8 Family history of malignant neoplasm of other organs or systems; Z98.1 Arthrodesis status; Z80.0 Family history of malignant neoplasm of digestive organs; Z79.890 Hormone replacement therapy; Z79.891 Long term (current) use of opiate analgesic; Z79.51 Long term (current) use of inhaled steroids; Z79.52 Long term (current) use of systemic steroids; Z92.21 Personal history of antineoplastic chemotherapy; Z87.01 Personal history of pneumonia (recurrent)
CPT/HCPCS: 36415; 36600; 71045; 71046; 71275; 74018; 76604; 80048; 80053; 81003; 82550; 82553; 82805; 83605; 83735; 83880; 84100; 84132; 84484; 85025; 85027; 85610; 85730; 86701; 86704; 86803; 87040; 87070; 87086; 87205; 87340; 93005; 94640; 94660; 94760; 96361; 96365; 96375; 99285

== ENCOUNTER 2018-02-24 10:37 | Inpatient (IN) | payer OTHER ==
[2018-02-24] MEDS ORDERED: MORPHINE SULFATE 2 MG/ML SYRINGE IV PRN (10:41)
[2018-02-24] MEDS ORDERED: LORazepam 2 MG/ML INJ IV PRN (10:41)
[2018-02-24] MEDS ORDERED: ONDANSETRON 4 MG/2 ML VIAL IVP PRN (10:41)
[2018-02-24] MEDS ORDERED: ACETAMINOPHEN SUPPOSITORY 650 MG SUPP RECTAL PRN (10:41)
[2018-02-24] MEDS ORDERED: METOCLOPRAMIDE 5 MG/ML 2 ML VIAL IVP PRN (10:41)
[2018-02-24] MEDS ORDERED: ARTIFICIAL TEARS-HYPROMELLOSE DROPS 15 ML BTL BOTH EYES PRN (10:41)
[2018-02-24] MEDS ORDERED: ACETAMINOPHEN IV (For NPO) 1,000 MG in EMPTY BAG 1 BAG IVPB ONE (10:41)
[2018-02-24] MEDS ORDERED: ATROPINE OPHTH SOLN 1% 5ML BTL SUBLINGUAL PRN (10:41)
[2018-02-24] MEDS ORDERED: SCOPOLAMINE 1.5MG/72HR PATCH TRANSDERM PRN (10:41)
[2018-02-24] MEDS ORDERED: MORPHINE SULFATE (100 MG/2 ML) 100 MG in SODIUM CHLORIDE 0.9% 100 ML IV SCH (10:45)
[2018-02-24 14:45] VITALS: PULSE 68; RESP 18
== END 2018-02-24 16:44 | disposition expired | DRG 951 ==
LOC: 6SEL 10:37
PROVIDERS: ADMIT Internal Medicine; ATTEND Internal Medicine
DX: Z51.5 Encounter for palliative care (principal); J96.01 Acute respiratory failure with hypoxia; J15.6 Pneumonia due to other Gram-negative bacteria; I50.31 Acute diastolic (congestive) heart failure; C16.6 Malignant neoplasm of greater curvature of stomach, unspecified; C78.00 Secondary malignant neoplasm of unspecified lung; E03.9 Hypothyroidism, unspecified; E55.9 Vitamin D deficiency, unspecified; J43.9 Emphysema, unspecified; E78.5 Hyperlipidemia, unspecified; I11.0 Hypertensive heart disease with heart failure; M19.91 Primary osteoarthritis, unspecified site; Z79.899 Other long term (current) drug therapy; Z87.891 Personal history of nicotine dependence; Z98.1 Arthrodesis status; Z80.1 Family history of malignant neoplasm of trachea, bronchus and lung; Z80.49 Family history of malignant neoplasm of other genital organs; Z80.41 Family history of malignant neoplasm of ovary; Z80.8 Family history of malignant neoplasm of other organs or systems; Z80.3 Family history of malignant neoplasm of breast; Z80.9 Family history of malignant neoplasm, unspecified; Z82.5 Family history of asthma and other chronic lower respiratory diseases